=== PATIENT | female | born 1985 | race African-American/Black ===

== ENCOUNTER 2016-07-31 01:24 | Emergency (ER) | payer MEDICARE, MEDICAID ==
[~2016-07-31 01:24] MED LIST: ALBU17IN2 INH; BENA25CA2 PO; BENZ1TA PO; BENZ2TA PO; BUSP10TA PO; CELE20TA PO; DIPH50CA29 PO; FERR325T3 PO; IBUP60TA PO; INVE156I IM; INVE234I IM; LOVA20TA2 PO; PRED20TA PO; REME45TA PO; THIO10CA2 PO; TRAZ100T4 PO; TRAZ150T14 PO
[2016-07-31] MEDS ORDERED: ONDANSETRON 4MG/2ML VIAL (J2405) As Ordered ONE (02:45)
[2016-07-31 02:49] LABS: BASO % 0.4 % (0.0-1.0); EOS % 0.4 % (0.0-3.0); LARGE UNSTAINED CELL # 0.1 K/mm3 (0.0-0.4); LARGE UNSTAINED CELL % 1.9 % (0.0-4.0); LYMPH # 1.3 K/mm3 (1.5-6.5); LYMPH % 22.3 % (24.0-44.0); MEAN CORPUSCULAR HEMOGLOBIN 28.8 pg (27.0-33.0); MEAN CORPUSCULAR HGB CONC 33.6 g/dl (32.0-36.5); MEAN CORPUSCULAR VOLUME 85.8 fl (80.0-96.0); MONO # 0.2 K/mm3 (0.0-0.8); MONO % 3.8 % (0.0-5.0); NEUTROPHILS % 71.3 % (36.0-66.0); PLATELET COUNT, AUTOMATED 302 k/mm3 (150-450); WHITE BLOOD COUNT 5.7 K/mm3 (4.0-10.0)
[2016-07-31 03:08] LABS: ANION GAP 12 MEQ/L (8-16); BLOOD UREA NITROGEN 7 MG/DL (7-18); CALCIUM LEVEL 9.4 MG/DL (8.5-10.1); CARBON DIOXIDE LEVEL 25 MEQ/L (21-32); CHLORIDE LEVEL 102 MEQ/L (98-107); CREATININE FOR GFR 1.09 MG/DL (0.55-1.02); GLOMERULAR FILTRATION RATE > 60.0 (>60); GLUCOSE, FASTING 108 MG/DL (70-105); POTASSIUM SERUM 3.8 MEQ/L (3.5-5.1); SODIUM LEVEL 139 MEQ/L (136-145)
--- NOTE | 2016-07-31 03:30 | REPUSA ---
CLINICAL HISTORY: Seizure. TECHNIQUE: Multiple axial brain CT scan sections were obtained from base to vertex without contrast a dministration. COMMENTS: The study shows normal configuration of sella turcica. There are no intra or extra-axial collections. There is no mass effect or midline shift. There is no evidence of hematoma formation. No hydrocephal us is present. No abnormal calcifications are noted. No significant abnormalities are seen either in the posterior fossa or supratentorial compartment. The sinuses and mastoid air cells are patent. IMPRESSION: No evidence of acute intracranial pathology. Thank you for your kind referral of this patient.
[2016-07-31 03:54] LABS: AMPHETAMINES LEVEL URINE NEGATIVE (NEGATIVE); BENZODIAZEPINES URINE NEGATIVE (NEGATIVE); COCAINE METABOLITE URINE NEGATIVE (NEGATIVE); CONTROL LINE INT CTR LINE PRESENT; METHADONE URINE NEGATIVE (NEGATIVE); OPIATES URINE NEGATIVE (NEGATIVE); TRICYCLIC ANTIDEPRESS URINE NEGATIVE (NEGATIVE)
--- NOTE | 2016-07-31 04:37 | EDDOCDS ---
Physician Documentation [facility] Name: Zonia Tripathi Age: 31 yrs Sex: Female : 1985 Arrival Date: 07/31/2016 Time: 01:24 Bed 17 Private MD: No Pcp Disposition: 07/31 04:09 Critical Care: Critical care not applicable. pc Disposition: 07/31/16 04:12 Discharged to Home/Self Care. Impression: Epilepsy and recurrent seizures - reported, not witnessed. - Condition is Stable. - Discharge Instructions: Seizure, Adult. - Medication Reconciliation, Local Pharmacy Hours form. - Follow up: Ana Laura Duncan MD; When: Call to arrange an appointment; Reason: Further diagnostic work-up, To establish care. - Problem is new. - Symptoms are resolved. HPI: 02:24 This 31 yrs old Female presents to ER via Ambulance with complaints of pc Seizure. 02:24 The history is obtained from the patient, EMS providers. A reliable history and/or pc examination was not able to be obtained, due to patient does not remember events . TLS called EMS when a a TLS resident described the patient as having had seizure activity. The staff did not witness the event. When EMS arrived, she vomited. Staff report that she is known to abuse multiple drugs and "will take anything she can get her hands on", per EMS. She says she has felt nauseated today but denies any ingestions. There are no staff members or witnesses present. She denies any complaints other than mild nausea. The patient has been recently seen by a psychiatrist. Historical: - Allergies: no known allergies; - Home Meds: 1. Latuda 60 mg oral tab 1 tab once daily (Last dose: Unknown) 2. buspirone 10 mg Oral tab 2 tabs 3 times per day (Last dose: Unknown) 3. Vitamin D Oral 1,000 unit twice a day (Last dose: Unknown) 4. Cogentin 2 mg Oral tab 1 tab once daily (Last dose: Unknown) 5. Invega Sustenna 156 mg/mL intramuscular syrg once moly 6. olanzapine 10 mg oral tab 1 tab nightly (Last dose: Unknown) 7. Nicotine Unknown TD Unknown (Last dose: Unknown) 8. metformin 500 mg Oral tr24 1 tab once daily (Last dose: Unknown) 9. Ventolin HFA 90 mcg/actuation Nebulizer HFAA 2 puffs as needed (Last dose: Unknown) 10. acetaminophen 650 mg Oral tab 1 tab every 6 hours for headache (Last dose: Unknown) 11. nicotine gum one piece every 3-4 hours while awake (Last dose: Unknown) 12. immodium 2 mg 1 tab as needed (Last dose: Unknown) - PMHx: Asthma; Heart Murmur; Hypertension; Schizophrenia; Cocaine, Cannabis and Alcohol Abuse; - PSHx: Cholecystectomy; Cesearean Section; - The history from nurses notes was reviewed: and elements of the historical information I have obtained differs from that reported to nursing. - Social history: Smoking status: Patient uses tobacco products, light tobacco smoker. No barriers to communication noted, The patient speaks fluent Portuguese. - : The pt / caregiver states he / she is not on anticoagulants. Home medication list is obtained from the patient. - Hospitalizations: : No recent hospitalization is reported. - Exposure Risk Screening:: None identified. - Immunization history:: All immunizations up-to-date. - Family history: Not pertinent. - Social history:: the patient is a former smoker, the patient drinks alcohol, the patient uses illicit drugs, including marijuana, cocaine. 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 pc Exam: 02:27 General Appearance: no acute distress, alert, emesis on pants. pc 02:27 EENT: normal eye inspection, ears, nose and throat normal, pharynx normal, mucous membranes moist 02:27 Neck: The exam reveals no acute abnormalities. ROM is normal and painless. No nuchal rigidity is noted.. 02:27 Respiratory: no respiratory distress, normal breath sounds. 02:27 CVS: regular rhythm, normal S1 and S2, no murmurs, strong peripheral pulses, normal capillary refill, the patient is tachycardic, at 124 bpm. 02:27 Abdomen: soft, non-tender, no organomegaly, normal bowel sounds. 02:27 Back: normal inspection. 02:27 Skin: skin color is normal, warm, dry. 02:27 Extremities: The extremities have a grossly normal appearance, are non-tender, without acute ROM abnormalities. 02:27 Neuro: oriented x 3, cranial nerves normal as tested, no motor deficits, no sensory deficits. 02:27 Psych: normal mood. Vital Signs: 01:39 BP 149 / 87; Pulse 128; Resp 20; Temp 99.6(O); Pulse Ox 94% on R/A; Weight 81.65 kg / jmv 180.01 lbs (R); Height 5 ft. 1 in. (154.94 cm) (R); Pain 0/10; 01:48 BP 131 / 72 (auto/); mgs 01:48 Pulse Ox 94% ; mgs 02:03 BP 130 / 69 (auto/); mgs 02:03 Pulse 116 MON; Pulse Ox 94% ; mgs 02:18 BP 146 / 85 (auto/); mgs 02:18 Pulse 120 MON; mgs 02:49 BP 143 / 90 (auto/); mgs 02:49 Pulse 118 MON; Pulse Ox 97% ; mgs 03:03 BP 126 / 82 (auto/); mgs 03:03 Pulse 110 MON; Pulse Ox 95% ; mgs 03:18 BP 122 / 79 (auto/); mgs 03:18 Pulse 102 MON; Pulse Ox 94% ; mgs 04:26 BP 139 / 78; Pulse 91; Resp 18; Temp 98.1(TE); Pulse Ox 96% on R/A; Pain 0/10; naif 01:39 Body Mass Index 34.01 (81.65 kg, 154.94 cm) jmv MDM: 02:11 IV Saline Lock ordered. pc 02:11 Ondansetron 4 mg IVP once ordered. pc 02:13 ECG WITH READING ER PHYS+CARDIAG ordered. EDMS 02:13 CBC with Diff Ordered. EDMS 02:13 MED Profile Ordered. EDMS 02:13 Acetaminophen Level Ordered. EDMS 02:13 Salicylate Level Ordered. EDMS 02:13 Drug Eval Toxicology ED Only Ordered. EDMS 02:13 CT Head Without Contrast Ordered. EDMS 02:27 Differential Diagnosis: ?seizure; emesis; history of drug abuse. Plan: labs, EKG, meds, pc CT, observe. 02:40 Test interpretation: EKG. pc 03:09 CBC with Diff Reviewed. pc 03:21 MED Profile Reviewed. pc 03:21 Acetaminophen Level Reviewed. pc 03:21 Salicylate Level Reviewed. pc 03:41 Financial registration complete. hs2 03:51 [facility] Payment Agreement was scanned into [employer] and attached to record. hs2 04:09 Drug Eval Toxicology ED Only Reviewed. pc 04:09 CT Head Without Contrast Reviewed. 04:09 Data reviewed: old medical records, vital signs, nurses notes, lab test results, all radiology studies and available results. Data reviewed: EKG(s). Test interpretation: LAB - all labs as ordered have been reviewed, interpreted and considered in the overall management of the clinical presentation; interpreted by Radiologist and personally reviewed, Head CT; no acute disease. The patient has been re-examined and re-evaluated. The patient's symptoms have markedly improved after treatment. Disposition: The historical points, examination findings, and any diagnostic results supporting the provided diagnosis, were discussed with the patient or legal guardian. The need for outpatient follow up with the provider listed on their discharge instructions was discussed. They were encouraged to return to [facility], or the nearest ED, if symptoms worsen/persist, or for any other questions/concerns. EC:40 Rate is 120 beats/min. Rhythm is regular, Sinus tachycardia. QRS Wolbach is Normal. IA pc interval is normal. QRS interval is normal. QT interval is normal. No Q waves. T waves are Normal. No ST changes noted. Clinical impression: Sinus tachycardia. Administered Medications: 02:52 Drug: Ondansetron 4 mg [ondansetron HCl 2 mg/mL intravenous solution (2 mL)] Route: mgs IVP; Site: right antecubital; Signatures: Dispatcher [employer] - Payments Anytime | Anywhere EDMS Addison Goldman MD MD pc Sheldon, Matthew, RN RN mgs Rita Huffman, Reg Reg hs2 The chart was reviewed and I authenticate all verbal orders and agree with the evaluation and treatment provided.Corrections: (The following items were deleted from the chart) 01:52 01:35 Home Meds: BuSpar Oral 15 mg three times a day (Last Dose: Unknown); mgs mgs 03:10 01:47 Home Meds: prazosin 1 mg Oral cap 1 cap nightly (Last Dose: Unknown); mgs mgs Attachments: 03:51 [facility] Payment Agreement hs2 MTDD
--- NOTE | 2016-07-31 04:37 | EDDOCDS ---
Nurse's Notes [facility] Name: Zonia Tripathi Age: 31 yrs Sex: Female : 1985 Arrival Date: 07/31/2016 Time: 01:24 Bed 17 Private MD: No Pcp Diagnosis: Epilepsy and recurrent seizures-reported, not witnessed Presentation: 07/31 01:28 Presenting complaint: EMS states: lives at transitional living. According to staff she ko2 wasn't acting right. Another resident explained seizure like activity, but was not witnessed by staff. When EMS arrived pt was in a daze. Pt vomited in mouth and held it in her mouth. Staff then learned her over and she spit out the vomit. Pt is known to take whatever she can find per staff. Suicide/Homicide risk assessment- the patient denies having any suicidal and/or homicidal ideations and does not present with any other emotional, behavioral or mental health complaints. Status: Patient is not a member service specialist or dependent. Transition of care: patient was not received from another setting of care. Care prior to arrival: See EMS report. Glucose check. 117. 01:28 Acuity: [place] Level 3 ko2 01:28 Method Of Arrival: Ambulance ko2 01:45 Adult Sepsis Screening: The patient does not have new or worsening altered mentation. mgs Patient's respiratory rate is less than 22. Systolic blood pressure is greater than 100. Patient has a qSOFA score of 0- Negative Sepsis Screen. Triage Assessment: 01:35 General: Appears in no apparent distress, Behavior is quiet. Pain: Denies pain. Pt mgs Declines HIV testing. The patient is triaged at the bedside. See Assessment in Nurses Notes section of ED record. Neurological: Level of Consciousness is awake, Oriented to person, place, time, Estimation Manager are equal bilaterally Speech is normal, Facial symmetry appears normal, Facial symmetry: tongue is midline, Pupils are PERRLA. Cardiovascular: Capillary refill < 3 seconds Heart tones S1 S2 present. Cardiovascular: Pulses are 2+ in right radial artery and left radial artery. Respiratory: Airway is patent Respiratory effort is even, unlabored, Respiratory pattern is regular, symmetrical. Derm: Skin is normal. 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 Latuda 60 mg oral tab 1 tab once daily (Last dose: Unknown) 2. buspirone 10 mg Oral tab 2 tabs 3 times per day (Last dose: Unknown) 3. Vitamin D Oral 1,000 unit twice a day (Last dose: Unknown) 4. Cogentin 2 mg Oral tab 1 tab once daily (Last dose: Unknown) 5. Invega Sustenna 156 mg/mL intramuscular syrg once moly 6. olanzapine 10 mg oral tab 1 tab nightly (Last dose: Unknown) 7. Nicotine Unknown TD Unknown (Last dose: Unknown) 8. metformin 500 mg Oral tr24 1 tab once daily (Last dose: Unknown) 9. Ventolin HFA 90 mcg/actuation Nebulizer HFAA 2 puffs as needed (Last dose: Unknown) 10. acetaminophen 650 mg Oral tab 1 tab every 6 hours for headache (Last dose: Unknown) 11. nicotine gum one piece every 3-4 hours while awake (Last dose: Unknown) 12. immodium 2 mg 1 tab as needed (Last dose: Unknown) - PMHx: Asthma; Heart Murmur; Hypertension; Schizophrenia; Cocaine, Cannabis and Alcohol Abuse; - PSHx: Cholecystectomy; Cesearean Section; - The history from nurses notes was reviewed: and elements of the historical information I have obtained differs from that reported to nursing. - Social history: Smoking status: Patient uses tobacco products, light tobacco smoker. No barriers to communication noted, The patient speaks fluent Ethiopian. - : The pt / caregiver states he / she is not on anticoagulants. Home medication list is obtained from the patient. - Hospitalizations: : No recent hospitalization is reported. - Exposure Risk Screening:: None identified. - Immunization history:: All immunizations up-to-date. - Family history: Not pertinent. - Social history:: the patient is a former smoker, the patient drinks alcohol, the patient uses illicit drugs, including marijuana, cocaine. Screenin:38 Screening information is obtained from the patient. Fall risk: No risks identified. mgs Assistance ADL's: requires no assistance with activities of daily living. Abuse/DV Screen: The patient / caregiver reports he/she is: not in a situation that causes fear, pain or injury. Nutritional screening: No deficits noted. Advance Directives: Currently, there is no health care proxy. There is no active DNR order. home support is adequate. Assessment: 01:39 Adult Sepsis Screening: The patient does not have new or worsening altered mentation. mgs Patient's respiratory rate is less than 22. Systolic blood pressure is greater than 100. Patient has a qSOFA score of 0- Negative Sepsis Screen. 01:39 General: Please see triage assessment. mgs 02:42 General: Appears in no apparent distress, Behavior is cooperative. Pain: Denies pain. mgs Neurological: Level of Consciousness is awake, alert. Cardiovascular: Capillary refill < 3 seconds. Respiratory: Airway is patent Respiratory effort is even, unlabored, Respiratory pattern is regular, symmetrical. Derm: Skin is intact, is healthy with good turgor. 03:34 Adult Sepsis Screening: The patient does not have new or worsening altered mentation. mgs Patient's respiratory rate is less than 22. Systolic blood pressure is greater than 100. Patient has a qSOFA score of 0- Negative Sepsis Screen. General: Appears in no apparent distress, Behavior is cooperative. Pain: Denies pain. Neurological: Level of Consciousness is awake, alert. Cardiovascular: Capillary refill < 3 seconds. Respiratory: Airway is patent Respiratory effort is even, unlabored, Respiratory pattern is regular, symmetrical. Derm: Skin is intact, is healthy with good turgor. 04:33 Adult Sepsis Screening: The patient does not have new or worsening altered mentation. mgs Patient's respiratory rate is less than 22. Systolic blood pressure is greater than 100. Patient has a qSOFA score of 0- Negative Sepsis Screen. General: Appears in no apparent distress, Behavior is cooperative. Pain: Denies pain. Neurological: Level of Consciousness is awake, alert, Oriented to person, place, time. Cardiovascular: Capillary refill < 3 seconds. Respiratory: Airway is patent Respiratory effort is even, unlabored, Respiratory pattern is regular, symmetrical. Derm: Skin is intact, is healthy with good turgor. Vital Signs: 01:39 BP 149 / 87; Pulse 128; Resp 20; Temp 99.6(O); Pulse Ox 94% on R/A; Weight 81.65 kg jmv (R); Height 5 ft. 1 in. (154.94 cm) (R); Pain 0/10; 01:48 BP 131 / 72 (auto/); mgs 01:48 Pulse Ox 94% ; mgs 02:03 BP 130 / 69 (auto/); mgs 02:03 Pulse 116 MON; Pulse Ox 94% ; mgs 02:18 BP 146 / 85 (auto/); mgs 02:18 Pulse 120 MON; mgs 02:49 BP 143 / 90 (auto/); mgs 02:49 Pulse 118 MON; Pulse Ox 97% ; mgs 03:03 BP 126 / 82 (auto/); mgs 03:03 Pulse 110 MON; Pulse Ox 95% ; mgs 03:18 BP 122 / 79 (auto/); mgs 03:18 Pulse 102 MON; Pulse Ox 94% ; mgs 04:26 BP 139 / 78; Pulse 91; Resp 18; Temp 98.1(TE); Pulse Ox 96% on R/A; Pain 0/10; naif 01:39 Body Mass Index 34.01 (81.65 kg, 154.94 cm) [facility] Vitals: 01:39 Log In Time N/A - ambulance arrival. [facility] ED Course: 01:25 Patient visited by Ana Kumari. sew 01:25 Patient moved to 17 sew 01:25 Seizure precautions initiated. mgs 01:26 No Pcp is Private Physician. sew 01:31 Dileep Strauss,RN is Primary Nurse. mgs 01:31 Triage Initiated ko2 01:38 Pt greeted and oriented to ED. Patient advised of names of staff involved in care, [facility] location of call [place], wait times and NPO status. Patient has correct armband on for positive identification. Placed in gown. Bed in low position. Call light in reach. Side rails up X2. ekg monitor tech on. Pulse ox on. NIBP on. 01:41 Patient visited by Bruce Colon PCA. jmv 01:51 Addison Goldman MD is Attending Physician. pc 02:05 Patient visited by Addison Goldman MD. pc 02:36 EKG done. (by ED staff). Reviewed by Addison Goldman MD. naif 02:42 Salicylate Level Sent. mgs 02:42 Acetaminophen Level Sent. mgs 02:42 MED Profile Sent. mgs 02:42 CBC with Diff Sent. mgs 02:42 Inserted saline lock: 20 gauge in right antecubital area and blood collected. The mgs patient tolerated the procedure well. 02:43 Patient visited by Dileep Strauss,TRAVIS. mgs 03:33 Drug Eval Toxicology ED Only Sent. mgs 03:34 Patient visited by Dileep Strauss RN. mgs 03:38 CT Head Without Contrast Returned. EDMS 03:51 [facility] Payment Agreement was scanned into [employer] and attached to record. hs2 04:12 Ana Laura Duncan MD is Referral Physician. pc 04:27 Patient visited by Shyla Guevara PCA. naif 04:33 The patient / caregiver is instructed regarding the plan of care and ED course. mgs 04:35 Discontinued IV lock intact, bleeding controlled, pressure dressing applied. No mgs procedures done that require assistance. Administered Medications: 02:52 Drug: Ondansetron 4 mg [ondansetron HCl 2 mg/mL intravenous solution (2 mL)] Route: mgs IVP; Site: right antecubital; Order Results: Lab Order: CBC with Diff; SPEC'M 07/31/16 02:41 Test: WHITE BLOOD COUNT; Value: 5.7; Range: 4.0-10.0; Units: K/mm3; Status: F Test: RED BLOOD COUNT; Value: 4.17; Range: 4.00-5.40; Units: M/mm3; Status: F Test: HEMOGLOBIN; Value: 12.0; Range: 12.0-16.0; Units: g/dl; Status: F Test: HEMATOCRIT; Value: 35.8; Range: 36.0-47.0; Abnormal: Below low normal; Units: %; Status: F Test: MEAN CORPUSCULAR VOLUME; Value: 85.8; Range: 80.0-96.0; Units: fl; Status: F Test: MEAN CORPUSCULAR HEMOGLOBIN; Value: 28.8; Range: 27.0-33.0; Units: pg; Status: F Test: MEAN CORPUSCULAR HGB CONC; Value: 33.6; Range: 32.0-36.5; Units: g/dl; Status: F Test: RED CELL DISTRIBUTION WIDTH; Value: 13.0; Range: 11.5-14.5; Units: %; Status: F Test: PLATELET COUNT, AUTOMATED; Value: 302; Range: 150-450; Units: k/mm3; Status: F Test: NEUTROPHILS %; Value: 71.3; Range: 36.0-66.0; Abnormal: Above high normal; Units: %; Status: F Test: LYMPH %; Value: 22.3; Range: 24.0-44.0; Abnormal: Below low normal; Units: %; Status: F Test: MONO %; Value: 3.8; Range: 0.0-5.0; Units: %; Status: F Test: EOS %; Value: 0.4; Range: 0.0-3.0; Units: %; Status: F Test: BASO %; Value: 0.4; Range: 0.0-1.0; Units: %; Status: F Test: LARGE UNSTAINED CELL %; Value: 1.9; Range: 0.0-4.0; Units: %; Status: F Test: NEUTROPHILS #; Value: 4.0; Range: 1.8-7.7; Units: K/mm3; Status: F Test: LYMPH #; Value: 1.3; Range: 1.5-6.5; Abnormal: Below low normal; Units: K/mm3; Status: F Test: MONO #; Value: 0.2; Range: 0.0-0.8; Units: K/mm3; Status: F Test: EOS #; Value: 0.0; Range: 0.0-0.50; Units: K/mm3; Status: F Test: BASO #; Value: 0.0; Range: 0.0-0.2; Units: K/mm3; Status: F Test: LARGE UNSTAINED CELL #; Value: 0.1; Range: 0.0-0.4; Units: K/mm3; Status: F Lab Order: MED Profile; SPEC'M 07/31/16 02:41 Test: GLUCOSE, FASTING; Value: 108; Range: 70-105; Abnormal: Above high normal; Units: MG/DL; Status: F Test: BLOOD UREA NITROGEN; Value: 7; Range: 7-18; Units: MG/DL; Status: F Test: CREATININE FOR GFR; Value: 1.09; Range: 0.55-1.02; Abnormal: Above high normal; Units: MG/DL; Status: F Test: GLOMERULAR FILTRATION RATE; Value: > 60.0; Range: >60; Status: F Test: SODIUM LEVEL; Value: 139; Range: 136-145; Units: MEQ/L; Status: F Test: POTASSIUM SERUM; Value: 3.8; Range: 3.5-5.1; Units: MEQ/L; Status: F Test: CHLORIDE LEVEL; Value: 102; Range: 98-107; Units: MEQ/L; Status: F Test: CARBON DIOXIDE LEVEL; Value: 25; Range: 21-32; Units: MEQ/L; Status: F Test: ANION GAP; Value: 12; Range: 8-16; Units: MEQ/L; Status: F Test: CALCIUM LEVEL; Value: 9.4; Range: 8.5-10.1; Units: MG/DL; Status: F Test Note: ; Units are mL/min/1.73 m2 Chronic Kidney Disease Staging per NKF: Stage I & II GFR >=60 Normal to Mildly Decreased Stage III GFR 30-59 Moderately Decreased Stage IV GFR 15-29 Severely Decreased Stage V GFR <15 Very Little GFR Left ESRD GFR <15 on SCREEN PRINTING EQUIPMENT SETTER Lab Order: Acetaminophen Level; SPEC'M 07/31/16 02:41 Test: ACETAMINOPHEN LEVEL; Value: < 2.0; Range: 10.0-30.0; Abnormal: Below low normal; Units: UG/ML; Status: F Lab Order: Salicylate Level; SPEC'M 07/31/16 02:41 Test: SALICYLATE LEVEL; Value: < 1.7; Range: 5.0-30.0; Abnormal: Below low normal; Units: MG/DL; Status: F Lab Order: Drug Eval Toxicology ED Only; SPEC'M 07/31/16 03:31 Test: AMPHETAMINES LEVEL URINE; Value: NEGATIVE; Range: NEGATIVE; Status: F Test: BARBITURATES URINE; Value: NEGATIVE; Range: NEGATIVE; Status: F Test: BENZODIAZEPINES URINE; Value: NEGATIVE; Range: NEGATIVE; Status: F Test: CANNABINOIDS URINE; Value: NEGATIVE; Range: NEGATIVE; Status: F Test: COCAINE METABOLITE URINE; Value: NEGATIVE; Range: NEGATIVE; Status: F Test: METHADONE URINE; Value: NEGATIVE; Range: NEGATIVE; Status: F Test: OPIATES URINE; Value: NEGATIVE; Range: NEGATIVE; Status: F Test: TRICYCLIC ANTIDEPRESS URINE; Value: NEGATIVE; Range: NEGATIVE; Status: F Test Note: ; ALL PRESUMPTIVE POSITIVE FINDINGS ARE UNCONFIRMED NORMAL VALUES THRESHOLD IN NG/ML AMPHETAMINES 1000 METHAMPHETAMINES 1000 BARBITURATES 300 BENZODIAZEPINES 300 CANNABINOIDS (THC) 50 COCAINE METABOLITE 300 METHADONE 300 OPIATES 300 PHENCYCLIDINE 25 TRICYCLIC ANTIDEPRESSANTS 1000 RESULTS ARE FOR MEDICAL PURPOSES ONLY. ALL URINE SPECIMENS WILL BE SAVED FOR 3 DAYS. IF CONFIRMATION OF A PRESUMPTIVE POSTIVE SCREEN RESULT IS DESIRED, CALL CHEMISTRY ([phone]) AND REQUEST URINE TO BE SENT TO REFERENCE LAB. FOR A LIST OF CLOSELY RELATED COMPOUNDS PLEASE CALL THE LAB. Radiology Order: CT Head Without Contrast Test: CT Head Without Contrast REASON FOR EXAMINATION: seizure; ; CLINICAL HISTORY: Seizure.; TECHNIQUE: Multiple axial brain CT scan sections were obtained from base to vertex without contrast a; dministration.; COMMENTS:; The study shows normal configuration of sella turcica. There are no intra or extra-axial collections.; There is no mass effect or midline shift. There is no evidence of hematoma formation. No hydrocephal; us is present. No abnormal calcifications are noted.; No significant abnormalities are seen either in the posterior fossa or supratentorial compartment.; The sinuses and mastoid air cells are patent.; IMPRESSION:; No evidence of acute intracranial pathology.; Thank you for your kind referral of this patient.; ; Outcome: 04:12 Discharge ordered by Provider. pc 04:35 Discharge Assessment: Patient awake, alert and oriented x 3. No cognitive and/or mgs functional deficits noted. Patient verbalized understanding of disposition instructions. patient administered narcotics - no. The following High Risk Discharge criteria are identified:. Condition: stable. Discharge instructions given to patient, Instructed on discharge instructions, follow up and referral plans. Demonstrated understanding of instructions, Pt was receptive of discharge instructions/ teaching. CT Study completed. Property sent home with patient. 04:36 Patient left the ED. mgs Signatures: Dispatcher [employer] EDMS Addison Goldman MD MD pc Ewald, Destiny, JAVA SOLUTIONS ARCHITECT JAVA SOLUTIONS ARCHITECT Ana Chao Kari,RN RN ko2 Dileep Strauss RN RN mgs Rita Huffman, Reg Reg hs2 Bruce Colon, JAVA SOLUTIONS ARCHITECT JAVA SOLUTIONS ARCHITECT svetlana Corrections: (The following items were deleted from the chart) 01:52 01:35 Home Meds: BuSpar Oral 15 mg three times a day (Last Dose: Unknown); mgs mgs 03:10 01:47 Home Meds: prazosin 1 mg Oral cap 1 cap nightly (Last Dose: Unknown); mgs mgs MTDD
--- NOTE | 2016-07-31 08:15 | ECGEPIP ---
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
--- NOTE | 2016-08-02 05:37 | EDDOCDS ---
Physician Documentation [facility] Name: Zonia Tripathi Age: 31 yrs Sex: Female : 1985 Arrival Date: 07/31/2016 Time: 01:24 Bed 17 Private MD: No Pcp Disposition: 07/31 04:09 Critical Care: Critical care not applicable. pc Disposition: 07/31/16 04:12 Discharged to Home/Self Care. Impression: Epilepsy and recurrent seizures - reported, not witnessed. - Condition is Stable. - Discharge Instructions: Seizure, Adult. - Medication Reconciliation, Local Pharmacy Hours form. - Follow up: Ana Laura Duncan MD; When: Call to arrange an appointment; Reason: Further diagnostic work-up, To establish care. - Problem is new. - Symptoms are resolved. HPI: 02:24 This 31 yrs old Female presents to ER via Ambulance with complaints of pc Seizure. 02:24 The history is obtained from the patient, EMS providers. A reliable history and/or pc examination was not able to be obtained, due to patient does not remember events . TLS called EMS when a a TLS resident described the patient as having had seizure activity. The staff did not witness the event. When EMS arrived, she vomited. Staff report that she is known to abuse multiple drugs and "will take anything she can get her hands on", per EMS. She says she has felt nauseated today but denies any ingestions. There are no staff members or witnesses present. She denies any complaints other than mild nausea. The patient has been recently seen by a psychiatrist. Historical: - Allergies: no known allergies; - Home Meds: 1. Latuda 60 mg oral tab 1 tab once daily (Last dose: Unknown) 2. buspirone 10 mg Oral tab 2 tabs 3 times per day (Last dose: Unknown) 3. Vitamin D Oral 1,000 unit twice a day (Last dose: Unknown) 4. Cogentin 2 mg Oral tab 1 tab once daily (Last dose: Unknown) 5. Invega Sustenna 156 mg/mL intramuscular syrg once moly 6. olanzapine 10 mg oral tab 1 tab nightly (Last dose: Unknown) 7. Nicotine Unknown TD Unknown (Last dose: Unknown) 8. metformin 500 mg Oral tr24 1 tab once daily (Last dose: Unknown) 9. Ventolin HFA 90 mcg/actuation Nebulizer HFAA 2 puffs as needed (Last dose: Unknown) 10. acetaminophen 650 mg Oral tab 1 tab every 6 hours for headache (Last dose: Unknown) 11. nicotine gum one piece every 3-4 hours while awake (Last dose: Unknown) 12. immodium 2 mg 1 tab as needed (Last dose: Unknown) - PMHx: Asthma; Heart Murmur; Hypertension; Schizophrenia; Cocaine, Cannabis and Alcohol Abuse; - PSHx: Cholecystectomy; Cesearean Section; - The history from nurses notes was reviewed: and elements of the historical information I have obtained differs from that reported to nursing. - Social history: Smoking status: Patient uses tobacco products, light tobacco smoker. No barriers to communication noted, The patient speaks fluent Danish. - : The pt / caregiver states he / she is not on anticoagulants. Home medication list is obtained from the patient. - Hospitalizations: : No recent hospitalization is reported. - Exposure Risk Screening:: None identified. - Immunization history:: All immunizations up-to-date. - Family history: Not pertinent. - Social history:: the patient is a former smoker, the patient drinks alcohol, the patient uses illicit drugs, including marijuana, cocaine. 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 pc Exam: 02:27 General Appearance: no acute distress, alert, emesis on pants. pc 02:27 EENT: normal eye inspection, ears, nose and throat normal, pharynx normal, mucous membranes moist 02:27 Neck: The exam reveals no acute abnormalities. ROM is normal and painless. No nuchal rigidity is noted.. 02:27 Respiratory: no respiratory distress, normal breath sounds. 02:27 CVS: regular rhythm, normal S1 and S2, no murmurs, strong peripheral pulses, normal capillary refill, the patient is tachycardic, at 124 bpm. 02:27 Abdomen: soft, non-tender, no organomegaly, normal bowel sounds. 02:27 Back: normal inspection. 02:27 Skin: skin color is normal, warm, dry. 02:27 Extremities: The extremities have a grossly normal appearance, are non-tender, without acute ROM abnormalities. 02:27 Neuro: oriented x 3, cranial nerves normal as tested, no motor deficits, no sensory deficits. 02:27 Psych: normal mood. Vital Signs: 01:39 BP 149 / 87; Pulse 128; Resp 20; Temp 99.6(O); Pulse Ox 94% on R/A; Weight 81.65 kg / jmv 180.01 lbs (R); Height 5 ft. 1 in. (154.94 cm) (R); Pain 0/10; 01:48 BP 131 / 72 (auto/); mgs 01:48 Pulse Ox 94% ; mgs 02:03 BP 130 / 69 (auto/); mgs 02:03 Pulse 116 MON; Pulse Ox 94% ; mgs 02:18 BP 146 / 85 (auto/); mgs 02:18 Pulse 120 MON; mgs 02:49 BP 143 / 90 (auto/); mgs 02:49 Pulse 118 MON; Pulse Ox 97% ; mgs 03:03 BP 126 / 82 (auto/); mgs 03:03 Pulse 110 MON; Pulse Ox 95% ; mgs 03:18 BP 122 / 79 (auto/); mgs 03:18 Pulse 102 MON; Pulse Ox 94% ; mgs 04:26 BP 139 / 78; Pulse 91; Resp 18; Temp 98.1(TE); Pulse Ox 96% on R/A; Pain 0/10; naif 01:39 Body Mass Index 34.01 (81.65 kg, 154.94 cm) jmv MDM: 02:11 IV Saline Lock ordered. pc 02:11 Ondansetron 4 mg IVP once ordered. pc 02:13 ECG WITH READING ER PHYS+CARDIAG ordered. EDMS 02:13 CBC with Diff Ordered. EDMS 02:13 MED Profile Ordered. EDMS 02:13 Acetaminophen Level Ordered. EDMS 02:13 Salicylate Level Ordered. EDMS 02:13 Drug Eval Toxicology ED Only Ordered. EDMS 02:13 CT Head Without Contrast Ordered. EDMS 02:27 Differential Diagnosis: ?seizure; emesis; history of drug abuse. Plan: labs, EKG, meds, pc CT, observe. 02:40 Test interpretation: EKG. pc 03:09 CBC with Diff Reviewed. pc 03:21 MED Profile Reviewed. pc 03:21 Acetaminophen Level Reviewed. pc 03:21 Salicylate Level Reviewed. pc 03:41 Financial registration complete. hs2 03:51 [facility] Payment Agreement was scanned into [employer] and attached to record. hs2 04:09 Drug Eval Toxicology ED Only Reviewed. pc 04:09 CT Head Without Contrast Reviewed. 04:09 Data reviewed: old medical records, vital signs, nurses notes, lab test results, all radiology studies and available results. Data reviewed: EKG(s). Test interpretation: LAB - all labs as ordered have been reviewed, interpreted and considered in the overall management of the clinical presentation; interpreted by Radiologist and personally reviewed, Head CT; no acute disease. The patient has been re-examined and re-evaluated. The patient's symptoms have markedly improved after treatment. Disposition: The historical points, examination findings, and any diagnostic results supporting the provided diagnosis, were discussed with the patient or legal guardian. The need for outpatient follow up with the provider listed on their discharge instructions was discussed. They were encouraged to return to [facility], or the nearest ED, if symptoms worsen/persist, or for any other questions/concerns. 12:29 ECG/EKG was scanned into [employer] and attached to record. EC:40 Rate is 120 beats/min. Rhythm is regular, Sinus tachycardia. QRS [place] is Normal. [place] pc interval is normal. QRS interval is normal. QT interval is normal. No Q waves. T waves are Normal. No ST changes noted. Clinical impression: Sinus tachycardia. Administered Medications: 02:52 Drug: Ondansetron 4 mg [ondansetron HCl 2 mg/mL intravenous solution (2 mL)] Route: mgs IVP; Site: right antecubital; Signatures: Dispatcher MedHo EDMS Addison Goldman MD MD Dorinda Magana, Reg Reg Dileep Strauss RN RN mgs Rita Huffman, Reg Reg hs2 The chart was reviewed and I authenticate all verbal orders and agree with the evaluation and treatment provided.Corrections: (The following items were deleted from the chart) 01:52 01:35 Home Meds: BuSpar Oral 15 mg three times a day (Last Dose: Unknown); mgs mgs 03:10 01:47 Home Meds: prazosin 1 mg Oral cap 1 cap nightly (Last Dose: Unknown); mgs mgs Attachments: 03:51 [facility] Payment Agreement hs2 12:29 ECG/EKG Chart Complete MTDD
--- NOTE | 2016-08-02 05:37 | EDDOCDS ---
Physician Documentation [facility] Name: Zonia Tripathi Age: 31 yrs Sex: Female : 1985 Arrival Date: 07/31/2016 Time: 01:24 Bed 17 Private MD: No Pcp Disposition: 07/31 04:09 Critical Care: Critical care not applicable. pc Disposition: 07/31/16 04:12 Discharged to Home/Self Care. Impression: Epilepsy and recurrent seizures - reported, not witnessed. - Condition is Stable. - Discharge Instructions: Seizure, Adult. - Medication Reconciliation, Local Pharmacy Hours form. - Follow up: Ana Laura Duncan MD; When: Call to arrange an appointment; Reason: Further diagnostic work-up, To establish care. - Problem is new. - Symptoms are resolved. HPI: 02:24 This 31 yrs old Female presents to ER via Ambulance with complaints of pc Seizure. 02:24 The history is obtained from the patient, EMS providers. A reliable history and/or pc examination was not able to be obtained, due to patient does not remember events . TLS called EMS when a a TLS resident described the patient as having had seizure activity. The staff did not witness the event. When EMS arrived, she vomited. Staff report that she is known to abuse multiple drugs and "will take anything she can get her hands on", per EMS. She says she has felt nauseated today but denies any ingestions. There are no staff members or witnesses present. She denies any complaints other than mild nausea. The patient has been recently seen by a psychiatrist. Historical: - Allergies: no known allergies; - Home Meds: 1. Latuda 60 mg oral tab 1 tab once daily (Last dose: Unknown) 2. buspirone 10 mg Oral tab 2 tabs 3 times per day (Last dose: Unknown) 3. Vitamin D Oral 1,000 unit twice a day (Last dose: Unknown) 4. Cogentin 2 mg Oral tab 1 tab once daily (Last dose: Unknown) 5. Invega Sustenna 156 mg/mL intramuscular syrg once moly 6. olanzapine 10 mg oral tab 1 tab nightly (Last dose: Unknown) 7. Nicotine Unknown TD Unknown (Last dose: Unknown) 8. metformin 500 mg Oral tr24 1 tab once daily (Last dose: Unknown) 9. Ventolin HFA 90 mcg/actuation Nebulizer HFAA 2 puffs as needed (Last dose: Unknown) 10. acetaminophen 650 mg Oral tab 1 tab every 6 hours for headache (Last dose: Unknown) 11. nicotine gum one piece every 3-4 hours while awake (Last dose: Unknown) 12. immodium 2 mg 1 tab as needed (Last dose: Unknown) - PMHx: Asthma; Heart Murmur; Hypertension; Schizophrenia; Cocaine, Cannabis and Alcohol Abuse; - PSHx: Cholecystectomy; Cesearean Section; - The history from nurses notes was reviewed: and elements of the historical information I have obtained differs from that reported to nursing. - Social history: Smoking status: Patient uses tobacco products, light tobacco smoker. No barriers to communication noted, The patient speaks fluent Latvian. - : The pt / caregiver states he / she is not on anticoagulants. Home medication list is obtained from the patient. - Hospitalizations: : No recent hospitalization is reported. - Exposure Risk Screening:: None identified. - Immunization history:: All immunizations up-to-date. - Family history: Not pertinent. - Social history:: the patient is a former smoker, the patient drinks alcohol, the patient uses illicit drugs, including marijuana, cocaine. 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 pc Exam: 02:27 General Appearance: no acute distress, alert, emesis on pants. pc 02:27 EENT: normal eye inspection, ears, nose and throat normal, pharynx normal, mucous membranes moist 02:27 Neck: The exam reveals no acute abnormalities. ROM is normal and painless. No nuchal rigidity is noted.. 02:27 Respiratory: no respiratory distress, normal breath sounds. 02:27 CVS: regular rhythm, normal S1 and S2, no murmurs, strong peripheral pulses, normal capillary refill, the patient is tachycardic, at 124 bpm. 02:27 Abdomen: soft, non-tender, no organomegaly, normal bowel sounds. 02:27 Back: normal inspection. 02:27 Skin: skin color is normal, warm, dry. 02:27 Extremities: The extremities have a grossly normal appearance, are non-tender, without acute ROM abnormalities. 02:27 Neuro: oriented x 3, cranial nerves normal as tested, no motor deficits, no sensory deficits. 02:27 Psych: normal mood. Vital Signs: 01:39 BP 149 / 87; Pulse 128; Resp 20; Temp 99.6(O); Pulse Ox 94% on R/A; Weight 81.65 kg / jmv 180.01 lbs (R); Height 5 ft. 1 in. (154.94 cm) (R); Pain 0/10; 01:48 BP 131 / 72 (auto/); mgs 01:48 Pulse Ox 94% ; mgs 02:03 BP 130 / 69 (auto/); mgs 02:03 Pulse 116 MON; Pulse Ox 94% ; mgs 02:18 BP 146 / 85 (auto/); mgs 02:18 Pulse 120 MON; mgs 02:49 BP 143 / 90 (auto/); mgs 02:49 Pulse 118 MON; Pulse Ox 97% ; mgs 03:03 BP 126 / 82 (auto/); mgs 03:03 Pulse 110 MON; Pulse Ox 95% ; mgs 03:18 BP 122 / 79 (auto/); mgs 03:18 Pulse 102 MON; Pulse Ox 94% ; mgs 04:26 BP 139 / 78; Pulse 91; Resp 18; Temp 98.1(TE); Pulse Ox 96% on R/A; Pain 0/10; naif 01:39 Body Mass Index 34.01 (81.65 kg, 154.94 cm) jmv MDM: 02:11 IV Saline Lock ordered. pc 02:11 Ondansetron 4 mg IVP once ordered. pc 02:13 ECG WITH READING ER PHYS+CARDIAG ordered. EDMS 02:13 CBC with Diff Ordered. EDMS 02:13 MED Profile Ordered. EDMS 02:13 Acetaminophen Level Ordered. EDMS 02:13 Salicylate Level Ordered. EDMS 02:13 Drug Eval Toxicology ED Only Ordered. EDMS 02:13 CT Head Without Contrast Ordered. EDMS 02:27 Differential Diagnosis: ?seizure; emesis; history of drug abuse. Plan: labs, EKG, meds, pc CT, observe. 02:40 Test interpretation: EKG. pc 03:09 CBC with Diff Reviewed. pc 03:21 MED Profile Reviewed. pc 03:21 Acetaminophen Level Reviewed. pc 03:21 Salicylate Level Reviewed. pc 03:41 Financial registration complete. hs2 03:51 [facility] Payment Agreement was scanned into [employer] and attached to record. hs2 04:09 Drug Eval Toxicology ED Only Reviewed. pc 04:09 CT Head Without Contrast Reviewed. 04:09 Data reviewed: old medical records, vital signs, nurses notes, lab test results, all radiology studies and available results. Data reviewed: EKG(s). Test interpretation: LAB - all labs as ordered have been reviewed, interpreted and considered in the overall management of the clinical presentation; interpreted by Radiologist and personally reviewed, Head CT; no acute disease. The patient has been re-examined and re-evaluated. The patient's symptoms have markedly improved after treatment. Disposition: The historical points, examination findings, and any diagnostic results supporting the provided diagnosis, were discussed with the patient or legal guardian. The need for outpatient follow up with the provider listed on their discharge instructions was discussed. They were encouraged to return to [facility], or the nearest ED, if symptoms worsen/persist, or for any other questions/concerns. 12:29 ECG/EKG was scanned into [employer] and attached to record. EC:40 Rate is 120 beats/min. Rhythm is regular, Sinus tachycardia. QRS [place] is Normal. [place] pc interval is normal. QRS interval is normal. QT interval is normal. No Q waves. T waves are Normal. No ST changes noted. Clinical impression: Sinus tachycardia. Administered Medications: 02:52 Drug: Ondansetron 4 mg [ondansetron HCl 2 mg/mL intravenous solution (2 mL)] Route: mgs IVP; Site: right antecubital; Signatures: Dispatcher MedHo EDMS Addison Goldman MD MD Dorinda Magana, Reg Reg Dileep Strauss RN RN mgs Rita Huffman, Reg Reg hs2 The chart was reviewed and I authenticate all verbal orders and agree with the evaluation and treatment provided.Corrections: (The following items were deleted from the chart) 01:52 01:35 Home Meds: BuSpar Oral 15 mg three times a day (Last Dose: Unknown); mgs mgs 03:10 01:47 Home Meds: prazosin 1 mg Oral cap 1 cap nightly (Last Dose: Unknown); mgs mgs Attachments: 03:51 [facility] Payment Agreement hs2 12:29 ECG/EKG Chart Complete MTDD
--- NOTE | 2016-08-02 05:37 | EDDOCDS ---
Nurse's Notes [facility] Name: Karen Tripathi Age: 31 yrs Sex: Female : 1985 Arrival Date: 07/31/2016 Time: 01:24 Bed 17 Private MD: No Pcp Diagnosis: Epilepsy and recurrent seizures-reported, not witnessed Presentation: 07/31 01:28 Presenting complaint: EMS states: lives at transitional living. According to staff she ko2 wasn't acting right. Another resident explained seizure like activity, but was not witnessed by staff. When EMS arrived pt was in a daze. Pt vomited in mouth and held it in her mouth. Staff then learned her over and she spit out the vomit. Pt is known to take whatever she can find per staff. Suicide/Homicide risk assessment- the patient denies having any suicidal and/or homicidal ideations and does not present with any other emotional, behavioral or mental health complaints. Status: Patient is not a public health service officer or dependent. Transition of care: patient was not received from another setting of care. Care prior to arrival: See EMS report. Glucose check. 117. 01:28 Acuity: [place] Level 3 ko2 01:28 Method Of Arrival: Ambulance ko2 01:45 Adult Sepsis Screening: The patient does not have new or worsening altered mentation. mgs Patient's respiratory rate is less than 22. Systolic blood pressure is greater than 100. Patient has a qSOFA score of 0- Negative Sepsis Screen. Triage Assessment: 01:35 General: Appears in no apparent distress, Behavior is quiet. Pain: Denies pain. Pt mgs Declines HIV testing. The patient is triaged at the bedside. See Assessment in Nurses Notes section of ED record. Neurological: Level of Consciousness is awake, Oriented to person, place, time, Flask Pusher are equal bilaterally Speech is normal, Facial symmetry appears normal, Facial symmetry: tongue is midline, Pupils are PERRLA. Cardiovascular: Capillary refill < 3 seconds Heart tones S1 S2 present. Cardiovascular: Pulses are 2+ in right radial artery and left radial artery. Respiratory: Airway is patent Respiratory effort is even, unlabored, Respiratory pattern is regular, symmetrical. Derm: Skin is normal. LABORER TANBARK: 01:39 2, Full Term 2 mgs Historical: - Allergies: no known allergies; - Home Meds: 1. Latuda 60 mg oral tab 1 tab once daily (Last dose: Unknown) 2. buspirone 10 mg Oral tab 2 tabs 3 times per day (Last dose: Unknown) 3. Vitamin D Oral 1,000 unit twice a day (Last dose: Unknown) 4. Cogentin 2 mg Oral tab 1 tab once daily (Last dose: Unknown) 5. Invega Sustenna 156 mg/mL intramuscular syrg once moly 6. olanzapine 10 mg oral tab 1 tab nightly (Last dose: Unknown) 7. Nicotine Unknown TD Unknown (Last dose: Unknown) 8. metformin 500 mg Oral tr24 1 tab once daily (Last dose: Unknown) 9. Ventolin HFA 90 mcg/actuation Nebulizer HFAA 2 puffs as needed (Last dose: Unknown) 10. acetaminophen 650 mg Oral tab 1 tab every 6 hours for headache (Last dose: Unknown) 11. nicotine gum one piece every 3-4 hours while awake (Last dose: Unknown) 12. immodium 2 mg 1 tab as needed (Last dose: Unknown) - PMHx: Asthma; Heart Murmur; Hypertension; Schizophrenia; Cocaine, Cannabis and Alcohol Abuse; - PSHx: Cholecystectomy; Cesearean Section; - The history from nurses notes was reviewed: and elements of the historical information I have obtained differs from that reported to nursing. - Social history: Smoking status: Patient uses tobacco products, light tobacco smoker. No barriers to communication noted, The patient speaks fluent Canadian. - : The pt / caregiver states he / she is not on anticoagulants. Home medication list is obtained from the patient. - Hospitalizations: : No recent hospitalization is reported. - Exposure Risk Screening:: None identified. - Immunization history:: All immunizations up-to-date. - Family history: Not pertinent. - Social history:: the patient is a former smoker, the patient drinks alcohol, the patient uses illicit drugs, including marijuana, cocaine. Screenin:38 Screening information is obtained from the patient. Fall risk: No risks identified. mgs Assistance ADL's: requires no assistance with activities of daily living. Abuse/DV Screen: The patient / caregiver reports he/she is: not in a situation that causes fear, pain or injury. Nutritional screening: No deficits noted. Advance Directives: Currently, there is no health care proxy. There is no active DNR order. home support is adequate. Assessment: 01:39 Adult Sepsis Screening: The patient does not have new or worsening altered mentation. mgs Patient's respiratory rate is less than 22. Systolic blood pressure is greater than 100. Patient has a qSOFA score of 0- Negative Sepsis Screen. 01:39 General: Please see triage assessment. mgs 02:42 General: Appears in no apparent distress, Behavior is cooperative. Pain: Denies pain. mgs Neurological: Level of Consciousness is awake, alert. Cardiovascular: Capillary refill < 3 seconds. Respiratory: Airway is patent Respiratory effort is even, unlabored, Respiratory pattern is regular, symmetrical. Derm: Skin is intact, is healthy with good turgor. 03:34 Adult Sepsis Screening: The patient does not have new or worsening altered mentation. mgs Patient's respiratory rate is less than 22. Systolic blood pressure is greater than 100. Patient has a qSOFA score of 0- Negative Sepsis Screen. General: Appears in no apparent distress, Behavior is cooperative. Pain: Denies pain. Neurological: Level of Consciousness is awake, alert. Cardiovascular: Capillary refill < 3 seconds. Respiratory: Airway is patent Respiratory effort is even, unlabored, Respiratory pattern is regular, symmetrical. Derm: Skin is intact, is healthy with good turgor. 04:33 Adult Sepsis Screening: The patient does not have new or worsening altered mentation. mgs Patient's respiratory rate is less than 22. Systolic blood pressure is greater than 100. Patient has a qSOFA score of 0- Negative Sepsis Screen. General: Appears in no apparent distress, Behavior is cooperative. Pain: Denies pain. Neurological: Level of Consciousness is awake, alert, Oriented to person, place, time. Cardiovascular: Capillary refill < 3 seconds. Respiratory: Airway is patent Respiratory effort is even, unlabored, Respiratory pattern is regular, symmetrical. Derm: Skin is intact, is healthy with good turgor. Vital Signs: 01:39 BP 149 / 87; Pulse 128; Resp 20; Temp 99.6(O); Pulse Ox 94% on R/A; Weight 81.65 kg jmv (R); Height 5 ft. 1 in. (154.94 cm) (R); Pain 0/10; 01:48 BP 131 / 72 (auto/); mgs 01:48 Pulse Ox 94% ; mgs 02:03 BP 130 / 69 (auto/); mgs 02:03 Pulse 116 MON; Pulse Ox 94% ; mgs 02:18 BP 146 / 85 (auto/); mgs 02:18 Pulse 120 MON; mgs 02:49 BP 143 / 90 (auto/); mgs 02:49 Pulse 118 MON; Pulse Ox 97% ; mgs 03:03 BP 126 / 82 (auto/); mgs 03:03 Pulse 110 MON; Pulse Ox 95% ; mgs 03:18 BP 122 / 79 (auto/); mgs 03:18 Pulse 102 MON; Pulse Ox 94% ; mgs 04:26 BP 139 / 78; Pulse 91; Resp 18; Temp 98.1(TE); Pulse Ox 96% on R/A; Pain 0/10; naif 01:39 Body Mass Index 34.01 (81.65 kg, 154.94 cm) [facility] Vitals: 01:39 Log In Time N/A - ambulance [place] [facility] [place]: 01:25 Patient visited by Ana Kumari. sew 01:25 Patient moved to 17 sew 01:25 Seizure precautions initiated. mgs 01:26 No Pcp is Private Physician. sew 01:31 Dileep Strauss,RN is Primary Nurse. mgs 01:31 Triage Initiated ko2 01:38 Pt greeted and oriented to ED. Patient advised of names of staff involved in care, [facility] location of call [place], wait times and NPO status. Patient has correct armband on for positive identification. Placed in gown. Bed in low position. Call light in reach. Side rails up X2. party bus driver on. Pulse ox on. NIBP on. 01:41 Patient visited by Bruce Colon PCA. jmv 01:51 Addison Goldman MD is Attending Physician. pc 02:05 Patient visited by Addison Goldman MD. pc 02:36 EKG done. (by ED staff). Reviewed by Addison Goldman MD. naif 02:42 Salicylate Level Sent. mgs 02:42 Acetaminophen Level Sent. mgs 02:42 MED Profile Sent. mgs 02:42 CBC with Diff Sent. mgs 02:42 Inserted saline lock: 20 gauge in right antecubital area and blood collected. The mgs patient tolerated the procedure well. 02:43 Patient visited by Dileep Strauss,TRAVIS. mgs 03:33 Drug Eval Toxicology ED Only Sent. mgs 03:34 Patient visited by Dileep Strauss RN. mgs 03:38 CT Head Without Contrast Returned. EDMS 03:51 [facility] was scanned into ChannelM[employer] and attached to record. hs2 04:12 Ana Laura Duncan MD is Referral Physician. pc 04:27 Patient visited by Shyla Guevara PCA. naif 04:33 The patient / caregiver is instructed regarding the plan of care and ED course. mgs 04:35 Discontinued IV lock intact, bleeding controlled, pressure dressing applied. No mgs procedures done that require assistance. 08:36 EKG-ADULT Returned. EDMS 12:29 ECG/EKG was scanned into [employer] and attached to record. gb Administered Medications: 02:52 Drug: Ondansetron 4 mg [ondansetron HCl 2 mg/mL intravenous solution (2 mL)] Route: mgs IVP; Site: right antecubital; Order Results: Lab Order: CBC with Diff; SPEC'M 07/31/16 02:41 Test: WHITE BLOOD COUNT; Value: 5.7; Range: 4.0-10.0; Units: K/mm3; Status: F Test: RED BLOOD COUNT; Value: 4.17; Range: 4.00-5.40; Units: M/mm3; Status: F Test: HEMOGLOBIN; Value: 12.0; Range: 12.0-16.0; Units: g/dl; Status: F Test: HEMATOCRIT; Value: 35.8; Range: 36.0-47.0; Abnormal: Below low normal; Units: %; Status: F Test: MEAN CORPUSCULAR VOLUME; Value: 85.8; Range: 80.0-96.0; Units: fl; Status: F Test: MEAN CORPUSCULAR HEMOGLOBIN; Value: 28.8; Range: 27.0-33.0; Units: pg; Status: F Test: MEAN CORPUSCULAR HGB CONC; Value: 33.6; Range: 32.0-36.5; Units: g/dl; Status: F Test: RED CELL DISTRIBUTION WIDTH; Value: 13.0; Range: 11.5-14.5; Units: %; Status: F Test: PLATELET COUNT, AUTOMATED; Value: 302; Range: 150-450; Units: k/mm3; Status: F Test: NEUTROPHILS %; Value: 71.3; Range: 36.0-66.0; Abnormal: Above high normal; Units: %; Status: F Test: LYMPH %; Value: 22.3; Range: 24.0-44.0; Abnormal: Below low normal; Units: %; Status: F Test: MONO %; Value: 3.8; Range: 0.0-5.0; Units: %; Status: F Test: EOS %; Value: 0.4; Range: 0.0-3.0; Units: %; Status: F Test: BASO %; Value: 0.4; Range: 0.0-1.0; Units: %; Status: F Test: LARGE UNSTAINED CELL %; Value: 1.9; Range: 0.0-4.0; Units: %; Status: F Test: NEUTROPHILS #; Value: 4.0; Range: 1.8-7.7; Units: K/mm3; Status: F Test: LYMPH #; Value: 1.3; Range: 1.5-6.5; Abnormal: Below low normal; Units: K/mm3; Status: F Test: MONO #; Value: 0.2; Range: 0.0-0.8; Units: K/mm3; Status: F Test: EOS #; Value: 0.0; Range: 0.0-0.50; Units: K/mm3; Status: F Test: BASO #; Value: 0.0; Range: 0.0-0.2; Units: K/mm3; Status: F Test: LARGE UNSTAINED CELL #; Value: 0.1; Range: 0.0-0.4; Units: K/mm3; Status: F Lab Order: MED Profile; SPEC'M 07/31/16 02:41 Test: GLUCOSE, FASTING; Value: 108; Range: 70-105; Abnormal: Above high normal; Units: MG/DL; Status: F Test: BLOOD UREA NITROGEN; Value: 7; Range: 7-18; Units: MG/DL; Status: F Test: CREATININE FOR GFR; Value: 1.09; Range: 0.55-1.02; Abnormal: Above high normal; Units: MG/DL; Status: F Test: GLOMERULAR FILTRATION RATE; Value: > 60.0; Range: >60; Status: F Test: SODIUM LEVEL; Value: 139; Range: 136-145; Units: MEQ/L; Status: F Test: POTASSIUM SERUM; Value: 3.8; Range: 3.5-5.1; Units: MEQ/L; Status: F Test: CHLORIDE LEVEL; Value: 102; Range: 98-107; Units: MEQ/L; Status: F Test: CARBON DIOXIDE LEVEL; Value: 25; Range: 21-32; Units: MEQ/L; Status: F Test: ANION GAP; Value: 12; Range: 8-16; Units: MEQ/L; Status: F Test: CALCIUM LEVEL; Value: 9.4; Range: 8.5-10.1; Units: MG/DL; Status: F Test Note: ; Units are mL/min/1.73 m2 Chronic Kidney Disease Staging per NKF: Stage I & II GFR >=60 Normal to Mildly Decreased Stage III GFR 30-59 Moderately Decreased Stage IV GFR 15-29 Severely Decreased Stage V GFR <15 Very Little GFR Left ESRD GFR <15 on METAL SPRAYER Lab Order: Acetaminophen Level; SPEC'M 07/31/16 02:41 Test: ACETAMINOPHEN LEVEL; Value: < 2.0; Range: 10.0-30.0; Abnormal: Below low normal; Units: UG/ML; Status: F Lab Order: Salicylate Level; SPEC'M 07/31/16 02:41 Test: SALICYLATE LEVEL; Value: < 1.7; Range: 5.0-30.0; Abnormal: Below low normal; Units: MG/DL; Status: F Lab Order: Drug Eval Toxicology ED Only; SPEC'M 07/31/16 03:31 Test: AMPHETAMINES LEVEL URINE; Value: NEGATIVE; Range: NEGATIVE; Status: F Test: BARBITURATES URINE; Value: NEGATIVE; Range: NEGATIVE; Status: F Test: BENZODIAZEPINES URINE; Value: NEGATIVE; Range: NEGATIVE; Status: F Test: CANNABINOIDS URINE; Value: NEGATIVE; Range: NEGATIVE; Status: F Test: COCAINE METABOLITE URINE; Value: NEGATIVE; Range: NEGATIVE; Status: F Test: METHADONE URINE; Value: NEGATIVE; Range: NEGATIVE; Status: F Test: OPIATES URINE; Value: NEGATIVE; Range: NEGATIVE; Status: F Test: TRICYCLIC ANTIDEPRESS URINE; Value: NEGATIVE; Range: NEGATIVE; Status: F Test Note: ; ALL PRESUMPTIVE POSITIVE FINDINGS ARE UNCONFIRMED NORMAL VALUES THRESHOLD IN NG/ML AMPHETAMINES 1000 METHAMPHETAMINES 1000 BARBITURATES 300 BENZODIAZEPINES 300 CANNABINOIDS (THC) 50 COCAINE METABOLITE 300 METHADONE 300 OPIATES 300 PHENCYCLIDINE 25 TRICYCLIC ANTIDEPRESSANTS 1000 RESULTS ARE FOR MEDICAL PURPOSES ONLY. ALL URINE SPECIMENS WILL BE SAVED FOR 3 DAYS. IF CONFIRMATION OF A PRESUMPTIVE POSTIVE SCREEN RESULT IS DESIRED, CALL CHEMISTRY ([phone]) AND REQUEST URINE TO BE SENT TO REFERENCE LAB. FOR A LIST OF CLOSELY RELATED COMPOUNDS PLEASE CALL THE LAB. Radiology Order: EKG-ADULT Test: EKG-ADULT REASON FOR EXAMINATION: tachycardia; Stationary ECG Study; [facility] - ED; ; Test Date: 2016-07-31; Pat Name: KAREN TRIPATHI Department:; Room: -; Gender: F Head Soft Sugar Operator: clarice; : 1985 Requested By: Addison Em; Order Number: [id number] Reading MD: Ana Gonzalez; Measurements; Intervals [place]; Rate: 120 P: 21; AK: 143 QRS: 4; QRSD: 86 T: 16; QT: 423; QTc: 599; Interpretive Statements; SINUS TACHYCARDIA; MODERATE VOLTAGE CRITERIA FOR LVH, CONSIDER NORMAL VARIANT; NONSPECIFIC T-WAVE ABNORMALITY; ABNORMAL RHYTHM ECG; INCREASED RATE 09/03/15; Electronically Signed On 07-31-2016 8:14:48 EST by Ana Gonzalez; Radiology Order: CT Head Without Contrast Test: CT Head Without Contrast REASON FOR EXAMINATION: seizure; ; CLINICAL HISTORY: Seizure.; TECHNIQUE: Multiple axial brain CT scan sections were obtained from base to vertex without contrast a; dministration.; COMMENTS:; The study shows normal configuration of sella turcica. There are no intra or extra-axial collections.; There is no mass effect or midline shift. There is no evidence of hematoma formation. No hydrocephal; us is present. No abnormal calcifications are noted.; No significant abnormalities are seen either in the posterior fossa or supratentorial compartment.; The sinuses and mastoid air cells are patent.; IMPRESSION:; No evidence of acute intracranial pathology.; Thank you for your kind referral of this patient.; ; Outcome: 04:12 Discharge ordered by Provider. pc 04:35 Discharge Assessment: Patient awake, alert and oriented x 3. No cognitive and/or mgs functional deficits noted. Patient verbalized understanding of disposition instructions. patient administered narcotics - no. The following High Risk Discharge criteria are identified:. Condition: stable. Discharge instructions given to patient, Instructed on discharge instructions, follow up and referral plans. Demonstrated understanding of instructions, Pt was receptive of discharge instructions/ teaching. CT Study completed. Property sent home with patient. 04:36 Patient left the ED. mgs Signatures: Dispatcher MedHost EDMS Addison Goldman MD MD pc Dorinda Magana, Reg Reg gb Shyla Guevara, OTR [employer] TRUCK DRIVER OTR [employer] TRUCK DRIVER Ana Chao Kari, RN RN ko2 Dileep Strauss RN RN mgs Rita Huffman, Reg Reg hs2 Bruce Colon, OTR [employer] TRUCK DRIVER OTR [employer] TRUCK DRIVER jmv Corrections: (The following items were deleted from the chart) 01:52 01:35 Home Meds: BuSpar Oral 15 mg three times a day (Last Dose: Unknown); mgs mgs 03:10 01:47 Home Meds: prazosin 1 mg Oral cap 1 cap nightly (Last Dose: Unknown); mgs mgs Chart Complete MTDD
== END 2016-07-31 04:36 | disposition home or self-care (01) ==
LOC: M ED 01:24
DX: G40.909 Epilepsy, unspecified, not intractable, without status epilepticus (principal); J45.909 Unspecified asthma, uncomplicated; R01.1 Cardiac murmur, unspecified; I10 Essential (primary) hypertension; F20.9 Schizophrenia, unspecified; F14.10 Cocaine abuse, uncomplicated; F12.10 Cannabis abuse, uncomplicated; F10.10 Alcohol abuse, uncomplicated; F17.210 Nicotine dependence, cigarettes, uncomplicated; Z79.51 Long term (current) use of inhaled steroids; Z79.84 Long term (current) use of oral hypoglycemic drugs; Z79.899 Other long term (current) drug therapy
CPT/HCPCS: 36415; 70450; 80048; 80306; 85025; 93005; 96374; 99285; G0480; J2405

== ENCOUNTER → 2016-08-06 | Outpatient (CLI) | payer MEDICARE, MEDICAID ==
[2016-08-06 11:13] LABS: BASO % 0.8 % (0.0-1.0); EOS # 0.1 K/mm3 (0.0-0.50); EOS % 1.8 % (0.0-3.0); LARGE UNSTAINED CELL # 0.1 K/mm3 (0.0-0.4); LARGE UNSTAINED CELL % 2.4 % (0.0-4.0); LYMPH # 1.8 K/mm3 (1.5-6.5); LYMPH % 44.4 % (24.0-44.0); MEAN CORPUSCULAR HEMOGLOBIN 28.7 pg (27.0-33.0); MEAN CORPUSCULAR HGB CONC 32.4 g/dl (32.0-36.5); MEAN CORPUSCULAR VOLUME 88.7 fl (80.0-96.0); MONO # 0.2 K/mm3 (0.0-0.8); MONO % 3.7 % (0.0-5.0); NEUTROPHILS % 46.9 % (36.0-66.0); PLATELET COUNT, AUTOMATED 294 k/mm3 (150-450); RED CELL DISTRIBUTION WIDTH 13.2 % (11.5-14.5); WHITE BLOOD COUNT 4.2 K/mm3 (4.0-10.0)
== END ==
LOC: M LAB 10:50
PROVIDERS: ATTEND Psychiatry & Neurology Psychiatry
DX: Z79.899 Other long term (current) drug therapy (principal)

== ENCOUNTER 2016-08-15 23:12 | Emergency (ER) | payer MEDICARE, MEDICAID ==
[2016-08-15 23:47] LABS: MEAN CORPUSCULAR HEMOGLOBIN 30.2 pg (27.0-33.0); MEAN CORPUSCULAR HGB CONC 34.8 g/dl (32.0-36.5); MEAN CORPUSCULAR VOLUME 86.6 fl (80.0-96.0); RED CELL DISTRIBUTION WIDTH 12.9 % (11.5-14.5); WHITE BLOOD COUNT 6.3 K/mm3 (4.0-10.0)
[2016-08-16 00:08] LABS: CONTROL LINE HCG INT CTR LINE PRESENT
[2016-08-16 00:17] LABS: ALBUMIN 4.4 GM/DL (3.2-5.2); ALBUMIN/GLOBULIN RATIO 1.29 (1.00-1.93); ALKALINE PHOSPHATASE 91 U/L (45-117); ALT/SGPT 18 U/L (12-78); ANION GAP 10 MEQ/L (8-16); AST/SGOT 10 U/L (15-37); BILIRUBIN,DIRECT < 0.1 MG/DL (0.0-0.2); BILIRUBIN,TOTAL 0.2 MG/DL (0.2-1.0); BLOOD UREA NITROGEN 10 MG/DL (7-18); CALCIUM LEVEL 9.1 MG/DL (8.5-10.1); CARBON DIOXIDE LEVEL 26 MEQ/L (21-32); CHLORIDE LEVEL 103 MEQ/L (98-107); CREATININE FOR GFR 1.14 MG/DL (0.55-1.02); GLOMERULAR FILTRATION RATE > 60.0 (>60); GLUCOSE, FASTING 114 MG/DL (70-105); POTASSIUM SERUM 3.2 MEQ/L (3.5-5.1); SODIUM LEVEL 139 MEQ/L (136-145); TOTAL PROTEIN 7.8 GM/DL (6.4-8.2)
[2016-08-16] MEDS ORDERED: hydrOXYzine 25 MG TAB As Ordered ONE (00:18)
[2016-08-16 00:22] LABS: AMPHETAMINES LEVEL URINE NEGATIVE (NEGATIVE); BENZODIAZEPINES URINE NEGATIVE (NEGATIVE); COCAINE METABOLITE URINE NEGATIVE (NEGATIVE); CONTROL LINE INT CTR LINE PRESENT; METHADONE URINE NEGATIVE (NEGATIVE); OPIATES URINE NEGATIVE (NEGATIVE); TRICYCLIC ANTIDEPRESS URINE NEGATIVE (NEGATIVE)
--- NOTE | 2016-08-16 02:56 | EDDOCDS ---
Physician Documentation [facility] Name: Zonia Tripathi Age: 31 yrs Sex: Female : 1985 Arrival Date: 08/15/2016 Time: 23:12 Bed 9 Private MD: Disposition: 08/16/16 02:44 Discharged to Home/Self Care. Impression: Dizziness and giddiness. - Condition is Stable. - Discharge Instructions: Dizziness, Dizziness, [id number]. - Medication Reconciliation, Local Pharmacy Hours form. - Follow up: Private Physician; When: 1 week; Reason: Continuance of care. - Problem is an acute exacerbation. - Symptoms have improved. Historical: - Allergies: No known drug Allergies; - Home Meds: 1. olanzapine 10 mg oral tab 1 tab nightly 2. nicotine gum one piece every 3-4 hours while awake 3. Nicotine TD Unknown 4. Vitamin D Oral 1000 unit twice a day 5. metformin 500 mg Oral tr24 1 tab once daily 6. prazosin 1 mg Oral cap 2 caps 2 times per day 7. buspirone 10 mg Oral tab 2 tabs 3 times per day 8. Cogentin 2 mg Oral tab 1 tab once daily 9. Invega Sustenna 117 mg/0.75 mL intramuscular syrg once moly - PMHx: Asthma; Cocaine, Cannabis and Alcohol Abuse; Heart Murmur; Hypertension; Schizophrenia; - PSHx: Cholecystectomy; - Social history: Smoking status: Patient uses tobacco products, heavy tobacco smoker. No barriers to communication noted, The patient speaks fluent Vietnamese, Speaks appropriately for age. - Family history: Not pertinent. - : The pt / caregiver states he / she is not on anticoagulants. Home medication list is obtained from the patient. - Exposure Risk Screening:: None identified. Vital Signs: 08/15 23:19 BP 141 / 82; Pulse 138; Resp 18; Temp 99.6(O); Pulse Ox 93% on R/A; Weight 93.44 kg / mdr 206 lbs (R); Height 5 ft. 1 in. (154.94 cm) (R); Pain 0/10; 08/16 01:34 BP 142 / 83; Pulse 113; Resp 18; Pulse Ox 96% on R/A; nn1 02:45 BP 141 / 90; Pulse 111; Resp 18; Temp 99.8(TE); Pulse Ox 96% on R/A; Pain 0/10; mdr 08/15 23:19 Body Mass Index 38.92 (93.44 kg, 154.94 cm) mdr MDM: 08/15 23:24 Consult PFS/PSA/Polymer Engineer ordered. ke 23:24 Consult PFS/PSA/Polymer Engineer: Patient's case requires discussion with on-call ke Psychiatrist ordered. 23:24 PSA/PFS to call Nursing Internal Affairs Investigator, to enter patient data on [place] Safe Act if patient ke involuntarily admitted or transferred for SI or HI ordered. 23:24 Confirm accurate psychiatric medication list and times of last dosage ordered. ke 23:24 Detain Pt Until Medically/PFS Cleared ordered. ke 23:24 IV Saline Lock ordered. ke 23:24 NS 0.9% 1000 ml IV at 250 mL/hr continuous ordered. ke 23:24 Acetaminophen Level Ordered. EDMS 23:24 BATH SALTS URINE Ordered. EDMS 23:24 Basic Metabolic Profile Ordered. EDMS 23:24 Complete Blood Count Ordered. EDMS 23:24 Drug Eval Toxicology ED Only Ordered. EDMS 23:24 Ethyl Alcohol (ethanol) Ordered. EDMS 23:24 HCG,Serum Qualitative Ordered. EDMS 23:25 Liver Profile Ordered. EDMS 23:25 Salicylate Level Ordered. EDMS 23:25 Thyroid Stimulating Hormone Ordered. EDMS 23:25 CIP Ordered. EDMS 23:25 Troponin Ordered. EDMS 23:25 ECG WITH READING ER PHYS+CARDIAG ordered. EDMS 23:55 Complete Blood Count Reviewed. mm11 08/16 00:09 [facility] [place] ordered. mm11 00:09 hydrOXYzine 50 mg IM once ordered. mm11 00:10 UA Ordered. EDMS 00:18 hydrOXYzine 50 mg PO once ordered. mm11 00:50 Financial registration complete. pm4 01:01 [facility] Payment Agreement was scanned into Source4Style and attached to record. pm4 01:24 Acetaminophen Level Reviewed. mm11 01:24 Basic Metabolic Profile Reviewed. mm11 01:24 Liver Profile Reviewed. mm11 01:24 Salicylate Level Reviewed. mm11 01:24 UA Reviewed. mm11 01:24 Drug Eval Toxicology ED Only Reviewed. mm11 01:24 Ethyl Alcohol (ethanol) Reviewed. mm11 01:24 HCG,Serum Qualitative Reviewed. mm11 01:24 Thyroid Stimulating Hormone Reviewed. mm11 01:24 CIP Reviewed. mm11 01:24 Troponin Reviewed. mm11 01:27 Luncheonette Manager/Pulse Ox/q 30 min VS ordered. mm11 02:46 Consult PFS/PSA/Polymer Engineer: Patient's case requires discussion with on-call cl Psychiatrist complete. 02:46 PSA/PFS to call Nursing Internal Affairs Investigator, to enter patient data [place] Safe [place] if patient cl involuntarily admitted or transferred for SI or HI complete. 02:46 Consult PFS/PSA/Polymer Engineer complete. cl Administered Medications: 00:03 Drug: NS 0.9% 1000 ml [sodium chloride 0.9 % intravenous solution] Route: IV; Rate: 250 nn1 mL/hr; Site: right antecubital; 01:34 Follow up: IV Status: Completed infusion; IV Intake: 1000ml nn1 00:18 Not Given (Other Intervention Used): hydrOXYzine 50 mg IM once mm11 00:22 Drug: hydrOXYzine 50 mg [hydroxyzine HCl 25 mg tablet (2 tabs)] Route: PO; nn1 02:55 Follow up: Response: No Adverse Reaction 4 Signatures: Dispatcher MedHost EDMS Ted Roe, PSA PSA cl Tristen Munguia, SERVICE ENGINEER SERVICE ENGINEER Dileep Saleh, DO MOORE mm11 Emily Alexander,ELECTRICAL ELECTRONICS ENGINEERS ELECTRICAL ELECTRONICS ENGINEERS ka4 Betsy Dumont,TRAVIS RN nn1 Eric Hester, Reg Reg pm4 The chart was reviewed and I authenticate all verbal orders and agree with the evaluation and treatment provided.Corrections: (The following items were deleted from the chart) 02:56 08/15 23:27 Home Meds: buspirone 10 mg Oral tab 2 tabs 3 times per day; nn1 ka4 08/16 02:56 08/15 23:27 Home Meds: Cogentin 2 mg Oral tab 1 tab once daily; 1 ka4 08/16 02:56 08/15 23:27 Home Meds: Invega Sustenna 117 mg/0.75 mL intramuscular syrg once moly; 1 ka4 Attachments: 08/16 01:01 [facility] Payment Agreement pm4 MTDD
--- NOTE | 2016-08-16 02:56 | EDDOCDS ---
Nurse's Notes [facility] Name: Zonia Tripathi Age: 31 yrs Sex: Female : 1985 Arrival Date: 08/15/2016 Time: 23:12 Bed 9 Private MD: Diagnosis: Dizziness and giddiness Presentation: 08/15 23:15 Presenting complaint: EMS states: patient reports dizzy spells. Reports she became nn1 shaky and fell into the wall and passed out. Patient coming from [facility]. Patient denies drugs or alcohol. Patient reports having had a seizure, not witnessed. Presenting complaint: EMS states: patient is chewing nicotine gum, has a nicotine patch on, and was smoking a cigarette upon arrival. Adult Sepsis Screening: The patient does not have new or worsening altered mentation. Patient's respiratory rate is less than 22. Systolic blood pressure is greater than 100. Patient has a qSOFA score of 0- Negative Sepsis Screen. Suicide/Homicide risk assessment- the patient denies having any suicidal and/or homicidal ideations and does not present with any other emotional, behavioral or mental health complaints. Status: Patient is not a family services worker or dependent. Transition of care: patient was received from [facility]. 23:15 Acuity: [place] Level 3 nn1 23:15 Method Of Arrival: Ambulance nn1 Triage Assessment: 23:22 General: Appears in no apparent distress, comfortable, Behavior is appropriate for age, nn1 cooperative. Pain: Denies pain. HIV screening NA for this visit Offered previously. The patient is triaged at the bedside. See Assessment in Nurses Notes section of ED record. Neurological: Level of Consciousness is awake, alert, obeys commands, Oriented to person, place, time, Reports a syncopal episode dizziness and "passing out" began about an hour ago. States she was trying to walk and couldn't keep her balance. . Cardiovascular: Capillary refill < 3 seconds Rhythm is sinus tachycardia Chest pain is denied. Respiratory: Airway is patent Respiratory effort is even, unlabored, Respiratory pattern is regular, symmetrical, GI: Abdomen is flat, non- distended Derm: Skin is normal. Historical: - Allergies: No known drug Allergies; - Home Meds: 1. olanzapine 10 mg oral tab 1 tab nightly 2. nicotine gum one piece every 3-4 hours while awake 3. Nicotine TD Unknown 4. Vitamin D Oral 1000 unit twice a day 5. metformin 500 mg Oral tr24 1 tab once daily 6. prazosin 1 mg Oral cap 2 caps 2 times per day 7. buspirone 10 mg Oral tab 2 tabs 3 times per day 8. Cogentin 2 mg Oral tab 1 tab once daily 9. Invega Sustenna 117 mg/0.75 mL intramuscular syrg once moly - PMHx: Asthma; Cocaine, Cannabis and Alcohol Abuse; Heart Murmur; Hypertension; Schizophrenia; - PSHx: Cholecystectomy; - Social history: Smoking status: Patient uses tobacco products, heavy tobacco smoker. No barriers to communication noted, The patient speaks fluent Mongolian, Speaks appropriately for age. - Family history: Not pertinent. - : The pt / caregiver states he / she is not on anticoagulants. Home medication list is obtained from the patient. - Exposure Risk Screening:: None identified. Screenin/19 02:52 Screening information is obtained from the patient. Fall risk: No risks identified. ka4 Assistance ADL's: requires no assistance with activities of daily living. Abuse/DV Screen: The patient / caregiver reports he/she is: not in a situation that causes fear, pain or injury. Nutritional screening: No deficits noted. Advance Directives: There is no active DNR order. home support is adequate. Assessment: 08/15 23:27 General: See triage assessment . nn1 08/16 00:22 General: Patient unable to follow simple commands at this time. Patient unable to nn1 concentrate. Patient ambulated to restroom for urine sample, gait was steady. . Pain: Denies pain. Respiratory: Airway is patent Respiratory effort is even, unlabored, Respiratory pattern is regular, symmetrical. Derm: Skin is normal. 00:57 Reassessment: Patient appears in no apparent distress at this time. Pt oob ambulated to [facility] the bathroom, steady gait, back in bed IV fluids infusing without difficulty. General: Appears in no apparent distress. Neurological: Level of Consciousness is awake, alert. 01:35 General: Appears in no apparent distress, Behavior is appropriate for age, cooperative, nn1 Patient denies pain,reports she continues to feel a bit shaky and dizzy, . Respiratory: Airway is patent Respiratory effort is even, unlabored, Respiratory pattern is regular, symmetrical. 02:52 General: Appears in no apparent distress, comfortable, Behavior is appropriate for age, ka4 cooperative, pleasant. Respiratory: Airway is patent Respiratory effort is even, unlabored, Respiratory pattern is regular, symmetrical. Derm: Skin is pink, warm & dry. Vital Signs: 08/15 23:19 BP 141 / 82; Pulse 138; Resp 18; Temp 99.6(O); Pulse Ox 93% on R/A; Weight 93.44 kg mdr (R); Height 5 ft. 1 in. (154.94 cm) (R); Pain 0/10; 08/16 01:34 BP 142 / 83; Pulse 113; Resp 18; Pulse Ox 96% on R/A; nn1 02:45 BP 141 / 90; Pulse 111; Resp 18; Temp 99.8(TE); Pulse Ox 96% on R/A; Pain 0/10; mdr 08/15 23:19 Body Mass Index 38.92 (93.44 kg, 154.94 cm) mdr ED Course: 08/15 23:13 Patient visited by Savage Terrazas PCA. kb5 23:13 Patient moved to Waiting kb5 23:13 Patient moved to 9 kb5 23:20 Patient visited by Miguel A Ornelas PCA. mdr 23:20 Triage Initiated nn1 23:42 Inserted saline lock: 18 gauge in right antecubital area and blood collected. The nn1 patient tolerated the procedure well. 23:50 Dileep Espinoza DO is Attending Physician. mm11 23:50 Patient visited by Dileep Espinoza DO. mm11 23:55 EKG done. (by ED staff). Reviewed by Dileep Espinoza DO. mdr 23:56 Patient visited by Miguel A Ornelas PCA. mdr 08/16 00:03 BATH SALTS URINE Sent. nn1 00:03 Drug Eval Toxicology ED Only Sent. nn1 00:08 Patient visited by Dileep Espinoza DO. mm11 00:57 Patient visited by Lori Browne RN. sls1 01:01 [facility] Payment Agreement was scanned into [employer] and attached to record. pm4 01:34 Patient visited by Betsy Dumont RN. nn1 02:08 Patient visited by Betsy Dumont RN. nn1 02:50 Patient visited by Johnson, Miguel A, [place]AN[place] MACHINE OPERATOR. mdr 02:52 The patient / caregiver is instructed regarding the plan of care and ED course. ka4 02:52 Discontinued IV lock intact, bleeding controlled, pressure dressing applied, No ka4 redness/swelling at site. No procedures done that require assistance. Administered Medications: 00:03 Drug: NS 0.9% 1000 ml [sodium chloride 0.9 % intravenous solution] Route: IV; Rate: 250 nn1 mL/hr; Site: right antecubital; 01:34 Follow up: IV Status: Completed infusion; IV Intake: 1000ml nn1 00:18 Not Given (Other Intervention Used): hydrOXYzine 50 mg IM once mm11 00:22 Drug: hydrOXYzine 50 mg [hydroxyzine HCl 25 mg tablet (2 tabs)] Route: PO; nn1 02:55 Follow up: Response: No Adverse Reaction ka4 Intake: 01:34 IV: 1000.00ml; Total: 1000.00ml. nn1 Order Results: Lab Order: Acetaminophen Level; SPEC'M 08/15/16 23:38 Test: ACETAMINOPHEN LEVEL; Value: < 2.0; Range: 10.0-30.0; Abnormal: Below low normal; Units: UG/ML; Status: F Lab Order: Basic Metabolic Profile; SPEC'M 08/15/16 23:38 Test: GLUCOSE, FASTING; Value: 114; Range: 70-105; Abnormal: Above high normal; Units: MG/DL; Status: F Test: BLOOD UREA NITROGEN; Value: 10; Range: 7-18; Units: MG/DL; Status: F Test: CREATININE FOR GFR; Value: 1.14; Range: 0.55-1.02; Abnormal: Above high normal; Units: MG/DL; Status: F Test: SODIUM LEVEL; Range: 136-145; Units: MEQ/L; Status: I Test: POTASSIUM SERUM; Range: 3.5-5.1; Units: MEQ/L; Status: I Test: CHLORIDE LEVEL; Range: 98-107; Units: MEQ/L; Status: I Test: CARBON DIOXIDE LEVEL; Range: 21-32; Units: MEQ/L; Status: I Test: ANION GAP; Range: 8-16; Units: MEQ/L; Status: I Test: CALCIUM LEVEL; Range: 8.5-10.1; Units: MG/DL; Status: I Test: GLOMERULAR FILTRATION RATE; Value: > 60.0; Range: >60; Status: F Test: SODIUM LEVEL; Value: 139; Range: 136-145; Units: MEQ/L; Status: F Test: POTASSIUM SERUM; Value: 3.2; Range: 3.5-5.1; Abnormal: Below low normal; Units: MEQ/L; Status: F Test: CHLORIDE LEVEL; Value: 103; Range: 98-107; Units: MEQ/L; Status: F Test: CARBON DIOXIDE LEVEL; Value: 26; Range: 21-32; Units: MEQ/L; Status: F Test: ANION GAP; Value: 10; Range: 8-16; Units: MEQ/L; Status: F Test: CALCIUM LEVEL; Value: 9.1; Range: 8.5-10.1; Units: MG/DL; Status: F Test Note: ; Units are mL/min/1.73 m2 Chronic Kidney Disease Staging per NKF: Stage I & II GFR >=60 Normal to Mildly Decreased Stage III GFR 30-59 Moderately Decreased Stage IV GFR 15-29 Severely Decreased Stage V GFR <15 Very Little GFR Left ESRD GFR <15 on CLASSROOM TECHNOLOGY COACH Lab Order: Complete Blood Count; SPEC'M 08/15/16 23:38 Test: WHITE BLOOD COUNT; Value: 6.3; Range: 4.0-10.0; Units: K/mm3; Status: F Test: RED BLOOD COUNT; Value: 3.86; Range: 4.00-5.40; Abnormal: Below low normal; Units: M/mm3; Status: F Test: HEMOGLOBIN; Value: 11.7; Range: 12.0-16.0; Abnormal: Below low normal; Units: g/dl; Status: F Test: HEMATOCRIT; Value: 33.5; Range: 36.0-47.0; Abnormal: Below low normal; Units: %; Status: F Test: MEAN CORPUSCULAR VOLUME; Value: 86.6; Range: 80.0-96.0; Units: fl; Status: F Test: MEAN CORPUSCULAR HEMOGLOBIN; Value: 30.2; Range: 27.0-33.0; Units: pg; Status: F Test: MEAN CORPUSCULAR HGB CONC; Value: 34.8; Range: 32.0-36.5; Units: g/dl; Status: F Test: RED CELL DISTRIBUTION WIDTH; Value: 12.9; Range: 11.5-14.5; Units: %; Status: F Test: PLATELET COUNT, AUTOMATED; Value: 285; Range: 150-450; Units: k/mm3; Status: F Lab Order: Drug Eval Toxicology ED Only; SPEC'M 08/15/16 23:38 Test: AMPHETAMINES LEVEL URINE; Value: NEGATIVE; Range: NEGATIVE; Status: F Test: BARBITURATES URINE; Value: NEGATIVE; Range: NEGATIVE; Status: F Test: BENZODIAZEPINES URINE; Value: NEGATIVE; Range: NEGATIVE; Status: F Test: CANNABINOIDS URINE; Value: NEGATIVE; Range: NEGATIVE; Status: F Test: COCAINE METABOLITE URINE; Value: NEGATIVE; Range: NEGATIVE; Status: F Test: METHADONE URINE; Value: NEGATIVE; Range: NEGATIVE; Status: F Test: OPIATES URINE; Value: NEGATIVE; Range: NEGATIVE; Status: F Test: TRICYCLIC ANTIDEPRESS URINE; Value: NEGATIVE; Range: NEGATIVE; Status: F Test Note: ; ALL PRESUMPTIVE POSITIVE FINDINGS ARE UNCONFIRMED NORMAL VALUES THRESHOLD IN NG/ML AMPHETAMINES 1000 METHAMPHETAMINES 1000 BARBITURATES 300 BENZODIAZEPINES 300 CANNABINOIDS (THC) 50 COCAINE METABOLITE 300 METHADONE 300 OPIATES 300 PHENCYCLIDINE 25 TRICYCLIC ANTIDEPRESSANTS 1000 RESULTS ARE FOR MEDICAL PURPOSES ONLY. ALL URINE SPECIMENS WILL BE SAVED FOR 3 DAYS. IF CONFIRMATION OF A PRESUMPTIVE POSTIVE SCREEN RESULT IS DESIRED, CALL CHEMISTRY ([phone]) AND REQUEST URINE TO BE SENT TO REFERENCE LAB. FOR A LIST OF CLOSELY RELATED COMPOUNDS PLEASE CALL THE LAB. Lab Order: Ethyl Alcohol (ethanol); SPEC'M 08/15/16 23:38 Test: ETHYL ALCOHOL (ETHANOL); Value: 0.003; Range: 0.000-0.010; Units: %; Status: F Lab Order: HCG,Serum Qualitative; SPEC'M 08/15/16 23:38 Test: HCG, SERUM QUALITATIVE; Value: NEGATIVE; Range: NEGATIVE; Status: F Lab Order: Liver Profile; SPEC'M 08/15/16 23:38 Test: AST/SGOT; Value: 10; Range: 15-37; Abnormal: Below low normal; Units: U/L; Status: F Test: ALT/SGPT; Value: 18; Range: 12-78; Units: U/L; Status: F Test: ALKALINE PHOSPHATASE; Value: 91; Range: 45-117; Units: U/L; Status: F Test: BILIRUBIN,TOTAL; Value: 0.2; Range: 0.2-1.0; Units: MG/DL; Status: F Test: BILIRUBIN,DIRECT; Value: < 0.1; Range: 0.0-0.2; Units: MG/DL; Status: F Test: TOTAL PROTEIN; Value: 7.8; Range: 6.4-8.2; Units: GM/DL; Status: F Test: ALBUMIN; Value: 4.4; Range: 3.2-5.2; Units: GM/DL; Status: F Test: ALBUMIN/GLOBULIN RATIO; Value: 1.29; Range: 1.00-1.93; Status: F Lab Order: Salicylate Level; [facility] 08/15/16 23:38 Test: SALICYLATE LEVEL; Value: < 1.7; Range: 5.0-30.0; Abnormal: Below low normal; Units: MG/DL; Status: F Lab Order: Thyroid Stimulating Hormone; [facility] 08/15/16 23:38 Test: THYROID STIMULATING HORMONE; Value: 2.690; Range: 0.358-3.740; Units: uIU/ML; Status: F Lab Order: CIP; [facility] 08/15/16 23:38 Test: CPK CREATINE PHOSPHOKINASE; Value: 116; Range: 26-192; Units: U/L; Status: F Test: CK-MB VALUE MASS; Value: 1.0; Range: 0.0-3.6; Units: NG/ML; Status: F Test: MB/CK RELATIVE INDEX; Value: 0.86; Range: < OR =4; Status: F Test Note: ; DIAGNOSIS CRITERIA MMB ng/ml Relative Index (RI) NON-AMI < or = 5 N/A SANDOVAL ZONE > 5 < or = 4 AMI > 5 > 4 Lab Order: Troponin; [facility] 08/15/16 23:38 Test: TROPONIN I; Value: < 0.02; Range: < 0.10; Units: NG/ML; Status: F Test Note: ; Troponin I Reference Interval for [place] LOCI: 99th Percentile= 0.00-0.045 ng/ml Risk Stratification: <= 0.10 ng/ml Decreased Risk for Adverse Clinical Events. 0.10-1.50 ng/ml Increased Risk for Adverse Clinical Events. Evaluation of additional criterion and/or repeat testing in 2-6 hours is suggested to rule out myocardial damage. >= 1.50 ng/ml Indicative of Myocardial Injury. Lab Order: UA; SPEC'M 08/16/16 00:12 Test: APPEARANCE, URINE; Value: CLEAR; Range: CLEAR; Status: F Test: COLOR, URINE; Value: STRAW; Range: YELLOW; Status: F Test: PH,URINE; Value: 6.0; Range: 5.0-9.0; Units: UNITS; Status: F Test: SPECIFIC GRAVITY URINE AUTO; Value: 1.005; Range: 1.002-1.035; Status: F Test: PROTEIN, URINE AUTO; Value: NEGATIVE; Range: NEGATIVE; Units: mg/dL; Status: F Test: GLUCOSE, URINE (UA) AUTO; Value: NEGATIVE; Range: NEGATIVE; Units: mg/dL; Status: F Test: KETONE, URINE AUTO; Value: NEGATIVE; Range: NEGATIVE; Units: mg/dL; Status: F Test: UROBILINOGEN, URINE AUTO; Value: 0.2; Range: 0.0-2.0; Units: mg/dL; Status: F Test: BILIRUBIN, URINE AUTO; Value: NEGATIVE; Range: NEGATIVE; Status: F Test: NITRITE, URINE AUTO; Value: NEGATIVE; Range: NEGATIVE; Status: F Test: LEUKOCYTE ESTERASE, URINE AUTO; Value: 3+; Range: NEGATIVE; Abnormal: Above high normal; Status: F Test: BLOOD, URINE BLOOD; Value: NEGATIVE; Range: NEGATIVE; Status: F Test: WBC, URINE AUTO; Value: 13; Range: 0-3; Abnormal: Above high normal; Units: /HPF; Status: F Test: RBC, URINE AUTO; Value: 4; Range: 0-3; Abnormal: Above high normal; Units: /HPF; Status: F Test: BACTERIA, URINE AUTO; Value: NEGATIVE; Range: NEGATIVE; Status: F Test: SQUAMOUS EPITHELIAL CELL UR AU; Value: 5; Range: 0-6; Units: /HPF; Status: F Test: HYALINE CAST, URINE AUTO; Value: 0; Range: 0-1; Units: /LPF; Status: F Outcome: 02:44 Discharge ordered by Provider. mm11 02:54 Discharge Assessment: Patient awake, alert and oriented x 3. No cognitive and/or ka4 functional deficits noted. Patient verbalized understanding of disposition instructions. patient administered narcotics - no. The following High Risk Discharge criteria are identified: None. Discharged to home ambulatory. Condition: good Condition: stable. Discharge instructions given to patient, Instructed on discharge instructions, follow up and referral plans. Demonstrated understanding of instructions, Pt was receptive of discharge instructions/ teaching. No special radiology studies were completed. Property :Personal belongings accompany Pt. 02:56 Patient left the ED. ka4 Signatures: Savage Terrazas, [place]AN[place] MACHINE OPERATOR BAN[place] MACHINE OPERATOR kb5 Dileep Espinoza, DO DO mm11 Lori Browne, RN RN sls1 Emily Alexander LPN LPN ka4 Betsy DumontRN RN nn1 Miguel A Ornelas, [place]AN[place] MACHINE OPERATOR BAN[place]Y MACHINE OPERATOR mdr Eric Hester, Reg Reg pm4 Corrections: (The following items were deleted from the chart) 02:56 08/15 23:27 Home Meds: buspirone 10 mg Oral tab 2 tabs 3 times per day; 1 ka4 08/16 02:56 08/15 23:27 Home Meds: Cogentin 2 mg Oral tab 1 tab once daily; [facility] 4 08/16 02:56 08/15 23:27 Home Meds: Invega Sustenna 117 mg/0.75 mL intramuscular syrg once moly; [facility] ka4 MTDD
--- NOTE | 2016-08-16 08:44 | ECGEPIP ---
Stationary ECG Study [facility] - ED Test Date: 2016-08-15 Pat Name: KAREN MAX Department: Room: - Gender: F Studio Director: : 1985 Requested By: ADRI BROWN Order Number: [id number] Reading MD: Addison Goldman Measurements Intervals [place] Rate: 125 P: 32 [place]: 145 QRS: 59 QRSD: 86 T: -59 QT: 336 QTc: 486 Interpretive Statements SINUS TACHYCARDIA PRWP NONSPECIFIC T WAVE ABNORMALITIES SIMILAR TO 07/31/16 Electronically Signed On 08-16-2016 8:43:29 EST by Addison Goldman
--- NOTE | 2016-08-18 03:56 | EDDOCDS ---
Physician Documentation [facility] Name: Zonia Tripathi Age: 31 yrs Sex: Female : 1985 Arrival Date: 08/15/2016 Time: 23:12 Bed 9 Private MD: Disposition: 08/16/16 02:44 Discharged to Home/Self Care. Impression: Dizziness and giddiness. - Condition is Stable. - Discharge Instructions: Dizziness, Dizziness, [id number]. - Medication Reconciliation, Local Pharmacy Hours form. - Follow up: Private Physician; When: 1 week; Reason: Continuance of care. - Problem is an acute exacerbation. - Symptoms have improved. Historical: - Allergies: No known drug Allergies; - Home Meds: 1. olanzapine 10 mg oral tab 1 tab nightly 2. nicotine gum one piece every 3-4 hours while awake 3. Nicotine TD Unknown 4. Vitamin D Oral 1000 unit twice a day 5. metformin 500 mg Oral tr24 1 tab once daily 6. prazosin 1 mg Oral cap 2 caps 2 times per day 7. buspirone 10 mg Oral tab 2 tabs 3 times per day 8. Cogentin 2 mg Oral tab 1 tab once daily 9. Invega Sustenna 117 mg/0.75 mL intramuscular syrg once moly - PMHx: Asthma; Cocaine, Cannabis and Alcohol Abuse; Heart Murmur; Hypertension; Schizophrenia; - PSHx: Cholecystectomy; - Social history: Smoking status: Patient uses tobacco products, heavy tobacco smoker. No barriers to communication noted, The patient speaks fluent Yoruba, Speaks appropriately for age. - Family history: Not pertinent. - : The pt / caregiver states he / she is not on anticoagulants. Home medication list is obtained from the patient. - Exposure Risk Screening:: None identified. Vital Signs: 08/15 23:19 BP 141 / 82; Pulse 138; Resp 18; Temp 99.6(O); Pulse Ox 93% on R/A; Weight 93.44 kg / mdr 206 lbs (R); Height 5 ft. 1 in. (154.94 cm) (R); Pain 0/10; 08/16 01:34 BP 142 / 83; Pulse 113; Resp 18; Pulse Ox 96% on R/A; nn1 02:45 BP 141 / 90; Pulse 111; Resp 18; Temp 99.8(TE); Pulse Ox 96% on R/A; Pain 0/10; mdr 08/15 23:19 Body Mass Index 38.92 (93.44 kg, 154.94 cm) mdr MDM: 08/15 23:24 Consult PFS/PSA/Production Gear Cutter ordered. ke 23:24 Consult PFS/PSA/Production Gear Cutter: Patient's case requires discussion with on-call ke Psychiatrist ordered. 23:24 PSA/PFS to call Nursing Remediation Consultant, to enter patient data on [place] Safe Act if patient ke involuntarily admitted or transferred for SI or HI ordered. 23:24 Confirm accurate psychiatric medication list and times of last dosage ordered. ke 23:24 Detain Pt Until Medically/PFS Cleared ordered. ke 23:24 IV Saline Lock ordered. ke 23:24 NS 0.9% 1000 ml IV at 250 mL/hr continuous ordered. ke 23:24 Acetaminophen Level Ordered. EDMS 23:24 BATH SALTS URINE Ordered. EDMS 23:24 Basic Metabolic Profile Ordered. EDMS 23:24 Complete Blood Count Ordered. EDMS 23:24 Drug Eval Toxicology ED Only Ordered. EDMS 23:24 Ethyl Alcohol (ethanol) Ordered. EDMS 23:24 HCG,Serum Qualitative Ordered. EDMS 23:25 Liver Profile Ordered. EDMS 23:25 Salicylate Level Ordered. EDMS 23:25 Thyroid Stimulating Hormone Ordered. EDMS 23:25 CIP Ordered. EDMS 23:25 Troponin Ordered. EDMS 23:25 ECG WITH READING ER PHYS+CARDIAG ordered. EDMS 23:55 Complete Blood Count Reviewed. mm11 08/16 00:09 [facility]g [facility]. Nursing Order ordered. mm11 00:09 hydrOXYzine 50 mg IM once ordered. mm11 00:10 UA Ordered. EDMS 00:18 hydrOXYzine 50 mg PO once ordered. mm11 00:50 Financial registration complete. pm4 01:01 [facility] [place] Agreement was scanned into [employer] and attached to record. pm4 01:24 Acetaminophen Level Reviewed. mm11 01:24 Basic Metabolic Profile Reviewed. mm11 01:24 Liver Profile Reviewed. mm11 01:24 Salicylate Level Reviewed. mm11 01:24 UA Reviewed. mm11 01:24 Drug Eval Toxicology ED Only Reviewed. mm11 01:24 Ethyl Alcohol (ethanol) Reviewed. mm11 01:24 HCG,Serum Qualitative Reviewed. mm11 01:24 Thyroid Stimulating Hormone Reviewed. mm11 01:24 CIP Reviewed. mm11 01:24 Troponin Reviewed. mm11 01:27 Lasting Machine Operator Bed/Pulse Ox/q 30 min VS ordered. mm11 02:46 Consult PFS/PSA/Production Gear Cutter: Patient's case requires discussion with on-call cl Psychiatrist complete. 02:46 PSA/PFS to call Nursing Remediation Consultant, to enter [place] data [place] Safe [place] if patient cl involuntarily admitted or transferred for SI or HI complete. 02:46 Consult PFS/PSA/Production Gear Cutter complete. cl 09:41 T-Sheet-- Draft Copy was scanned into [employer] and attached to record. gb 09:41 ECG/EKG was scanned into [employer] and attached to record. gb Administered Medications: 00:03 Drug: NS 0.9% 1000 ml [sodium chloride 0.9 % intravenous solution] Route: IV; Rate: 250 nn1 mL/hr; Site: right antecubital; 01:34 Follow up: IV Status: Completed infusion; IV Intake: 1000ml nn1 00:18 Not Given (Other Intervention Used): hydrOXYzine 50 mg IM once mm11 00:22 Drug: hydrOXYzine 50 mg [hydroxyzine HCl 25 mg tablet (2 tabs)] Route: PO; nn1 02:55 Follow up: Response: No Adverse Reaction ka4 Signatures: Dispatcher [employer] EDMS Ted Roe, PSA PSA cl Dorinda Magana, Reg Reg gb Tristen Munguia, SUPERVISOR CURING ROOM SUPERVISOR CURING ROOM Dileep Saleh, DO mm11 Emily Alexander,WORKFORCE DEVELOPMENT VICE PRESIDENT WORKFORCE DEVELOPMENT VICE PRESIDENT ka4 Betsy Dumont,RN RN nn1 Eric Hester, Reg Reg pm4 The chart was reviewed and I authenticate all verbal orders and agree with the evaluation and treatment provided.Corrections: (The following items were deleted from the chart) 02:56 08/15 23:27 Home Meds: buspirone 10 mg Oral tab 2 tabs 3 times per day; 4 08/16 02:56 08/15 23:27 Home Meds: Cogentin 2 mg Oral tab 1 tab once daily; 4 08/16 02:56 08/15 23:27 Home Meds: Invega Sustenna 117 mg/0.75 mL intramuscular syrg once moly; ka4 : 08/16 01:01 [facility] Payment Agreement pm4 09:41 T-Sheet-- Draft Copy gb 09:41 ECG/EKG gb Chart Complete MTDD
--- NOTE | 2016-08-18 03:56 | EDDOCDS ---
Physician Documentation [facility] Name: Zonia Tripathi Age: 31 yrs Sex: Female : 1985 Arrival Date: 08/15/2016 Time: 23:12 Bed 9 Private MD: Disposition: 08/16/16 02:44 Discharged to Home/Self Care. Impression: Dizziness and giddiness. - Condition is Stable. - Discharge Instructions: Dizziness, Dizziness, Vcor-vs-Iefv. - Medication Reconciliation, Local Pharmacy Hours form. - Follow up: Private Physician; When: 1 week; Reason: Continuance of care. - Problem is an acute exacerbation. - Symptoms have improved. Historical: - Allergies: No known drug Allergies; - Home Meds: 1. olanzapine 10 mg oral tab 1 tab nightly 2. nicotine gum one piece every 3-4 hours while awake 3. Nicotine TD Unknown 4. Vitamin D Oral 1000 unit twice a day 5. metformin 500 mg Oral tr24 1 tab once daily 6. prazosin 1 mg Oral cap 2 caps 2 times per day 7. buspirone 10 mg Oral tab 2 tabs 3 times per day 8. Cogentin 2 mg Oral tab 1 tab once daily 9. Invega Sustenna 117 mg/0.75 mL intramuscular syrg once moly - PMHx: Asthma; Cocaine, Cannabis and Alcohol Abuse; Heart Murmur; Hypertension; Schizophrenia; - PSHx: Cholecystectomy; - Social history: Smoking status: Patient uses tobacco products, heavy tobacco smoker. No barriers to communication noted, The patient speaks fluent Amharic, Speaks appropriately for age. - Family history: Not pertinent. - : The pt / caregiver states he / she is not on anticoagulants. Home medication list is obtained from the patient. - Exposure Risk Screening:: None identified. Vital Signs: 08/15 23:19 BP 141 / 82; Pulse 138; Resp 18; Temp 99.6(O); Pulse Ox 93% on R/A; Weight 93.44 kg / mdr 206 lbs (R); Height 5 ft. 1 in. (154.94 cm) (R); Pain 0/10; 08/16 01:34 BP 142 / 83; Pulse 113; Resp 18; Pulse Ox 96% on R/A; nn1 02:45 BP 141 / 90; Pulse 111; Resp 18; Temp 99.8(TE); Pulse Ox 96% on R/A; Pain 0/10; mdr 08/15 23:19 Body Mass Index 38.92 (93.44 kg, 154.94 cm) mdr MDM: 08/15 23:24 Consult PFS/PSA/Automated Access Systems Technician ordered. ke 23:24 Consult PFS/PSA/Automated Access Systems Technician: Patient's case requires discussion with on-call ke Psychiatrist ordered. 23:24 PSA/PFS to call Nursing Partner Marketing Intern, to enter patient data on [place] Safe [place] if patient ke involuntarily admitted or transferred for SI or HI ordered. 23:24 Confirm accurate psychiatric medication list and times of last dosage ordered. ke 23:24 Detain Pt Until Medically/PFS Cleared ordered. ke 23:24 IV Saline Lock ordered. ke 23:24 NS 0.9% 1000 ml IV at 250 mL/hr continuous ordered. ke 23:24 Acetaminophen Level Ordered. EDMS 23:24 BATH SALTS URINE Ordered. EDMS 23:24 Basic Metabolic Profile Ordered. EDMS 23:24 Complete Blood Count Ordered. EDMS 23:24 Drug Eval Toxicology ED Only Ordered. EDMS 23:24 Ethyl Alcohol (ethanol) Ordered. EDMS 23:24 HCG,Serum Qualitative Ordered. EDMS 23:25 Liver Profile Ordered. EDMS 23:25 Salicylate Level Ordered. EDMS 23:25 Thyroid Stimulating Hormone Ordered. EDMS 23:25 CIP Ordered. EDMS 23:25 Troponin Ordered. EDMS 23:25 ECG WITH READING ER PHYS+CARDIAG ordered. EDMS 23:55 Complete Blood Count Reviewed. mm11 08/16 00:09 [facility]. Nursing Order ordered. mm11 00:09 hydrOXYzine 50 mg IM once ordered. mm11 00:10 UA Ordered. EDMS 00:18 hydrOXYzine 50 mg PO once ordered. mm11 00:50 Financial registration complete. pm4 01:01 [facility] [place] Payment Agreement was scanned into [employer] and attached to record. pm4 01:24 Acetaminophen Level Reviewed. mm11 01:24 Basic Metabolic Profile Reviewed. mm11 01:24 Liver Profile Reviewed. mm11 01:24 Salicylate Level Reviewed. mm11 01:24 UA Reviewed. mm11 01:24 Drug Eval Toxicology ED Only Reviewed. mm11 01:24 Ethyl Alcohol (ethanol) Reviewed. mm11 01:24 HCG,Serum Qualitative Reviewed. mm11 01:24 Thyroid Stimulating Hormone Reviewed. mm11 01:24 CIP Reviewed. mm11 01:24 Troponin Reviewed. mm11 01:27 Advanced Manufacturing Technician/Pulse Ox/q 30 min VS ordered. mm11 02:46 Consult PFS/PSA/Automated Access Systems Technician: Patient's case requires discussion with on-call cl Psychiatrist complete. 02:46 PSA/PFS to call Nursing Partner Marketing Intern, to enter patient data [place] Safe [place] if patient cl involuntarily admitted or transferred for SI or HI complete. 02:46 Consult PFS/PSA/Automated Access Systems Technician complete. cl 09:41 T-Sheet-- Draft Copy was scanned into [employer] and attached to record. gb 09:41 ECG/EKG was scanned into [employer] and attached to record. gb Administered Medications: 00:03 Drug: NS 0.9% 1000 ml [sodium chloride 0.9 % intravenous solution] Route: IV; Rate: 250 nn1 mL/hr; Site: right antecubital; 01:34 Follow up: IV Status: Completed infusion; IV Intake: 1000ml nn1 00:18 Not Given (Other Intervention Used): hydrOXYzine 50 mg IM once mm11 00:22 Drug: hydrOXYzine 50 mg [hydroxyzine HCl 25 mg tablet (2 tabs)] Route: PO; nn1 02:55 Follow up: Response: No Adverse Reaction ka4 Signatures: Dispatcher [employer] EDMS Ted Roe, PSA PSA cl Dorinda Magana, Reg Reg gb Tristen Munguia, ARTS ADMINISTRATOR ARTS ADMINISTRATOR Dileep Saleh, DO mm11 Emily Alexander,GRADING MACHINE FEEDER GRADING MACHINE FEEDER ka4 Betsy Dumont,RN RN nn1 Eric Hester, Reg Reg pm4 The chart was reviewed and I authenticate all verbal orders and agree with the evaluation and treatment provided.Corrections: (The following items were deleted from the chart) 02:56 08/15 23:27 Home Meds: buspirone 10 mg Oral tab 2 tabs 3 times per day; 4 08/16 02:56 08/15 23:27 Home Meds: Cogentin 2 mg Oral tab 1 tab once daily; 4 08/16 02:56 08/15 23:27 Home Meds: Invega Sustenna 117 mg/0.75 mL intramuscular syrg once moly; ka4 : 08/16 01:01 [facility] Payment Agreement pm4 09:41 T-Sheet-- Draft Copy gb 09:41 ECG/EKG gb Chart Complete MTDD
--- NOTE | 2016-08-18 03:56 | EDDOCDS ---
Nurse's Notes [facility] [place] Name: Karen Tripathi Age: 31 yrs Sex: Female : 1985 Arrival Date: 08/15/2016 Time: 23:12 Bed 9 Private MD: Diagnosis: Dizziness and giddiness Presentation: 08/15 23:15 Presenting complaint: EMS states: patient reports dizzy spells. Reports she became nn1 shaky and fell into the wall and passed out. Patient coming from [facility] house. Patient denies drugs or alcohol. Patient reports having had a seizure, not witnessed. Presenting complaint: EMS states: patient is chewing nicotine gum, has a nicotine patch on, and was smoking a cigarette upon arrival. Adult Sepsis Screening: The patient does not have new or worsening altered mentation. Patient's respiratory rate is less than 22. Systolic blood pressure is greater than 100. Patient has a qSOFA score of 0- Negative Sepsis Screen. Suicide/Homicide risk assessment- the patient denies having any suicidal and/or homicidal ideations and does not present with any other emotional, behavioral or mental health complaints. Status: Patient is not a service greeter or dependent. Transition of care: patient was received from [facility]. 23:15 Acuity: AUR[place] Level 3 nn1 23:15 Method Of Arrival: Ambulance nn1 Triage Assessment: 23:22 General: Appears in no apparent distress, comfortable, Behavior is appropriate for age, nn1 cooperative. Pain: Denies pain. HIV screening NA for this visit Offered previously. The patient is triaged at the bedside. See Assessment in Nurses Notes section of ED record. Neurological: Level of Consciousness is awake, alert, obeys commands, Oriented to person, place, time, Reports a syncopal episode dizziness and "passing out" began about an hour ago. States she was trying to walk and couldn't keep her balance. . Cardiovascular: Capillary refill < 3 seconds Rhythm is sinus tachycardia Chest pain is denied. Respiratory: Airway is patent Respiratory effort is even, unlabored, Respiratory pattern is regular, symmetrical, GI: Abdomen is flat, non- distended Derm: Skin is normal. Historical: - Allergies: No known drug Allergies; - Home Meds: 1. olanzapine 10 mg oral tab 1 tab nightly 2. nicotine gum one piece every 3-4 hours while awake 3. Nicotine TD Unknown 4. Vitamin D Oral 1000 unit twice a day 5. metformin 500 mg Oral tr24 1 tab once daily 6. prazosin 1 mg Oral cap 2 caps 2 times per day 7. buspirone 10 mg Oral tab 2 tabs 3 times per day 8. Cogentin 2 mg Oral tab 1 tab once daily 9. Invega Sustenna 117 mg/0.75 mL intramuscular syrg once moly - PMHx: Asthma; Cocaine, Cannabis and Alcohol Abuse; Heart Murmur; Hypertension; Schizophrenia; - PSHx: Cholecystectomy; - Social history: Smoking status: Patient uses tobacco products, heavy tobacco smoker. No barriers to communication noted, The patient speaks fluent Malian, Speaks appropriately for age. - Family history: Not pertinent. - : The pt / caregiver states he / she is not on anticoagulants. Home medication list is obtained from the patient. - Exposure Risk Screening:: None identified. Screenin/19 02:52 Screening information is obtained from the patient. Fall risk: No risks identified. ka4 Assistance ADL's: requires no assistance with activities of daily living. Abuse/DV Screen: The patient / caregiver reports he/she is: not in a situation that causes fear, pain or injury. Nutritional screening: No deficits noted. Advance Directives: There is no active DNR order. home support is adequate. Assessment: 08/15 23:27 General: See triage assessment . nn1 08/16 00:22 General: Patient unable to follow simple commands at this time. Patient unable to nn1 concentrate. Patient ambulated to restroom for urine sample, gait was steady. . Pain: Denies pain. Respiratory: Airway is patent Respiratory effort is even, unlabored, Respiratory pattern is regular, symmetrical. Derm: Skin is normal. 00:57 Reassessment: Patient appears in no apparent distress at this time. Pt oob ambulated to [facility] the bathroom, steady gait, back in bed IV fluids infusing without difficulty. General: Appears in no apparent distress. Neurological: Level of Consciousness is awake, alert. 01:35 General: Appears in no apparent distress, Behavior is appropriate for age, cooperative, nn1 Patient denies pain,reports she continues to feel a bit shaky and dizzy, . Respiratory: Airway is patent Respiratory effort is even, unlabored, Respiratory pattern is regular, symmetrical. 02:52 General: Appears in no apparent distress, comfortable, Behavior is appropriate for age, ka4 cooperative, pleasant. Respiratory: Airway is patent Respiratory effort is even, unlabored, Respiratory pattern is regular, symmetrical. Derm: Skin is pink, warm & dry. Vital Signs: 08/15 23:19 BP 141 / 82; Pulse 138; Resp 18; Temp 99.6(O); Pulse Ox 93% on R/A; Weight 93.44 kg mdr (R); Height 5 ft. 1 in. (154.94 cm) (R); Pain 0/10; 08/16 01:34 BP 142 / 83; Pulse 113; Resp 18; Pulse Ox 96% on R/A; nn1 02:45 BP 141 / 90; Pulse 111; Resp 18; Temp 99.8(TE); Pulse Ox 96% on R/A; Pain 0/10; mdr 08/15 23:19 Body Mass Index 38.92 (93.44 kg, 154.94 cm) mdr ED Course: 08/15 23:13 Patient visited by Savage Terrazas PCA. kb5 23:13 Patient moved to Waiting kb5 23:13 Patient moved to 9 kb5 23:20 Patient visited by Miguel A Ornelas PCA. mdr 23:20 Triage Initiated nn1 23:42 Inserted saline lock: 18 gauge in right antecubital area and blood collected. The nn1 patient tolerated the procedure well. 23:50 Dileep Espinoza DO is Attending Physician. mm11 23:50 Patient visited by Dileep Espinoza DO. mm11 23:55 EKG done. (by ED staff). Reviewed by Dileep Espinoza DO. mdr 23:56 Patient visited by Miguel A Ornelas PCA. mdr 08/16 00:03 BATH SALTS URINE Sent. nn1 00:03 Drug Eval Toxicology ED Only Sent. nn1 00:08 Patient visited by Dileep Espinoza DO. mm11 00:57 Patient visited by Lori Browne RN. sls1 01:01 [facility] Payment Agreement was scanned into [employer] and attached to record. pm4 01:34 Patient visited by Betsy Dumont RN. nn1 02:08 Patient visited by Betsy Dumont RN. nn1 02:50 Patient visited by Johnson, Miguel A, SAW SHARPENER. mdr 02:52 The patient / caregiver is instructed regarding the plan of care and ED course. ka4 02:52 Discontinued IV lock intact, bleeding controlled, pressure dressing applied, No ka4 redness/swelling at site. No procedures done that require assistance. 09:01 EKG-ADULT Returned. EDMS 09:41 T-Sheet-- Draft Copy was scanned into [employer] and attached to record. gb 09:41 ECG/EKG was scanned into [employer] and attached to record. gb Administered Medications: 00:03 Drug: NS 0.9% 1000 ml [sodium chloride 0.9 % intravenous solution] Route: IV; Rate: 250 nn1 mL/hr; Site: right antecubital; 01:34 Follow up: IV Status: Completed infusion; IV Intake: 1000ml nn1 00:18 Not Given (Other Intervention Used): hydrOXYzine 50 mg IM once mm11 00:22 Drug: hydrOXYzine 50 mg [hydroxyzine HCl 25 mg tablet (2 tabs)] Route: PO; nn1 02:55 Follow up: Response: No Adverse Reaction ka4 Intake: 01:34 IV: 1000.00ml; Total: 1000.00ml. nn1 Order Results: Lab Order: Acetaminophen Level; SPEC'M 08/15/16 23:38 Test: ACETAMINOPHEN LEVEL; Value: < 2.0; Range: 10.0-30.0; Abnormal: Below low normal; Units: UG/ML; Status: F Lab Order: Basic Metabolic Profile; SPEC'M 08/15/16 23:38 Test: GLUCOSE, FASTING; Value: 114; Range: 70-105; Abnormal: Above high normal; Units: MG/DL; Status: F Test: BLOOD UREA NITROGEN; Value: 10; Range: 7-18; Units: MG/DL; Status: F Test: CREATININE FOR GFR; Value: 1.14; Range: 0.55-1.02; Abnormal: Above high normal; Units: MG/DL; Status: F Test: SODIUM LEVEL; Range: 136-145; Units: MEQ/L; Status: I Test: POTASSIUM SERUM; Range: 3.5-5.1; Units: MEQ/L; Status: I Test: CHLORIDE LEVEL; Range: 98-107; Units: MEQ/L; Status: I Test: CARBON DIOXIDE LEVEL; Range: 21-32; Units: MEQ/L; Status: I Test: ANION GAP; Range: 8-16; Units: MEQ/L; Status: I Test: CALCIUM LEVEL; Range: 8.5-10.1; Units: MG/DL; Status: I Test: GLOMERULAR FILTRATION RATE; Value: > 60.0; Range: >60; Status: F Test: SODIUM LEVEL; Value: 139; Range: 136-145; Units: MEQ/L; Status: F Test: POTASSIUM SERUM; Value: 3.2; Range: 3.5-5.1; Abnormal: Below low normal; Units: MEQ/L; Status: F Test: CHLORIDE LEVEL; Value: 103; Range: 98-107; Units: MEQ/L; Status: F Test: CARBON DIOXIDE LEVEL; Value: 26; Range: 21-32; Units: MEQ/L; Status: F Test: ANION GAP; Value: 10; Range: 8-16; Units: MEQ/L; Status: F Test: CALCIUM LEVEL; Value: 9.1; Range: 8.5-10.1; Units: MG/DL; Status: F Test Note: ; Units are mL/min/1.73 m2 Chronic Kidney Disease Staging per NKF: Stage I & II GFR >=60 Normal to Mildly Decreased Stage III GFR 30-59 Moderately Decreased Stage IV GFR 15-29 Severely Decreased Stage V GFR <15 Very Little GFR Left ESRD GFR <15 on ATTORNEY RECRUITER Lab Order: Complete Blood Count; SPEC'M 08/15/16 23:38 Test: WHITE BLOOD COUNT; Value: 6.3; Range: 4.0-10.0; Units: K/mm3; Status: F Test: RED BLOOD COUNT; Value: 3.86; Range: 4.00-5.40; Abnormal: Below low normal; Units: M/mm3; Status: F Test: HEMOGLOBIN; Value: 11.7; Range: 12.0-16.0; Abnormal: Below low normal; Units: g/dl; Status: F Test: HEMATOCRIT; Value: 33.5; Range: 36.0-47.0; Abnormal: Below low normal; Units: %; Status: F Test: MEAN CORPUSCULAR VOLUME; Value: 86.6; Range: 80.0-96.0; Units: fl; Status: F Test: MEAN CORPUSCULAR HEMOGLOBIN; Value: 30.2; Range: 27.0-33.0; Units: pg; Status: F Test: MEAN CORPUSCULAR HGB CONC; Value: 34.8; Range: 32.0-36.5; Units: g/dl; Status: F Test: RED CELL DISTRIBUTION WIDTH; Value: 12.9; Range: 11.5-14.5; Units: %; Status: F Test: PLATELET COUNT, AUTOMATED; Value: 285; Range: 150-450; Units: k/mm3; Status: F Lab Order: Drug Eval Toxicology ED Only; SPEC'M 08/15/16 23:38 Test: AMPHETAMINES LEVEL URINE; Value: NEGATIVE; Range: NEGATIVE; Status: F Test: BARBITURATES URINE; Value: NEGATIVE; Range: NEGATIVE; Status: F Test: BENZODIAZEPINES URINE; Value: NEGATIVE; Range: NEGATIVE; Status: F Test: CANNABINOIDS URINE; Value: NEGATIVE; Range: NEGATIVE; Status: F Test: COCAINE METABOLITE URINE; Value: NEGATIVE; Range: NEGATIVE; Status: F Test: METHADONE URINE; Value: NEGATIVE; Range: NEGATIVE; Status: F Test: OPIATES URINE; Value: NEGATIVE; Range: NEGATIVE; Status: F Test: TRICYCLIC ANTIDEPRESS URINE; Value: NEGATIVE; Range: NEGATIVE; Status: F Test Note: ; ALL PRESUMPTIVE POSITIVE FINDINGS ARE UNCONFIRMED NORMAL VALUES THRESHOLD IN NG/ML AMPHETAMINES 1000 METHAMPHETAMINES 1000 BARBITURATES 300 BENZODIAZEPINES 300 CANNABINOIDS (THC) 50 COCAINE METABOLITE 300 METHADONE 300 OPIATES 300 PHENCYCLIDINE 25 TRICYCLIC ANTIDEPRESSANTS 1000 RESULTS ARE FOR MEDICAL PURPOSES ONLY. ALL URINE SPECIMENS WILL BE SAVED FOR 3 DAYS. IF CONFIRMATION OF A PRESUMPTIVE POSTIVE SCREEN RESULT IS DESIRED, CALL CHEMISTRY ([phone]) AND REQUEST URINE TO BE SENT TO REFERENCE LAB. FOR A LIST OF CLOSELY RELATED COMPOUNDS PLEASE CALL THE LAB. Lab Order: Ethyl Alcohol (ethanol); SPEC'M 08/15/16 23:38 Test: ETHYL ALCOHOL (ETHANOL); Value: 0.003; Range: 0.000-0.010; Units: %; Status: F Lab Order: HCG,Serum Qualitative; SPEC'M 08/15/16 23:38 Test: HCG, SERUM QUALITATIVE; Value: NEGATIVE; Range: NEGATIVE; Status: F Lab Order: Liver Profile; SPEC'M 08/15/16 23:38 Test: AST/SGOT; Value: 10; Range: 15-37; Abnormal: Below low normal; Units: U/L; Status: F Test: ALT/SGPT; Value: 18; Range: 12-78; Units: U/L; Status: F Test: ALKALINE PHOSPHATASE; Value: 91; Range: 45-117; Units: U/L; Status: F Test: BILIRUBIN,TOTAL; Value: 0.2; Range: 0.2-1.0; Units: MG/DL; Status: F Test: BILIRUBIN,DIRECT; Value: < 0.1; Range: 0.0-0.2; Units: MG/DL; Status: F Test: TOTAL PROTEIN; Value: 7.8; Range: 6.4-8.2; Units: GM/DL; Status: F Test: ALBUMIN; Value: 4.4; Range: 3.2-5.2; Units: GM/DL; Status: F Test: ALBUMIN/GLOBULIN RATIO; Value: 1.29; Range: 1.00-1.93; Status: F Lab Order: Salicylate Level; [facility] 08/15/16:38 Test: SALICYLATE LEVEL; Value: < 1.7; Range: 5.0-30.0; Abnormal: Below low normal; Units: MG/DL; Status: F Lab Order: Thyroid Stimulating Hormone; [facility] 08/15/16:38 Test: THYROID STIMULATING HORMONE; Value: 2.690; Range: 0.358-3.740; Units: uIU/ML; Status: F Lab Order: CIP; [facility] 08/15/16 23:38 Test: CPK CREATINE PHOSPHOKINASE; Value: 116; Range: 26-192; Units: U/L; Status: F Test: CK-MB VALUE MASS; Value: 1.0; Range: 0.0-3.6; Units: NG/ML; Status: F Test: MB/CK RELATIVE INDEX; Value: 0.86; Range: < OR =4; Status: F Test Note: ; DIAGNOSIS CRITERIA MMB ng/ml Relative Index (RI) NON-AMI < or = 5 N/A S[place] ZONE > 5 < or = 4 AMI > 5 > 4 Lab Order: Troponin; [facility] 08/15/16 23:38 Test: TROPONIN I; Value: < 0.02; Range: < 0.10; Units: NG/ML; Status: F Test Note: ; Troponin I Reference Interval for [employer] [place] LOCI: 99th Percentile= 0.00-0.045 ng/ml Risk Stratification: <= 0.10 ng/ml Decreased Risk for Adverse Clinical Events. 0.10-1.50 ng/ml Increased Risk for Adverse Clinical Events. Evaluation of additional criterion and/or repeat testing in 2-6 hours is suggested to rule out myocardial damage. >= 1.50 ng/ml Indicative of Myocardial Injury. Lab Order: UA; SPEC'M 08/16/16 00:12 Test: APPEARANCE, URINE; Value: CLEAR; Range: CLEAR; Status: F Test: COLOR, URINE; Value: STRAW; Range: YELLOW; Status: F Test: PH,URINE; Value: 6.0; Range: 5.0-9.0; Units: UNITS; Status: F Test: SPECIFIC GRAVITY URINE AUTO; Value: 1.005; Range: 1.002-1.035; Status: F Test: PROTEIN, URINE AUTO; Value: NEGATIVE; Range: NEGATIVE; Units: mg/dL; Status: F Test: GLUCOSE, URINE (UA) AUTO; Value: NEGATIVE; Range: NEGATIVE; Units: mg/dL; Status: F Test: KETONE, URINE AUTO; Value: NEGATIVE; Range: NEGATIVE; Units: mg/dL; Status: F Test: UROBILINOGEN, URINE AUTO; Value: 0.2; Range: 0.0-2.0; Units: mg/dL; Status: F Test: BILIRUBIN, URINE AUTO; Value: NEGATIVE; Range: NEGATIVE; Status: F Test: NITRITE, URINE AUTO; Value: NEGATIVE; Range: NEGATIVE; Status: F Test: LEUKOCYTE ESTERASE, URINE AUTO; Value: 3+; Range: NEGATIVE; Abnormal: Above high normal; Status: F Test: BLOOD, URINE BLOOD; Value: NEGATIVE; Range: NEGATIVE; Status: F Test: WBC, URINE AUTO; Value: 13; Range: 0-3; Abnormal: Above high normal; Units: /HPF; Status: F Test: RBC, URINE AUTO; Value: 4; Range: 0-3; Abnormal: Above high normal; Units: /HPF; Status: F Test: BACTERIA, URINE AUTO; Value: NEGATIVE; Range: NEGATIVE; Status: F Test: SQUAMOUS EPITHELIAL CELL UR AU; Value: 5; Range: 0-6; Units: /HPF; Status: F Test: HYALINE CAST, URINE AUTO; Value: 0; Range: 0-1; Units: /LPF; Status: F Radiology Order: EKG-ADULT Test: EKG-ADULT REASON FOR EXAMINATION: Syncope; Stationary ECG Study; [facility] - ED; ; Test Date: 2016-08-15; Pat Name: KAREN TRIPATHI Department:; Room: -; Gender: 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 mm11 02:54 Discharge Assessment: Patient awake, alert and oriented x 3. No cognitive and/or ka4 functional deficits noted. Patient verbalized understanding of disposition instructions. patient administered narcotics - no. The following High Risk Discharge criteria are identified: None. Discharged to home ambulatory. Condition: good Condition: stable. Discharge instructions given to patient, Instructed on discharge instructions, follow up and referral plans. Demonstrated understanding of instructions, Pt was receptive of discharge instructions/ teaching. No special radiology studies were completed. Property :Personal belongings accompany Pt. 02:56 Patient left the ED. ka4 Signatures: Dispatcher [employer] EDMS Dorinda Magana, Reg Reg gb Savage Terrazas, SAW SHARPENER SAW SHARPENER [email or web address] Dileep Espinoza, DO DO mm11 Lori Browne RN RN sls1 Emily Alexander LPN VETERINARY RECEPTIONIST ka4 Betsy DumontRN RN nn1 Miguel A Ornelas, SAW SHARPENER SAW SHARPENER mdr Eric Hester, Reg Reg pm4 Corrections: (The following items were deleted from the chart) 02:56 08/15 23:27 Home Meds: buspirone 10 mg Oral tab 2 tabs 3 times per day; nn1 ka4 08/16 02:56 08/15 23:27 Home Meds: Cogentin 2 mg Oral tab 1 tab once daily; nn1 ka4 08/16 02:56 08/15 23:27 Home Meds: Invega Sustenna 117 mg/0.75 mL intramuscular syrg once moly; nn1 ka4 Chart Complete MTDD
[2016-08-23 00:06] LABS: MDPV Negative (NEGATIVE); MEPHEDRONE Negative (NEGATIVE)
== END 2016-08-16 02:56 | disposition home or self-care (01) ==
LOC: M ED 23:12
DX: R42 Dizziness and giddiness (principal); I10 Essential (primary) hypertension; R94.31 Abnormal electrocardiogram [ECG] [EKG]; J45.909 Unspecified asthma, uncomplicated; F20.9 Schizophrenia, unspecified; R01.1 Cardiac murmur, unspecified; Z79.899 Other long term (current) drug therapy; F17.210 Nicotine dependence, cigarettes, uncomplicated; Z79.84 Long term (current) use of oral hypoglycemic drugs
CPT/HCPCS: 36415; 80048; 80076; 80307; 81001; 82550; 82553; 84443; 84484; 84703; 85025; 85027; 93005; 93041; 96360; 96361; 99284; G0480

== ENCOUNTER → 2016-08-15 | Outpatient (CLI) | payer MEDICARE, MEDICAID ==
[2016-08-15 11:51] LABS: BASO # 0.1 K/mm3 (0.0-0.2); BASO % 2.2 % (0.0-1.0); EOS # 0.1 K/mm3 (0.0-0.50); EOS % 2.4 % (0.0-3.0); LARGE UNSTAINED CELL # 0.1 K/mm3 (0.0-0.4); LARGE UNSTAINED CELL % 2.8 % (0.0-4.0); LYMPH # 1.8 K/mm3 (1.5-6.5); MEAN CORPUSCULAR HEMOGLOBIN 28.9 pg (27.0-33.0); MEAN CORPUSCULAR HGB CONC 32.5 g/dl (32.0-36.5); MONO # 0.3 K/mm3 (0.0-0.8); MONO % 5.4 % (0.0-5.0); NEUTROPHILS # 2.8 K/mm3 (1.8-7.7); NEUTROPHILS % 54.2 % (36.0-66.0); PLATELET COUNT, AUTOMATED 302 k/mm3 (150-450); RED CELL DISTRIBUTION WIDTH 13.9 % (11.5-14.5); WHITE BLOOD COUNT 5.1 K/mm3 (4.0-10.0)
== END ==
LOC: M LAB 11:04
PROVIDERS: ATTEND Psychiatry & Neurology Psychiatry
DX: Z79.899 Other long term (current) drug therapy (principal)

== ENCOUNTER → 2016-08-20 | Outpatient (CLI) | payer MEDICARE, MEDICAID ==
[2016-08-20 10:44] LABS: BASO % 0.3 % (0.0-1.0); EOS # 0.1 K/mm3 (0.0-0.50); EOS % 2.7 % (0.0-3.0); LARGE UNSTAINED CELL # 0.2 K/mm3 (0.0-0.4); LARGE UNSTAINED CELL % 3.4 % (0.0-4.0); LYMPH # 1.9 K/mm3 (1.5-6.5); LYMPH % 40.8 % (24.0-44.0); MEAN CORPUSCULAR HEMOGLOBIN 29.3 pg (27.0-33.0); MEAN CORPUSCULAR HGB CONC 33.6 g/dl (32.0-36.5); MEAN CORPUSCULAR VOLUME 87.3 fl (80.0-96.0); MONO # 0.2 K/mm3 (0.0-0.8); MONO % 4.1 % (0.0-5.0); NEUTROPHILS # 2.3 K/mm3 (1.8-7.7); NEUTROPHILS % 48.7 % (36.0-66.0); PLATELET COUNT, AUTOMATED 272 k/mm3 (150-450); RED CELL DISTRIBUTION WIDTH 12.9 % (11.5-14.5); WHITE BLOOD COUNT 4.6 K/mm3 (4.0-10.0)
== END ==
LOC: M LAB 09:36
PROVIDERS: ATTEND Psychiatry & Neurology Psychiatry
DX: Z79.899 Other long term (current) drug therapy (principal)

== ENCOUNTER → 2016-08-27 | Outpatient (CLI) | payer MEDICARE, MEDICAID ==
[2016-08-27 11:43] LABS: BASO # 0.1 K/mm3 (0.0-0.2); BASO % 1.4 % (0.0-1.0); EOS # 0.3 K/mm3 (0.0-0.50); EOS % 5.9 % (0.0-3.0); LARGE UNSTAINED CELL # 0.1 K/mm3 (0.0-0.4); LARGE UNSTAINED CELL % 2.9 % (0.0-4.0); LYMPH # 2.1 K/mm3 (1.5-6.5); LYMPH % 38.7 % (24.0-44.0); MEAN CORPUSCULAR HEMOGLOBIN 28.7 pg (27.0-33.0); MEAN CORPUSCULAR HGB CONC 32.8 g/dl (32.0-36.5); MEAN CORPUSCULAR VOLUME 87.4 fl (80.0-96.0); MONO # 0.3 K/mm3 (0.0-0.8); MONO % 5.5 % (0.0-5.0); NEUTROPHILS # 2.3 K/mm3 (1.8-7.7); NEUTROPHILS % 45.6 % (36.0-66.0); PLATELET COUNT, AUTOMATED 295 k/mm3 (150-450)
== END ==
LOC: M LAB 11:16
PROVIDERS: ATTEND Psychiatry & Neurology Psychiatry
DX: Z79.899 Other long term (current) drug therapy (principal)

== ENCOUNTER → 2016-09-03 | Outpatient (CLI) | payer MEDICARE, MEDICAID ==
[2016-09-03 11:58] LABS: BASO % 0.7 % (0.0-1.0); EOS # 0.4 K/mm3 (0.0-0.50); EOS % 7.4 % (0.0-3.0); LARGE UNSTAINED CELL # 0.1 K/mm3 (0.0-0.4); LARGE UNSTAINED CELL % 1.9 % (0.0-4.0); LYMPH # 2.1 K/mm3 (1.5-6.5); MEAN CORPUSCULAR HEMOGLOBIN 29.2 pg (27.0-33.0); MEAN CORPUSCULAR HGB CONC 32.6 g/dl (32.0-36.5); MEAN CORPUSCULAR VOLUME 89.4 fl (80.0-96.0); MONO # 0.3 K/mm3 (0.0-0.8); MONO % 5.5 % (0.0-5.0); NEUTROPHILS # 2.3 K/mm3 (1.8-7.7); NEUTROPHILS % 45.4 % (36.0-66.0); PLATELET COUNT, AUTOMATED 293 k/mm3 (150-450); RED CELL DISTRIBUTION WIDTH 13.4 % (11.5-14.5); WHITE BLOOD COUNT 5.1 K/mm3 (4.0-10.0)
== END ==
LOC: M LAB 11:08
PROVIDERS: ATTEND Psychiatry & Neurology Psychiatry
DX: Z79.899 Other long term (current) drug therapy (principal)

== ENCOUNTER → 2016-10-04 | Outpatient (CLI) | payer MEDICARE, MEDICAID ==
[2016-10-04 10:23] LABS: BASO % 0.4 % (0.0-1.0); EOS # 0.2 K/mm3 (0.0-0.50); EOS % 3.2 % (0.0-3.0); LARGE UNSTAINED CELL # 0.2 K/mm3 (0.0-0.4); LARGE UNSTAINED CELL % 2.6 % (0.0-4.0); LYMPH # 1.6 K/mm3 (1.5-6.5); MEAN CORPUSCULAR HEMOGLOBIN 28.5 pg (27.0-33.0); MEAN CORPUSCULAR HGB CONC 32.5 g/dl (32.0-36.5); MEAN CORPUSCULAR VOLUME 87.7 fl (80.0-96.0); MONO # 0.3 K/mm3 (0.0-0.8); NEUTROPHILS # 3.7 K/mm3 (1.8-7.7); NEUTROPHILS % 62.9 % (36.0-66.0); PLATELET COUNT, AUTOMATED 359 k/mm3 (150-450)
== END ==
LOC: M LAB 10:01
PROVIDERS: ATTEND Psychiatry & Neurology Psychiatry
DX: Z79.899 Other long term (current) drug therapy (principal)

== ENCOUNTER 2016-10-11 12:57 | Emergency (ER) | payer MEDICARE, MEDICAID ==
[~2016-10-11] VITALS: Ht 154.9 cm; Wt 96.2 kg
[~2016-10-11 12:57] MED LIST changes: -ALBU17IN INH; -CLOZ100T PO; -COGE1INJ IM; -GLUCTAB PO; -LITH300C PO; -PROTPAK PO; -TOPA100T8 PO; -VITA100037 PO
[2016-10-11] MEDS ORDERED: ALBU17IN INH (13:17)
[2016-10-11] MEDS ORDERED: CLOZ100T PO (13:17)
[2016-10-11] MEDS ORDERED: GLUCTAB PO (13:17)
[2016-10-11] MEDS ORDERED: COGE1INJ IM ×2 (13:17)
[2016-10-11] MEDS ORDERED: LITH300C PO (13:17)
[2016-10-11] MEDS ORDERED: TOPA100T8 PO (13:17)
[2016-10-11] MEDS ORDERED: PROTPAK PO (13:17)
[2016-10-11] MEDS ORDERED: VITA100037 PO (13:17)
[2016-10-11 15:28] LABS: METHADONE URINE NEGATIVE (NEGATIVE)
[2016-10-11 16:08] VITALS: BP 147/87
== END 2016-10-11 16:10 | disposition home or self-care (01) ==
LOC: M ED 13:31
DX: R41.3 Other amnesia (principal); I10 Essential (primary) hypertension; E78.00 Pure hypercholesterolemia, unspecified; R01.1 Cardiac murmur, unspecified; J45.909 Unspecified asthma, uncomplicated; F41.0 Panic disorder [episodic paroxysmal anxiety]; F32.9 Major depressive disorder, single episode, unspecified; Z87.440 Personal history of urinary (tract) infections; Z79.899 Other long term (current) drug therapy; Z88.8 Allergy status to other drugs, medicaments and biological substances; F17.210 Nicotine dependence, cigarettes, uncomplicated

== ENCOUNTER → 2016-10-11 | Outpatient (CLI) | payer MEDICARE, MEDICAID ==
[~2016-10-11] MED LIST changes: +ALBU17IN INH; +CLOZ100T PO; +COGE1INJ IM; +GLUCTAB PO; +LITH300C PO; +PROTPAK PO; +TOPA100T8 PO; +VITA100037 PO
[2016-10-11 13:37] LABS: BASO % 0.7 % (0.0-1.0); EOS # 0.2 K/mm3 (0.0-0.50); EOS % 3.1 % (0.0-3.0); LARGE UNSTAINED CELL # 0.1 K/mm3 (0.0-0.4); LARGE UNSTAINED CELL % 2.1 % (0.0-4.0); LYMPH % 30.8 % (24.0-44.0); MEAN CORPUSCULAR HEMOGLOBIN 29.6 pg (27.0-33.0); MEAN CORPUSCULAR HGB CONC 33.1 g/dl (32.0-36.5); MEAN CORPUSCULAR VOLUME 89.4 fl (80.0-96.0); MONO # 0.3 K/mm3 (0.0-0.8); MONO % 5.1 % (0.0-5.0); NEUTROPHILS # 3.6 K/mm3 (1.8-7.7); NEUTROPHILS % 58.1 % (36.0-66.0); PLATELET COUNT, AUTOMATED 342 k/mm3 (150-450); WHITE BLOOD COUNT 6.2 K/mm3 (4.0-10.0)
== END ==
LOC: M LAB 11:40
PROVIDERS: ATTEND Psychiatry & Neurology Psychiatry
DX: Z51.81 Encounter for therapeutic drug level monitoring (principal); Z79.899 Other long term (current) drug therapy

== ENCOUNTER → 2016-10-19 | Outpatient (CLI) | payer MEDICARE, MEDICAID ==
[~2016-10-19] MED LIST changes: +ALBU17IN INH; +CLOZ100T PO; +COGE1INJ IM; +GLUCTAB PO; +LITH300C PO; +PROTPAK PO; +TOPA100T8 PO; +VITA100037 PO
[2016-10-19 09:48] LABS: BASO % 0.7 % (0.0-1.0); EOS # 0.2 K/mm3 (0.0-0.50); EOS % 2.9 % (0.0-3.0); LARGE UNSTAINED CELL # 0.1 K/mm3 (0.0-0.4); LARGE UNSTAINED CELL % 2.3 % (0.0-4.0); LYMPH % 36.5 % (24.0-44.0); MEAN CORPUSCULAR HEMOGLOBIN 29.3 pg (27.0-33.0); MEAN CORPUSCULAR HGB CONC 33.2 g/dl (32.0-36.5); MEAN CORPUSCULAR VOLUME 88.3 fl (80.0-96.0); MONO # 0.3 K/mm3 (0.0-0.8); MONO % 5.6 % (0.0-5.0); NEUTROPHILS # 2.8 K/mm3 (1.8-7.7); PLATELET COUNT, AUTOMATED 317 k/mm3 (150-450); RED CELL DISTRIBUTION WIDTH 12.7 % (11.5-14.5); WHITE BLOOD COUNT 5.4 K/mm3 (4.0-10.0)
== END ==
LOC: M LAB 09:09
PROVIDERS: ATTEND Psychiatry & Neurology Psychiatry
DX: Z51.81 Encounter for therapeutic drug level monitoring (principal); Z79.899 Other long term (current) drug therapy

== ENCOUNTER → 2016-10-25 | Outpatient (CLI) | payer MEDICARE, MEDICAID ==
[2016-10-25 12:28] LABS: BASO % 0.5 % (0.0-1.0); EOS # 0.2 K/mm3 (0.0-0.50); EOS % 2.8 % (0.0-3.0); LARGE UNSTAINED CELL # 0.1 K/mm3 (0.0-0.4); LARGE UNSTAINED CELL % 2.3 % (0.0-4.0); LYMPH # 1.9 K/mm3 (1.5-6.5); LYMPH % 33.7 % (24.0-44.0); MEAN CORPUSCULAR HEMOGLOBIN 29.4 pg (27.0-33.0); MEAN CORPUSCULAR HGB CONC 32.8 g/dl (32.0-36.5); MEAN CORPUSCULAR VOLUME 89.7 fl (80.0-96.0); MONO # 0.3 K/mm3 (0.0-0.8); MONO % 5.4 % (0.0-5.0); NEUTROPHILS # 3.2 K/mm3 (1.8-7.7); NEUTROPHILS % 55.3 % (36.0-66.0); PLATELET COUNT, AUTOMATED 320 k/mm3 (150-450); RED CELL DISTRIBUTION WIDTH 12.6 % (11.5-14.5); WHITE BLOOD COUNT 5.7 K/mm3 (4.0-10.0)
== END ==
LOC: M LAB 09:50
PROVIDERS: ATTEND Psychiatry & Neurology Psychiatry
DX: Z51.81 Encounter for therapeutic drug level monitoring (principal); Z79.899 Other long term (current) drug therapy

== ENCOUNTER → 2016-11-01 | Outpatient (CLI) | payer MEDICARE, MEDICAID ==
[2016-11-01 11:11] LABS: BASO % 0.3 % (0.0-1.0); EOS # 0.1 K/mm3 (0.0-0.50); EOS % 1.7 % (0.0-3.0); LARGE UNSTAINED CELL # 0.1 K/mm3 (0.0-0.4); LARGE UNSTAINED CELL % 1.6 % (0.0-4.0); LYMPH # 2.3 K/mm3 (1.5-6.5); LYMPH % 31.8 % (24.0-44.0); MEAN CORPUSCULAR HEMOGLOBIN 29.4 pg (27.0-33.0); MEAN CORPUSCULAR HGB CONC 32.9 g/dl (32.0-36.5); MEAN CORPUSCULAR VOLUME 89.4 fl (80.0-96.0); MONO # 0.3 K/mm3 (0.0-0.8); MONO % 4.9 % (0.0-5.0); NEUTROPHILS % 59.7 % (36.0-66.0); PLATELET COUNT, AUTOMATED 327 k/mm3 (150-450); RED CELL DISTRIBUTION WIDTH 12.6 % (11.5-14.5); WHITE BLOOD COUNT 6.8 K/mm3 (4.0-10.0)
== END ==
LOC: M LAB 10:31
PROVIDERS: ATTEND Psychiatry & Neurology Psychiatry
DX: Z51.81 Encounter for therapeutic drug level monitoring (principal); Z79.899 Other long term (current) drug therapy

== ENCOUNTER → 2016-11-08 | Outpatient (CLI) | payer MEDICARE, MEDICAID ==
[2016-11-08 14:33] LABS: BASO % 0.6 % (0.0-1.0); EOS # 0.1 K/mm3 (0.0-0.50); EOS % 2.3 % (0.0-3.0); LARGE UNSTAINED CELL # 0.1 K/mm3 (0.0-0.4); LARGE UNSTAINED CELL % 1.7 % (0.0-4.0); LYMPH # 1.8 K/mm3 (1.5-6.5); LYMPH % 27.9 % (24.0-44.0); MEAN CORPUSCULAR HEMOGLOBIN 29.3 pg (27.0-33.0); MEAN CORPUSCULAR HGB CONC 32.8 g/dl (32.0-36.5); MEAN CORPUSCULAR VOLUME 89.2 fl (80.0-96.0); MONO # 0.3 K/mm3 (0.0-0.8); NEUTROPHILS # 3.8 K/mm3 (1.8-7.7); NEUTROPHILS % 62.5 % (36.0-66.0); PLATELET COUNT, AUTOMATED 337 k/mm3 (150-450); RED CELL DISTRIBUTION WIDTH 12.3 % (11.5-14.5)
== END ==
LOC: M LAB 12:18
PROVIDERS: ATTEND Psychiatry & Neurology Psychiatry
DX: Z51.81 Encounter for therapeutic drug level monitoring (principal); Z79.899 Other long term (current) drug therapy

== ENCOUNTER → 2016-11-15 | Outpatient (CLI) | payer MEDICARE, MEDICAID ==
[2016-11-15 19:13] LABS: BASO % 0.4 % (0.0-1.0); EOS # 0.1 K/mm3 (0.0-0.50); EOS % 1.4 % (0.0-3.0); LARGE UNSTAINED CELL # 0.1 K/mm3 (0.0-0.4); LARGE UNSTAINED CELL % 1.7 % (0.0-4.0); LYMPH # 2.2 K/mm3 (1.5-6.5); LYMPH % 27.4 % (24.0-44.0); MEAN CORPUSCULAR HEMOGLOBIN 29.6 pg (27.0-33.0); MEAN CORPUSCULAR HGB CONC 33.1 g/dl (32.0-36.5); MEAN CORPUSCULAR VOLUME 89.3 fl (80.0-96.0); MONO # 0.3 K/mm3 (0.0-0.8); MONO % 4.2 % (0.0-5.0); NEUTROPHILS # 4.9 K/mm3 (1.8-7.7); PLATELET COUNT, AUTOMATED 352 k/mm3 (150-450); RED CELL DISTRIBUTION WIDTH 12.6 % (11.5-14.5); WHITE BLOOD COUNT 7.6 K/mm3 (4.0-10.0)
== END ==
LOC: M LAB 17:04
PROVIDERS: ATTEND Psychiatry & Neurology Psychiatry
DX: Z79.899 Other long term (current) drug therapy (principal)

== ENCOUNTER → 2016-11-22 | Outpatient (CLI) | payer MEDICARE, MEDICAID ==
[2016-11-22 17:38] LABS: BASO % 0.5 % (0.0-1.0); EOS # 0.2 K/mm3 (0.0-0.50); EOS % 2.8 % (0.0-3.0); LARGE UNSTAINED CELL # 0.2 K/mm3 (0.0-0.4); LARGE UNSTAINED CELL % 2.1 % (0.0-4.0); LYMPH # 2.4 K/mm3 (1.5-6.5); LYMPH % 33.4 % (24.0-44.0); MEAN CORPUSCULAR HEMOGLOBIN 30.3 pg (27.0-33.0); MEAN CORPUSCULAR HGB CONC 33.8 g/dl (32.0-36.5); MEAN CORPUSCULAR VOLUME 89.9 fl (80.0-96.0); MONO # 0.3 K/mm3 (0.0-0.8); MONO % 4.4 % (0.0-5.0); NEUTROPHILS # 4.1 K/mm3 (1.8-7.7); NEUTROPHILS % 56.7 % (36.0-66.0); PLATELET COUNT, AUTOMATED 341 k/mm3 (150-450); RED CELL DISTRIBUTION WIDTH 12.8 % (11.5-14.5); WHITE BLOOD COUNT 7.3 K/mm3 (4.0-10.0)
== END ==
LOC: M LAB 16:35
PROVIDERS: ATTEND Psychiatry & Neurology Psychiatry
DX: Z51.81 Encounter for therapeutic drug level monitoring (principal); Z79.899 Other long term (current) drug therapy

== ENCOUNTER → 2016-11-29 | Outpatient (CLI) | payer MEDICARE, MEDICAID ==
[2016-11-29 19:29] LABS: BASO % 0.6 % (0.0-1.0); EOS # 0.2 K/mm3 (0.0-0.50); EOS % 2.9 % (0.0-3.0); LARGE UNSTAINED CELL # 0.1 K/mm3 (0.0-0.4); LARGE UNSTAINED CELL % 1.8 % (0.0-4.0); LYMPH # 2.3 K/mm3 (1.5-6.5); LYMPH % 32.7 % (24.0-44.0); MEAN CORPUSCULAR HEMOGLOBIN 30.1 pg (27.0-33.0); MEAN CORPUSCULAR HGB CONC 33.5 g/dl (32.0-36.5); MEAN CORPUSCULAR VOLUME 89.9 fl (80.0-96.0); MONO # 0.3 K/mm3 (0.0-0.8); MONO % 4.1 % (0.0-5.0); NEUTROPHILS # 3.9 K/mm3 (1.8-7.7); NEUTROPHILS % 57.9 % (36.0-66.0); PLATELET COUNT, AUTOMATED 296 k/mm3 (150-450); RED CELL DISTRIBUTION WIDTH 12.8 % (11.5-14.5); WHITE BLOOD COUNT 6.8 K/mm3 (4.0-10.0)
== END ==
LOC: M LAB 16:27
PROVIDERS: ATTEND Psychiatry & Neurology Psychiatry
DX: Z51.81 Encounter for therapeutic drug level monitoring (principal); Z79.899 Other long term (current) drug therapy

== ENCOUNTER → 2016-12-06 | Outpatient (CLI) | payer MEDICARE, MEDICAID ==
[2016-12-06 19:12] LABS: BASO % 0.4 % (0.0-1.0); EOS # 0.2 K/mm3 (0.0-0.50); EOS % 3.2 % (0.0-3.0); LARGE UNSTAINED CELL # 0.1 K/mm3 (0.0-0.4); LARGE UNSTAINED CELL % 1.8 % (0.0-4.0); LYMPH # 2.3 K/mm3 (1.5-6.5); LYMPH % 32.4 % (24.0-44.0); MEAN CORPUSCULAR HEMOGLOBIN 30.1 pg (27.0-33.0); MEAN CORPUSCULAR HGB CONC 32.5 g/dl (32.0-36.5); MEAN CORPUSCULAR VOLUME 92.8 fl (80.0-96.0); MONO # 0.3 K/mm3 (0.0-0.8); MONO % 4.1 % (0.0-5.0); NEUTROPHILS # 4.2 K/mm3 (1.8-7.7); NEUTROPHILS % 58.3 % (36.0-66.0); PLATELET COUNT, AUTOMATED 312 k/mm3 (150-450); RED CELL DISTRIBUTION WIDTH 13.1 % (11.5-14.5); WHITE BLOOD COUNT 7.1 K/mm3 (4.0-10.0)
== END ==
LOC: M LAB 16:20
PROVIDERS: ATTEND Psychiatry & Neurology Psychiatry
DX: Z51.81 Encounter for therapeutic drug level monitoring (principal); Z79.01 Long term (current) use of anticoagulants

== ENCOUNTER → 2016-12-13 | Outpatient (CLI) | payer MEDICARE, MEDICAID ==
[2016-12-13 18:21] LABS: BASO % 0.4 % (0.0-1.0); EOS # 0.3 K/mm3 (0.0-0.50); EOS % 4.4 % (0.0-3.0); LARGE UNSTAINED CELL # 0.1 K/mm3 (0.0-0.4); LYMPH # 2.2 K/mm3 (1.5-6.5); LYMPH % 29.1 % (24.0-44.0); MEAN CORPUSCULAR HEMOGLOBIN 30.1 pg (27.0-33.0); MEAN CORPUSCULAR HGB CONC 33.4 g/dl (32.0-36.5); MEAN CORPUSCULAR VOLUME 90.3 fl (80.0-96.0); MONO # 0.3 K/mm3 (0.0-0.8); MONO % 4.8 % (0.0-5.0); NEUTROPHILS # 4.3 K/mm3 (1.8-7.7); NEUTROPHILS % 59.3 % (36.0-66.0); PLATELET COUNT, AUTOMATED 304 k/mm3 (150-450); RED CELL DISTRIBUTION WIDTH 13.1 % (11.5-14.5); WHITE BLOOD COUNT 7.2 K/mm3 (4.0-10.0)
== END ==
LOC: M LAB 17:10
PROVIDERS: ATTEND Psychiatry & Neurology Psychiatry
DX: Z79.899 Other long term (current) drug therapy (principal)

== ENCOUNTER → 2016-12-20 | Outpatient (CLI) | payer MEDICARE, MEDICAID ==
[2016-12-20 17:43] LABS: BASO % 0.3 % (0.0-1.0); EOS # 0.2 K/mm3 (0.0-0.50); EOS % 3.1 % (0.0-3.0); LARGE UNSTAINED CELL # 0.1 K/mm3 (0.0-0.4); LARGE UNSTAINED CELL % 1.7 % (0.0-4.0); LYMPH # 2.5 K/mm3 (1.5-6.5); LYMPH % 33.7 % (24.0-44.0); MEAN CORPUSCULAR HEMOGLOBIN 30.3 pg (27.0-33.0); MEAN CORPUSCULAR HGB CONC 33.9 g/dl (32.0-36.5); MEAN CORPUSCULAR VOLUME 89.5 fl (80.0-96.0); MONO # 0.3 K/mm3 (0.0-0.8); MONO % 3.8 % (0.0-5.0); NEUTROPHILS # 4.3 K/mm3 (1.8-7.7); NEUTROPHILS % 57.4 % (36.0-66.0); PLATELET COUNT, AUTOMATED 326 k/mm3 (150-450); RED CELL DISTRIBUTION WIDTH 13.1 % (11.5-14.5); WHITE BLOOD COUNT 7.4 K/mm3 (4.0-10.0)
== END ==
LOC: M LAB 16:26
PROVIDERS: ATTEND Psychiatry & Neurology Psychiatry
DX: Z51.81 Encounter for therapeutic drug level monitoring (principal); Z79.899 Other long term (current) drug therapy

== ENCOUNTER → 2016-12-25 | Outpatient (CLI) | payer MEDICARE, MEDICAID ==
[2016-12-25 10:53] LABS: ALBUMIN 4.1 GM/DL (3.2-5.2); ALBUMIN/GLOBULIN RATIO 1.28 (1.00-1.93); ALKALINE PHOSPHATASE 95 U/L (45-117); ALT/SGPT 35 U/L (12-78); ANION GAP 7 MEQ/L (8-16); AST/SGOT 17 U/L (15-37); BILIRUBIN,TOTAL 0.3 MG/DL (0.2-1.0); BLOOD UREA NITROGEN 9 MG/DL (7-18); CALCIUM LEVEL 9.4 MG/DL (8.5-10.1); CARBON DIOXIDE LEVEL 26 MEQ/L (21-32); CHLORIDE LEVEL 108 MEQ/L (98-107); CHOLESTEROL LEVEL 209 MG/DL (<200); CREATININE FOR GFR 1.03 MG/DL (0.55-1.02); GLOMERULAR FILTRATION RATE > 60.0 (>60); GLUCOSE, FASTING 99 MG/DL (70-105); POTASSIUM SERUM 4.2 MEQ/L (3.5-5.1); SODIUM LEVEL 141 MEQ/L (136-145); TOTAL PROTEIN 7.3 GM/DL (6.4-8.2); TRIGLYCERIDES LEVEL 123 MG/DL (<150)
== END ==
LOC: M LAB 09:42
PROVIDERS: ATTEND Family Medicine Addiction Medicine
DX: I10 Essential (primary) hypertension (principal); E55.9 Vitamin D deficiency, unspecified

== ENCOUNTER → 2016-12-27 | Outpatient (CLI) | payer MEDICARE, MEDICAID ==
[2016-12-27 17:58] LABS: BASO % 0.8 % (0.0-1.0); EOS # 0.2 K/mm3 (0.0-0.50); EOS % 2.5 % (0.0-3.0); LARGE UNSTAINED CELL # 0.1 K/mm3 (0.0-0.4); LARGE UNSTAINED CELL % 1.8 % (0.0-4.0); LYMPH # 2.3 K/mm3 (1.5-6.5); LYMPH % 32.5 % (24.0-44.0); MEAN CORPUSCULAR HGB CONC 33.2 g/dl (32.0-36.5); MEAN CORPUSCULAR VOLUME 90.2 fl (80.0-96.0); MONO # 0.3 K/mm3 (0.0-0.8); MONO % 4.7 % (0.0-5.0); NEUTROPHILS # 3.8 K/mm3 (1.8-7.7); NEUTROPHILS % 57.7 % (36.0-66.0); PLATELET COUNT, AUTOMATED 323 k/mm3 (150-450); RED CELL DISTRIBUTION WIDTH 13.1 % (11.5-14.5); WHITE BLOOD COUNT 6.7 K/mm3 (4.0-10.0)
== END ==
LOC: M LAB 17:13
PROVIDERS: ATTEND Psychiatry & Neurology Psychiatry
DX: Z51.81 Encounter for therapeutic drug level monitoring (principal); Z79.899 Other long term (current) drug therapy

== ENCOUNTER → 2017-01-03 | Outpatient (CLI) | payer MEDICARE, MEDICAID ==
[~2017-01-03] MED LIST changes: +CLOZ25TA2 PO; +COGE1INJ PO; +DOK100TA PO; +METF500T PO; +MINI1CAP PO
[2017-01-03 12:14] LABS: BASO % 0.8 % (0.0-1.0); EOS # 0.2 K/mm3 (0.0-0.50); EOS % 3.6 % (0.0-3.0); LARGE UNSTAINED CELL # 0.1 K/mm3 (0.0-0.4); LARGE UNSTAINED CELL % 2.3 % (0.0-4.0); LYMPH # 1.8 K/mm3 (1.5-6.5); LYMPH % 35.2 % (24.0-44.0); MEAN CORPUSCULAR HEMOGLOBIN 29.5 pg (27.0-33.0); MEAN CORPUSCULAR HGB CONC 32.5 g/dl (32.0-36.5); MEAN CORPUSCULAR VOLUME 90.6 fl (80.0-96.0); MONO # 0.3 K/mm3 (0.0-0.8); MONO % 5.3 % (0.0-5.0); NEUTROPHILS # 2.5 K/mm3 (1.8-7.7); NEUTROPHILS % 52.8 % (36.0-66.0); PLATELET COUNT, AUTOMATED 310 k/mm3 (150-450); RED CELL DISTRIBUTION WIDTH 13.2 % (11.5-14.5); WHITE BLOOD COUNT 4.7 K/mm3 (4.0-10.0)
== END ==
LOC: M LAB 11:30
PROVIDERS: ATTEND Psychiatry & Neurology Psychiatry
DX: Z51.81 Encounter for therapeutic drug level monitoring (principal); Z79.899 Other long term (current) drug therapy

== ENCOUNTER 2017-01-04 21:16 | Emergency (ER) | payer MEDICARE, MEDICAID ==
[~2017-01-04] VITALS: Ht 154.9 cm; Wt 82.6 kg
[~2017-01-04 21:16] MED LIST changes: -CLOZ25TA2 PO; -DOK100TA PO; -METF500T PO; -MINI1CAP PO
[2017-01-04] MEDS ORDERED: METF500T PO (21:59)
[2017-01-04] MEDS ORDERED: BUSP10TA PO (21:59)
[2017-01-04] MEDS ORDERED: CLOZ25TA2 PO (22:07)
[2017-01-04] MEDS ORDERED: MINI1CAP PO (22:07)
[2017-01-04] MEDS ORDERED: DOK100TA PO (22:07)
[2017-01-04 22:08] LABS: BASO # 0.1 K/mm3 (0.0-0.2); BASO % 0.8 % (0.0-1.0); EOS # 0.2 K/mm3 (0.0-0.50); EOS % 2.2 % (0.0-3.0); LARGE UNSTAINED CELL # 0.2 K/mm3 (0.0-0.4); LARGE UNSTAINED CELL % 2.1 % (0.0-4.0); LYMPH # 2.8 K/mm3 (1.5-6.5); LYMPH % 35.4 % (24.0-44.0); MEAN CORPUSCULAR HEMOGLOBIN 30.1 pg (27.0-33.0); MEAN CORPUSCULAR HGB CONC 33.5 g/dl (32.0-36.5); MEAN CORPUSCULAR VOLUME 89.7 fl (80.0-96.0); MONO # 0.4 K/mm3 (0.0-0.8); MONO % 4.9 % (0.0-5.0); NEUTROPHILS # 4.3 K/mm3 (1.8-7.7); NEUTROPHILS % 54.6 % (36.0-66.0); PLATELET COUNT, AUTOMATED 321 k/mm3 (150-450); WHITE BLOOD COUNT 7.9 K/mm3 (4.0-10.0)
[2017-01-04 22:29] LABS: ANION GAP 13 MEQ/L (8-16); BLOOD UREA NITROGEN 8 MG/DL (7-18); CALCIUM LEVEL 9.4 MG/DL (8.5-10.1); CARBON DIOXIDE LEVEL 23 MEQ/L (21-32); CHLORIDE LEVEL 102 MEQ/L (98-107); CREATININE FOR GFR 1.15 MG/DL (0.55-1.02); GLOMERULAR FILTRATION RATE > 60.0 (>60); GLUCOSE, FASTING 95 MG/DL (70-105); POTASSIUM SERUM 3.5 MEQ/L (3.5-5.1); SODIUM LEVEL 138 MEQ/L (136-145)
[2017-01-04 22:30] LABS: LITHIUM LEVEL 0.41 MEQ/L (0.60-1.20)
[2017-01-04] MEDS ORDERED: NS 1,000 ML IV ONE ×2 (22:45)
--- NOTE | 2017-01-04 22:50 | REPUSA ---
CT of the head Clinical history: seizure. Technique: Multiple axial CT images were obtained through the head without administration of contrast . Comparison: 07/31/2016. Findings: The ventricles and sulci are symmetric bilaterally. There is no evidence of acute hemorrhag e or infarct. There is no midline shift, mass effect, or extra-axial fluid collection. The osseous st ructures are unremarkable. The visualized paranasal sinuses and mastoid air cells are clear. Impression: Negative study.
[2017-01-05 01:11] LABS: METHADONE URINE NEGATIVE (NEGATIVE)
[2017-01-05 02:28] VITALS: BP 153/89
== END 2017-01-05 02:50 | disposition home or self-care (01) ==
LOC: EDBD 21:16 → M ED 22:26
DX: R56.9 Unspecified convulsions (principal); J45.909 Unspecified asthma, uncomplicated; F20.9 Schizophrenia, unspecified; F17.210 Nicotine dependence, cigarettes, uncomplicated

== ENCOUNTER 2017-01-08 21:39 | Emergency (ER) | payer MEDICARE, MEDICAID ==
[~2017-01-08] VITALS: Ht 154.9 cm; Wt 94.3 kg
[~2017-01-08 21:39] MED LIST changes: +CLOZ25TA2 PO; +DOK100TA PO; +METF500T PO; +MINI1CAP PO
[2017-01-08 23:00] LABS: BASO % 0.6 % (0.0-1.0); EOS # 0.2 K/mm3 (0.0-0.50); EOS % 2.2 % (0.0-3.0); LARGE UNSTAINED CELL # 0.1 K/mm3 (0.0-0.4); LARGE UNSTAINED CELL % 1.8 % (0.0-4.0); LYMPH # 2.6 K/mm3 (1.5-6.5); LYMPH % 34.5 % (24.0-44.0); MEAN CORPUSCULAR HEMOGLOBIN 30.3 pg (27.0-33.0); MEAN CORPUSCULAR HGB CONC 33.3 g/dl (32.0-36.5); MONO # 0.4 K/mm3 (0.0-0.8); MONO % 5.2 % (0.0-5.0); NEUTROPHILS % 55.8 % (36.0-66.0); PLATELET COUNT, AUTOMATED 290 k/mm3 (150-450); RED CELL DISTRIBUTION WIDTH 13.2 % (11.5-14.5); WHITE BLOOD COUNT 7.1 K/mm3 (4.0-10.0)
[2017-01-08 23:24] LABS: CONTROL LINE HCG INT CTR LINE PRESENT
[2017-01-08 23:32] LABS: ALBUMIN 4.4 GM/DL (3.2-5.2); ALBUMIN/GLOBULIN RATIO 1.29 (1.00-1.93); ALKALINE PHOSPHATASE 106 U/L (45-117); ALT/SGPT 33 U/L (12-78); ANION GAP 10 MEQ/L (8-16); AST/SGOT 20 U/L (15-37); BILIRUBIN,DIRECT < 0.1 MG/DL (0.0-0.2); BLOOD UREA NITROGEN 7 MG/DL (7-18); CALCIUM LEVEL 9.2 MG/DL (8.5-10.1); CARBON DIOXIDE LEVEL 21 MEQ/L (21-32); CHLORIDE LEVEL 103 MEQ/L (98-107); CREATININE FOR GFR 0.91 MG/DL (0.55-1.02); GLOMERULAR FILTRATION RATE > 60.0 (>60); GLUCOSE, FASTING 114 MG/DL (70-105); MAGNESIUM LEVEL 1.9 MG/DL (1.8-2.4); POTASSIUM SERUM 4.3 MEQ/L (3.5-5.1); SODIUM LEVEL 134 MEQ/L (136-145); TOTAL PROTEIN 7.8 GM/DL (6.4-8.2)
[2017-01-08 23:38] LABS: FREE T4 0.94 NG/DL (0.76-1.46)
[2017-01-08 23:53] LABS: BILIRUBIN,TOTAL 0.2 MG/DL (0.2-1.0)
[2017-01-09 00:13] LABS: LITHIUM LEVEL 0.67 MEQ/L (0.60-1.20)
[2017-01-09 01:18] LABS: METHADONE URINE NEGATIVE (NEGATIVE)
[2017-01-09 03:20] VITALS: BP 142/93
--- NOTE | 2017-01-09 08:47 | REP ---
CHEST, TWO VIEWS: There is no evidence of acute infiltrate. No pleural effusion is seen. The heart is normal in size. The mediastinal silhouette is unremarkable. The visualized osseous structures are intact. IMPRESSION: No acute pulmonary disease. Signed by Alejandro Gustafson MD 01/09/2017 07:42 P
--- NOTE | 2017-01-09 16:24 | ECGEPIP ---
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
== END 2017-01-09 03:35 | disposition home or self-care (01) ==
LOC: M ED 22:06
DX: R55 Syncope and collapse (principal); I10 Essential (primary) hypertension; J45.909 Unspecified asthma, uncomplicated; F31.9 Bipolar disorder, unspecified; F20.9 Schizophrenia, unspecified; Z79.899 Other long term (current) drug therapy
CPT/HCPCS: 36415; 71020; 80048; 80076; 80178; 80306; 82550; 82553; 83735; 84439; 84443; 84484; 84703; 85025; 93005; 93041; 94760; 99285; G0480

== ENCOUNTER → 2017-01-10 | Outpatient (CLI) | payer MEDICARE, MEDICAID ==
[2017-01-10 11:57] LABS: BASO % 0.5 % (0.0-1.0); EOS # 0.2 K/mm3 (0.0-0.50); EOS % 2.9 % (0.0-3.0); LYMPH # 1.6 K/mm3 (1.5-6.5); LYMPH % 24.8 % (24.0-44.0); MEAN CORPUSCULAR HGB CONC 33.2 g/dl (32.0-36.5); MEAN CORPUSCULAR VOLUME 90.4 fl (80.0-96.0); MONO # 0.3 K/mm3 (0.0-0.8); MONO % 5.4 % (0.0-5.0); NEUTROPHILS # 3.9 K/mm3 (1.8-7.7); NEUTROPHILS % 64.4 % (36.0-66.0); RED CELL DISTRIBUTION WIDTH 13.3 % (11.5-14.5)
== END ==
LOC: M LAB 11:19
PROVIDERS: ATTEND Psychiatry & Neurology Psychiatry
DX: F25.9 Schizoaffective disorder, unspecified (principal)

== ENCOUNTER → 2017-01-17 | Outpatient (CLI) | payer MEDICARE, MEDICAID ==
[2017-01-17 13:13] LABS: BASO % 0.5 % (0.0-1.0); EOS # 0.2 K/mm3 (0.0-0.50); EOS % 2.6 % (0.0-3.0); LYMPH # 1.8 K/mm3 (1.5-6.5); LYMPH % 28.3 % (24.0-44.0); MEAN CORPUSCULAR HEMOGLOBIN 30.2 pg (27.0-33.0); MEAN CORPUSCULAR HGB CONC 33.3 g/dl (32.0-36.5); MEAN CORPUSCULAR VOLUME 90.8 fl (80.0-96.0); MONO # 0.3 K/mm3 (0.0-0.8); MONO % 5.5 % (0.0-5.0); NEUTROPHILS # 3.9 K/mm3 (1.8-7.7); NEUTROPHILS % 61.6 % (36.0-66.0); RED CELL DISTRIBUTION WIDTH 13.3 % (11.5-14.5); WHITE BLOOD COUNT 6.3 K/mm3 (4.0-10.0)
== END ==
LOC: M LAB 11:44
PROVIDERS: ATTEND Psychiatry & Neurology Psychiatry
DX: Z51.81 Encounter for therapeutic drug level monitoring (principal); Z79.899 Other long term (current) drug therapy

== ENCOUNTER → 2017-01-24 | Outpatient (CLI) | payer MEDICARE, MEDICAID ==
[~2017-01-24] MED LIST changes: +BACT800T5 PO; +BENA25TA10 PO; +BENZ-52 PO; -BENZ1TA PO; -BENZ2TA PO; +BENZ2TAB5 PO; +CLOZ100T2 PO; +LISI10TA4 PO; +METF-699 PO; -METF500T PO; +METF500T13 PO; +PRAZ1CAP PO; +PROT1TAB2 PO; +TOPA100T12 PO; -TOPA100T8 PO; +TRAZ-136 PO; -TRAZ100T4 PO; -TRAZ150T14 PO; +TRAZ1TAB14 PO; -VITA100037 PO; +VITA100067 PO
[2017-01-24 11:59] LABS: BASO % 0.6 % (0.0-1.0); EOS # 0.2 K/mm3 (0.0-0.50); EOS % 3.8 % (0.0-3.0); LYMPH # 1.9 K/mm3 (1.5-6.5); LYMPH % 34.5 % (24.0-44.0); MEAN CORPUSCULAR HEMOGLOBIN 30.3 pg (27.0-33.0); MEAN CORPUSCULAR HGB CONC 33.6 g/dl (32.0-36.5); MEAN CORPUSCULAR VOLUME 90.2 fl (80.0-96.0); MONO # 0.3 K/mm3 (0.0-0.8); MONO % 4.8 % (0.0-5.0); NEUTROPHILS # 2.8 K/mm3 (1.8-7.7); NEUTROPHILS % 54.4 % (36.0-66.0); RED CELL DISTRIBUTION WIDTH 13.4 % (11.5-14.5); WHITE BLOOD COUNT 5.2 K/mm3 (4.0-10.0)
== END ==
LOC: M LAB 11:23
PROVIDERS: ATTEND Psychiatry & Neurology Psychiatry
DX: Z51.81 Encounter for therapeutic drug level monitoring (principal); Z79.899 Other long term (current) drug therapy; F25.9 Schizoaffective disorder, unspecified

== ENCOUNTER 2017-01-29 16:25 | Inpatient (IN) | payer MEDICARE, MEDICAID ==
[~2017-01-29] VITALS: Ht 154.9 cm; Wt 90.0 kg
[~2017-01-29 16:25] MED LIST changes: -BACT800T5 PO; -BENA25TA10 PO; -CLOZ100T2 PO; -LISI10TA4 PO; -METF-699 PO; -PRAZ1CAP PO; -PROT1TAB2 PO
[2017-01-29] MEDS ORDERED: NS 1,000 ML IV ONE (16:45)
[2017-01-29] MEDS ORDERED: INVE156I IM (16:46)
[2017-01-29] MEDS ORDERED: BUSP10TA PO (16:46)
[2017-01-29] MEDS ORDERED: COGE1INJ PO (16:46)
[2017-01-29 17:22] LABS: BASO # 0.1 K/mm3 (0.0-0.2); BASO % 1.2 % (0.0-1.0); CONTROL LINE HCG INT CTR LINE PRESENT; EOS # 0.2 K/mm3 (0.0-0.50); EOS % 2.5 % (0.0-3.0); LARGE UNSTAINED CELL # 0.2 K/mm3 (0.0-0.4); LARGE UNSTAINED CELL % 2.2 % (0.0-4.0); LYMPH # 2.6 K/mm3 (1.5-6.5); LYMPH % 35.9 % (24.0-44.0); MEAN CORPUSCULAR HEMOGLOBIN 30.6 pg (27.0-33.0); MEAN CORPUSCULAR HGB CONC 33.7 g/dl (32.0-36.5); MEAN CORPUSCULAR VOLUME 90.7 fl (80.0-96.0); MONO # 0.3 K/mm3 (0.0-0.8); MONO % 4.6 % (0.0-5.0); NEUTROPHILS # 3.8 K/mm3 (1.8-7.7); NEUTROPHILS % 53.6 % (36.0-66.0); OSMOLALITY SERUM 289 MOSM/KG (275-295); PLATELET COUNT, AUTOMATED 319 k/mm3 (150-450); RED CELL DISTRIBUTION WIDTH 13.3 % (11.5-14.5); WHITE BLOOD COUNT 7.1 K/mm3 (4.0-10.0)
[2017-01-29] MEDS ORDERED: ONDANSETRON 4MG/2ML VIAL (J2405) IV ONE (17:30)
[2017-01-29 17:37] LABS: ALBUMIN 4.3 GM/DL (3.2-5.2); ALKALINE PHOSPHATASE 97 U/L (45-117); ALT/SGPT 30 U/L (12-78); ANION GAP 16 MEQ/L (8-16); AST/SGOT 29 U/L (15-37); BILIRUBIN,DIRECT < 0.1 MG/DL (0.0-0.2); BILIRUBIN,TOTAL 0.3 MG/DL (0.2-1.0); BLOOD UREA NITROGEN 5 MG/DL (7-18); CALCIUM LEVEL 8.9 MG/DL (8.5-10.1); CARBON DIOXIDE LEVEL 19 MEQ/L (21-32); CHLORIDE LEVEL 105 MEQ/L (98-107); CREATININE FOR GFR 1.27 MG/DL (0.55-1.02); GLOMERULAR FILTRATION RATE > 60.0 (>60); GLUCOSE, FASTING 98 MG/DL (70-105); POTASSIUM SERUM 3.4 MEQ/L (3.5-5.1); SODIUM LEVEL 140 MEQ/L (136-145); TOTAL PROTEIN 7.6 GM/DL (6.4-8.2)
[2017-01-29 17:42] LABS: LITHIUM LEVEL 0.44 MEQ/L (0.60-1.20)
--- NOTE | 2017-01-29 17:44 | REP ---
Clinical: Altered mental status. Overdose . Comparison: 01/04/2017 . Findings: The ventricles, sulci, and cisterns are normal in position and appearance. Gustafson-white differentiation is maintained. No acute intracranial hemorrhage, mass/mass effect, pathology or trauma/injury. No evidence for acute infarction. No extra-axial fluid collection. Calvarium is intact. Paranasal sinuses and mastoid air cells are clear. Impression: Normal noncontrast head CT. No evidence for acute intracranial pathology or trauma/injury. Signed by Javan Stearns MD 01/29/2017 05:35 P
[2017-01-29 18:17] LABS: METHADONE URINE NEGATIVE (NEGATIVE)
[2017-01-29 18:18] LABS: VENOUS BASE EXCESS -6.7 (-2.0-2.0); VENOUS O2 SATURATION 98.8 % (60.0-80.0); VENOUS PARTIAL PRESSURE CO2 34.1 mmHg (38.0-50.0); VENOUS PARTIAL PRESSURE O2 144.7 mmHg (30.0-50.0); VENOUS TOTAL CO2 19.1 MEQ/L (24.0-28.0)
[2017-01-29] MEDS ORDERED: PROT1TAB2 PO (18:27)
[2017-01-29] MEDS ORDERED: BENZ2TAB5 PO (18:27)
[2017-01-29] MEDS ORDERED: METF-699 PO (18:27)
[2017-01-29] MEDS ORDERED: BENA25TA10 PO (18:31)
--- NOTE | 2017-01-29 19:10 | REP ---
Clinical: Acute cough . Comparison: 01/09/2017 . Technique: PA and lateral. Findings: The mediastinum and cardiac silhouette are normal. The lung rosenthal are clear and without acute consolidation, effusion, or pneumothorax. The skeletal structures are intact and normal. Impression: 1. No acute cardiopulmonary process. Signed by Javan Stearns MD 01/29/2017 07:02 P
[2017-01-29] MEDS ORDERED: ACETAMINOPHEN TAB 650MG DOSE (2X325MG) PO PRN (19:15)
[2017-01-29] MEDS ORDERED: BISACODYL 5 MG TAB PO PRN (19:15)
--- NOTE | 2017-01-29 19:21 | ECGEPIP ---
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
[2017-01-29 19:45] VITALS: BP 142/95
[2017-01-29] MEDS ORDERED: POTASSIUM CHLORIDE 10 MEQ SR TABLET PO ONE (19:45)
[2017-01-29] MEDS: NS 1,000 ML IV SCH (19:58)
[2017-01-29] MEDS: busPIRone 10 MG TAB PO SCH (20:27)
[2017-01-29] MEDS: VITAMIN D 1,000 INTERNATIONAL UNITS TABLET PO SCH (20:27)
[2017-01-29] MEDS: LITHIUM CARBONATE 300 MG CAP PO SCH (20:27)
[2017-01-29] MEDS: cefTRIAXone SOD 1 GM in D5W MINI-BAG PLUS 50 ML IV SCH (20:27)
[2017-01-29] MEDS: cloZAPine 100 MG TAB (S0136) PO SCH (20:36)
[2017-01-29] MEDS: PRAZOSIN 1 MG CAP PO SCH (20:36)
[2017-01-29] MEDS: BENZTROPINE 2 MG TAB PO SCH (20:37)
[2017-01-29] MEDS: HEPARIN SOD (PORCINE) 5000 UNITS/ML VIAL SC SCH ×2 (20:57→20:59)
[2017-01-29 21:30] VITALS: BP_SYST 139; BP_SYST 140; BP_SYST 145; BP_DIAS 102; BP_DIAS 92; BP_DIAS 94
[2017-01-30] VITALS (7 sets, daily range): BP systolic 112–156; BP diastolic 78–107
[2017-01-30] MEDS: NS 1,000 ML IV SCH ×3 (01:28→18:33)
[2017-01-30] MEDS: HEPARIN SOD (PORCINE) 5000 UNITS/ML VIAL SC SCH ×3 (05:47→20:58)
--- NOTE | 2017-01-30 06:45 | HPE ---
DATE OF ADMISSION: 01/29/2017 CHIEF COMPLAINT: 31-year-old female brought in by a family member due to syncope, questionable seizure. HISTORY OF PRESENT ILLNESS: This is a 31-year-old female with significant past medical history of schizophrenia, mood disorder, who was brought in by EMS due to syncopal episode versus seizure. The patient is not a good historian. She tells me that she "passed out" and does not know what happened. She denies to have any witness who can account for her event. Unfortunately, no one is in her room during my examination. The patient as per chart note states that the patient had seizure-like activity at [facility] ([facility]) where the patient resides. History of same when patient takes "something", though postictal on arrival in the emergency department (ED). Finger stick was 129. The patient does not know what happened today. Otherwise, the patient denies of any prodrome illness such as fever, chills, cough, sputum production, abdominal pain, diarrhea, or dysuria that might have contributed to this. The patient also denies of any precipitating factor such as headache, shortness of breath, dizziness, nausea, vomiting, or chest pain that might have contributed to today' s event. The patient denies of any sick contact, denies of any illness recently. No travel history. The patient denied of any history of seizure, but as per chart review it seems like she has a history of "seizure-like activity" perhaps in the past, but again this is hearsay from the emergency room (ER) physician. The patient states that she takes metformin for her mood disorder and it is prescribed to her by her psychiatrist and not a primary care physician. Some slight story that I did get was that she was at the [facility] home where she gets medication. She was watching TV when she "passed out" and does not recollect what happened. The patient was evaluated in the emergency room with no significant finding other than elevated lactic acid and tachycardia. The patient states that she has chronic tachycardia which she does not take any cardiac medication for. The patient is being admitted for further evaluation and treatment. REVIEW OF SYSTEMS: Ten point review of systems is negative other than those described in history of present illness (HPI). PAST MEDICAL HISTORY (Significant for): 1. Questionable seizure. 2. Schizophrenia. 3. Mood disorder. 4. History of alcohol abuse, cocaine and cannabinoid use in the past. Currently, patient's urine drug screen is negative today and alcohol level is less than 0.03. 5. Questionable history of asthma and hyperlipidemia. The patient states that she does not take any inhalers and does not take any cholesterol medication, but it seems that she does take medicine for reflux with Protonix. SURGICAL HISTORY: 1. Cholecystectomy. 2. section times two. SOCIAL HISTORY: The patient smokes a 1/2 a pack a day and has been doing so for the past 10 years. The patient states that she does drink three beers occasionally, but last drink was two weeks ago. She is not dependent on alcohol. Denies of any IV drug abuse or recent use of drugs, but she does mention that she did have a history of utilizing cocaine, alcohol and cannabis, but denies of any recent use. FAMILY MEDICAL HISTORY: Mother and father healthy without known heart disease, diabetes or cancer, but the patient states that she really does not know. The patient has no known drug allergies. MEDICATIONS FROM HOME (are as follows): - benztropine 2 mg by mouth three times a day - buspirone 20 mg by mouth three times a day - clozapine total of 400 mg by mouth at bedtime and clozapine 25 mg by mouth total of 50 mg by mouth daily (I presume she takes 50 mg in the morning and 400 mg at nighttime) - Benadryl 25 mg by mouth as directed (it says patient had with her and tried taking a bunch while here), this will be stopped - docusate sodium 200 mg by mouth at bedtime - lithium 300 mg by mouth twice a day - metformin 500 mg by mouth daily - Invega or paliperidone palmitate 156 mg IM every monthly (the patient is unsure of when she had this last) - Protonix 40 mg once a day - prazosin 1 mg at bedtime - vitamin D 1000 units by mouth twice a day PHYSICAL EXAMINATION: VITAL SIGNS: Temperature undocumented currently. Pulse 128 initially and down to 116. Initial blood pressure 132/84, currently 141/87. Saturating 98% on room air. HEENT: Normocephalic. No trauma. Inspection of the eyes, nose, and throat is within normal. Pupils equal, round, and reactive to light and accommodation (PERRLA). Mucosa is moist. Neck is supple. No tracheal deviation. CARDIAC: S1, S2, tachycardic. Pulses present. LUNGS: Equal air entry. Did not hear any wheezes, rales, or rhonchi. ABDOMEN: Soft, nontender. Bowel sounds present. LOWER EXTREMITIES: No significant pitting edema. Capillary refill present in all four extremities. Skin is intact, warm to touch, afebrile. The patient is currently awake, alert and oriented times three. Cranial nerves grossly intact. Motor and sensory is intact. Flat affect. DIAGNOSTIC STUDIES: The patient had laboratory with WBC, hemoglobin/hematocrit (H/H) and platelets all within normal. Basic metabolic profile is within normal except for potassium of 3.4, carbon dioxide is 19, creatinine of 1.25, BUN of 5. Lactic acid is 5.6 - elevated. Osmolality is 289. Normal glucose. Liver function tests all within normal. TSH is normal. test is negative as well. Toxicology study showed salicylate less than 1.9, acetaminophen less than 2, lithium less than 0.44, ethyl alcohol less than 0.003. Urine drug screen is negative. Urinalysis (UA) is positive for urinary tract infection (UTI) with leukocyte esterase +1, WBC count of 10, bacteria being +1, but patient seemed to be asymptomatic. The patient also had a CT scan of the head which showed as per radiology normal noncontrast CT of the head. No evidence for acute intracranial pathology or trauma or injury. Chest x-ray showed no acute cardiopulmonary process. ASSESSMENT AND PLAN: This is a 31-year-old female with significant past medical history of schizophrenia, mood disorder, currently utilizing metformin as per patient due to mood stabilizer and not for diabetes who smokes a half a pack a day who currently resides [facility] brought in due to questionable seizure history with new onset of seizure versus syncope. 1. Lactic acidosis with tachycardia with questionable seizure/syncope. The patient clinically denies of any prodromal illness or precipitating factors that might have caused her to undergo syncope or seizure disorder. Her UA is slightly positive for UTI which will be treated with Rocephin. Her elevated lactic acidosis level may be related to her metformin use and renal insufficiency, therefore, she will receive IV fluids. Will repeat a lactic acid. Further evaluate with echocardiogram. Orthostatic vitals. Electroencephalogram (EEG) for further evaluation. May need neurology consult as needed. Her electrocardiogram (EKG) is just sinus tachycardia. Will add on serial cardiac enzymes. Her TSH is normal. The patient also mentioned that her tachycardia is chronic in nature, although she does not utilize any albuterol use for possible questionable asthma history in the past. The patient also states that she does not utilize any medication for her chronic tachycardia. Currently denies of any shortness of breath, chest pain, difficulty breathing. She just has a flat affect. Will continue to monitor on telemetry for now. Will also obtain procalcitonin level. If it is elevated and clinically patient deteriorates, may need more broad spectrum antibiotic such as Zosyn and Levaquin, but for now will utilize Rocephin for urinary tract infection. Will also obtain a prolactin level in addition to evaluate with an EEG. Also, obtain blood culture. 2. Renal dysfunction. Utilize IV fluids. Try to avoid renal toxic medication if possible. 3. Hypokalemia. Will replace and obtain magnesium level. 4. Use of metformin. The patient states that she does not have diabetes and this is utilized for a mood disorder. The patient also mentioned that metformin is prescribed to her not by her primary care physician but by her psychiatrist. At this time, will hold metformin. Her glucose level is within normal. Will continue to monitor. 5. Schizophrenia and mood disorder. Flat affect, otherwise stable. Resume her home regimen. 6. History of alcohol abuse, cannabis use and cocaine use. Currently her urine drug screening today is negative and alcohol level is less than 0.003. 7. Questionable asthma history. The patient does not seem to be utilizing any respiratory inhalers. The patient currently does not seem to be having any respiratory discomfort. Will continue to monitor. Will try to avoid utilizing albuterol and utilizing Xopenex if needed to try to avoid albuterol induced tachycardia. 8. Questionable history of hyperlipidemia. The patient is 31 with psychiatric disorder. Will obtain lipid profile for further evaluation. 9. Gastroesophageal reflux disease (GERD). Resume Protonix. 10. Smoking cessation strongly advised. Nicotine patch as needed. 11. Deep vein thrombosis (DVT) prophylaxis. MTDD
[2017-01-30 07:33] LABS: MEAN CORPUSCULAR HEMOGLOBIN 29.9 pg (27.0-33.0); MEAN CORPUSCULAR HGB CONC 32.7 g/dl (32.0-36.5); MEAN CORPUSCULAR VOLUME 91.4 fl (80.0-96.0); RED CELL DISTRIBUTION WIDTH 13.4 % (11.5-14.5); WHITE BLOOD COUNT 7.1 K/mm3 (4.0-10.0)
[2017-01-30 07:50] LABS: ANION GAP 8 MEQ/L (8-16); BLOOD UREA NITROGEN 5 MG/DL (7-18); CALCIUM LEVEL 8.6 MG/DL (8.5-10.1); CARBON DIOXIDE LEVEL 25 MEQ/L (21-32); CHLORIDE LEVEL 110 MEQ/L (98-107); CHOLESTEROL LEVEL 156 MG/DL (<200); CREATININE FOR GFR 0.97 MG/DL (0.55-1.02); GLOMERULAR FILTRATION RATE > 60.0 (>60); GLUCOSE, FASTING 103 MG/DL (70-105); MAGNESIUM LEVEL 2.2 MG/DL (1.8-2.4); POTASSIUM SERUM 4.5 MEQ/L (3.5-5.1); SODIUM LEVEL 143 MEQ/L (136-145); TRIGLYCERIDES LEVEL 128 MG/DL (<150)
[2017-01-30] MEDS: PANTOPRAZOLE 40MG TAB (PROTONIX) PO SCH (08:26)
[2017-01-30] MEDS: VITAMIN D 1,000 INTERNATIONAL UNITS TABLET PO SCH ×2 (08:26→20:59)
[2017-01-30] MEDS: BENZTROPINE 2 MG TAB PO SCH ×3 (08:26→20:59)
[2017-01-30] MEDS: LITHIUM CARBONATE 300 MG CAP PO SCH ×2 (08:26→20:59)
[2017-01-30] MEDS: busPIRone 10 MG TAB PO SCH ×3 (08:27→20:58)
[2017-01-30] MEDS: NICOTINE 7 MG/24 HR TRANSDERMAL TD SCH (08:27)
[2017-01-30] MEDS: cloZAPine 25 MG TAB (S0136) PO SCH (11:24)
[2017-01-30] MEDS: LISINOPRIL 10 MG TAB PO SCH (18:34)
--- NOTE | 2017-01-30 18:48 | IPN ---
DATE: 01/30/2017 SUBJECTIVE: Patient seen and examined in the room today. Patient stated her mentation is improving however patient does not have any recollection about what happened yesterday. The only thing she remembers before the events was she went to the beach with a friend and on her way home the next thing she remembered was that she was in an ambulance. She stated a possible similar episode occurred 01/04/2017. Patient came to er for evaluation and patient was discharged on the same day. Patient was not sure if there was anyone around her when she had altered mental status episode. Patient has no memory about what happened yesterday in the afternoon. OBJECTIVE: VITAL SIGNS: Temperature is 97.9, pulse is 82, respiration 20, blood pressure is 126/82. Pulse oximetry is 98% on room air. GENERAL: No sign of acute distress. Patient is alert and awake, oriented. The patient has no memory regarding what happened yesterday afternoon. HEENT: Normocephalic, atraumatic. Extraocular motor grossly intact. CARDIOVASCULAR: Positive S1, S2. Tachycardic. LUNGS: Clear to auscultation bilaterally. No wheezes or ronchi. ABDOMEN: Soft, nontender and nondistended. Bowel sounds present. EXTREMITIES: No edema. No signs of cyanosis. LABORATORY DATA: WBC is 7.1, hemoglobin 11.7, hematocrit 35.9, platelet count is 298. Sodium 143, potassium 4.5, chloride is 110, carbon dioxide is 24, BUN is 5, creatinine is 0.97, GFR is greater than 60, fasting glucose 103, calcium is 8.6, albumin magnesium 2.2, troponin less than 0.02. Urine toxicology is negative. Blood culture is pending. ASSESSMENT/PLAN: 1. Altered mental status. Etiology unknown. Patient had a EEG performed. I will followup with official report. Brain imaging, CT head without contrast showed no abnormalities. 2. Patient may have a possible urinary tract infection (UTI). Patient is empirically treated with Rocephin and can not rule out any psychiatric contribution for patient's altered mental status change. 3. History of bipolar and schizophrenia. Continue with the patient's home medications. 4. Lactic acidosis. Improved with IV fluids. 5. History of alcohol abuse, cocaine and marijuana use. Urine toxicology is completely negative at this time. 6. History of asthma stable. 7. Questionable history of hyperlipemia. Her lipid panel show a complete normal values. 8. Usage of metformin. Patient does not have diabetes per patient. Metformin was given by the patient's psychiatrist which we will hold the metformin at this moment. 9. Gastroesophageal reflux disease on Protonix. 10. History of tobacco abuse on nicotine patch. 11. Deep venous thrombosis (DVT) prophylaxis on heparin.
[2017-01-30] MEDS ORDERED: HEPARIN SOD (PORCINE) 5000 UNITS/ML VIAL As Ordered ONE (20:50)
[2017-01-30] MEDS: cefTRIAXone SOD 1 GM in D5W MINI-BAG PLUS 50 ML IV SCH (20:57)
[2017-01-30] MEDS: cloZAPine 100 MG TAB (S0136) PO SCH (20:58)
[2017-01-30] MEDS: PRAZOSIN 1 MG CAP PO SCH (20:59)
[2017-01-31] MEDS: NS 1,000 ML IV SCH (01:47)
[2017-01-31 05:15] VITALS: BP 129/85
[2017-01-31] MEDS: HEPARIN SOD (PORCINE) 5000 UNITS/ML VIAL SC SCH (06:05)
[2017-01-31 06:44] VITALS: BP_SYST 133; BP_SYST 146; BP_DIAS 102; BP_DIAS 105; BP_DIAS 91
[2017-01-31 06:49] LABS: MEAN CORPUSCULAR HEMOGLOBIN 29.9 pg (27.0-33.0); MEAN CORPUSCULAR VOLUME 90.6 fl (80.0-96.0); RED CELL DISTRIBUTION WIDTH 13.5 % (11.5-14.5); WHITE BLOOD COUNT 6.2 K/mm3 (4.0-10.0)
[2017-01-31 06:55] VITALS: BP 146/105
[2017-01-31] MEDS: LISINOPRIL 10 MG TAB PO SCH (06:55)
[2017-01-31 07:04] LABS: ANION GAP 6 MEQ/L (8-16); BLOOD UREA NITROGEN 6 MG/DL (7-18); CALCIUM LEVEL 8.5 MG/DL (8.5-10.1); CARBON DIOXIDE LEVEL 26 MEQ/L (21-32); CHLORIDE LEVEL 112 MEQ/L (98-107); CREATININE FOR GFR 0.84 MG/DL (0.55-1.02); GLOMERULAR FILTRATION RATE > 60.0 (>60); GLUCOSE, FASTING 106 MG/DL (70-105); POTASSIUM SERUM 4.1 MEQ/L (3.5-5.1); SODIUM LEVEL 144 MEQ/L (136-145)
[2017-01-31] MEDS: NICOTINE 7 MG/24 HR TRANSDERMAL TD SCH (08:45)
[2017-01-31] MEDS: BENZTROPINE 2 MG TAB PO SCH (08:45)
[2017-01-31] MEDS: VITAMIN D 1,000 INTERNATIONAL UNITS TABLET PO SCH (08:46)
[2017-01-31] MEDS: PANTOPRAZOLE 40MG TAB (PROTONIX) PO SCH (08:46)
[2017-01-31] MEDS: LITHIUM CARBONATE 300 MG CAP PO SCH (08:46)
[2017-01-31] MEDS: cloZAPine 25 MG TAB (S0136) PO SCH (08:46)
[2017-01-31] MEDS: busPIRone 10 MG TAB PO SCH (08:46)
[2017-01-31] MEDS ORDERED: LISI10TA4 PO (09:36)
--- NOTE | 2017-01-31 11:28 | EEG ---
DATE OF PROCEDURE: 01/30/2017 REFERRING PHYSICIAN: Dr. Nancy Bush DIAGNOSIS: Syncope. EEG NUMBER: [id number] HISTORY: Patient is a 31-year-old woman with episode of losing consciousness. She lives at [facility] living [facility]. She is currently taking ceftriaxone, BuSpar, benztropine, lithium, clozapine, Zofran. TECHNICAL DESCRIPTION: This digital EEG was recorded by 21 scalp ear and two EKG electrodes and was reviewed in bipolar and referential montages following reformatting in 10-20 International Electrode Placement System. INTERPRETATION: The patient was noted to be in awake and drowsy states during this EEG. Resting awake background rhythm consisted of well-formed posterior dominant rhythm with anterior/posterior gradient comprising of 11 Hz alpha activity measuring 15 - 40 microvolts in amplitude, which was symmetric and reactive to eye opening. Anteriorly, low voltage and mixed frequency activity was noted. Attenuation of posterior dominant was seen during transition into drowsiness. Stage I and II sleep were reviewed and were symmetric bilaterally. Hyperventilation remained unremarkable. Photic stimulation at 3-30 Hz elicited symmetric photic driving, especially at mid frequencies. EKG revealed normal sinus rhythm. There was one incidence of small spike and large slow wave at the frequency 4 - 5 Hz, which likely represents phantom spikes that are a normal variant. No focal, lateralizing or epileptiform abnormalities were seen. No clinical or electrographic seizures were recorded. CONCLUSION: This EEG in awake, drowsy states, stage I and II sleep is within normal limits.
--- NOTE | 2017-01-31 17:42 | ECHO ---
DATE OF PROCEDURE: 01/30/2017 AGE: 31 GENDER: Female HEIGHT: 61 inches WEIGHT: 198 pounds BODY SURFACE AREA: 1.88 m2 PATIENT LOCATION: Inpatient, [address] [place] [address]. REFERRING PHYSICIAN: Jo Ruiz MD INDICATION: Cardiac dysrhythmia. 2-D MEASUREMENTS: RV: 3.4 cm LV: 4.1 cm Septum: 1.1 cm Posterior wall: 1.1 cm Aortic root: 2.7 cm LA: 3.4 cm LVEF: 65% DOPPLER MEASUREMENTS: AV: 1.5 m/s LVOT: 0.9 m/s LVOT diameter: 2.0 cm MV-E: 72, A: 59, EA ratio: 1.2 Early mitral deceleration time: 183 ms E prime: 12.8, A prime: 7, E/E prime ratio: 5.6 PV: 0.8 m/s Pulmonary artery acceleration time: 106 ms RVSP: 28 mmHg. IVC: 1.8 cm DESCRIPTION: 2D, M-mode, color flow, pulsed and continuous wave Doppler studies were performed. COMMENTS: Normal sinus rhythm without intraventricular conduction disturbance. CONCLUSIONS: Normal left ventricular size, wall thickness and wall motion. Normal left atrial size and Doppler assessment of LV diastolic function. Normal right heart chamber sizes and contraction with normal pulmonary arterial pressure. Normal IVC size and collapse against an elevated central venous pressure. Normal appearing and functioning valvular structures.
--- NOTE | 2017-02-04 18:04 | DSES ---
DATE OF ADMISSION: 01/29/2017 DATE OF DISCHARGE: 01/31/2017 PRIMARY CARE PROVIDER: Dr. José CONSULTANTS: None. PROCEDURES: None. COMPLICATIONS: None. ADMISSION/DISCHARGE DIAGNOSES: 1. Altered mental status. 2. Possible urinary tract infection (UTI). 3. History of bipolar ad schizophrenia. 4. Lactic acidosis. 5. History of alcohol, cocaine and marijuana use. 6. History of asthma. 7. Questionable history of hyperlipidemia. 8. Gastroesophageal reflux disease. 9. Tobacco abuse. 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 HOSPITALIZATION COURSE: The patient is a 31-year-old female, presented to [facility] on 01/29/2017 for syncope and questionable seizure-like activities. The patient was admitted to the hospital for telemetry. Electroencephalogram (EEG) was ordered. The patient was started on empiric antibiotic for possible urinary tract infection (UTI) and the patient was started on intravenous (IV) support. CT of the head was also performed, which later came back negative. Multiple diagnostic studies were performed, which all came back negative. On 01/31/2017, the patient was discharged home with recommendation to followup with her primary care provider, and during admission, the patient was found to use metformin without a history of diabetes and per patient. Per patient, the metformin was given by her psychiatrist. At the time of discharge, the patient was recommended discontinuing using metformin until reevaluated by the psychiatrist and primary care provider. On the date of discharge, I had a chance to discuss with the patient's transitional mechanical supervisor. The central office repairer supervisor stated the patient has a history of abusing Benadryl and other recreational drugs. Prior to admission, the patient was taking multiple known doses of Benadryl along with other medications. OBJECTIVE: VITAL SIGNS: Temperature is 97.5, pulse is 85, respirations 17, blood pressure 129/85, pulse oximetry is 100% in room air. LABORATORY DATA: WBC is 6.2, hemoglobin 11.4, hematocrit 34.5, platelet count is 262. Sodium is 144, potassium 4.1, chloride is 112, carbon dioxide 26, BUN 6, creatinine 0.84, GFR greater than 60, fasting glucose 106, calcium is 8.5. Urine toxicology is negative. Alcohol level is negative. Venous blood gas (VBG) shows a pH of 7.342, pCO2 is 34.1 and pO2 is 144.7, HCO3 is 18.1 Urinalysis shows positive for leukocyte esterase and positive for WBCs and 1+ bacteria. Blood cultures negative after 5 days times two sets. IMAGING STUDIES: CT of the head without contrast on 01/29/[address] head CT. No evidence of acute intracranial pathology or trauma. CT of the chest on 01/29/2017 showed no acute cardiopulmonary processes. DISCHARGE MEDICATIONS: - lisinopril 10 mg by mouth daily - benztropine 2 mg by mouth three times a day - buspirone 20 mg by mouth three times a day - clozapine 400 mg by mouth nightly - clozapine 50 mg by mouth daily - docusate sodium 200 mg by mouth nightly - lithium 300 mg by mouth twice a day - paliperidone 156 mg intramuscularly (IM) monthly - Protonix 40 mg by mouth daily - prazosin 1 mg by mouth nightly - vitamin D 1000 units by mouth twice a day DISCHARGE INSTRUCTIONS: Discontinue lines. Discharge home. Activity as tolerated. Diet as tolerated. The patient is recommended to followup with her primary care provider in 1-2 weeks. The patient was recommended not to use any type of medications including Benadryl for recreational purpose. DISCHARGE CONDITION: Fair. DISCHARGE TIME: Greater than 30 minutes. MTDD
== END 2017-01-31 12:45 | disposition home or self-care (01) | DRG 948 ==
LOC: EDBD 16:25 → M ED 16:25 → M ED INP 19:14 → M MSPAV 01-30 13:56
PROVIDERS: ADMIT Internal Medicine; ATTEND Internal Medicine
DX: R41.82 Altered mental status, unspecified (principal); E87.2 Acidosis; N39.0 Urinary tract infection, site not specified; F20.9 Schizophrenia, unspecified; F39 Unspecified mood [affective] disorder; K21.9 Gastro-esophageal reflux disease without esophagitis; F17.210 Nicotine dependence, cigarettes, uncomplicated; Z79.84 Long term (current) use of oral hypoglycemic drugs; Z79.899 Other long term (current) drug therapy; R00.0 Tachycardia, unspecified; R55 Syncope and collapse; E87.6 Hypokalemia; F55.8 Abuse of other non-psychoactive substances

== ENCOUNTER → 2017-02-07 | Outpatient (CLI) | payer MEDICARE, MEDICAID ==
[~2017-02-07] MED LIST changes: +BACT800T5 PO; +BENA25TA10 PO; +CLOZ100T2 PO; +LISI10TA4 PO; +METF-699 PO; +PRAZ1CAP PO; +PROT1TAB2 PO
[2017-02-07 12:38] LABS: BASO % 0.7 % (0.0-1.0); EOS # 0.2 K/mm3 (0.0-0.50); EOS % 2.6 % (0.0-3.0); LYMPH % 30.1 % (24.0-44.0); MEAN CORPUSCULAR HEMOGLOBIN 30.3 pg (27.0-33.0); MEAN CORPUSCULAR HGB CONC 33.4 g/dl (32.0-36.5); MEAN CORPUSCULAR VOLUME 90.6 fl (80.0-96.0); MONO # 0.4 K/mm3 (0.0-0.8); MONO % 5.7 % (0.0-5.0); NEUTROPHILS # 3.7 K/mm3 (1.8-7.7); NEUTROPHILS % 58.7 % (36.0-66.0); RED CELL DISTRIBUTION WIDTH 13.5 % (11.5-14.5); WHITE BLOOD COUNT 6.2 K/mm3 (4.0-10.0)
== END ==
LOC: M LAB 11:31
PROVIDERS: ATTEND Psychiatry & Neurology Psychiatry
DX: Z51.81 Encounter for therapeutic drug level monitoring (principal); Z79.899 Other long term (current) drug therapy

== ENCOUNTER → 2017-02-14 | Outpatient (CLI) | payer MEDICARE, MEDICAID ==
[2017-02-14 12:14] LABS: BASO % 0.5 % (0.0-1.0); EOS # 0.2 K/mm3 (0.0-0.50); EOS % 2.4 % (0.0-3.0); LYMPH # 1.9 K/mm3 (1.5-6.5); LYMPH % 24.4 % (24.0-44.0); MEAN CORPUSCULAR HGB CONC 34.5 g/dl (32.0-36.5); MEAN CORPUSCULAR VOLUME 89.8 fl (80.0-96.0); MONO # 0.3 K/mm3 (0.0-0.8); MONO % 4.6 % (0.0-5.0); NEUTROPHILS # 4.7 K/mm3 (1.8-7.7); NEUTROPHILS % 66.5 % (36.0-66.0); RED CELL DISTRIBUTION WIDTH 13.4 % (11.5-14.5); WHITE BLOOD COUNT 7.1 K/mm3 (4.0-10.0)
== END ==
LOC: M LAB 11:33
PROVIDERS: ATTEND Psychiatry & Neurology Psychiatry
DX: Z51.81 Encounter for therapeutic drug level monitoring (principal); Z79.899 Other long term (current) drug therapy

== ENCOUNTER → 2017-02-21 | Outpatient (CLI) | payer MEDICARE, MEDICAID ==
[2017-02-21 15:31] LABS: BASO % 0.5 % (0.0-1.0); EOS # 0.2 K/mm3 (0.0-0.50); EOS % 2.3 % (0.0-3.0); LYMPH # 2.5 K/mm3 (1.5-6.5); LYMPH % 30.1 % (24.0-44.0); MEAN CORPUSCULAR HEMOGLOBIN 29.9 pg (27.0-33.0); MEAN CORPUSCULAR HGB CONC 33.3 g/dl (32.0-36.5); MEAN CORPUSCULAR VOLUME 89.9 fl (80.0-96.0); MONO # 0.3 K/mm3 (0.0-0.8); MONO % 4.4 % (0.0-5.0); NEUTROPHILS # 4.8 K/mm3 (1.8-7.7); NEUTROPHILS % 61.4 % (36.0-66.0); RED CELL DISTRIBUTION WIDTH 13.1 % (11.5-14.5); WHITE BLOOD COUNT 7.8 K/mm3 (4.0-10.0)
== END ==
LOC: M LAB 15:00
PROVIDERS: ATTEND Psychiatry & Neurology Psychiatry
DX: Z51.81 Encounter for therapeutic drug level monitoring (principal); Z79.899 Other long term (current) drug therapy

== ENCOUNTER → 2017-04-02 | Outpatient (CLI) | payer MEDICARE, MEDICAID ==
[2017-04-02 12:04] LABS: BASO % 0.6 % (0.0-1.0); EOS # 0.3 K/mm3 (0.0-0.50); EOS % 5.3 % (0.0-3.0); LARGE UNSTAINED CELL # 0.2 K/mm3 (0.0-0.4); LARGE UNSTAINED CELL % 2.4 % (0.0-4.0); LYMPH # 2.2 K/mm3 (1.5-6.5); LYMPH % 37.1 % (24.0-44.0); MEAN CORPUSCULAR HEMOGLOBIN 30.6 pg (27.0-33.0); MEAN CORPUSCULAR HGB CONC 34.1 g/dl (32.0-36.5); MEAN CORPUSCULAR VOLUME 89.7 fl (80.0-96.0); MONO # 0.3 K/mm3 (0.0-0.8); MONO % 5.1 % (0.0-5.0); NEUTROPHILS % 49.4 % (36.0-66.0); PLATELET COUNT, AUTOMATED 350 k/mm3 (150-450); RED CELL DISTRIBUTION WIDTH 12.8 % (11.5-14.5)
== END ==
LOC: M LAB 10:40
PROVIDERS: ATTEND Psychiatry & Neurology Psychiatry
DX: Z51.81 Encounter for therapeutic drug level monitoring (principal); Z79.899 Other long term (current) drug therapy

== ENCOUNTER 2017-04-26 10:35 | Emergency (ER) | payer MEDICARE, MEDICAID ==
[~2017-04-26] VITALS: Ht 154.9 cm; Wt 94.1 kg
[~2017-04-26 10:35] MED LIST changes: -BACT800T5 PO; -CLOZ100T2 PO; -PRAZ1CAP PO
[2017-04-26] MEDS ORDERED: CLOZ100T2 PO (10:51)
[2017-04-26 13:03] LABS: BASO % 0.5 % (0.0-1.0); EOS # 0.2 10^3/uL (0.0-0.50); EOS % 2.7 % (0.0-3.0); IMMATURE GRANULOCYTE % 0.3 % (0-0); LYMPH # 2.7 10^3/uL (1.5-6.5); LYMPH % 40.4 % (24.0-44.0); MEAN CORPUSCULAR HEMOGLOBIN 29.9 pg (27.0-33.0); MEAN CORPUSCULAR HGB CONC 33.1 g/dl (32.0-36.5); MEAN CORPUSCULAR VOLUME 90.4 fl (80.0-96.0); MONO # 0.4 10^3/uL (0.0-0.8); MONO % 5.6 % (0.0-5.0); NEUTROPHILS # 3.3 10^3/uL (1.8-7.7); NEUTROPHILS % 50.5 % (36.0-66.0); PLATELET COUNT, AUTOMATED 230 10^3/uL (150-450); RED CELL DISTRIBUTION WIDTH 13.2 % (11.5-14.5); WHITE BLOOD COUNT 6.6 10^3/uL (4.0-10.0)
[2017-04-26 13:39] LABS: ALBUMIN 3.5 GM/DL (3.2-5.2); ALBUMIN/GLOBULIN RATIO 0.81 (1.00-1.93); ALKALINE PHOSPHATASE 91 U/L (45-117); ALT/SGPT 44 U/L (12-78); AMYLASE 64 U/L (25-115); ANION GAP 5 MEQ/L (8-16); AST/SGOT 24 U/L (15-37); BILIRUBIN,DIRECT < 0.1 MG/DL (0.0-0.2); BILIRUBIN,TOTAL 0.4 MG/DL (0.2-1.0); BLOOD UREA NITROGEN 6 MG/DL (7-18); CALCIUM LEVEL 8.9 MG/DL (8.5-10.1); CARBON DIOXIDE LEVEL 29 MEQ/L (21-32); CHLORIDE LEVEL 107 MEQ/L (98-107); CREATININE FOR GFR 0.96 MG/DL (0.55-1.02); GLOMERULAR FILTRATION RATE > 60.0 (>60); GLUCOSE, FASTING 99 MG/DL (70-105); POTASSIUM SERUM 3.1 MEQ/L (3.5-5.1); SODIUM LEVEL 141 MEQ/L (136-145); TOTAL PROTEIN 7.8 GM/DL (6.4-8.2)
--- NOTE | 2017-04-26 13:48 | REP ---
CHEST: Two views. COMPARISON: 01/29/2017 There is no evidence of acute infiltrate. No pleural effusion is seen. The heart is normal in size. The mediastinal silhouette is unremarkable. The visualized osseous structures are intact. IMPRESSION: No acute pulmonary disease. Signed by Alejandro Gustafson MD 04/26/2017 05:18 P
[2017-04-26] MEDS ORDERED: POTASSIUM CHL PWD 20 MEQ PACKET PO ONE (14:30)
[2017-04-26] MEDS ORDERED: BACT800T5 PO (14:41)
[2017-04-26 14:43] VITALS: BP 145/89
[2017-04-27] MEDS ORDERED: PRAZ1CAP PO (18:57)
[2017-04-27] MEDS ORDERED: LITH300C PO (18:57)
== END 2017-04-26 14:47 | disposition home or self-care (01) ==
LOC: M ED 10:35
DX: N39.0 Urinary tract infection, site not specified (principal); E87.6 Hypokalemia; Z72.0 Tobacco use

== ENCOUNTER 2017-04-27 18:45 | Emergency (ER) | payer MEDICARE, MEDICAID ==
[~2017-04-27 18:45] MED LIST changes: +BACT800T5 PO; +CLOZ100T2 PO
[2017-04-27] MEDS ORDERED: LITH300C PO (18:57)
[2017-04-27] MEDS ORDERED: PRAZ1CAP PO (18:57)
[2017-04-27 19:09] VITALS: BP 142/96
[2017-04-27] MEDS ORDERED: diazePAM 2 MG TAB PO ONE (19:30)
[2017-04-28] MEDS ORDERED: BENZ2TAB5 PO (19:41)
== END 2017-04-27 19:35 | disposition home or self-care (01) ==
LOC: M ED 18:45 → EDBD 18:45 → M ED 19:35
DX: M62.838 Other muscle spasm (principal); I10 Essential (primary) hypertension; G43.909 Migraine, unspecified, not intractable, without status migrainosus; G40.919 Epilepsy, unspecified, intractable, without status epilepticus; F41.9 Anxiety disorder, unspecified; F32.9 Major depressive disorder, single episode, unspecified; F17.210 Nicotine dependence, cigarettes, uncomplicated; Z79.899 Other long term (current) drug therapy; Z88.8 Allergy status to other drugs, medicaments and biological substances

== ENCOUNTER 2017-04-28 18:34 | Emergency (ER) | payer MEDICARE, MEDICAID ==
[~2017-04-28] VITALS: Ht 154.9 cm; Wt 91.8 kg
[~2017-04-28 18:34] MED LIST changes: +PRAZ1CAP PO
[2017-04-28] MEDS ORDERED: BENZTROPINE MESYLATE 2MG/2ML VIAL IM ONE (19:15)
[2017-04-28] MEDS ORDERED: BENZ2TAB5 PO (19:41)
[2017-04-28 19:51] VITALS: BP 134/78
== END 2017-04-28 20:18 | disposition home or self-care (01) ==
LOC: M ED 18:34
DX: F29 Unspecified psychosis not due to a substance or known physiological condition (principal); G24.09 Other drug induced dystonia; Z79.899 Other long term (current) drug therapy; Z88.8 Allergy status to other drugs, medicaments and biological substances; F17.210 Nicotine dependence, cigarettes, uncomplicated

== ENCOUNTER 2017-04-29 12:29 | Emergency (ER) | payer MEDICARE, MEDICAID ==
[~2017-04-29] VITALS: Ht 154.9 cm; Wt 91.8 kg
[2017-04-29 12:29] VITALS: BP 148/83
== END 2017-04-29 13:04 | disposition left against medical advice (07) ==
LOC: M ED 12:29
DX: R68.89 Other general symptoms and signs (principal); Z53.29 Procedure and treatment not carried out because of patient's decision for other reasons

== ENCOUNTER → 2017-04-29 | Outpatient (CLI) | payer MEDICARE, MEDICAID ==
[2017-04-29 12:48] LABS: BASO % 0.3 % (0.0-1.0); EOS % 0.5 % (0.0-3.0); IMMATURE GRANULOCYTE % 0.5 % (0-0); LYMPH # 1.3 10^3/uL (1.5-6.5); LYMPH % 19.8 % (24.0-44.0); MEAN CORPUSCULAR VOLUME 90.9 fl (80.0-96.0); MONO # 0.3 10^3/uL (0.0-0.8); MONO % 4.7 % (0.0-5.0); NEUTROPHILS # 4.8 10^3/uL (1.8-7.7); NEUTROPHILS % 74.2 % (36.0-66.0); RED CELL DISTRIBUTION WIDTH 13.7 % (11.5-14.5); WHITE BLOOD COUNT 6.5 10^3/uL (4.0-10.0)
== END ==
LOC: M LAB 12:13
PROVIDERS: ATTEND Psychiatry & Neurology Psychiatry
DX: Z79.899 Other long term (current) drug therapy (principal)

== ENCOUNTER → 2017-05-05 | Outpatient (CLI) | payer MEDICARE, MEDICAID ==
[2017-05-05 09:39] LABS: ADD MANUAL DIFFER NO; DIFF SLIDE NUMBER 110; EOS # 0.2 10^3/uL (0.0-0.50); EOS % 3.9 % (0.0-3.0); IMMATURE GRANULOCYTE % 0.2 % (0-0); LYMPH # 2.4 10^3/uL (1.5-6.5); LYMPH % 58.3 % (24.0-44.0); MEAN CORPUSCULAR HEMOGLOBIN 30.1 pg (27.0-33.0); MEAN CORPUSCULAR HGB CONC 32.8 g/dl (32.0-36.5); MEAN CORPUSCULAR VOLUME 91.7 fl (80.0-96.0); MONO # 0.3 10^3/uL (0.0-0.8); MONO % 7.4 % (0.0-5.0); NEUTROPHILS # 1.2 10^3/uL (1.8-7.7); NEUTROPHILS % 29.2 % (36.0-66.0); PLATELET COUNT, AUTOMATED 453 10^3/uL (150-450); RED CELL DISTRIBUTION WIDTH 13.9 % (11.5-14.5); WHITE BLOOD COUNT 4.1 10^3/uL (4.0-10.0)
== END ==
LOC: M LAB 09:11
PROVIDERS: ATTEND Psychiatry & Neurology Psychiatry
DX: Z79.899 Other long term (current) drug therapy (principal)

== ENCOUNTER → 2017-05-07 | Outpatient (CLI) | payer MEDICARE, MEDICAID | LOC: M OUTALCOH 07:50 | PROVIDERS: ATTEND Psychiatry & Neurology Psychiatry | DX: F10.20 Alcohol dependence, uncomplicated (principal); F14.20 Cocaine dependence, uncomplicated ==

== ENCOUNTER → 2017-05-12 | Outpatient (CLI) | payer MEDICARE, MEDICAID ==
[2017-05-12 09:21] LABS: BASO # 0.1 10^3/uL (0.0-0.2); BASO % 1.3 % (0.0-1.0); EOS # 0.2 10^3/uL (0.0-0.50); EOS % 4.8 % (0.0-3.0); IMMATURE GRANULOCYTE % 0.3 % (0-0); LYMPH # 2.4 10^3/uL (1.5-6.5); LYMPH % 61.3 % (24.0-44.0); MEAN CORPUSCULAR HEMOGLOBIN 29.8 pg (27.0-33.0); MEAN CORPUSCULAR HGB CONC 32.9 g/dl (32.0-36.5); MEAN CORPUSCULAR VOLUME 90.7 fl (80.0-96.0); MONO # 0.2 10^3/uL (0.0-0.8); MONO % 5.8 % (0.0-5.0); NEUTROPHILS # 1.1 10^3/uL (1.8-7.7); NEUTROPHILS % 26.5 % (36.0-66.0); RED CELL DISTRIBUTION WIDTH 13.5 % (11.5-14.5)
== END ==
LOC: M LAB 08:36
PROVIDERS: ATTEND Psychiatry & Neurology Psychiatry
DX: Z51.81 Encounter for therapeutic drug level monitoring (principal); Z79.899 Other long term (current) drug therapy

== ENCOUNTER → 2017-05-19 | Outpatient (CLI) | payer MEDICARE, MEDICAID ==
[2017-05-19 09:12] LABS: BASO # 0.1 10^3/uL (0.0-0.2); BASO % 1.1 % (0.0-1.0); EOS # 0.3 10^3/uL (0.0-0.50); EOS % 7.1 % (0.0-3.0); LYMPH # 2.3 10^3/uL (1.5-6.5); LYMPH % 51.2 % (24.0-44.0); MEAN CORPUSCULAR HEMOGLOBIN 29.7 pg (27.0-33.0); MEAN CORPUSCULAR HGB CONC 33.1 g/dl (32.0-36.5); MEAN CORPUSCULAR VOLUME 89.7 fl (80.0-96.0); MONO # 0.3 10^3/uL (0.0-0.8); MONO % 7.1 % (0.0-5.0); NEUTROPHILS # 1.5 10^3/uL (1.8-7.7); NEUTROPHILS % 33.5 % (36.0-66.0); PLATELET COUNT, AUTOMATED 263 10^3/uL (150-450); WHITE BLOOD COUNT 4.5 10^3/uL (4.0-10.0)
== END ==
LOC: M LAB 08:55
PROVIDERS: ATTEND Psychiatry & Neurology Psychiatry
DX: Z51.81 Encounter for therapeutic drug level monitoring (principal); Z79.899 Other long term (current) drug therapy

== ENCOUNTER → 2017-05-23 | Outpatient (CLI) | payer MEDICARE, MEDICAID ==
[~2017-05-23] MED LIST changes: +LAMO100T PO; +LITH300T PO; +PANT40TA2 PO; +TERB250T12 PO; +VENTAER INH
[2017-05-23 10:10] LABS: EOS # 0.3 10^3/uL (0.0-0.50); EOS % 6.5 % (0.0-3.0); LYMPH # 2.2 10^3/uL (1.5-6.5); LYMPH % 56.5 % (24.0-44.0); MEAN CORPUSCULAR HEMOGLOBIN 29.6 pg (27.0-33.0); MEAN CORPUSCULAR HGB CONC 33.3 g/dl (32.0-36.5); MEAN CORPUSCULAR VOLUME 88.9 fl (80.0-96.0); MONO # 0.3 10^3/uL (0.0-0.8); MONO % 6.5 % (0.0-5.0); NEUTROPHILS # 1.1 10^3/uL (1.8-7.7); NEUTROPHILS % 29.5 % (36.0-66.0); PLATELET COUNT, AUTOMATED 257 10^3/uL (150-450); RED CELL DISTRIBUTION WIDTH 12.8 % (11.5-14.5); WHITE BLOOD COUNT 3.9 10^3/uL (4.0-10.0)
== END ==
LOC: M LAB 09:38
PROVIDERS: ATTEND Psychiatry & Neurology Psychiatry
DX: Z51.81 Encounter for therapeutic drug level monitoring (principal); Z79.899 Other long term (current) drug therapy; D70.8 Other neutropenia

== ENCOUNTER → 2017-05-23 | Outpatient (REF) | payer MEDICARE, MEDICAID ==
[~2017-05-23] MED LIST changes: -LAMO100T PO; -LITH300T PO; -PANT40TA2 PO; -TERB250T12 PO; -VENTAER INH
[2017-05-23 14:05] LABS: MEAN CORPUSCULAR HEMOGLOBIN 29.6 pg (27.0-33.0); MEAN CORPUSCULAR VOLUME 89.8 fl (80.0-96.0); RED CELL DISTRIBUTION WIDTH 12.9 % (11.5-14.5)
[2017-05-23 14:09] LABS: CBCMD ORDERED? YES (YES)
[2017-05-23 14:35] LABS: EOSINOPHILS 6 % (0-5)
== END ==
LOC: M LAB REF 13:48
PROVIDERS: ATTEND Family Medicine Addiction Medicine
DX: D70.8 Other neutropenia (principal)

== ENCOUNTER → 2017-05-24 | Outpatient (CLI) | payer MEDICARE, MEDICAID ==
[2017-05-24 15:43] LABS: BASO # 0.1 10^3/uL (0.0-0.2); BASO % 0.8 % (0.0-1.0); EOS # 0.2 10^3/uL (0.0-0.50); EOS % 2.7 % (0.0-3.0); IMMATURE GRANULOCYTE % 0.2 % (0-0); LYMPH # 2.4 10^3/uL (1.5-6.5); MEAN CORPUSCULAR HEMOGLOBIN 29.4 pg (27.0-33.0); MEAN CORPUSCULAR HGB CONC 33.3 g/dl (32.0-36.5); MEAN CORPUSCULAR VOLUME 88.2 fl (80.0-96.0); MONO # 0.4 10^3/uL (0.0-0.8); MONO % 6.3 % (0.0-5.0); NEUTROPHILS # 3.3 10^3/uL (1.8-7.7); PLATELET COUNT, AUTOMATED 276 10^3/uL (150-450); RED CELL DISTRIBUTION WIDTH 12.9 % (11.5-14.5); WHITE BLOOD COUNT 6.2 10^3/uL (4.0-10.0)
== END ==
LOC: M LAB 15:12
PROVIDERS: ATTEND Psychiatry & Neurology Psychiatry
DX: Z51.81 Encounter for therapeutic drug level monitoring (principal); Z79.899 Other long term (current) drug therapy

== ENCOUNTER 2017-06-21 21:35 | Inpatient (IN) | payer MEDICARE, MEDICAID ==
[~2017-06-21] VITALS: Ht 154.9 cm; Wt 85.0 kg
[2017-06-21] MEDS ORDERED: TERB250T12 PO (21:46)
[2017-06-21] MEDS ORDERED: LAMO100T PO (21:46)
[2017-06-21] MEDS ORDERED: INVE234I IM (22:23)
[2017-06-21] MEDS ORDERED: PANT40TA2 PO (22:23)
[2017-06-21] MEDS ORDERED: LITH300T PO (22:23)
[2017-06-21] MEDS ORDERED: VENTAER INH (22:23)
[2017-06-21 22:36] LABS: MEAN CORPUSCULAR HEMOGLOBIN 28.4 pg (27.0-33.0); MEAN CORPUSCULAR HGB CONC 33.1 g/dl (32.0-36.5); MEAN CORPUSCULAR VOLUME 85.8 fl (80.0-96.0); PLATELET COUNT, AUTOMATED 321 10^3/uL (150-450); RED CELL DISTRIBUTION WIDTH 12.9 % (11.5-14.5)
[2017-06-21] MEDS ORDERED: MAALOX 30 ML SUSP *UDC PO PRN (22:45)
[2017-06-21] MEDS ORDERED: MOM 30ML SUSPENSION UDC PO PRN (22:45)
[2017-06-21] MEDS ORDERED: diphenhydrAMINE 50 MG CAP PO PRN (22:45)
[2017-06-21 22:46] LABS: CONTROL LINE HCG INT CTR LINE PRESENT
[2017-06-21 22:54] LABS: METHADONE URINE NEGATIVE (NEGATIVE)
[2017-06-21 23:02] LABS: ALBUMIN 3.9 GM/DL (3.2-5.2); ALBUMIN/GLOBULIN RATIO 1.11 (1.00-1.93); ALKALINE PHOSPHATASE 96 U/L (45-117); ALT/SGPT 13 U/L (12-78); ANION GAP 6 MEQ/L (8-16); AST/SGOT 11 U/L (7-37); BILIRUBIN,DIRECT < 0.1 MG/DL (0.0-0.2); BILIRUBIN,TOTAL 0.2 MG/DL (0.2-1.0); BLOOD UREA NITROGEN 11 MG/DL (7-18); CALCIUM LEVEL 9.1 MG/DL (8.5-10.1); CARBON DIOXIDE LEVEL 26 MEQ/L (21-32); CHLORIDE LEVEL 107 MEQ/L (98-107); CREATININE FOR GFR 0.96 MG/DL (0.55-1.02); GLOMERULAR FILTRATION RATE > 60.0 (>60); GLUCOSE, FASTING 93 MG/DL (70-105); POTASSIUM SERUM 3.9 MEQ/L (3.5-5.1); SODIUM LEVEL 139 MEQ/L (136-145); TOTAL PROTEIN 7.4 GM/DL (6.4-8.2)
[2017-06-22 00:55] VITALS: BP 125/71
[2017-06-22 06:41] VITALS: BP 118/66
[2017-06-22] MEDS: NICOTINE 21MG/24HR 1 EA TRANSDERMAL TD SCH (09:00)
[2017-06-22] MEDS: BENZTROPINE 1 MG TAB PO SCH ×2 (10:22→21:44)
[2017-06-22] MEDS ORDERED: PERPHENAZINE 2 MG TAB PO ONE (10:30)
[2017-06-22] MEDS: PERPHENAZINE 2 MG TAB PO SCH ×2 (16:19→21:44)
--- NOTE | 2017-06-22 16:40 | MHHPE ---
DATE OF ADMISSION: 06/21/2017 LEGAL STATUS AT ADMISSION: 9.39 legal status. HISTORY OF PRESENT ILLNESS: 31-year-old female with history of schizophrenia, admitted to our unit on a 9.39 legal status. According to the record, patient was brought to the emergency department by her father because she reported command auditory hallucinations telling her to kill herself. Patient stated that the voices are telling her "in order to help your mom, you need to kill yourself." She also stated that she can feel the voices in her head punching her and "it is hard to concentrate." She also stated that voices are telling her to "shoot myself." Patient has a long history of psychosis and schizophrenia. She was admitted to our unit in 2016. According to the chart, at that point she was also having significant problems with alcohol, marijuana, and crack cocaine. She was involved with [employer]. Patient states that she is now sober, but admits that she relapsed a month ago, she said she did crack cocaine one time and then stopped. [facility]) in an apartment program. She says that it is hard to live with other people, since she feels they are talking behind her back and she has the feeling that somebody is going to hurt her. In inquiring about the voices, she says that she hears them all day long, it is about "violence, cursing, rapes, killing, and horrible stuff." With frequency, she will hear "kill yourself." She says that she does not want to kill herself, but the voices are very distressing. According to the patient, the patient was on Clozaril along with Invega Sustenna intramuscular (IM), but Clozaril had to be discontinued because of a decrease of white blood cells. She was then placed on lithium and Lamictal, and Invega Sustenna was continued on a monthly basis. During the interview today, patient is cooperative, very distressed about the voices, is paranoid, and somewhat guarded. Patient reports that she is very sensitive to extrapyramidal symptoms (EPS) and medications like Navane have been tried, but she cannot take it because of the above side effects. The patient does not remember if she was on Trilafon in the past. PAST MEDICAL HISTORY: Patient has been diagnosed with hypertension. PAST PSYCHIATRIC HISTORY: As above, patient has a long history of psychosis, schizophrenia, and polysubstance dependency. She was admitted to our unit in 2016. At that time, when she was admitted her blood alcohol level was higher than 0.2. She was placed, at that time, on Invega Sustenna. FAMILY HISTORY: Patient reports she has an aunt with schizophrenia and an uncle with schizophrenia or bipolar disorder. SUBSTANCE ABUSE HISTORY: As above, patient has a long history of polysubstance dependency including crack cocaine, cannabis, and alcohol. SOCIAL HISTORY: Patient was raised by her mother. She reports a completely normal childhood. She graduated high school. No college. 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 She is now on Supplemental Security Income (SSI). She lives at [facility] in an apartment program. She was in prison in 2014 for 6 months. PSYCHIATRIC REVIEW OF SYSTEMS: Bipolar disorder/graciela: No evidence of grandiosity, flight of ideas, pressured speech, or distractability. Substance abuse disorder: Patient answers negative to CAGE questionnaire at this time. Anxiety disorder: Patient denies panic, agoraphobia, obsessive compulsive symptoms, washing hands repeatedly or checking things over and over. Somatization disorder: Screening for pain, conversion, gastrointestinal (GI), or sexual symptoms is negative. Eating disorder: Screening for dieting, use of laxatives, eating in binges is negative. Cognitive disorder: Memory, attention, concentration, orientation, and general information is negative for cognitive disorder. PHYSICAL EXAMINATION: As per physician captain assistant. LABORATORY DATA: Her CBC is within normal limits except hemoglobin of 11.6 and hematocrit of 35. CMP is unremarkable. TSH within normal limits. test is negative. Urine drug screen is negative. Blood alcohol level is negative. MENTAL STATUS EXAMINATION: Patient is dressed in [facility]. Patient is cooperative. Her speech is soft and monotone, has fair eye contact. Mood is euthymic. Affect is blunted. Patient is oriented to time, place, person, and situation. Memory, attention, and concentration are fair. Patient reports command auditory hallucinations. Patient reports paranoid and persecutory delusions. Patient reports suicidal ideation. Judgment and insight is limited. DIAGNOSES: AXIS I: Schizophrenia, paranoid type. AXIS II: Deferred. AXIS III: Hypertension. INITIAL TREATMENT PLAN: Patient was admitted on a 9.39 legal status. Complete history was obtained. With her permission, family will be contacted and database will be expanded. Her medication regimen will be reviewed and changed accordingly. She will be provided with a protected environment. She will be treated with individual, group, and milieu therapies. She will also receive supportive psychoeducation. Discharge planning will commence immediately. Length of stay will be between 7-10 days. Outpatient followup will be strongly recommended.
[2017-06-22 18:00] VITALS: BP 103/52
[2017-06-22] MEDS: traZODone 50 MG TAB PO PRN (21:44)
[2017-06-23 06:45] VITALS: BP 133/83
[2017-06-23] MEDS: NICOTINE 21MG/24HR 1 EA TRANSDERMAL TD SCH (08:29)
[2017-06-23] MEDS: PERPHENAZINE 2 MG TAB PO SCH ×3 (08:30→20:02)
[2017-06-23] MEDS: BENZTROPINE 1 MG TAB PO SCH ×2 (08:30→20:02)
--- NOTE | 2017-06-23 17:36 | MHIPN ---
DATE: 06/23/2017 HISTORY: A 31-year-old female with history of schizophrenia, admitted for exacerbation of psychosis with command auditory hallucinations telling her to kill herself. MEDICATIONS: - Trilafon 4 mg by mouth three times a day - Cogentin 1 mg by mouth twice a day SUBJECTIVE: "I'm feeling a little better." OBJECTIVE: No major changes from yesterday, although she says that the voices are less frequent and severe than yesterday with the help of medication. The patient is very sensitive to antipsychotic medications and cannot tolerate them well. She was started on Trilafon that appears to be somewhat effective until today after 24 hours. She is denying extrapyramidal syndrome (EPS). MENTAL STATUS EXAMINATION: The patient dressed in [facility]. The patient is cooperative, has poor eye contact. Speech is slow and monotone. Mood is euthymic. Affect is blunted. The patient continues with paranoid delusions and auditory hallucinations, command in nature. The patient has suicidal thoughts. Memory, attention and concentration are fair. Insight and judgment are limited. ASSESSMENT: 1. Schizophrenia. 2. Command auditory hallucinations. PLAN: 1. Continue Trilafon 4 mg by mouth three times a day. 2. Continue Cogentin 1 mg by mouth twice a day. 3. Continue medication management, individual and group therapy.
[2017-06-23 18:00] VITALS: BP 139/78
--- NOTE | 2017-06-24 02:24 | HPE ---
DATE OF ADMISSION: 06/21/2017 HISTORY OF PRESENT ILLNESS: Please refer to psychiatric history and evaluation for further details on this admission. This examination and history is intended for medical issues, which may need treatment, followup or consult on this 31-year-old female. ALLERGIES: HALOPERIDOL, PALIPERIDONE, RISPERIDONE, THIOTHIXENE. PRIMARY CARE PROVIDER: Dr. José. SOCIAL HISTORY: She is single. She lives in a transitional living services ([facility]) apartment. She smokes a half a pack of cigarettes a day. She had heavy alcohol and substance abuse problems. She states that she has had none for a couple of months. She states she only relapsed once a month ago on crack and has not done it since. PAST MEDICAL HISTORY: She states she has had a history of hypertension, hypercholesterolemia, but is on no medication for it. History of schizophrenia. History of mood disorder. History of polysubstance abuse. PAST SURGICAL HISTORY: 1. Cholecystectomy. 2. section times two. HOME MEDICATIONS: - albuterol two puffs by mouth every 4 hours as needed for shortness of breath - benztropine 2 mg by mouth three times a day - Lamictal 100 mg by mouth daily - lithium ER 300 mg by mouth twice a day - Invega Sustenna 234 mg intramuscularly (IM) monthly - Protonix 40 mg by mouth daily - terbinafine HCl 250 mg by mouth daily which she just started per order of her primary care provider, Dr. José for onychomycoses of bilateral great toenails LABORATORY STUDIES: WBC 6.0, hemoglobin 11.6, hematocrit 35, platelets 321. Electrolytes were normal. BUN was 11, creatinine 0.9. Salicylates were 1.9, lithium 0.51, otherwise toxicology screen was negative. REVIEW OF SYSTEMS: 10-system review was done and other than complaints of the toenail fungus on both great toes, she had no physical complaints. OBJECTIVE: 31-year-old obese female in no acute distress. Height 61 inches, weight 86 kg, body mass index (BMI) 35.8. Blood pressure 120/60, pulse 74, respirations 16, temperature 98.6. Patient is alert and oriented times three. Pupils equal and react to light. Extraocular muscles intact. Cornea and sclerae clear. Conjunctivae were normal. No facial asymmetry. Pharynx, tongue and gums pink and moist. Tongue is midline. Neck is supple without lymphadenopathy. No thyromegaly, no goiter. Carotids 2+ without bruit. Chest clear to auscultation without wheeze or retraction. Heart is regular. Abdomen is benign. Bowel sounds positive. Genitourinary/rectal: Not done. Extremities show equal strength, full range of motion. No cyanosis, clubbing or edema. Peripheral pulses equal and palpable bilaterally. Cranial nerves III-XII grossly intact. IMPRESSION/PLAN: 1. Psychiatric plan per psychiatry. 2. Bilateral onychomycoses to both great toes. Left great toenail has almost fallen off. No redness, drainage or swelling. Resume terbinafine after discharge. Continue followup with primary care provider. 3. History of gastroesophageal reflux disease (GERD). Stable. She says she gets occasional reflux, but has not taken the Protonix. 4. No stated history of asthma. States she does have an inhaler, but she has not needed it. 5. Nicotine patch available.
[2017-06-24 06:00] VITALS: BP 142/67
[2017-06-24] MEDS: NICOTINE 21MG/24HR 1 EA TRANSDERMAL TD SCH (08:02)
[2017-06-24] MEDS: BENZTROPINE 1 MG TAB PO SCH ×2 (08:02→20:59)
[2017-06-24] MEDS: PERPHENAZINE 2 MG TAB PO SCH ×3 (08:03→20:59)
--- NOTE | 2017-06-24 16:40 | MHIPNPDOC ---
[facility] Progress Note Progress Note DATE OF SERVICE: 06/24/17 HISTORY: As per Dr. Magaña: "31-year-old female with history of schizophrenia, admitted to our unit on a 9.39 legal status. According to the record, patient was brought to the emergency department by her father because she reported command auditory hallucinations telling her to kill herself. Patient stated that the voices are telling her "in order to help your mom, you need to kill yourself." She also stated that she can feel the voices in her head punching her and "it is hard to concentrate." She also stated that voices are telling her to "shoot myself." Patient has a long history of psychosis and schizophrenia. She was admitted to our unit in 2016. According to the chart, at that point she was also having significant problems with alcohol, marijuana, and crack cocaine. She was involved with [employer]. Patient states that she is now sober, but admits that she relapsed a month ago, she said she did crack cocaine one time and then stopped. She is currently living at [facility] ([facility] in an apartment program. She says that it is hard to live with other people, since she feels they are talking behind her back and she has the feeling that somebody is going to hurt her. In inquiring about the voices, she says that she hears them all day long, it is about "violence, cursing, rapes, killing, and horrible stuff." With frequency, she will hear "kill yourself." She says that she does not want to kill herself, but the voices are very distressing. According to the patient, the patient was on Clozaril along with Invega Sustenna intramuscular (IM), but Clozaril had to be discontinued because of a decrease of white blood cells. She was then placed on lithium and Lamictal, and Invega Sustenna was continued on a monthly basis. During the interview today, patient is cooperative, very distressed about the voices, is paranoid, and somewhat guarded. Patient reports that she is very sensitive to extrapyramidal symptoms (EPS) and medications like Navane have been tried, but she cannot take it because of the above side effects. The patient does not remember if she was on Trilafon in the past." VITAL SIGNS: See below. NEW TEST RESULTS: None CURRENT MEDICATIONS: See below. MENTAL STATUS EXAMINATION: Patient is a 31 year old female, who is alert, dressed in personal clothes, fairly groomed, with good eye contact Speech: Is Normal in tone, rate and volume Language skills are good Thought processes including: Intact. Thought content: Focused on her medication side effects, says she feels calmer now. Abstract reasoning, and computation: Not assessed at this time. Description of associations: Good Description of abnormal or psychotic thoughts: Denies SI/HI, denies visual hallucinations but describes somatic and auditory hallucinations, although less frequent than before.. Judgment: Poor Insight: Poor. Orientation: Oriented x 3. Recent and remote memory: Intact. Attention span and concentration: Fair. Language: Normal. Fund of knowledge: Limited. Mood: "I feel better". Affect: Calm, congruent with mood DIAGNOSES: 1. R/O substance induced psychosis 2. R/O schizophrenia ASSESSMENT: Patient says that she feels better with Trilafon, the voices are not that frequent and not as strong. When this comic writer asks her what was the content of the voices she has said "rape", "punching me in the head". When I explained to her maybe these were somatic hallucinations or dissociation, she listen to me and she said it was possible. She also mentioned that 2 months ago she took marijuana and synthetic marijuana. She said that she hadn't used drugs until then and the last time that she has used once about a year and 2 months ago. At this time is difficult to know if it's a consequence of the program abuse that she has been having somatic/auditory hallucinations. We will explore symptoms of PTSD, history of trauma, because his symptoms could be secondary to a traumatic situation. MANAGEMENT PLAN: 20 minutes. TIME SPENT: minutes. Vital Signs Vital Signs Date Time Temp Pulse Resp B/P (MAP) Pulse Ox O2 Delivery O2 Flow Rate FiO2 06/24/17 06:00 99.1 73 18 142/67 (92) 06/23/17 18:00 96 Room Air Current Medications Current Medications Acetaminophen (Tylenol Tab) 650 mg Q6HP PRN PO HEADACHE or DISCOMFORT; Start 06/21/17 at 22:45; Stop 07/21/17 at 22:44 Al Hydrox/Mg Hydrox/Simethicone (Mylanta) 30 ml Q4HP PRN PO HEARTBURN/ INDIGESTION; Start 06/21/17 at 22:45; Stop 07/21/17 at 22:44 Benztropine Mesylate (Cogentin) 1 mg BID PO Last administered on 06/24/17 08: 02; Start 06/22/17 at 10:30; Stop 07/22/17 at 10:29 Diphenhydramine HCl (Benadryl) 50 mg Q6HP PRN PO Aggitation; Start 06/21/17 at 22:45; Stop 07/21/17 at 22:44 Home Med (Med Rec Complete!) ASDIRECTED XX ; Start 06/21/17 at 22:30; Stop at 22:30; Status DC Magnesium Hydroxide (Milk Of Magnesia) 30 ml DAILYPRN PRN PO CONSTIPATION; Start 06/21/17 at 22:45; Stop 07/21/17 at 22:44 Nicotine (Nicoderm Cq 21mg) 1 patch DAILY TD Last administered on 06/24/17 08 :02; Start 06/22/17 at 09:00; Stop 07/22/17 at 08:59 Perphenazine (Trilafon) 4 mg TID PO Last administered on 06/24/17 16:14; Start 06/22/17 at 16:00; Stop 07/22/17 at 15:59 Trazodone HCl (Desyrel) 50 mg QHSP PRN PO INSOMNIA Last administered on 21:44; Start 06/21/17 at 22:45; Stop 07/21/17 at 22:44 Allergies Coded Allergies: Paliperidone (Verified Allergy, Intermediate, dystonia, 04/29/17) Haloperidol (Verified Allergy, Unknown, unknown, 01/29/17) Risperidone (Verified Allergy, Unknown, 10/11/16) Thiothixene (Verified Adverse Reaction, Intermediate, DYSTONIC REACTION, ) MILO KNIGHT MD Jun 24, 2017 16:40
[2017-06-24] MEDS ORDERED: DOCUSATE SODIUM 100 MG CAP PO PRN (17:00)
[2017-06-24 18:11] VITALS: BP 130/84
[2017-06-24] MEDS: ITRACONAZOLE 100 MG CAP (SPORANOX) PO SCH (20:59)
[2017-06-24] MEDS ORDERED: LITHIUM CARBONATE 300 MG **CR** TAB PO ONE (21:00)
[2017-06-25 06:39] VITALS: BP 117/67
[2017-06-25] MEDS ORDERED: PALIPERIDONE PALMITATE 234 MG/1.5 ML INJ (INVEGA SUSTENNA)(J2426) IM SCH (09:00)
[2017-06-25] MEDS: NICOTINE 21MG/24HR 1 EA TRANSDERMAL TD SCH (09:01)
[2017-06-25] MEDS: BENZTROPINE 1 MG TAB PO SCH ×2 (09:01→20:28)
[2017-06-25] MEDS: PERPHENAZINE 2 MG TAB PO SCH ×3 (09:01→20:29)
--- NOTE | 2017-06-25 16:26 | MHIPNPDOC ---
[facility] Progress Note Progress Note DATE OF SERVICE: 06/25/17 HISTORY: As per Dr. Magaña: "31-year-old female with history of schizophrenia, admitted to our unit on a 9.39 legal status. According to the record, patient was brought to the emergency department by her father because she reported command auditory hallucinations telling her to kill herself. Patient stated that the voices are telling her "in order to help your mom, you need to kill yourself." She also stated that she can feel the voices in her head punching her and "it is hard to concentrate." She also stated that voices are telling her to "shoot myself." Patient has a long history of psychosis and schizophrenia. She was admitted to our unit in 2016. According to the chart, at that point she was also having significant problems with alcohol, marijuana, and crack cocaine. She was involved with [employer] Patient states that she is now sober, but admits that she relapsed a month ago, she said she did crack cocaine one time and then stopped. She is currently living at [facility] ([facility]) in an apartment program. She says that it is hard to live with other people, since she feels they are talking behind her back and she has the feeling that somebody is going to hurt her. In inquiring about the voices, she says that she hears them all day long, it is about "violence, cursing, rapes, killing, and horrible stuff." With frequency, she will hear "kill yourself." She says that she does not want to kill herself, but the voices are very distressing. According to the patient, the patient was on Clozaril along with Invega Sustenna intramuscular (IM), but Clozaril had to be discontinued because of a decrease of white blood cells. She was then placed on lithium and Lamictal, and Invega Sustenna was continued on a monthly basis. During the interview today, patient is cooperative, very distressed about the voices, is paranoid, and somewhat guarded. Patient reports that she is very sensitive to extrapyramidal symptoms (EPS) and medications like Navane have been tried, but she cannot take it because of the above side effects. The patient does not remember if she was on Trilafon in the past." VITAL SIGNS: See below. NEW TEST RESULTS: None CURRENT MEDICATIONS: See below. MENTAL STATUS EXAMINATION: Patient is a 31 year old female, who is alert, dressed in personal clothes, fairly groomed, with good eye contact Speech: Is Normal in tone, rate and volume Language skills are good Thought processes including: Logical, linear Thought content: Focused on being discharged Abstract reasoning, and computation: Not assessed at this time. Description of associations: Good Description of abnormal or psychotic thoughts: Denies SI/HI, denies visual hallucinations and denies auditory hallucinations. Judgment: Improving Insight: Improving Orientation: Oriented x 3. Recent and remote memory: Intact. Attention span and concentration: Good. Language: Normal. Fund of knowledge: Limited. Mood: "I feel better". Affect: Calm, congruent with mood DIAGNOSES: 1. R/O substance induced psychosis 2. R/O schizophrenia ASSESSMENT:Patient doesn't seem to fulfill criteria for schizophrenia. I believe this is a consequence of drug us and she said she used synthetic marijuana ron months ago. MANAGEMENT PLAN: Will continue on the same plan. TIME SPENT: 20 minutes. Vital Signs Vital Signs Date Time Temp Pulse Resp B/P (MAP) Pulse Ox O2 Delivery O2 Flow Rate FiO2 06/25/17 06:39 98.4 84 18 117/67 (84) Room Air 06/23/17 18:00 96 Current Medications Current Medications Acetaminophen (Tylenol Tab) 650 mg Q6HP PRN PO HEADACHE or DISCOMFORT; Start 06/21/17 at 22:45; Stop 07/21/17 at 22:44 Al Hydrox/Mg Hydrox/Simethicone (Mylanta) 30 ml Q4HP PRN PO HEARTBURN/ INDIGESTION; Start 06/21/17 at 22:45; Stop 07/21/17 at 22:44 Benztropine Mesylate (Cogentin) 1 mg BID PO Last administered on 06/25/17t 09: 01; Start 06/22/17 at 10:30; Stop 07/22/17 at 10:29 Diphenhydramine HCl (Benadryl) 50 mg Q6HP PRN PO Aggitation; Start 06/21/17 at 22:45; Stop 07/21/17 at 22:44 Docusate Sodium (Colace) 100 mg QHSP PRN PO CONSTIPATION; Start 06/24/17 at 17 :00; Stop 07/24/17 at 16:59 Home Med (Med Rec Complete!) ASDIRECTED XX ; Start 06/21/17 at 22:30; Stop at 22:30; Status DC Itraconazole (Sporanox) 200 mg QHS PO Last administered on 06/24/17 20:59; Start 06/24/17 at 21:00; Stop 07/01/17 at 20:59 Magnesium Hydroxide (Milk Of Magnesia) 30 ml DAILYPRN PRN PO CONSTIPATION; Start 06/21/17 at 22:45; Stop 07/21/17 at 22:44 Nicotine (Nicoderm Cq 21mg) 1 patch DAILY TD Last administered on 06/25/17 09 :01; Start 06/22/17 at 09:00; Stop 07/22/17 at 08:59 Paliperidone Palmitate (Invega Sustenna) 234 mg Q30D IM Last administered on 09:05; Start 06/25/17 at 09:00; Stop 07/25/17 at 08:59 Perphenazine (Trilafon) 4 mg TID PO Last administered on 06/25/17 15:48; Start 06/22/17 at 16:00; Stop 07/22/17 at 15:59 Trazodone HCl (Desyrel) 50 mg QHSP PRN PO INSOMNIA Last administered on 21:44; Start 06/21/17 at 22:45; Stop 07/21/17 at 22:44 Allergies Coded Allergies: Paliperidone (Verified Allergy, Intermediate, dystonia, 04/29/17) Haloperidol (Verified Allergy, Unknown, unknown, 01/29/17) Risperidone (Verified Allergy, Unknown, 10/11/16) Thiothixene (Verified Adverse Reaction, Intermediate, DYSTONIC REACTION, ) MILO KNIGHT MD Jun 25, 2017 16:26
[2017-06-25 18:00] VITALS: BP 120/68
[2017-06-25] MEDS: LITHIUM CARBONATE 300 MG **CR** TAB PO SCH (20:28)
[2017-06-25] MEDS: traZODone 50 MG TAB PO PRN (20:28)
[2017-06-25] MEDS: ITRACONAZOLE 100 MG CAP (SPORANOX) PO SCH (20:28)
[2017-06-26 06:44] VITALS: BP 106/51
[2017-06-26] MEDS: PERPHENAZINE 2 MG TAB PO SCH ×3 (08:04→21:21)
[2017-06-26] MEDS: BENZTROPINE 1 MG TAB PO SCH ×2 (08:04→21:21)
[2017-06-26] MEDS: NICOTINE 21MG/24HR 1 EA TRANSDERMAL TD SCH (08:04)
[2017-06-26] MEDS ORDERED: INVE234I IM (14:30)
[2017-06-26] MEDS ORDERED: TRAZO50TA PO (14:30)
[2017-06-26] MEDS ORDERED: LITH1TAB PO (14:30)
[2017-06-26] MEDS ORDERED: PERP2TA PO (14:30)
[2017-06-26] MEDS ORDERED: NICO4GUM2 PO (14:32)
[2017-06-26 18:00] VITALS: BP 123/80
--- NOTE | 2017-06-26 20:57 | MHIPNPDOC ---
[facility] Progress Note Progress Note DATE OF SERVICE: 06/26/17 HISTORY: As per Dr. Magaña: "31-year-old female with history of schizophrenia, admitted to our unit on a 9.39 legal status. According to the record, patient was brought to the emergency department by her father because she reported command auditory hallucinations telling her to kill herself. Patient stated that the voices are telling her "in order to help your mom, you need to kill yourself." She also stated that she can feel the voices in her head punching her and "it is hard to concentrate." She also stated that voices are telling her to "shoot myself." Patient has a long history of psychosis and schizophrenia. She was admitted to our unit in 2016. According to the chart, at that point she was also having significant problems with alcohol, marijuana, and crack cocaine. She was involved with [employer]. Patient states that she is now sober, but admits that she relapsed a month ago, she said she did crack cocaine one time and then stopped. [facility] ([facility] in an apartment program. She says that it is hard to live with other people, since she feels they are talking behind her back and she has the feeling that somebody is going to hurt her. In inquiring about the voices, she says that she hears them all day long, it is about "violence, cursing, rapes, killing, and horrible stuff." With frequency, she will hear "kill yourself." She says that she does not want to kill herself, but the voices are very distressing. According to the patient, the patient was on Clozaril along with Invega Sustenna intramuscular (IM), but Clozaril had to be discontinued because of a decrease of white blood cells. She was then placed on lithium and Lamictal, and Invega Sustenna was continued on a monthly basis. During the interview today, patient is cooperative, very distressed about the voices, is paranoid, and somewhat guarded. Patient reports that she is very sensitive to extrapyramidal symptoms (EPS) and medications like Navane have been tried, but she cannot take it because of the above side effects. The patient does not remember if she was on Trilafon in the past." VITAL SIGNS: See below. NEW TEST RESULTS: None CURRENT MEDICATIONS: See below. MENTAL STATUS EXAMINATION: Patient is a 31 year old female, who is alert, dressed in personal clothes, fairly groomed, with good eye contact, guarded Speech: Is spontaneous and fluent Language skills are good Thought processes including: Intact at this time Thought content: Focused on being discharged Abstract reasoning, and computation: Not assessed at this time. Description of associations: Good Description of abnormal or psychotic thoughts: Denies SI/HI, denies visual hallucinations and denies auditory hallucinations. Judgment: Improving Insight: Improving Orientation: Oriented x 3. Recent and remote memory: Intact. Attention span and concentration: Good. Language: Normal. Fund of knowledge: Limited. Mood:"I'm much better. I haven't have hallucinations". Affect: Constricted DIAGNOSES: 1. R/O substance induced psychosis 2. R/O schizophrenia A/P> Patient will be returning tomorrow to [facility]. Patient is ready to be discharged. TIME SPENT: 20 minutes. Vital Signs Vital Signs Vital Signs Date Time Temp Pulse Resp B/P (MAP) Pulse Ox O2 Delivery O2 Flow Rate FiO2 06/26/17 18:00 98.0 84 16 123/80 (94) 06/26/17 06:44 Room Air 06/23/17 18:00 96 Current Medications Current Medications Acetaminophen (Tylenol Tab) 650 mg Q6HP PRN PO HEADACHE or DISCOMFORT; Start 06/21/17 at 22:45; Stop 07/21/17 at 22:44 Al Hydrox/Mg Hydrox/Simethicone (Mylanta) 30 ml Q4HP PRN PO HEARTBURN/ INDIGESTION; Start 06/21/17 at 22:45; Stop 07/21/17 at 22:44 Benztropine Mesylate (Cogentin) 1 mg BID PO Last administered on 06/26/17t 08: 04; Start 06/22/17 at 10:30; Stop 07/22/17 at 10:29 Diphenhydramine HCl (Benadryl) 50 mg Q6HP PRN PO Aggitation; Start 06/21/17 at 22:45; Stop 07/21/17 at 22:44 Docusate Sodium (Colace) 100 mg QHSP PRN PO CONSTIPATION; Start 06/24/17 at 17 :00; Stop 07/24/17 at 16:59 Home Med (Med Rec Complete!) ASDIRECTED XX ; Start 06/21/17 at 22:30; Stop at 22:30; Status DC Itraconazole (Sporanox) 200 mg QHS PO Last administered on 06/25/17 20:28; Start 06/24/17 at 21:00; Stop 07/01/17 at 20:59 [place] Carbonate (Lithobid Cr) 600 mg QHS PO Last administered on 06/25/17 20:28; Start 06/25/17 at 21:00; Stop 07/25/17 at 20:59 Magnesium Hydroxide (Milk Of Magnesia) 30 ml DAILYPRN PRN PO CONSTIPATION; Start 06/21/17 at 22:45; Stop 07/21/17 at 22:44 Nicotine (Nicoderm Cq 21mg) 1 patch DAILY TD Last administered on 06/26/17 08 :04; Start 06/22/17 at 09:00; Stop 07/22/17 at 08:59 Paliperidone Palmitate (Invega Sustenna) 234 mg Q30D IM Last administered on 09:05; Start 06/25/17 at 09:00; Stop 07/25/17 at 08:59 Perphenazine (Trilafon) 4 mg TID PO Last administered on 06/26/17 15:51; Start 06/22/17 at 16:00; Stop 07/22/17 at 15:59 Trazodone HCl (Desyrel) 50 mg QHSP PRN PO INSOMNIA Last administered on 20:28; Start 06/21/17 at 22:45; Stop 07/21/17 at 22:44 Allergies Coded Allergies: Paliperidone (Verified Allergy, Intermediate, dystonia, 04/29/17) Haloperidol (Verified Allergy, Unknown, unknown, 01/29/17) Risperidone (Verified Allergy, Unknown, 10/11/16) Thiothixene (Verified Adverse Reaction, Intermediate, DYSTONIC REACTION, ) MILO KNIGHT MD Jun 26, 2017 20:57
[2017-06-26] MEDS: ITRACONAZOLE 100 MG CAP (SPORANOX) PO SCH (21:21)
[2017-06-26] MEDS: LITHIUM CARBONATE 300 MG **CR** TAB PO SCH (21:21)
[2017-06-26] MEDS: traZODone 50 MG TAB PO PRN (21:21)
[2017-06-26] MEDS: ACETAMINOPHEN TAB 650MG DOSE (2X325MG) PO PRN (21:23)
[2017-06-27 06:53] VITALS: BP 105/56
[2017-06-27] MEDS: NICOTINE 21MG/24HR 1 EA TRANSDERMAL TD SCH (09:08)
[2017-06-27] MEDS: BENZTROPINE 1 MG TAB PO SCH (09:08)
[2017-06-27] MEDS: PERPHENAZINE 2 MG TAB PO SCH (09:08)
--- NOTE | 2017-06-27 11:06 | MHDSPDOC ---
[facility] Discharge Summary Discharge Summary DATE OF ADMISSION: Jun 21, 2017 at 22:44 DATE OF DISCHARGE: June 27, 2017 DISCHARGE DIAGNOSES: 1. Paranoid schizophrenia, chronic 2. Substance Induced psychosis 3. Polysubstance use disorder REASON FOR ADMISSION: As per Dr. Magaña: "31-year-old female with history of schizophrenia, admitted to our unit on a 9.39 legal status. According to the record, patient was brought to the emergency department by her father because she reported command auditory hallucinations telling her to kill herself. Patient stated that the voices are telling her "in order to help your mom, you need to kill yourself." She also stated that she can feel the voices in her head punching her and "it is hard to concentrate." She also stated that voices are telling her to "shoot myself." Patient has a long history of psychosis and schizophrenia. She was admitted to our unit in 2015. According to the chart, at that point she was also having significant problems with alcohol, marijuana, and crack cocaine. She was involved with [employer]. Patient states that she is now sober, but admits that she relapsed a month ago, she said she did crack cocaine one time and then stopped. She is currently living at [facility]) in an apartment program. She says that it is hard to live with other people, since she feels they are talking behind her back and she has the feeling that somebody is going to hurt her. In inquiring about the voices, she says that she hears them all day long, it is about "violence, cursing, rapes, killing, and horrible stuff." With frequency, she will hear "kill yourself." She says that she does not want to kill herself, but the voices are very distressing. According to the patient, the patient was on Clozaril along with Invega Sustenna intramuscular (IM), but Clozaril had to be discontinued because of a decrease of white blood cells. She was then placed on lithium and Lamictal, and Invega Sustenna was continued on a monthly basis. During the interview today, patient is cooperative, very distressed about the voices, is paranoid, and somewhat guarded. Patient reports that she is very sensitive to extrapyramidal symptoms (EPS) and medications like Navane have been tried, but she cannot take it because of the above side effects. The patient does not remember if she was on Trilafon in the past." CONSULTANTS INVOLVED: None TREATMENT AND PROGRESS ON THE UNIT : The patient had a good response to medications, but she didn't want to take Lamictal because she felt that medication didn't agree with her and she reported that is why she has stopped taking the medications all at once. She reported that the hallucinations were raping her, cutting her hair. This display card writer asked her if she could feel on her skin are on her body as if she was being raped or as if someone was cutting her hair and she said "yes". I explained those were somatic hallucinations, but she said she could also hear noises and voices, so, I explained she could have somatic and auditory hallucinations at the same time. The patient reported she has been using drugs since she wa approximately 16 years old and she said she has used cocaine, marijuana, she has used opiates ( she said only once) and two months ago she used synthetic marijuana and marijuana. She couldn't tell how much she had used or for how long she used it. She didn't receive Lamictal, because she said she didn't like it's side effects. The patient reported she liked the effects of trilafon, a first generation anti psychotic, she said she felt calmer with it. Patient said she was hearing voices before she used the synthetic marijuana and the marijuana. later on, she said she also had used cocaine at that point. She was clam, she was not aggressive and violent, she she was quiet,, she follow the rules, she was not seen responding to internal stimuli and she received her Invega Sustenna injectable on June 25 HOSPITAL COURSE: As above DISCHARGE ASSESSMENT: Patient is not a danger to herself or others, she is not suicidal and not homicidal, she is not responding to internal stimuli, she denies auditory and visual hallucinations and denies thought delusions. MENTAL STATUS EXAMINATION ON DISCHARGE: Patient is a 31-year old female, who is alert, oriented 3, calm, cooperative, with good hygiene and fair grooming. Speech is coherent. Language skills are good. Thought processes including: Goal directed, rational. Thought content: Goal-directed, making plans for the future. Abstract reasoning, and computation: Fair. Description of associations: Good. Description of abnormal or psychotic thoughts: Denies auditory and visual hallucinations, denies thought delusions and says the last time she had an auditory hallucination was the day before yesterday, only once. Judgment: Improving Insight: Improving. Orientation to oriented 3. Recent and remote memory: Intact. Attention span and concentration: Fair. Language: Normal. Fund of knowledge: Fair. Mood: Euthymic. Affect: Euthymic. MEDICATIONS ON DISCHARGE: Benztropine Mesylate (Benztropine Mesylate) 2 Mg Tab, 2 MG PO TID, (Reported) [place] Carbonate ([place] Carbonate ER) 300 Mg Tabcr, 600 MG PO QHS for MOOD, # 14 Paliperidone Palmitate (Invega Sustenna) 234 Mg/1.5 Ml Inj, 234 MG IM Q30D for psychosis, #1 Next dose is due on 07/25/17 Pantoprazole Sodium (Pantoprazole Sodium) 40 Mg Tab, 40 MG PO DAILY, (Reported) Perphenazine (Perphenazine) 2 Mg Tab, 4 MG PO TID for psychosis/anxiety, #42 Terbinafine HCl (Terbinafine HCl) 250 Mg Tab, 250 MG PO DAILY, (Reported) Scheduled PRN Albuterol Sulfate (Ventolin Hfa) 108 Mcg/Act Aer, 2 PUFFS INH Q4H PRN for SHORTNESS OF BREATH, (Reported) Nicotine Polacrilex (Nicotine Polacrilex) 4 Mg Gum, 4 MG PO Q6HP PRN for WITHDRAWAL SYMPTOMS, #28 Trazodone HCl (Trazodone HCl) 50 Mg Tab, 50 MG PO QHSP PRN for INSOMNIA, #7 PLAN/FOLLOWUP ARRANGEMENTS: . The amount of time spent in the coordination of care for this patient was approximately 30 minutes. Vital Signs/I&Os Vital Signs Date Time Temp Pulse Resp B/P (MAP) Pulse Ox O2 Delivery O2 Flow Rate FiO2 06/27/17 06:53 98.1 81 14 105/56 (72) Room Air 06/23/17 18:00 96 Medications Scheduled Benztropine Mesylate (Benztropine Mesylate) 2 Mg Tab, 2 MG PO TID, (Reported) [place] Carbonate ([place] Carbonate ER) 300 Mg Tabcr, 600 MG PO QHS for MOOD, # 14 Paliperidone Palmitate (Invega Sustenna) 234 Mg/1.5 Ml Inj, 234 MG IM Q30D for psychosis, #1 Next dose is due on 07/25/17 Pantoprazole Sodium (Pantoprazole Sodium) 40 Mg Tab, 40 MG PO DAILY, (Reported) Perphenazine (Perphenazine) 2 Mg Tab, 4 MG PO TID for psychosis/anxiety, #42 Terbinafine HCl (Terbinafine HCl) 250 Mg Tab, 250 MG PO DAILY, (Reported) Scheduled PRN Albuterol Sulfate (Ventolin Hfa) 108 Mcg/Act Aer, 2 PUFFS INH Q4H PRN for SHORTNESS OF BREATH, (Reported) Nicotine Polacrilex (Nicotine Polacrilex) 4 Mg Gum, 4 MG PO Q6HP PRN for WITHDRAWAL SYMPTOMS, #28 Trazodone HCl (Trazodone HCl) 50 Mg Tab, 50 MG PO QHSP PRN for INSOMNIA, #7 Allergies Coded Allergies: Paliperidone (Verified Allergy, Intermediate, dystonia, 04/29/17) Haloperidol (Verified Allergy, Unknown, unknown, 01/29/17) Risperidone (Verified Allergy, Unknown, 10/11/16) Thiothixene (Verified Adverse Reaction, Intermediate, DYSTONIC REACTION, ) MILO KNIGHT MD Jun 27, 2017 11:06
[2017-06-27] MEDS: ACETAMINOPHEN TAB 650MG DOSE (2X325MG) PO PRN (12:04)
== END 2017-06-27 14:31 | disposition home or self-care (01) | DRG 885 ==
LOC: M ED 21:35 → M ED INP 22:44 → M PSY 23:55
PROVIDERS: ADMIT Psychiatry & Neurology Psychiatry; ATTEND Psychiatry & Neurology Psychiatry
DX: F20.0 Paranoid schizophrenia (principal); F14.20 Cocaine dependence, uncomplicated; I10 Essential (primary) hypertension; E66.9 Obesity, unspecified; F12.259 Cannabis dependence with psychotic disorder, unspecified; K21.9 Gastro-esophageal reflux disease without esophagitis; F17.210 Nicotine dependence, cigarettes, uncomplicated; B35.1 Tinea unguium; F10.20 Alcohol dependence, uncomplicated; Z81.8 Family history of other mental and behavioral disorders; Z88.8 Allergy status to other drugs, medicaments and biological substances; Z79.899 Other long term (current) drug therapy; Z68.35 Body mass index [BMI] 35.0-35.9, adult

== ENCOUNTER 2017-06-25 16:00 | Outpatient (RCR) | payer MEDICARE, MEDICAID ==
[~2017-06-25 16:00] MED LIST changes: +LAMO100T PO; +LITH300T PO; +PANT40TA2 PO; +TERB250T12 PO; +VENTAER INH
[2017-06-26] MEDS ORDERED: TRAZO50TA PO (14:30)
[2017-06-26] MEDS ORDERED: INVE234I IM (14:30)
[2017-06-26] MEDS ORDERED: LITH1TAB PO (14:30)
[2017-06-26] MEDS ORDERED: PERP2TA PO (14:30)
[2017-06-26] MEDS ORDERED: NICO4GUM2 PO (14:32)
[2017-07-04] MEDS ORDERED: PERP4TA PO (14:40)
== END 2017-06-27 ==
LOC: M OUTALCOH 16:00
PROVIDERS: ATTEND Psychiatry & Neurology Psychiatry
DX: F10.20 Alcohol dependence, uncomplicated (principal); F14.20 Cocaine dependence, uncomplicated; F19.20 Other psychoactive substance dependence, uncomplicated; F17.200 Nicotine dependence, unspecified, uncomplicated

== ENCOUNTER 2017-07-01 08:00 | Outpatient (RCR) | payer MEDICARE, MEDICAID | END 2017-07-28 | LOC: M OUTALCOH 07-12 08:00 | DX: F10.20 Alcohol dependence, uncomplicated (principal); F14.20 Cocaine dependence, uncomplicated; F19.20 Other psychoactive substance dependence, uncomplicated; F17.200 Nicotine dependence, unspecified, uncomplicated | CPT/HCPCS: 90834 ==

== ENCOUNTER → 2017-07-03 | Outpatient (REF) | payer MEDICARE, MEDICAID ==
[~2017-07-03] MED LIST changes: +LITH1TAB PO; +NICO4GUM2 PO; +PERP2TA PO; +PERP4TA PO; +TRAZO50TA PO
== END ==
LOC: M SFHCWAGY 10:15
PROVIDERS: ATTEND Nurse Practitioner Women's Health
DX: Z12.4 Encounter for screening for malignant neoplasm of cervix (principal); A59.01 Trichomonal vulvovaginitis; B37.3 Candidiasis of vulva and vagina
CPT/HCPCS: G0101; G0123

== ENCOUNTER → 2017-07-09 | Outpatient (CLI) | payer MEDICARE, MEDICAID ==
[2017-07-09 10:34] LABS: BASO % 0.7 % (0.0-1.0); EOS # 0.2 10^3/uL (0.0-0.50); EOS % 4.5 % (0.0-3.0); IMMATURE GRANULOCYTE % 0.2 % (0-0); LYMPH # 1.5 10^3/uL (1.5-4.5); LYMPH % 34.5 % (24.0-44.0); MEAN CORPUSCULAR HEMOGLOBIN 28.5 pg (27.0-33.0); MEAN CORPUSCULAR HGB CONC 33.1 g/dl (32.0-36.5); MEAN CORPUSCULAR VOLUME 86.3 fl (80.0-96.0); MONO # 0.3 10^3/uL (0.0-0.8); NEUTROPHILS # 2.4 10^3/uL (1.8-7.7); NEUTROPHILS % 53.1 % (36.0-66.0); PLATELET COUNT, AUTOMATED 342 10^3/uL (150-450); RED CELL DISTRIBUTION WIDTH 12.9 % (11.5-14.5); WHITE BLOOD COUNT 4.4 10^3/uL (4.0-10.0)
[2017-07-09 11:30] LABS: ALBUMIN 4.1 GM/DL (3.2-5.2); ALBUMIN/GLOBULIN RATIO 1.05 (1.00-1.93); ALKALINE PHOSPHATASE 101 U/L (45-117); ALT/SGPT 14 U/L (12-78); ANION GAP 8 MEQ/L (8-16); AST/SGOT 9 U/L (7-37); BILIRUBIN,TOTAL 0.2 MG/DL (0.2-1.0); BLOOD UREA NITROGEN 11 MG/DL (7-18); CALCIUM LEVEL 9.3 MG/DL (8.5-10.1); CARBON DIOXIDE LEVEL 26 MEQ/L (21-32); CHLORIDE LEVEL 106 MEQ/L (98-107); CHOLESTEROL LEVEL 199 MG/DL (<200); FERRITIN 13 NG/ML (8-252); GLOMERULAR FILTRATION RATE > 60.0 (>60); GLUCOSE, FASTING 91 MG/DL (70-105); POTASSIUM SERUM 4.1 MEQ/L (3.5-5.1); SODIUM LEVEL 140 MEQ/L (136-145); T UPTAKE 33 % (30-39); THYROXINE (T4) 8.8 UG/DL (4.5-12.0); TRIGLYCERIDES LEVEL 43 MG/DL (<150)
== END ==
LOC: M LAB 10:10
PROVIDERS: ATTEND Physician Assistant Medical
DX: R53.83 Other fatigue (principal); E78.2 Mixed hyperlipidemia; Z79.899 Other long term (current) drug therapy

== ENCOUNTER → 2017-08-08 | Outpatient (CLI) | payer MEDICARE, MEDICAID ==
[2017-08-08 12:11] LABS: CREATININE FOR GFR 0.97 MG/DL (0.55-1.02); GLOMERULAR FILTRATION RATE > 60.0 (>60)
[2017-08-08 12:11] LABS: BLOOD UREA NITROGEN 8 MG/DL (7-18)
[2017-08-08 12:12] LABS: LITHIUM LEVEL 0.74 MEQ/L (0.60-1.20)
== END ==
LOC: M LAB 11:05
DX: F25.9 Schizoaffective disorder, unspecified (principal); E03.9 Hypothyroidism, unspecified
CPT/HCPCS: 82565

== ENCOUNTER 2017-08-09 14:19 | Outpatient (RCR) | payer MEDICARE, MEDICAID | END 2017-08-28 | LOC: M OUTALCOH 14:19 | DX: F10.20 Alcohol dependence, uncomplicated (principal); F17.200 Nicotine dependence, unspecified, uncomplicated; F19.20 Other psychoactive substance dependence, uncomplicated; F14.20 Cocaine dependence, uncomplicated | CPT/HCPCS: 90834 ==

== ENCOUNTER 2017-08-30 14:27 | Outpatient (RCR) | payer MEDICARE, MEDICAID | END 2017-09-25 | LOC: M OUTALCOH 14:27 | DX: F10.20 Alcohol dependence, uncomplicated (principal); F14.20 Cocaine dependence, uncomplicated; F19.20 Other psychoactive substance dependence, uncomplicated; F17.200 Nicotine dependence, unspecified, uncomplicated | CPT/HCPCS: 90834 ==

== ENCOUNTER → 2017-09-19 | Outpatient (CLI) | payer MEDICARE, MEDICAID ==
[2017-09-19 10:43] LABS: LITHIUM LEVEL 1.26 MEQ/L (0.60-1.20)
== END ==
LOC: M LAB 09:28
DX: Z51.81 Encounter for therapeutic drug level monitoring (principal); Z79.899 Other long term (current) drug therapy
CPT/HCPCS: 80178

== ENCOUNTER 2017-09-27 09:30 | Outpatient (RCR) | payer MEDICARE, MEDICAID | END 2017-10-26 | LOC: M OUTALCOH 09:30 | DX: F10.20 Alcohol dependence, uncomplicated (principal); F14.20 Cocaine dependence, uncomplicated; F19.20 Other psychoactive substance dependence, uncomplicated; F17.200 Nicotine dependence, unspecified, uncomplicated | CPT/HCPCS: 90834 ==

== ENCOUNTER 2017-11-13 11:17 | Outpatient (RCR) | payer MEDICARE, MEDICAID | END 2017-11-25 | LOC: M OUTALCOH 11:17 | DX: F10.20 Alcohol dependence, uncomplicated (principal); F14.20 Cocaine dependence, uncomplicated; F19.20 Other psychoactive substance dependence, uncomplicated; F17.200 Nicotine dependence, unspecified, uncomplicated | CPT/HCPCS: 90832 ==

== ENCOUNTER 2017-12-02 13:33 | Outpatient (RCR) | payer MEDICARE, MEDICAID | END 2017-12-26 | LOC: M OUTALCOH 13:33 | DX: F10.20 Alcohol dependence, uncomplicated (principal); F14.20 Cocaine dependence, uncomplicated; F19.20 Other psychoactive substance dependence, uncomplicated; F17.200 Nicotine dependence, unspecified, uncomplicated | CPT/HCPCS: 90834 ==

== ENCOUNTER 2018-12-05 12:42 | Observation (INO) | payer OTHER, MEDICARE, MEDICAID ==
[~2018-12-05] VITALS: Ht 154.9 cm; Wt 98.2 kg
[~2018-12-05 12:42] MED LIST changes: +IBUP600T42 PO; -IBUP60TA PO; -PANT40TA2 PO; +PANT40TA3 PO; -TRAZ-136 PO; +TRAZ-163 PO
[2018-12-05] MEDS ORDERED: CLON-412 PO (12:59)
[2018-12-05] MEDS ORDERED: LITH45TASA PO (12:59)
[2018-12-05] MEDS ORDERED: AMAN100T PO (12:59)
[2018-12-05] MEDS ORDERED: QUET1TAB10 PO (12:59)
[2018-12-05] MEDS ORDERED: METF500T13 PO (12:59)
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
[2018-12-05] MEDS ORDERED: ONDANSETRON 4MG/2ML VIAL (J2405) IV ONE (14:00)
[2018-12-05] MEDS: MORPHINE 4 MG/ML 1ML VIAL/SYRINGE (J2270) IV PRN ×3 (14:03→18:55)
[2018-12-05] MEDS ORDERED: LITH1TAB PO (17:10)
[2018-12-05] MEDS ORDERED: MORPHINE 2 MG/ML 1ML SYRINGE (J2270) As Ordered ONE (17:11)
[2018-12-05] MEDS ORDERED: INVE234I IM (17:12)
[2018-12-05] MEDS ORDERED: ACET-908 PO (17:14)
[2018-12-05] MEDS ORDERED: BENZ2TAB5 PO (17:14)
[2018-12-05] MEDS ORDERED: MORPHINE 4 MG/ML 1ML VIAL/SYRINGE (J2270) IV ONE (17:15)
--- NOTE | 2018-12-05 17:22 | REP ---
CT RIGHT KNEE WITHOUT CONTRAST: CT right knee performed in the axial plane. Sagittal and coronal reconstruction images are performed. There is a comminuted fracture of the lateral tibial plateau. The fracture is depressed centrally about 2 mm and peripherally about 6 mm. There is a minimally comminuted fracture of the adjacent proximal fibula, not significantly displaced. This is an oblique fracture. No dislocation is seen. Moderate hemarthrosis is noted. There is a tiny calcific density at the tip of the medial tibial spine likely not acute and likely representing a small ligamentous calcification. Electronically Signed by Alejandro Gustafson MD 12/10/2018 11:47 A
[2018-12-05] MEDS ORDERED: ACETAMINOPHEN TAB 650MG DOSE (2X325MG) PO PRN (17:30)
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
[2018-12-05] MEDS ORDERED: DEXTROSE 50% 50 ML SYRINGE IV PRN (18:00)
[2018-12-05] MEDS ORDERED: GLUCOSE 4 GM CHEW TABLET PO PRN (18:00)
[2018-12-05] MEDS ORDERED: GLUCAGON FOR INJ 1 MG VIAL (J1610) SC PRN (18:00)
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
[2018-12-05 18:15] VITALS: BP 132/90
[2018-12-05] MEDS: HumaLOG INSULIN (NovoLOG) PER UNIT SC SCH ×2 (18:30→21:00)
[2018-12-05] MEDS ORDERED: NORCO, ANEXSIA 5/325MG TABLET (HYDROcodone/ACETAMINOPHEN) PO PRN (19:00)
[2018-12-05] MEDS: NORCO, ANEXSIA 5/325MG TABLET (HYDROcodone/ACETAMINOPHEN) PO PRN (20:55)
[2018-12-05 22:00] VITALS: BP 122/77
[2018-12-05] MEDS: QUEtiapine FUMARATE 200 MG TAB PO SCH (22:09)
[2018-12-05] MEDS: BENZTROPINE 2 MG TAB PO SCH (22:09)
[2018-12-05] MEDS: LITHIUM CARBONATE 450 MG **CR** TAB PO SCH (22:10)
[2018-12-05] MEDS: LITHIUM CARBONATE 300 MG **CR** TAB PO SCH (22:21)
[2018-12-06] MEDS: NORCO, ANEXSIA 5/325MG TABLET (HYDROcodone/ACETAMINOPHEN) PO PRN ×5 (02:39→21:08)
[2018-12-06 03:15] VITALS: BP 137/77
[2018-12-06] MEDS: MORPHINE 4 MG/ML 1ML VIAL/SYRINGE (J2270) IV PRN (05:52)
[2018-12-06 06:00] VITALS: BP 124/83
[2018-12-06 06:52] LABS: HEMATOCRIT 36.3 % (36.0-47.0); MEAN CORPUSCULAR HEMOGLOBIN 29.9 pg (27.0-33.0); MEAN CORPUSCULAR HGB CONC 33.1 g/dl (32.0-36.5); MEAN CORPUSCULAR VOLUME 90.5 fl (80.0-96.0); PLATELET COUNT, AUTOMATED 259 10^3/uL (150-450); RED BLOOD COUNT 4.01 10^6/uL (4.00-5.40); WHITE BLOOD COUNT 6.2 10^3/uL (4.0-10.0)
[2018-12-06 07:16] LABS: BLOOD UREA NITROGEN 8 MG/DL (7-18); CALCIUM LEVEL 9.1 MG/DL (8.5-10.1); CARBON DIOXIDE LEVEL 26 MEQ/L (21-32); CHLORIDE LEVEL 105 MEQ/L (98-107); CREATININE FOR GFR 0.98 MG/DL (0.55-1.30); GLOMERULAR FILTRATION RATE > 60.0 (>60); GLUCOSE, FASTING 130 MG/DL (70-100); POTASSIUM SERUM 3.6 MEQ/L (3.5-5.1); SODIUM LEVEL 137 MEQ/L (136-145)
[2018-12-06] MEDS ORDERED: ASPI-1 PO (07:30)
[2018-12-06] MEDS ORDERED: HYDR-3713 PO (07:30)
[2018-12-06 07:59] LABS: HEMOGLOBIN A1c 5.4 %
[2018-12-06 08:17] VITALS: BP 124/83
[2018-12-06] MEDS: BENZTROPINE 2 MG TAB PO SCH ×3 (08:17→21:07)
[2018-12-06] MEDS: AMANTADINE 100 MG CAP PO SCH ×2 (08:17→12:42)
[2018-12-06] MEDS: HumaLOG INSULIN (NovoLOG) PER UNIT SC SCH ×4 (08:18→21:09)
[2018-12-06] MEDS ORDERED: ASPIRIN 325 MG TAB PO SCH (09:00)
[2018-12-06] MEDS ORDERED: cloNIDine 0.1 MG TAB PO SCH (09:00)
--- NOTE | 2018-12-06 12:48 | IPNPDOC ---
Date Seen The patient was seen on 12/06/18. Progress Note SUBJECTIVE: Patient was seen and examined today. She currently states she is feeling well although has some mild discomfort in her abdomen. She also complain of right forearm and leg pain although mentions that her pain is well controlled with her pain medication. There have been no adverse events reported overnight OBJECTIVE PHYSICAL EXAMINATION: VITAL SIGNS: Please see below. GENERAL: Awake, alert, and oriented. Appears in no acute distress. Lying comfortably in bed. HEENT: Atrumatic normocephalic. eyes are nonicteric. Trachea is midline. Mucous membranes are pink and moist CARDIOVASCULAR: Normal S1, S2. Regular rate and rhythm. No clicks, rubs, or murmurs noted RESPIRATORY: Clear vesicular breath sounds bilaterally with good respiratory effort. No wheezes, rhonci, or rales ABDOMINAL: Obese, nondistended, soft. Mild tenderness to palpation of lower left and right abdomen. No rebound tenderness or guarding. Positive bowel sounds EXTREMITIES: No edema. Full and equal pulses in bilateral upper and lower extremities. [place] brace in place locking right leg into full extension. Continued soft tissue swelling and tenderness of right forearm. NEUROLOGICAL: No focal neurological deficits PSYCHOLOGICAL: Mood and affect appear appropriate LABORATORY DATA, IMAGING STUDIES, MICROBIOLOGY: Please see below. DVT prophylaxis ordered?: YES ASSESSMENT AND PLAN: . 1. Right Lateral tibial plateau and proximal fibular distal metaphyseal fractures -Patient being managed by orthopedics 2. Schizophrenia -Patient takes Invega shots Q3 weeks. -Will continue home medication -Clonidine -[place] -Quetiapine -Patient should continue her home medications upon discharge 3. Tardive Dyskinesia prophylaxis -Patient is on Invega shots. -Continue Amantadine and Benztropine upon discharge 4. Diabetes Type II -Patient states that she takes metformin due to her psych medications raising her blood sugar. -HbA1C 5.4 -Continue Metformin on discharge DISPOSITION: Patient's Schizophrenia and Diabetes are currently stable. She should continue her home medications upon discharge A-FIB/CHADSVASC A-FIB History Current/History of A-Fib/PAF?: No VS, I&O, 24H, Fishbone Vital Signs/I&O Vital Signs Date Time Temp Pulse Resp B/P (MAP) Pulse Ox O2 Delivery O2 Flow Rate FiO2 12/06/18 08:51 18 12/06/18 08:17 124/83 12/06/18 06:00 97.6 93 99 12/05/18 12:56 Room Air I&O- Last 24 Hours up to 6 AM 12/06/18 06:00 Intake Total 1320 ml Output Total 1700 ml Balance -380 ml Laboratory Data 24H LABS Laboratory Tests 2 12/05/18 18:20: Bedside Glucose (Misc Panel) 140H 12/05/18 20:39: Bedside Glucose (Misc Panel) 114H 12/06/18 04:08: Troponin I < 0.02 12/06/18 06:37: Nucleated Red Blood Cells % (auto) 0.0, Anion Gap 6L, Glomerular Filtration Rate > 60.0, Estimated Mean Plasma Glucose 108, Hemoglobin A1c 5.4, Blood Urea Nitrogen 8, Creatinine 0.98, Sodium Level 137, Potassium Level 3.6, Chloride Level 105, Carbon Dioxide Level 26, Calcium Level 9.1 12/06/18 09:43: Troponin I < 0.02 12/06/18 11:16: Bedside Glucose (Misc Panel) 109H CBC/BMP Laboratory Tests 12/06/18 06:37 Red Blood Count 4.01, Mean Corpuscular Volume 90.5, Mean Corpuscular Hemoglobin 29.9, Mean Corpuscular Hemoglobin Concent 33.1, Red Cell Distribution Width 13.1, Calcium Level 9.1 GME ATTESTATION GME ATTESTATION My faculty preceptor for this patient encounter was physically present during the encounter and was fully available. All aspects of the patient interview, examination, medical decision making process, and medical care plan development were reviewed and approved by the faculty preceptor. The faculty preceptor is aware and concurs with the plan as stated in the body of this note and will attest to such by his/her cosignature. ATTENDING NOTE I, Lali Henderson, have both independently examined this patient as well as reviewed the documentation. I have discussed in detail with the resident the findings and plan of treatment as documented by the resident. I agree with their findings and treatment plan. I will continue to follow the patient and offer further guidance to the patients care as necessary during this hospital stay. SALVADOR WHIPPLE DO December 06, 2018 12:48 LALI HENDERSON MD December 06, 2018 14:39
[2018-12-06 14:00] VITALS: BP 135/75
[2018-12-06] MEDS: LITHIUM CARBONATE 300 MG **CR** TAB PO SCH (21:07)
[2018-12-06] MEDS: LITHIUM CARBONATE 450 MG **CR** TAB PO SCH (21:07)
[2018-12-06] MEDS: QUEtiapine FUMARATE 200 MG TAB PO SCH (21:07)
[2018-12-06 22:00] VITALS: BP 140/82
--- NOTE | 2018-12-06 22:16 | ECGEPIP ---
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
[2018-12-07] MEDS: NORCO, ANEXSIA 5/325MG TABLET (HYDROcodone/ACETAMINOPHEN) PO PRN (00:30)
[2018-12-07 00:38] VITALS: BP 142/84
== END 2018-12-07 00:39 | disposition home or self-care (01) ==
LOC: EDBD 12:42 → M ED 12:42 → M ED INP 16:25 → M MS5PR 18:02
PROVIDERS: ADMIT Orthopaedic Surgery; ATTEND Orthopaedic Surgery
DX: S82.141A Displaced bicondylar fracture of right tibia, initial encounter for closed fracture (principal); S82.831A Other fracture of upper and lower end of right fibula, initial encounter for closed fracture; V03.10XA Pedestrian on foot injured in collision with car, pick-up truck or van in traffic accident, initial encounter; Y92.410 Unspecified street and highway as the place of occurrence of the external cause; E11.9 Type 2 diabetes mellitus without complications; F20.9 Schizophrenia, unspecified; G24.01 Drug induced subacute dyskinesia; Z79.899 Other long term (current) drug therapy; Z79.82 Long term (current) use of aspirin; Z79.84 Long term (current) use of oral hypoglycemic drugs; Z88.8 Allergy status to other drugs, medicaments and biological substances; Z81.8 Family history of other mental and behavioral disorders; F17.210 Nicotine dependence, cigarettes, uncomplicated
CPT/HCPCS: 36415; 71046; 73080; 73110; 73564; 73590; 73700; 80048; 83036; 84484; 85027; 93005; 96374; 96375; 96376; 97161; 97530; 99285; J2270; J2405

== ENCOUNTER 2019-02-14 02:57 | Emergency (ER) | payer MEDICARE, MEDICAID ==
[~2019-02-14] VITALS: Ht 154.9 cm; Wt 97.1 kg
[~2019-02-14 02:57] MED LIST changes: +ACET-908 PO; +AMAN100T PO; +ASPI-1 PO; +CLON-412 PO; +HYDR-3713 PO; +LITH45TASA PO; +QUET1TAB10 PO; +TRAZ1TAB10 PO; -TRAZO50TA PO
[2019-02-14 05:25] VITALS: BP 126/85
== END 2019-02-14 06:55 | disposition home or self-care (01) ==
LOC: M ED 02:57
DX: F10.129 Alcohol abuse with intoxication, unspecified (principal); J45.909 Unspecified asthma, uncomplicated; F41.9 Anxiety disorder, unspecified; F31.9 Bipolar disorder, unspecified; Z79.82 Long term (current) use of aspirin; Z79.899 Other long term (current) drug therapy; Z88.8 Allergy status to other drugs, medicaments and biological substances

== ENCOUNTER → 2019-02-25 | Outpatient (CLI) | payer MEDICARE, MEDICAID ==
[2019-02-25 17:50] LABS: BASO % 0.7 % (0.0-1.0); EOS # 0.1 10^3/uL (0.0-0.50); EOS % 1.5 % (0.0-3.0); HEMATOCRIT 41.2 % (36.0-47.0); HEMOGLOBIN 13.5 g/dl (12.0-15.5); LYMPH # 2.4 10^3/uL (1.5-4.5); LYMPH % 39.9 % (24.0-44.0); MEAN CORPUSCULAR HEMOGLOBIN 30.3 pg (27.0-33.0); MEAN CORPUSCULAR HGB CONC 32.8 g/dl (32.0-36.5); MEAN CORPUSCULAR VOLUME 92.4 fl (80.0-96.0); MONO # 0.4 10^3/uL (0.0-0.8); MONO % 6.9 % (0.0-5.0); NEUTROPHILS % 50.8 % (36.0-66.0); PLATELET COUNT, AUTOMATED 349 10^3/uL (150-450); RED BLOOD COUNT 4.46 10^6/uL (4.00-5.40)
[2019-02-25 18:13] LABS: HEMOGLOBIN A1c 5.5 %
[2019-02-25 18:20] LABS: ALBUMIN 4.8 GM/DL (3.2-5.2); ALT/SGPT 48 U/L (12-78); BILIRUBIN,TOTAL 0.5 MG/DL (0.2-1.0); BLOOD UREA NITROGEN 8 MG/DL (7-18); CALCIUM LEVEL 10.3 MG/DL (8.5-10.1); CARBON DIOXIDE LEVEL 25 MEQ/L (21-32); CHLORIDE LEVEL 106 MEQ/L (98-107); CHOLESTEROL LEVEL 186 MG/DL (<200); CHOLESTEROL RISK RATIO 3.206 (<5); CREATININE FOR GFR 1.13 MG/DL (0.55-1.30); FREE T4 1.19 NG/DL (0.76-1.46); GLOMERULAR FILTRATION RATE > 60.0 (>60); GLUCOSE, FASTING 91 MG/DL (70-100); HDL CHOLESTEROL 58 MG/DL (>40); LDL CHOLESTEROL 111 MG/DL (<100); NON-HDL-C 128 MG/DL; POTASSIUM SERUM 4.1 MEQ/L (3.5-5.1); SODIUM LEVEL 139 MEQ/L (136-145); TOTAL PROTEIN 8.7 GM/DL (6.4-8.2); TRIGLYCERIDES LEVEL 87 MG/DL (<150)
[2019-02-25 18:22] LABS: TOTAL 25(OH) VITAMIN D 23.7 NG/ML (30.0-100.0)
== END ==
LOC: M LAB 17:21
PROVIDERS: ATTEND Nurse Practitioner Family
DX: Z13.9 Encounter for screening, unspecified (principal); I10 Essential (primary) hypertension; E55.9 Vitamin D deficiency, unspecified

== ENCOUNTER → 2019-05-08 | Outpatient (CLI) | payer MEDICARE, MEDICAID | LOC: M LAB 15:09 | PROVIDERS: ATTEND Nurse Practitioner Psychiatric/Mental Health | DX: F25.9 Schizoaffective disorder, unspecified (principal); Z79.899 Other long term (current) drug therapy ==

== ENCOUNTER → 2019-07-10 | Outpatient (CLI) | payer MEDICARE ==
[~2019-07-10] MED LIST changes: -LAMO100T PO; +LAMO100T3 PO
[2019-07-10 12:45] LABS: LITHIUM LEVEL 0.55 MEQ/L (0.60-1.20); THYROID STIMULATING HORMONE 1.38 uIU/ML (0.358-3.740)
== END ==
LOC: M LAB 11:26
PROVIDERS: ATTEND Nurse Practitioner Psychiatric/Mental Health
DX: F25.9 Schizoaffective disorder, unspecified (principal); Z79.899 Other long term (current) drug therapy

== ENCOUNTER → 2019-08-14 | Outpatient (REF) | payer MEDICARE ==
[~2019-08-14] MED LIST changes: -TRAZ-163 PO; +TRAZ-257 PO
== END ==
LOC: M LABDRAW1 09:28
PROVIDERS: ATTEND Nurse Practitioner Psychiatric/Mental Health
DX: F25.9 Schizoaffective disorder, unspecified (principal)

== ENCOUNTER 2019-09-04 03:23 | Emergency (ER) | payer MEDICARE ==
[~2019-09-04] VITALS: Ht 154.9 cm; Wt 95.5 kg
[2019-09-04 04:25] LABS: INFLUENZA A AMPLIFICATION NEGATIVE (NEGATIVE); INFLUENZA B AMPLIFICATION NEGATIVE (NEGATIVE)
[2019-09-04] MEDS ORDERED: predniSONE 20 MG TAB PO ONE (04:45)
[2019-09-04] MEDS ORDERED: ALBUTEROL 90 MCG/ACT 8GM HFA INHALER INH ONE (04:45)
[2019-09-04] MEDS ORDERED: BENZONATATE 100 MG CAP PO ONE (04:45)
[2019-09-04] MEDS ORDERED: TESS100C PO (04:56)
[2019-09-04] MEDS ORDERED: PRED20TA PO (04:56)
[2019-09-04 05:13] VITALS: BP 129/79
== END 2019-09-04 05:20 | disposition home or self-care (01) ==
LOC: M ED 03:23
DX: J40 Bronchitis, not specified as acute or chronic (principal); T16.2XXA Foreign body in left ear, initial encounter; X58.XXXA Exposure to other specified factors, initial encounter; Y92.89 Other specified places as the place of occurrence of the external cause; F31.9 Bipolar disorder, unspecified; Z79.899 Other long term (current) drug therapy; Z79.84 Long term (current) use of oral hypoglycemic drugs; Z79.82 Long term (current) use of aspirin; Z88.8 Allergy status to other drugs, medicaments and biological substances; F17.210 Nicotine dependence, cigarettes, uncomplicated

== ENCOUNTER 2019-09-14 22:09 | Emergency (ER) | payer MEDICARE, MEDICAID ==
[~2019-09-14] VITALS: Ht 154.9 cm; Wt 98.4 kg
[~2019-09-14 22:09] MED LIST changes: +TESS100C PO
[2019-09-14] MEDS ORDERED: ABIL10TA9 PO (22:14)
[2019-09-14] MEDS ORDERED: TOPA50TA8 PO (22:15)
[2019-09-15] MEDS ORDERED: NORCO 5/325MG TABLET (BULK FOR ED) PO ONE
[2019-09-15] MEDS ORDERED: IBUPROFEN 400 MG TAB PO ONE
[2019-09-15] MEDS ORDERED: AUGMENTIN 875 MG TAB PO ONE
[2019-09-15] MEDS ORDERED: ACETAMINOPHEN TAB 650MG DOSE (2X325MG) PO ONE
[2019-09-15] MEDS ORDERED: BENZOCAINE 10% 9GM TUBE (ANBESOL) TOP STA (00:01)
[2019-09-15] MEDS ORDERED: ANBE20GE TOP (00:06)
[2019-09-15] MEDS ORDERED: AUGM875T28 PO (00:06)
[2019-09-15 00:17] VITALS: BP 141/75
== END 2019-09-15 00:18 | disposition home or self-care (01) ==
LOC: M ED 22:09
DX: K08.89 Other specified disorders of teeth and supporting structures (principal); K04.7 Periapical abscess without sinus; I10 Essential (primary) hypertension; E78.5 Hyperlipidemia, unspecified; G43.909 Migraine, unspecified, not intractable, without status migrainosus; F41.9 Anxiety disorder, unspecified; F32.9 Major depressive disorder, single episode, unspecified; F20.9 Schizophrenia, unspecified; Z88.8 Allergy status to other drugs, medicaments and biological substances; Z86.14 Personal history of Methicillin resistant Staphylococcus aureus infection; Z79.84 Long term (current) use of oral hypoglycemic drugs; Z79.899 Other long term (current) drug therapy

== ENCOUNTER → 2019-10-06 | Outpatient (CLI) | payer MEDICARE, MEDICAID ==
[~2019-10-06] MED LIST changes: +ABIL10TA9 PO; +ANBE20GE TOP; +AUGM875T28 PO; +TOPA50TA8 PO
== END ==
LOC: M OUTALCOH 07:55
PROVIDERS: ATTEND Psychiatry & Neurology Addiction Medicine
DX: F10.20 Alcohol dependence, uncomplicated (principal); F14.20 Cocaine dependence, uncomplicated

== ENCOUNTER 2019-10-23 13:50 | Outpatient (RCR) | payer MEDICARE, MEDICAID | END 2019-10-27 | LOC: M OUTALCOH 13:50 | PROVIDERS: ATTEND Psychiatry & Neurology Addiction Medicine | DX: F10.20 Alcohol dependence, uncomplicated (principal); F14.20 Cocaine dependence, uncomplicated; Z72.0 Tobacco use ==

== ENCOUNTER → 2019-10-26 | Outpatient (REF) | payer MEDICARE, MEDICAID ==
[2019-10-26 14:14] LABS: BASO # 0.1 10^3/uL (0.0-0.2); EOS # 0.6 10^3/uL (0.0-0.5); EOS % 11.2 % (0.0-3.0); HEMATOCRIT 38.3 % (36.0-47.0); HEMOGLOBIN 13.1 g/dl (12.0-15.5); LYMPH # 1.8 10^3/uL (1.5-5.0); LYMPH % 34.3 % (24.0-44.0); MEAN CORPUSCULAR HEMOGLOBIN 31.4 pg (27.0-33.0); MEAN CORPUSCULAR HGB CONC 34.2 g/dl (32.0-36.5); MEAN CORPUSCULAR VOLUME 91.8 fl (80.0-96.0); MONO # 0.2 10^3/uL (0.0-0.8); MONO % 4.3 % (0.0-5.0); NEUTROPHILS # 2.5 10^3/uL (1.5-8.5); PLATELET COUNT, AUTOMATED 349 10^3/uL (150-450); RED BLOOD COUNT 4.17 10^6/uL (4.00-5.40); WHITE BLOOD COUNT 5.1 10^3/uL (4.0-10.0)
[2019-10-26 14:17] LABS: APPEARANCE, URINE CLEAR (CLEAR); BACTERIA, URINE AUTO NEGATIVE (NEGATIVE); BILIRUBIN, URINE AUTO NEGATIVE (NEGATIVE); BLOOD, URINE BLOOD NEGATIVE (NEGATIVE); COLOR, URINE YELLOW (YELLOW); GLUCOSE, URINE (UA) AUTO NEGATIVE (NEGATIVE); KETONE, URINE AUTO NEGATIVE (NEGATIVE); LEUKOCYTE ESTERASE, URINE AUTO NEGATIVE (NEGATIVE); MUCUS, URINE SMALL (NEGATIVE); NITRITE, URINE AUTO NEGATIVE (NEGATIVE); PROTEIN, URINE AUTO NEGATIVE (NEGATIVE); RBC, URINE AUTO 1 /HPF (0-3); SPECIFIC GRAVITY URINE AUTO 1.016 (1.002-1.035); SQUAMOUS EPITHELIAL CELL UR AU 0 /HPF (0-6); UROBILINOGEN, URINE AUTO 0.2 mg/dL (0.0-2.0); WBC, URINE AUTO 11 /HPF (0-3)
[2019-10-26 14:26] LABS: ALBUMIN 3.5 GM/DL (3.2-5.2); ALT/SGPT 17 U/L (12-78); BILIRUBIN,TOTAL 0.2 MG/DL (0.2-1.0); BLOOD UREA NITROGEN 12 MG/DL (7-18); CALCIUM LEVEL 9.7 MG/DL (8.5-10.1); CARBON DIOXIDE LEVEL 25 MEQ/L (21-32); CHLORIDE LEVEL 108 MEQ/L (98-107); CHOLESTEROL LEVEL 204 MG/DL (<200); CHOLESTEROL RISK RATIO 3.517 (<5); CREATININE FOR GFR 0.94 MG/DL (0.55-1.30); FREE T4 0.78 NG/DL (0.76-1.46); GLOMERULAR FILTRATION RATE > 60.0 (>60); GLUCOSE, FASTING 99 MG/DL (70-100); HDL CHOLESTEROL 58 MG/DL (>40); LDL CHOLESTEROL 127 MG/DL (<100); NON-HDL-C 146 MG/DL; POTASSIUM SERUM 4.3 MEQ/L (3.5-5.1); SODIUM LEVEL 141 MEQ/L (136-145); TOTAL PROTEIN 7.3 GM/DL (6.4-8.2); TRIGLYCERIDES LEVEL 96 MG/DL (<150)
[2019-10-26 14:31] LABS: HEMOGLOBIN A1c 5.7 %; TOTAL 25(OH) VITAMIN D 11.2 NG/ML (30.0-100.0)
== END ==
LOC: M LAB REF 13:22
PROVIDERS: ATTEND Nurse Practitioner Family
DX: Z13.9 Encounter for screening, unspecified (principal); Z72.0 Tobacco use; E55.9 Vitamin D deficiency, unspecified; I10 Essential (primary) hypertension; Z79.82 Long term (current) use of aspirin; Z79.84 Long term (current) use of oral hypoglycemic drugs; Z79.899 Other long term (current) drug therapy

== ENCOUNTER 2019-10-30 11:21 | Outpatient (RCR) | payer MEDICARE, MEDICAID | END 2019-11-26 | LOC: M OUTALCOH 11:21 | PROVIDERS: ATTEND Psychiatry & Neurology Addiction Medicine | DX: F10.20 Alcohol dependence, uncomplicated (principal); F14.20 Cocaine dependence, uncomplicated; Z72.0 Tobacco use ==

== ENCOUNTER → 2019-12-11 | Outpatient (CLI) | payer MEDICAID, MEDICARE ==
[2019-12-11 15:36] LABS: BASO % 0.7 % (0.0-1.0); EOS # 0.3 10^3/uL (0.0-0.5); EOS % 4.5 % (0.0-3.0); HEMATOCRIT 37.4 % (36.0-47.0); HEMOGLOBIN 12.1 g/dl (12.0-15.5); LYMPH # 2.8 10^3/uL (1.5-5.0); LYMPH % 51.2 % (24.0-44.0); MEAN CORPUSCULAR HEMOGLOBIN 29.7 pg (27.0-33.0); MEAN CORPUSCULAR HGB CONC 32.4 g/dl (32.0-36.5); MEAN CORPUSCULAR VOLUME 91.9 fl (80.0-96.0); MONO # 0.3 10^3/uL (0.0-0.8); MONO % 5.6 % (0.0-5.0); NEUTROPHILS # 2.1 10^3/uL (1.5-8.5); NEUTROPHILS % 37.8 % (36.0-66.0); PLATELET COUNT, AUTOMATED 356 10^3/uL (150-450); RED BLOOD COUNT 4.07 10^6/uL (4.00-5.40); WHITE BLOOD COUNT 5.5 10^3/uL (4.0-10.0)
[2019-12-11 16:08] LABS: HEMOGLOBIN A1c 5.8 %
[2019-12-11 16:11] LABS: ALBUMIN 3.8 GM/DL (3.2-5.2); ALT/SGPT 37 U/L (12-78); BILIRUBIN,TOTAL 0.4 MG/DL (0.2-1.0); BLOOD UREA NITROGEN 10 MG/DL (7-18); CALCIUM LEVEL 9.2 MG/DL (8.5-10.1); CARBON DIOXIDE LEVEL 25 MEQ/L (21-32); CHLORIDE LEVEL 107 MEQ/L (98-107); CHOLESTEROL LEVEL 182 MG/DL (<200); CHOLESTEROL RISK RATIO 3.309 (<5); CREATININE FOR GFR 1.14 MG/DL (0.55-1.30); FREE T4 0.97 NG/DL (0.76-1.46); GLOMERULAR FILTRATION RATE > 60.0 (>60); GLUCOSE, FASTING 125 MG/DL (70-100); HDL CHOLESTEROL 55 MG/DL (>40); LDL CHOLESTEROL 113 MG/DL (<100); LITHIUM LEVEL 0.49 MEQ/L (0.60-1.20); NON-HDL-C 127 MG/DL; POTASSIUM SERUM 4.2 MEQ/L (3.5-5.1); SODIUM LEVEL 140 MEQ/L (136-145); TOTAL PROTEIN 7.6 GM/DL (6.4-8.2); TRIGLYCERIDES LEVEL 69 MG/DL (<150)
== END ==
LOC: M LAB 14:49
PROVIDERS: ATTEND Nurse Practitioner Psychiatric/Mental Health
DX: F25.9 Schizoaffective disorder, unspecified (principal)

== ENCOUNTER → 2020-02-16 | Outpatient (CLI) | payer MEDICARE ==
[~2020-02-16] MED LIST changes: +ABIL1INJ2 IM; -METF-699 PO; +METF-817 PO; +NICO-256 PO; -NICO4GUM2 PO; +PANT40TA29 PO; -PANT40TA3 PO
[2020-02-16 07:48] LABS: BASO % 0.7 % (0.0-1.0); EOS # 0.2 10^3/uL (0.0-0.5); EOS % 3.6 % (0.0-3.0); HEMATOCRIT 37.3 % (36.0-47.0); HEMOGLOBIN 12.2 g/dl (12.0-15.5); LYMPH # 2.8 10^3/uL (1.5-5.0); LYMPH % 50.3 % (24.0-44.0); MEAN CORPUSCULAR HGB CONC 32.7 g/dl (32.0-36.5); MEAN CORPUSCULAR VOLUME 91.9 fl (80.0-96.0); MONO # 0.3 10^3/uL (0.0-0.8); MONO % 5.2 % (0.0-5.0); NEUTROPHILS # 2.3 10^3/uL (1.5-8.5); PLATELET COUNT, AUTOMATED 341 10^3/uL (150-450); RED BLOOD COUNT 4.06 10^6/uL (4.00-5.40); WHITE BLOOD COUNT 5.6 10^3/uL (4.0-10.0)
[2020-02-16 08:23] LABS: ALBUMIN 3.5 GM/DL (3.2-5.2); ALT/SGPT 36 U/L (12-78); BILIRUBIN,TOTAL 0.3 MG/DL (0.2-1.0); BLOOD UREA NITROGEN 8 MG/DL (7-18); CALCIUM LEVEL 9.2 MG/DL (8.5-10.1); CARBON DIOXIDE LEVEL 26 MEQ/L (21-32); CHLORIDE LEVEL 109 MEQ/L (98-107); CHOLESTEROL LEVEL 176 MG/DL (<200); CREATININE FOR GFR 0.99 MG/DL (0.55-1.30); FREE T4 0.98 NG/DL (0.76-1.46); GLOMERULAR FILTRATION RATE > 60.0 (>60); GLUCOSE, FASTING 106 MG/DL (70-100); HDL CHOLESTEROL 53 MG/DL (>40); LDL CHOLESTEROL 106 MG/DL (<100); LITHIUM LEVEL 0.57 MEQ/L (0.60-1.20); NON-HDL-C 123 MG/DL; POTASSIUM SERUM 4.1 MEQ/L (3.5-5.1); SODIUM LEVEL 141 MEQ/L (136-145); TOTAL PROTEIN 7.4 GM/DL (6.4-8.2); TRIGLYCERIDES LEVEL 86 MG/DL (<150)
== END ==
LOC: M LAB 07:16
PROVIDERS: ATTEND Nurse Practitioner Psychiatric/Mental Health
DX: F25.0 Schizoaffective disorder, bipolar type (principal); Z79.899 Other long term (current) drug therapy

== ENCOUNTER 2020-03-15 21:14 | Emergency (ER) | payer MEDICARE ==
[~2020-03-15] VITALS: Ht 154.9 cm; Wt 93.8 kg
[~2020-03-15 21:14] MED LIST changes: -ABIL1INJ2 IM
[2020-03-15] MEDS ORDERED: ABIL1INJ2 IM (21:54)
[2020-03-16 00:36] LABS: BASO % 0.4 % (0.0-1.0); EOS # 0.2 10^3/uL (0.0-0.5); EOS % 2.9 % (0.0-3.0); HEMATOCRIT 33.2 % (36.0-47.0); HEMOGLOBIN 11.1 g/dl (12.0-15.5); LYMPH # 3.6 10^3/uL (1.5-5.0); MEAN CORPUSCULAR HEMOGLOBIN 30.9 pg (27.0-33.0); MEAN CORPUSCULAR HGB CONC 33.4 g/dl (32.0-36.5); MEAN CORPUSCULAR VOLUME 92.5 fl (80.0-96.0); MONO # 0.3 10^3/uL (0.0-0.8); MONO % 4.2 % (0.0-5.0); NEUTROPHILS % 42.2 % (36.0-66.0); PLATELET COUNT, AUTOMATED 325 10^3/uL (150-450); RED BLOOD COUNT 3.59 10^6/uL (4.00-5.40); WHITE BLOOD COUNT 7.1 10^3/uL (4.0-10.0)
[2020-03-16 01:52] VITALS: BP 128/74
--- NOTE | 2020-03-16 11:30 | REPVR ---
PROCEDURE INFORMATION: Exam: XR Chest, 1 View Exam date and time: 03/15/2020 11:43 PM Age: 34 years old Clinical indication: Pain; Chest pressure; Additional info: Heart flutter TECHNIQUE: Imaging protocol: XR of the chest Views: 1 view. COMPARISON: CR Chest, 2 view PA, Lat 04/26/2017 1:12 PM FINDINGS: Lungs: Unremarkable. No consolidation. Pleural space: Unremarkable. No pleural effusion. No pneumothorax. Heart/Mediastinum: Unremarkable. No cardiomegaly. Bones/joints: Unremarkable. IMPRESSION: No acute findings. Electronically signed by: Hoang Hall On 03/16/2020 11:30:51 AM
--- NOTE | 2020-04-07 11:17 | ECGEPIP ---
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
== END 2020-03-16 01:53 | disposition home or self-care (01) ==
LOC: M ED 21:14
DX: R07.89 Other chest pain (principal); F15.10 Other stimulant abuse, uncomplicated; E11.9 Type 2 diabetes mellitus without complications; F20.9 Schizophrenia, unspecified; F17.200 Nicotine dependence, unspecified, uncomplicated; Z79.82 Long term (current) use of aspirin; Z79.899 Other long term (current) drug therapy

== ENCOUNTER → 2020-05-13 | Outpatient (CLI) | payer MEDICARE ==
[~2020-05-13] MED LIST changes: +ABIL1INJ2 IM
== END ==
LOC: M OUTALCOH 07:54
PROVIDERS: ATTEND Psychiatry & Neurology Addiction Medicine
DX: Z13.39 Encounter for screening examination for other mental health and behavioral disorders (principal); F10.20 Alcohol dependence, uncomplicated

== ENCOUNTER 2020-05-27 08:45 | Outpatient (RCR) | payer MEDICARE | END 2020-05-28 | LOC: M OUTALCOH 08:45 | PROVIDERS: ATTEND Psychiatry & Neurology Addiction Medicine | DX: F10.20 Alcohol dependence, uncomplicated (principal); F14.20 Cocaine dependence, uncomplicated; F16.20 Hallucinogen dependence, uncomplicated; F17.200 Nicotine dependence, unspecified, uncomplicated ==

== ENCOUNTER 2020-06-21 10:30 | Outpatient (RCR) | payer MEDICARE ==
[2020-06-28] MEDS ORDERED: COGE1INJ PO (11:18)
[2020-06-28] MEDS ORDERED: BENZ-52 PO (15:33)
[2020-06-28] MEDS ORDERED: QUET200T2 PO (15:39)
[2020-06-28] MEDS ORDERED: LITH300C PO (15:39)
[2020-06-28] MEDS ORDERED: HYDR-3363 PO (15:41)
[2020-06-28] MEDS ORDERED: NALT50TA4 PO (15:41)
== END 2020-06-27 ==
LOC: M OUTALCOH 10:30
PROVIDERS: ATTEND Psychiatry & Neurology Addiction Medicine
DX: F10.20 Alcohol dependence, uncomplicated (principal); F14.20 Cocaine dependence, uncomplicated; F16.20 Hallucinogen dependence, uncomplicated; F17.200 Nicotine dependence, unspecified, uncomplicated
CPT/HCPCS: 90832; 90853; H0038

== ENCOUNTER 2020-06-28 10:04 | Inpatient (IN) | payer MEDICARE, OTHER ==
[~2020-06-28] VITALS: Ht 154.9 cm; Wt 94.9 kg
[~2020-06-28 10:04] MED LIST changes: -DOK100TA PO; +DOK100TA2 PO
[2020-06-28 11:08] LABS: HEMATOCRIT 35.5 % (36.0-47.0); HEMOGLOBIN 11.8 g/dl (12.0-15.5); MEAN CORPUSCULAR HEMOGLOBIN 29.4 pg (27.0-33.0); MEAN CORPUSCULAR HGB CONC 33.2 g/dl (32.0-36.5); MEAN CORPUSCULAR VOLUME 88.3 fl (80.0-96.0); PLATELET COUNT, AUTOMATED 347 10^3/uL (150-450); RED BLOOD COUNT 4.02 10^6/uL (4.00-5.40); WHITE BLOOD COUNT 6.6 10^3/uL (4.0-10.0)
[2020-06-28] MEDS ORDERED: COGE1INJ PO (11:18)
[2020-06-28 11:30] LABS: HCG, SERUM QUALITATIVE NEGATIVE (NEGATIVE)
[2020-06-28 11:40] LABS: ACETAMINOPHEN LEVEL < 2.0 UG/ML (10.0-30.0); ALBUMIN 4.2 GM/DL (3.2-5.2); ALT/SGPT 66 U/L (12-78); BILIRUBIN,DIRECT 0.2 MG/DL (0.0-0.2); BILIRUBIN,TOTAL 0.7 MG/DL (0.2-1.0); BLOOD UREA NITROGEN 12 MG/DL (7-18); CALCIUM LEVEL 9.6 MG/DL (8.5-10.1); CARBON DIOXIDE LEVEL 23 MEQ/L (21-32); CHLORIDE LEVEL 108 MEQ/L (98-107); CREATININE FOR GFR 1.03 MG/DL (0.55-1.30); ETHYL ALCOHOL (ETHANOL) < 0.003 % (0.000-0.010); GLOMERULAR FILTRATION RATE > 60.0 (>60); GLUCOSE, FASTING 123 MG/DL (70-100); LITHIUM LEVEL 0.41 MEQ/L (0.60-1.20); POTASSIUM SERUM 3.6 MEQ/L (3.5-5.1); SALICYLATE LEVEL < 1.7 MG/DL (5.0-30.0); SODIUM LEVEL 139 MEQ/L (136-145); TOTAL PROTEIN 7.9 GM/DL (6.4-8.2)
[2020-06-28 12:45] LABS: AMPHETAMINES LEVEL URINE POSITIVE (NEGATIVE); BARBITURATES URINE NEGATIVE (NEGATIVE); BENZODIAZEPINES URINE NEGATIVE (NEGATIVE); CANNABINOIDS URINE POSITIVE (NEGATIVE); COCAINE METABOLITE URINE NEGATIVE (NEGATIVE); METHADONE URINE NEGATIVE (NEGATIVE); OPIATES URINE NEGATIVE (NEGATIVE); PHENCYCLIDINE URINE NEGATIVE (NEGATIVE)
[2020-06-28] MEDS ORDERED: BENZ-52 PO (15:33)
[2020-06-28] MEDS ORDERED: LITH300C PO (15:39)
[2020-06-28] MEDS ORDERED: QUET200T2 PO (15:39)
[2020-06-28] MEDS ORDERED: HYDR-3363 PO (15:41)
[2020-06-28] MEDS ORDERED: NALT50TA4 PO (15:41)
[2020-06-28] MEDS ORDERED: LORazepam 2 MG TAB PO PRN (16:00)
[2020-06-28] MEDS ORDERED: MAALOX 30 ML SUSP *UDC PO PRN (16:00)
[2020-06-28] MEDS ORDERED: ACETAMINOPHEN TAB 650MG DOSE (2X325MG) PO PRN (16:00)
[2020-06-28] MEDS ORDERED: MOM 30ML SUSPENSION UDC PO PRN (16:00)
[2020-06-28 17:10] VITALS: BP 132/80
[2020-06-28] MEDS: MULTIVITAMINS/MINERALS THERAP 1 TAB PO SCH (18:19)
[2020-06-28] MEDS: FOLIC ACID 1 MG TAB PO SCH (18:19)
[2020-06-28 19:00] VITALS: BP 132/80
[2020-06-28] MEDS: QUEtiapine FUMARATE 200 MG TAB PO SCH (20:14)
[2020-06-28] MEDS: LITHIUM CARBONATE 450 MG **CR** TAB PO SCH (20:15)
[2020-06-28] MEDS: LITHIUM CARBONATE 300 MG CAP PO SCH (20:15)
[2020-06-28] MEDS: NALTREXONE 50 MG TAB PO SCH (20:16)
[2020-06-28] MEDS: BENZTROPINE 1 MG TAB PO SCH (20:16)
[2020-06-28] MEDS: THIAMINE 100 MG TAB PO SCH (20:16)
[2020-06-29 05:30] VITALS: BP 136/69
[2020-06-29 06:35] VITALS: BP 136/69
[2020-06-29] MEDS ORDERED: PRAZ1CAP PO (08:59)
[2020-06-29] MEDS ORDERED: metFORMIN (GLUCOPHAGE) 500 MG TAB PO SCH (09:00)
[2020-06-29] MEDS: FOLIC ACID 1 MG TAB PO SCH (09:32)
[2020-06-29] MEDS: BENZTROPINE 1 MG TAB PO SCH ×2 (09:32→21:08)
[2020-06-29] MEDS: metFORMIN (GLUCOPHAGE) 500 MG TAB PO SCH (09:32)
[2020-06-29] MEDS: THIAMINE 100 MG TAB PO SCH ×2 (09:32→21:08)
[2020-06-29] MEDS: MULTIVITAMINS/MINERALS THERAP 1 TAB PO SCH (09:32)
--- NOTE | 2020-06-29 10:21 | HPEPDOC ---
[facility] Medical History & Physical Date of Admission Jun 29, 2020 Date of Service: Jun 29, 2020 History and Physical CHIEF COMPLAINT: Medical evaluation HISTORY OF PRESENT ILLNESS: 34-year-old female past medical history of diabetes and asthma admitted to the inpatient psychiatric unit with paranoid schizophrenia and drug abuse. Patient tells me he is feeling well currently with no active medical complaints. I am asked to provide a medical assessment of patient admitted to the psychiatric unit. My assessment is limited to medical problems and does not address any psychiatric problems which is deferred to the in-house psychiatrist. PAST MEDICAL HISTORY: Diabetes on metformin Asthma Hypertension Anemia PAST SURGICAL HISTORY: 2 C-sections Cholecystectomy 2010 SOCIAL HISTORY: Endorses drinking 1-2 beers every few days socially Endorses smoking half a pack of tobacco per day Endorses drug abuse including methamphetamines and cannabis FAMILY HISTORY: Mother has history of SLE, fibromyalgia Father history of prostate cancer ALLERGIES: Please see below. REVIEW OF SYSTEMS: 10 point review of systems complete all negative otherwise stated in HPI HOME MEDICATIONS: Please see below. PHYSICAL EXAMINATION: Constitutional: Awake and alert, in no apparent distress. Obese ENT: Sclera are clear. Mucosa is moist. Respiratory: Lungs CTA bilaterally. No respiratory distress. No use of accessory muscles. Cardiovascular: RRR S1 and S2 are normal Gastrointestinal: Abdomen is soft, non distended, non tender, BS present. Musculoskeletal: No edema Neurologic: No focal neurological deficit. Mental Status: A&O x3, normal affect Skin: Warm, dry LABORATORY DATA: See below. MICROBIOLOGY: Please see below. ASSESSMENT/PLAN 34-year-old female past medical history of diabetes, asthma, hypertension and paranoid schizophrenia admitted inpatient psychiatric unit after drug abuse. I was asked to see the patient for medical evaluation # Hypertension: On any medications. Attempted left somewhat of medications or weight loss but was unsuccessful. Will start patient on lisinopril 5 mg which will help with her blood pressure as well as renal protective for diabetic patient. Titrate as needed # Normocytic anemia: No history of anemia from prior. Recommend following up with PCP # Diabetes: Continue metformin. # Asthma: Albuterol inhaler when necessary A Yousef Hospitalist Vital Signs Vital Signs Date Time Temp Pulse Resp B/P (MAP) Pulse Ox O2 Delivery O2 Flow Rate FiO2 06/29/20 06:35 99.6 89 16 136/69 (91) 06/28/20 17:10 98 Room Air Laboratory Data Labs 24H Laboratory Tests 2 06/28/20 10:49: Nucleated Red Blood Cells % (auto) 0.0, Anion Gap 8, Glomerular Filtration Rate > 60.0, Calcium Level 9.6, Total Bilirubin 0.7, Direct Bilirubin 0.2, Aspartate Amino Transf (AST/SGOT) 37, Alanine Aminotransferase (ALT/SGPT) 66, Alkaline Phosphatase 91, Total Protein 7.9, Albumin 4.2, Albumin/Globulin Ratio 1.1L, Thyroid Stimulating Hormone (TSH) 2.240, Human Chorionic Gonadotropin, Qual NEGATIVE, Salicylates Level < 1.7L, Acetaminophen Level < 2.0L, [place] Level 0.41L, Ethyl Alcohol Level < 0.003 06/28/20 12:00: Urine Opiates Screen NEGATIVE, Urine Methadone Screen NEGATIVE, Urine Barbiturates Screen NEGATIVE, Urine Phencyclidine Screen NEGATIVE, Urine A mphetamines Screen POSITIVEH, Urine Benzodiazepines Screen NEGATIVE, Urine Cocaine Metabolite Screen NEGATIVE, Urine Cannabinoids Screen POSITIVEH 06/28/20 13:57: Coronavirus (COVID-19)(PCR) NEGATIVE CBC/BMP Laboratory Tests 06/28/20 10:49 Home Medications Scheduled Aripiprazole (Abilify Maintena) 400 Mg Suser.syr, 400 MG IM ASDIRECTED pt states next dose due 06/30/20 Benztropine Mesylate (Benztropine Mesylate) 1 Mg Tablet, 1 MG PO BID [place] Carbonate ([place] Carbonate ER) 450 Mg Tablet.er, 450 MG PO QHS TAKES WITH 300MG TABLET TO EQUAL 750MG Metformin HCl (Metformin HCl) 500 Mg Tablet, 500 MG PO BID for . Naltrexone HCl (Naltrexone HCl) 50 Mg Tablet, 50 MG PO QHS Prazosin Hcl (Prazosin HCl) 1 Mg Capsule, 1 MG PO QHS for . Quetiapine Fumarate (Quetiapine Fumarate) 200 Mg Tablet, 200 MG PO QHS Scheduled PRN Hydroxyzine HCl (Hydroxyzine HCl) 25 Mg Tablet, 25 MG PO Q4H PRN for ANXIETY Allergies Coded Allergies: haloperidol (Verified Allergy, Unknown, 09/14/19) risperidone (Verified Allergy, Unknown, 09/14/19) paliperidone (Verified Adverse Reaction, Intermediate, DYSTONIA, 09/14/19) thiothixene (Verified Adverse Reaction, Intermediate, DYSTONIA, 09/14/19) A-FIB/CHADSVASC A-FIB History Current/History of A-Fib/PAF?: No YOUSEF,KELSIE Montoya MD Jun 29, 2020 10:21
[2020-06-29] MEDS: lisinopriL 5 MG TAB PO SCH (14:48)
[2020-06-29] MEDS: hydrOXYzine 25 MG TAB PO PRN (14:50)
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
[2020-06-29 19:54] VITALS: BP 152/62
[2020-06-29] MEDS: NALTREXONE 50 MG TAB PO SCH (21:07)
[2020-06-29] MEDS: LITHIUM CARBONATE 450 MG **CR** TAB PO SCH (21:08)
[2020-06-29] MEDS: LITHIUM CARBONATE 300 MG CAP PO SCH (21:08)
[2020-06-29] MEDS: QUEtiapine FUMARATE 200 MG TAB PO SCH (21:08)
[2020-06-30 06:45] VITALS: BP 132/65
[2020-06-30] MEDS: lisinopriL 5 MG TAB PO SCH (09:00)
[2020-06-30] MEDS ORDERED: ARIPiprazole MONOHYDRATE 400 MG INJ (ABILIFY) IM SCH (09:00)
[2020-06-30] MEDS: FOLIC ACID 1 MG TAB PO SCH (09:00)
[2020-06-30] MEDS: THIAMINE 100 MG TAB PO SCH ×2 (09:00→20:36)
[2020-06-30] MEDS: metFORMIN (GLUCOPHAGE) 500 MG TAB PO SCH (09:00)
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
[2020-06-30] MEDS: MULTIVITAMINS/MINERALS THERAP 1 TAB PO SCH (10:14)
[2020-06-30] MEDS: BENZTROPINE 1 MG TAB PO SCH ×2 (10:15→20:37)
[2020-06-30 14:04] VITALS: BP 141/71
[2020-06-30] MEDS: hydrOXYzine 25 MG TAB PO PRN (16:16)
[2020-06-30 17:02] VITALS: BP 117/62
[2020-06-30 17:25] VITALS: BP 117/62
[2020-06-30] MEDS: LITHIUM CARBONATE 450 MG **CR** TAB PO SCH (20:36)
[2020-06-30] MEDS: NALTREXONE 50 MG TAB PO SCH (20:36)
[2020-06-30] MEDS: LITHIUM CARBONATE 300 MG CAP PO SCH (20:36)
[2020-06-30] MEDS: QUEtiapine FUMARATE 200 MG TAB PO SCH (20:37)
[2020-07-01 06:21] VITALS: BP 135/65
[2020-07-01] MEDS: MULTIVITAMINS/MINERALS THERAP 1 TAB PO SCH (09:59)
[2020-07-01] MEDS: THIAMINE 100 MG TAB PO SCH (09:59)
[2020-07-01] MEDS: BENZTROPINE 1 MG TAB PO SCH ×2 (09:59→20:31)
[2020-07-01] MEDS: hydrOXYzine 25 MG TAB PO PRN ×2 (09:59→16:58)
[2020-07-01] MEDS: metFORMIN (GLUCOPHAGE) 500 MG TAB PO SCH (09:59)
[2020-07-01] MEDS: lisinopriL 5 MG TAB PO SCH (09:59)
[2020-07-01] MEDS: FOLIC ACID 1 MG TAB PO SCH (10:00)
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
[2020-07-01 14:00] VITALS: BP 127/83
[2020-07-01 16:00] VITALS: BP 116/63
[2020-07-01] MEDS: LITHIUM CARBONATE 300 MG CAP PO SCH (20:31)
[2020-07-01] MEDS: NALTREXONE 50 MG TAB PO SCH (20:31)
[2020-07-01] MEDS: QUEtiapine FUMARATE 200 MG TAB PO SCH (20:32)
[2020-07-01] MEDS: NAPROXEN 250 MG TAB PO PRN (20:32)
[2020-07-01] MEDS: LITHIUM CARBONATE 450 MG **CR** TAB PO SCH (20:33)
[2020-07-01 20:35] VITALS: BP 120/80
[2020-07-02 05:08] VITALS: BP 123/71
[2020-07-02 05:18] VITALS: BP 123/71
[2020-07-02] MEDS: MULTIVITAMINS/MINERALS THERAP 1 TAB PO SCH (09:00)
[2020-07-02] MEDS: lisinopriL 5 MG TAB PO SCH (09:42)
[2020-07-02] MEDS: metFORMIN (GLUCOPHAGE) 500 MG TAB PO SCH (09:42)
[2020-07-02] MEDS: BENZTROPINE 1 MG TAB PO SCH ×2 (09:42→22:20)
[2020-07-02] MEDS: hydrOXYzine 25 MG TAB PO PRN ×4 (09:43→22:20)
[2020-07-02] MEDS: FOLIC ACID 1 MG TAB PO SCH (09:43)
[2020-07-02 14:00] VITALS: BP 136/74
[2020-07-02] MEDS: NAPROXEN 250 MG TAB PO PRN ×2 (14:12→22:22)
[2020-07-02 16:32] VITALS: BP 141/73
--- NOTE | 2020-07-02 18:39 | MHIPNPDOC ---
[facility] Progress Note Progress Note DATE OF SERVICE: 07/02/20 HISTORY: According to the ED report - Patient is a 34 -year-old Single, Disabled, Domiciled , female, who reports that she has been clean and sober for 2 months. Pt reports that she was d/c'd from rehab and was doing rather well just taking her Suboxone until a couple nights ago. Pt reports that she met a man who wanted to get high with her so she went back to his house. Pt reports that she then sold her food stamp card for two hundred dollars and received Janey. Pt reports that she has been using Meth and Janey ever since and pt states that she feels that she can no longer resist the cravings. Pt reports that she continues to feel depressed however, states that she is no longer SI. Pt states "can I go home now?" several times during the interview. Pt talks and rambles in circles and is very difficult to follow at times. Pt had to be redirected several times. Pt reports that she has multiple stressors however, her main stress is that she does not have enough money for a new winter jacket and a pair of boots for the upcoming winter. VITAL SIGNS: See below. NEW TEST RESULTS: CURRENT MEDICATIONS: See below. MENTAL STATUS EXAMINATION: Patient is a 34 -year-old Single, Disabled, Domiciled, Female. She is dressed in hospital scrubs, hygiene is poor. Speech: Is spontaneous, fluent slow rate, normal tone and volume Language skills are intact Thought processes including: linear and goal oriented Thought content: mild depression and anxiety, denies SI/HI, denies paranoid delusions, she reports auditory hallucinations, she says some voices was familiar, some are not. Abstract reasoning, and computation: fair Description of associations: auditory hallucinations Description of abnormal or psychotic thoughts: auditory hallucinations about people who talk about previous traumatic experiences. Judgment: fair Insight: fair Orientation: alert and oriented to person, place, time and situation Recent and remote memory: intact Attention span and concentration: fair Language: expansive Fund of knowledge: below average Mood: "a little depressed" Affect: constricted DIAGNOSES: Schizoaffective Disorder Amphetamine Use Disorder Methamphetamine Use Disorder Cannabis Use Disorder ASSESSMENT:continue with current treatment plan. Encouraged her to talk to staff if the auditory hallucinations become commanding in nature ( homicidal or suicidal commands) MANAGEMENT PLAN: Continue with current medications. TIME SPENT: 15 minutes. Vital Signs Vital Signs Date Time Temp Pulse Resp B/P (MAP) Pulse Ox O2 Delivery O2 Flow Rate FiO2 07/02/20 16:32 99.1 71 18 141/73 (95) 99 Room Air Current Medications Current Medications Medications (Trade) Dose Ordered Sig/Tana Route PRN Reason Start Time Stop Time Status Last Admin Dose Admin Acetaminophen (Tylenol Tab) 650 mg Q6HP PRN PO HEADACHE or DISCOMFORT 06/28/20 16:00 Al Hydrox/Mg Hydrox/Simethicone (Mylanta) 30 ml Q4HP PRN PO HEARTBURN/INDIGESTION 06/28/20 16:00 Aripiprazole (Abilify Maintena) 400 mg Q30D IM 06/30/20 09:00 06/30/20 09:00 Benztropine Mesylate (Cogentin) 1 mg BID PO 06/28/20 21:00 07/02/20 09:42 Folic Acid (Folic Acid) 1 mg DAILY PO 06/28/20 09:00 07/02/20 09:43 Home Med (Med Rec Complete!) ASDIRECTED XX 06/28/20 15:45 06/28/20 15:46 DC Hydroxyzine HCl (Atarax) 25 mg Q4H PRN PO ANXIETY 06/28/20 16:00 07/02/20 14:12 Lisinopril (Prinivil) 5 mg DAILY PO 06/29/20 10:30 07/02/20 09:42 [place] Carbonate (Eskalith-Cr) 450 mg QHS PO 06/28/20 21:00 07/01/20 20:33 [place] Carbonate ([place] Carbonate) 300 mg QHS PO 06/28/20 21:00 07/01/20 20:31 Lorazepam (Ativan) 2 mg ASDIRECTED PRN PO SEE PROTOCOL 06/28/20 16:00 Magnesium Hydroxide (Milk Of Magnesia) 30 ml DAILYPRN PRN PO CONSTIPATION 06/28/20 16:00 Metformin HCl (Glucophage) 500 mg DAILY PO 06/29/20 09:00 06/28/20 18:07 DC Metformin HCl (Glucophage) 1,000 mg DAILY PO 06/29/20 09:00 07/02/20 09:42 Multivitamins (Theragram-M) 1 tab DAILY PO 06/28/20 09:00 07/02/20 09:00 Naltrexone HCl (Revia) 50 mg QHS PO 06/28/20 21:00 07/01/20 20:31 Naproxen (Naprosyn) 500 mg BIDP PRN PO PAIN 06/28/20 18:15 07/02/20 14:12 Quetiapine Fumarate (SEROquel) 200 mg QHS PO 06/28/20 21:00 07/01/20 20:32 Thiamine HCl (Thiamine HCl) 100 mg BID PO 06/28/20 21:00 07/01/20 09:01 DC 07/01/20 09:59 Allergies Coded Allergies: haloperidol (Verified Allergy, Unknown, 09/14/19) risperidone (Verified Allergy, Unknown, 09/14/19) paliperidone (Verified Adverse Reaction, Intermediate, DYSTONIA, 09/14/19) thiothixene (Verified Adverse Reaction, Intermediate, DYSTONIA, 09/14/19) MILO KNIGHT MD Jul 02, 2020 18:30
[2020-07-02 20:00] LABS: APPEARANCE, URINE CLEAR (CLEAR); BACTERIA, URINE AUTO NEGATIVE (NEGATIVE); BILIRUBIN, URINE AUTO NEGATIVE (NEGATIVE); BLOOD, URINE BLOOD NEGATIVE (NEGATIVE); COLOR, URINE YELLOW (YELLOW); GLUCOSE, URINE (UA) AUTO NEGATIVE (NEGATIVE); KETONE, URINE AUTO NEGATIVE (NEGATIVE); LEUKOCYTE ESTERASE, URINE AUTO NEGATIVE (NEGATIVE); MUCUS, URINE SMALL (NEGATIVE); NITRITE, URINE AUTO NEGATIVE (NEGATIVE); PROTEIN, URINE AUTO NEGATIVE (NEGATIVE); RBC, URINE AUTO 0 /HPF (0-3); SPECIFIC GRAVITY URINE AUTO 1.014 (1.002-1.035); SQUAMOUS EPITHELIAL CELL UR AU 1 /HPF (0-6); UROBILINOGEN, URINE AUTO 0.2 mg/dL (0.0-2.0); WBC, URINE AUTO 1 /HPF (0-3)
[2020-07-02 21:55] VITALS: BP 139/72
[2020-07-02] MEDS: LITHIUM CARBONATE 450 MG **CR** TAB PO SCH (22:20)
[2020-07-02] MEDS: NALTREXONE 50 MG TAB PO SCH (22:20)
[2020-07-02] MEDS: QUEtiapine FUMARATE 200 MG TAB PO SCH (22:20)
[2020-07-02] MEDS: LITHIUM CARBONATE 300 MG CAP PO SCH (22:20)
[2020-07-03 06:38] VITALS: BP 110/61
[2020-07-03] MEDS: BENZTROPINE 1 MG TAB PO SCH ×2 (10:24→20:36)
[2020-07-03] MEDS: lisinopriL 5 MG TAB PO SCH (10:24)
[2020-07-03] MEDS: metFORMIN (GLUCOPHAGE) 500 MG TAB PO SCH (10:24)
[2020-07-03] MEDS: hydrOXYzine 25 MG TAB PO PRN ×3 (10:24→21:39)
[2020-07-03] MEDS: MULTIVITAMINS/MINERALS THERAP 1 TAB PO SCH (10:25)
[2020-07-03] MEDS: FOLIC ACID 1 MG TAB PO SCH (10:25)
[2020-07-03 17:42] VITALS: BP 143/64
[2020-07-03] MEDS: LITHIUM CARBONATE 450 MG **CR** TAB PO SCH (20:35)
[2020-07-03] MEDS: QUEtiapine FUMARATE 200 MG TAB PO SCH (20:35)
[2020-07-03] MEDS: NALTREXONE 50 MG TAB PO SCH (20:35)
[2020-07-03] MEDS: LITHIUM CARBONATE 300 MG CAP PO SCH (20:36)
[2020-07-04 06:26] VITALS: BP 113/59
[2020-07-04] MEDS ORDERED: LISI-542 PO (09:34)
[2020-07-04] MEDS: MULTIVITAMINS/MINERALS THERAP 1 TAB PO SCH (10:16)
[2020-07-04 10:17] VITALS: BP 132/68
[2020-07-04] MEDS: BENZTROPINE 1 MG TAB PO SCH (10:17)
[2020-07-04] MEDS: lisinopriL 5 MG TAB PO SCH (10:17)
[2020-07-04] MEDS: FOLIC ACID 1 MG TAB PO SCH (10:18)
[2020-07-04] MEDS: metFORMIN (GLUCOPHAGE) 500 MG TAB PO SCH (10:18)
--- NOTE | 2020-07-04 11:44 | MHDSPDOC ---
[facility] Discharge Summary Discharge Summary DATE OF ADMISSION: Jun 28, 2020 at 15:59 DATE OF DISCHARGE: July 04, 2020 at 1135 DISCHARGE DIAGNOSES: Schizoaffective Disorder Amphetamine Use Disorder Methamphetamine Use Disorder Cannabis Use Disorder REASON FOR ADMISSION: According to the ED report - Patient is a 34 -year-old Single, Disabled, Domiciled , female, who reports that she has been clean and sober for 2 months. Pt reports that she was d/c'd from rehab and was doing rather well just taking her Suboxone until a couple nights ago. Pt reports that she met a man who wanted to get high with her so she went back to his house. Pt reports that she then sold her food stamp card for two hundred dollars and received Janey. Pt reports that she has been using Meth and Janey ever since and pt states that she feels that she can no longer resist the cravings. Pt reports that she continues to feel depressed however, states that she is no longer SI. Pt states "can I go home now?" several times during the interview. Pt talks and rambles in circles and is very difficult to follow at times. Pt had to be redirected several times. Pt reports that she has multiple stressors however, her main stress is that she does not have enough money for a new winter jacket and a pair of boots for the upcoming winter. CONSULTANTS INVOLVED: See Medical H + P By Hospitalist TREATMENT AND PROGRESS ON THE UNIT: Patient was admitted to the [facility] on a 9.39 legal status he was afforded the following treatment modalities: 1) Individual Therapy 2) Group Therapy 3) Medication Management 4) Milieu Therapy 5) Safe Environment HOSPITAL COURSE: Patient was admitted to [facility] on a 9.39 legal status, she was continued on all home medications. ON 06/29/20 she was given her Abilify Maintena 400 mg IM which she has been compliant with in the past. Patient had reported fears of the auditory hallucinations and was having intrusive thoughts of self harm while being alone. During her hospitalization she was cooperative with her treatment regimen, compliant with her medications, and social with peers, visible on the unit and attended groups. DISCHARGE ASSESSMENT: On discharge, patient is reporting that her hallucinations have decreased. She reports that she feels comfortable about being at home. She has a normal mentation and meets criteria for discharge. I discussed with her need of abstinence from drugs and alcohol, she verbalized understanding. She denies depression, anxiety, suicidal ideation. She is not observed to be manic, psychotic, delusional or paranoid. She meets criteria for discharge today. And the treatment team is in agreement. MENTAL STATUS EXAMINATION ON DISCHARGE: Patient is a 34 -year-old Single, Disabled, Domiciled , female, who reports that she has been clean and sober for 2 months relapsed on Janey and was psychotic in the ED and reporting vague thoughts of self harm. Speech: Is fluid, conversant, normal rate, tone and volume Language skills are intact Thought processes including: linear and goal oriented Thought content: denies depression and anxiety. Denies suicidal/homicidal ideation, planning or intent. Abstract reasoning, and computation: fair Description of associations: less hallucinations Description of abnormal or psychotic thoughts: reports decreased auditory hallucinations Judgment: fair Insight: fair Orientation: alert and oriented to person, place, time and situation Recent and remote memory: intact Attention span and concentration: good Language: expansive Fund of knowledge: average Mood: Euthymic Mood Affect: reactive MEDICATIONS ON DISCHARGE: See medication reconciliations. Patient's Abiphoenixfangel Hinesa is due 07/28/20 PLAN/FOLLOWUP ARRANGEMENTS: Dr. Kimbrough at [facility], see Heel Gummer's notes The amount of time spent in the coordination of care for this patient was approximately 25 minutes. Vital Signs/I&Os Vital Signs Date Time Temp Pulse Resp B/P (MAP) Pulse Ox O2 Delivery O2 Flow Rate FiO2 07/04/20 10:17 132/68 07/04/20 06:26 98.2 89 16 07/03/20 17:42 100 Room Air Medications Scheduled Aripiprazole (Debora Hinesa) 400 Mg Suser.syr, 400 MG IM ASDIRECTED, (Reported) pt states next dose due 06/30/20 Benztropine Mesylate (Benztropine Mesylate) 1 Mg Tablet, 1 MG PO BID, (Reported) Lisinopril (Lisinopril) 5 Mg Tablet, 5 MG PO DAILY for Blood Pressure, #7 [place] Carbonate ([place] Carbonate ER) 450 Mg Tablet.er, 450 MG PO QHS, (Reported) TAKES WITH 300MG TABLET TO EQUAL 750MG Metformin HCl (Metformin HCl) 500 Mg Tablet, 500 MG PO BID for . , (Reported) Naltrexone HCl (Naltrexone HCl) 50 Mg Tablet, 50 MG PO QHS, (Reported) Prazosin Hcl (Prazosin HCl) 1 Mg Capsule, 1 MG PO QHS for . , (Reported) Quetiapine Fumarate (Quetiapine Fumarate) 200 Mg Tablet, 200 MG PO QHS, (Reported) Scheduled PRN Hydroxyzine HCl (Hydroxyzine HCl) 25 Mg Tablet, 25 MG PO Q4H PRN for ANXIETY, (Reported) Allergies Coded Allergies: haloperidol (Verified Allergy, Unknown, 09/14/19) risperidone (Verified Allergy, Unknown, 09/14/19) paliperidone (Verified Adverse Reaction, Intermediate, DYSTONIA, 09/14/19) thiothixene (Verified Adverse Reaction, Intermediate, DYSTONIA, 09/14/19) BLOSSOM MCINTYRE NP Jul 04, 2020 11:34
== END 2020-07-04 13:04 | disposition home or self-care (01) | DRG 750 ==
LOC: M ED 10:04 → M ED INP 15:59 → M PSY 17:07
PROVIDERS: ADMIT Psychiatry & Neurology Addiction Medicine; ATTEND Psychiatry & Neurology Psychiatry
DX: F25.9 Schizoaffective disorder, unspecified (principal); I10 Essential (primary) hypertension; E11.9 Type 2 diabetes mellitus without complications; F15.10 Other stimulant abuse, uncomplicated; D64.9 Anemia, unspecified; F17.200 Nicotine dependence, unspecified, uncomplicated; F12.10 Cannabis abuse, uncomplicated; J45.909 Unspecified asthma, uncomplicated; Z79.84 Long term (current) use of oral hypoglycemic drugs; Z79.899 Other long term (current) drug therapy; Z88.8 Allergy status to other drugs, medicaments and biological substances

== ENCOUNTER → 2020-07-28 | Outpatient (CLI) | payer MEDICAID ==
[~2020-07-28] MED LIST changes: +HYDR-3363 PO; +LISI-542 PO; +NALT50TA4 PO; +QUET200T2 PO
== END ==
LOC: M OUTALCOH 08:02
PROVIDERS: ATTEND Psychiatry & Neurology Addiction Medicine
DX: F15.20 Other stimulant dependence, uncomplicated (principal)

== ENCOUNTER 2020-08-11 13:56 | Emergency (ER) | payer MEDICARE, MEDICAID ==
[~2020-08-11 13:56] MED LIST changes: -LISI-542 PO; +LISI-898 PO; +LISI10TA22 PO; -LISI10TA4 PO; -QUET1TAB10 PO; +QUET300T2 PO
[2020-08-11 14:40] LABS: HEMATOCRIT 32.8 % (36.0-47.0); HEMOGLOBIN 10.8 g/dl (12.0-15.5); MEAN CORPUSCULAR HEMOGLOBIN 29.6 pg (27.0-33.0); MEAN CORPUSCULAR HGB CONC 32.9 g/dl (32.0-36.5); MEAN CORPUSCULAR VOLUME 89.9 fl (80.0-96.0); PLATELET COUNT, AUTOMATED 340 10^3/uL (150-450); RED BLOOD COUNT 3.65 10^6/uL (4.00-5.40); WHITE BLOOD COUNT 6.6 10^3/uL (4.0-10.0)
--- OUTSIDE RECORDS SUMMARY | 2020-08-11 14:44 | CCD ---
Author Author Thelma Shinedesiree Paredes Organization Unknown Address [address] [address] Phone Care Team Providers Care Overhead Crane Inspector Name Role Phone Lena Shine PCP Allergies, Adverse Reactions, Alerts No Data in Section Problem List Concept Problem Description Status Start Date Created Date Resolv ed Date Snomed Code F25.0 Schizoaffective Disorder, Bipolar type Active 0 08/10/2020 F14.20 Stimulant Use Disorder. Severe: Cocaine Active 08/10/2020 Medications Rx Norm Medication Route Route Concept Start Date Stop Date Dosage Kamron quency Duration Formula Strength Dosage Form Dosage Form Code Dosage Description Medication Id Account Npid Author First Name Author Last Name Taxonomy Code Taxonomy Desc Phone Number [phone] Debora Townsend intramuscularly 11/25/2019 once a month 400 mg suspension,extended rel syring 07432 [id number] [phone] Rolf Garcia [id number] Psychiatric/Mental Health [phone] 850213 Seroquel by mouth [id number] 06/02/2020 every night 200 mg tab let 80999 686387 [id number] Katie Parker [id number] Psychiatric/Mental Health [phone] [id number] naltrexone 07/12/2020 50 mg tablet 47283 304460 [phone] Katei Parker [id number] Psychiatric/Mental Health [phone] benztropine by mouth [id number] 08/04/2020 twice a day 0.5 mg tablet 16230 053606 [phone] Katie Parker [id number] Psychiatric/Mental Health [phone] 472122 lithium carbonate by mouth [id number] 08/04/2020 at bedtime 450 mg tablet extended release 09523 098589 [id number] Katie Ferrararow [id number] Psychiatric/Mental Health [phone] 841946 prazosin by mouth [id number] 07/19/2020 once a day 2 mg capsul e 09069 644488 [id number] Katie Garcia [id number] Psychiatric/Mental Health [phone] Social History Social History Element Description Concept Effective Date Smoking Status Current every day smoker [id number] 3 Immunizations No Data in Section Vital Signs No Data in Section Procedures Date Concept Id Description Targeted Site Concept Targeted Site Concept Type 08/10/2020 87243 Extended Individual Psychotherapy - 45 min CPT Patient has no history of implantable de vices Encounters Encounter Start Date End Date Encounter Type Description Diagnosis Di agnosis Desc Location Author First Name Author Last Name Npid Taxonomy Cod e Taxonomy Desc Phone Number Location Addr1 Location Addr2 Location [facility] Location Sta Location [facility] [id number] 08/10/2020 08/10/2020 69256 Extended Individual Psych otherapy - 45 min F25.0 Schizoaffective disorder, bipolartype [facility] [phone] [id number] Psychologist [id number] [address] [address] Plan of Treatment No Data in Section Lab Results No Data in Section Instructions No Data in Section Insurance Providers Insurance Id Policy Effective Date Policy Thru Date Company [employer] [id number] 2019 Dual Complete Me dicare Community Plan [id number] 2015 MEDICAID
--- OUTSIDE RECORDS SUMMARY | 2020-08-11 14:45 | CCD ---
Author Author Manuela Shinejaqueline Paredes Organization Unknown Address [address] [address] Phone Care Team Providers Care Dispatcher Maintenance Service Name Role Phone Lena Shine PCP Allergies, Adverse Reactions, Alerts No Data in Section Problem List Concept Problem Description Status Start Date Created Date Resolv ed Date Snomed Code F25.0 Schizoaffective Disorder, Bipolar type Active 1 F14.20 Stimulant Use Disorder. Severe: Cocaine Active 07/27/2020 Medications Rx Norm Medication Route Route Concept Start Date Stop Date Dosage Kamron quency Duration Formula Strength Dosage Form Dosage Form Code Dosage Description Medication Id Account Npid Author First Name Author Last Name Taxonomy Code Taxonomy Desc Phone Number [phone] aripiprazole by mouth [id number] 06/02/2020 once a day 10 mg t ablet 67098 053735 [phone] Chery Lee [id number] Nurse Practitioner [phone] 538230 Seroquel by mouth [id number] 06/02/2020 every night 200 mg tab let 64934 577057 [phone] Chery Dentono [id number] Nurse Practitioner [phone] [id number] naltrexone 07/12/2020 50 mg tablet 57995 638320 [id number] Katie Garcia [id number] Psychiatric/Mental Health [phone] prazosin by mouth [id number] 06/15/2020 once a day 1 mg capsul e 59626 947945 [id number] Katieranulfo Garcia [id number] Psychiatric/Mental Health [phone] 413704 benztropine by mouth [id number] 06/02/2020 twice a day 1 mg ta blet 34165 422926 [id number] Chery Lee [id number] Nurse Practitioner [phone] 4291167 Abilify Maintena intramuscularly 11/25/2019 once a month 400 mg suspension,extended rel syring 76492 626201 [phone] Rolf Garcia [id number] Psychiatric/Mental Health [phone] 136834 lithium carbonate 07/09/2019 at bedtime 450 mg tablet extended release 34965 405467 [phone] Chery Lee [id number] Nurse Pr actitioner [phone] Social History Social History Element Description Concept Effective Date Smoking Status Current every day smoker [id number] 2927840 0 Immunizations No Data in Section Vital Signs No Data in Section Procedures Date Concept Id Description Targeted Site Concept Targeted Site Concept Type 07/27/2020 13404 Extended Individual Psychotherapy - 45 min CPT Patient has no history of implantable de vices Encounters Encounter Start Date End Date Encounter Type Description Diagnosis Di agnosis Desc Location Author First Name Author Last Name Npid Taxonomy Cod e Taxonomy Desc Phone Number Location Addr1 Location Addr2 Location [facility] Location [facility] Location [facility] [id number] 07/27/2020 07/27/2020 61670 Extended Individual Psych otherapy - 45 min F25.0 Schizoaffective disorder, bipolartype [facility] [phone] [id number] Psychologist [id number] [address] [address] Plan of Treatment No Data in Section Lab Results No Data in Section Instructions No Data in Section Insurance Providers Insurance Id Policy Effective Date Policy Thru Date Company N [employer] [id number] 2019 Dual Complete Me dicare Community Plan [id number] 2015 MEDICAID
--- OUTSIDE RECORDS SUMMARY | 2020-08-11 14:45 | CCD ---
Author Author Zonia Garcia Organization Unknown Address [address] [address] Phone Care Team Providers Care Garden Center Manager Name Role Phone Katie Garcia PCP Allergies, Adverse Reactions, Alerts No Data in Section Problem List Concept Problem Description Status Start Date Created Date Resolv ed Date Snomed Code F25.0 Schizoaffective Disorder, Bipolar type Active 1 09/07/2019 F14.20 Stimulant Use Disorder. Severe: Cocaine Active 2020 Medications Rx Norm Medication Route Route Concept Start Date Stop Date Dosage Kamron quency Duration Formula Strength Dosage Form Dosage Form Code Dosage Description Medication Id Account Npid Author First Name Author Last Name Taxonomy Code Taxonomy Desc Phone Number [phone] lithium carbonate 07/09/2019 at bedtime 450 mg tablet extended release 52152 336826 [phone] Chery Lee [id number] Nurse Pr actitioner [phone] Abilifangel Maintena intramuscularly 11/25/2019 once a month 400 mg suspension,extended rel syring 37339 592092 [phone] Rolf Garcia [id number] Psychiatric/Mental Health [phone] 713492 aripiprazole by mouth [id number] 06/02/2020 once a day 10 mg t ablet 59581 302822 [id number] Chery Dentono [id number] Nurse Practitioner [phone] 381867 Seroquel by mouth [id number] 06/02/2020 every night 200 mg tab let 21247 276559 [id number] Chery Perryorho [id number] Nurse Practitioner [phone] 811112 benztropine by mouth [id number] 06/02/2020 twice a day 1 mg ta blet 71206 175695 [id number] Chery Dentono [id number] Nurse Practitioner [phone] 482066 prazosin by mouth [id number] 06/15/2020 once a day 1 mg capsul e 06653 211417 [id number] Katie Garcia [id number] Psychiatric/Mental Health [phone] Social History Social History Element Description Concept Effective Date Smoking Status Current every day smoker [id number] 5443473 0 Immunizations No Data in Section Vital Signs Encounter Date Height Ins Weight Lbs Bmi Bp Systolic Bp Diastoli c Oxygen Saturation Respiration Rate Pulse Rate Body Temp Head Circumference Heigh t Lying 2020 0.00 0.00 0.00 0 0 0.00 0 0 0.00 0.0 0.0 0 Procedures Date Concept Id Description Targeted Site Concept Targeted Site Concept Type 2020 96768 E/M Level 3 - Established Patient CPT 2020 90960 Psychotherapy ADD ON - 30 Minutes CPT Patient has no history of implantable de vices Encounters Encounter Start Date End Date Encounter Type Description Diagnosis Di agnosis Desc Location Author First Name Author Last Name Npid Taxonomy Cod e Taxonomy Desc Phone Number Location Addr1 Location Addr2 Location [facility] Location [facility] Location [facility] [id number] 2020 2020 61469 E/M Level 3 - Established Pa tient F25.0 Schizoaffective disorder, bipolartype [facility] Jose Wilson [phone] [id number] Psychiatric/Mental Health [phone] [address] [address] Plan of Treatment No Data in Section Lab Results No Data in Section Instructions No Data in Section Functional Cognitive Status No Data in Section Insurance Providers Insurance Id Policy Effective Date Policy Thru Date Company [employer] [id number] 2019 Dual Complete Me dicare Community Plan [id number] 2015 MEDICAID
--- OUTSIDE RECORDS SUMMARY | 2020-08-11 14:45 | CCD ---
Author Author Zonia Bauman Organization Unknown Address [address] [place] [address] Phone Care Team Providers Care Circular Knife Machine Cutter Name Role Phone Tanya Bauman PCP Allergies, Adverse Reactions, Alerts No Data in Section Problem List Concept Problem Description Status Start Date Created Date Resolv ed Date Snomed Code F25.0 Schizoaffective Disorder, Bipolar type Active 1 08/02/2019 F14.20 Stimulant Use Disorder. Severe: Cocaine Active 06/02/2020 Medications Rx Norm Medication Route Route Concept Start Date Stop Date Dosage Kamron quency Duration Formula Strength Dosage Form Dosage Form Code Dosage Description Medication Id Account Npid Author First Name Author Last Name Taxonomy Code Taxonomy Desc Phone Number [id number] lithium carbonate 07/09/2019 at bedtime 450 mg tablet extended release 63395 209125 [phone] Katie [place] [id number] Psychiatric/Mental Health [phone] Abilifangel Maintena intramuscularly 11/25/2019 once a month 400 mg suspension,extended rel syring 67190 355254 [id number] Rolf archuleta Jose [id number] Psychiatric/Mental Health [phone] 048837 aripiprazole by mouth [id number] 06/02/2020 once a day 10 mg t ablet 00361 279446 [id number] Katie [place] [id number] Psychiatric/Mental Health [phone] 930533 Seroquel by mouth [id number] 06/02/2020 at bedtime 50 mg table t 65252 978191 [phone] Katie [place] [id number] Psychiatric/Mental Health [id number] 074817 Seroquel by mouth [id number] 06/02/2020 every night 200 mg tab let 00627 827276 [id number] Katie Jose [id number] Psychiatric/Mental Health [phone] 737120 benztropine by mouth [id number] 06/02/2020 twice a day 1 mg ta blet 08145 462383 [id number] Katie Garcia [id number] Psychiatric/Mental Health [phone] 110143 lithium carbonate 07/09/2019 06/02/2020 at bedtime 300 mg tablet extended release 61711 565254 [id number] Katie Garcia [id number] Psychiatric/Mental Health [phone] 096878 Seroquel by mouth [id number] 03/11/2020 06/02/2020 twice a day 100 mg tablet 76581 957502 [phone] Jonn Yarbrough [id number] Psychiatr y [phone] Social History Social History Element Description Concept Effective Date Smoking Status Current every day smoker [id number] 6802784 5 Immunizations No Data in Section Vital Signs No Data in Section Procedures Date Concept Id Description Targeted Site Concept Targeted Site Concept Type 06/02/2020 H2010 Injectable Medication Administra tion w/ Monitoring & Education CPT Patient has no history of implantable de vices Encounters Encounter Start Date End Date Encounter Type Description Diagnosis Di agnosis Desc Location Author First Name Author Last Name Npid Taxonomy Cod e Taxonomy Desc Phone Number Location Addr1 Location Addr2 Location [facility] Location Sta Location Zip [id number] 06/02/2020 06/02/2020 H2010 Injectable Medi cation Administration w/ Monitoring & Education F25.0 Schizoaffective disorder, bipolartype [facility] Mitul Martínez [phone] [id number] R egistered Nurse [id number] [address] [place] [address] 0 Plan of Treatment No Data in Section Lab Results No Data in Section Instructions No Data in Section Insurance Providers Insurance Id Policy Effective Date Policy Thru Date Company [employer] [id number] 2019 Dual Complete Me dicare Community Plan [id number] 2015 MEDICAID
--- OUTSIDE RECORDS SUMMARY | 2020-08-11 14:45 | CCD ---
Author Author Thelma Shinedesiree Paredes Organization Unknown Address [address] [address] Phone Care Team Providers Care Heel Compressor Name Role Phone Lena Shine PCP Allergies, Adverse Reactions, Alerts No Data in Section Problem List Concept Problem Description Status Start Date Created Date Resolv ed Date Snomed Code F25.0 Schizoaffective Disorder, Bipolar type Active 1 09/05/2019 F14.20 Stimulant Use Disorder. 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, Severe: Amphetamine-type subst ance Active 07/05/2020 Medications Rx Norm Medication Route Route Concept Start Date Stop Date Dosage Kamron quency Duration Formula Strength Dosage Form Dosage Form Code Dosage Description Medication Id Account Npid Author First Name Author Last Name Taxonomy Code Taxonomy Desc Phone Number [id number] lithium carbonate 07/09/2019 at bedtime 450 mg tablet extended release 93128 [phone] Chery Lee [id number] Nurse Pr actitioner [phone] Abilify Maintena intramuscularly 11/25/2019 once a month 400 mg suspension,extended rel syring 22557 708598 [id number] Rolf Garcia [id number] Psychiatric/Mental Health [phone] 746411 aripiprazole by mouth [id number] 06/02/2020 once a day 10 mg t ablet 55369 576812 [id number] Chery Lee [id number] Nurse Practitioner [id number] 537961 Seroquel by mouth [id number] 06/02/2020 every night 200 mg tab let 10219 188668 [id number] Chery Lee [id number] Nurse Practitioner [phone] 880836 benztropine by mouth [id number] 06/02/2020 twice a day 1 mg ta blet 35836 007654 [phone] Chery Lee [id number] Nurse Practitioner [id number] 432689 prazosin by mouth [id number] 06/15/2020 once a day 1 mg capsul e 20324 719637 [id number] Katie Garcia [id number] Psychiatric/Mental Health [phone] Social History Social History Element Description Concept Effective Date Smoking Status Current every day smoker [id number] 8 Immunizations No Data in Section Vital Signs No Data in Section Procedures Date Concept Id Description Targeted Site Concept Targeted Site Concept Type 07/05/2020 99080 Extended Individual Psychotherapy - 45 min CPT Patient has no history of implantable de vices Encounters Encounter Start Date End Date Encounter Type Description Diagnosis Di agnosis Desc Location Author First Name Author Last Name Npid Taxonomy Cod e Taxonomy Desc Phone Number Location Addr1 Location Addr2 Location [facility] Location Sta te Location Zip [id number] 07/05/2020 07/05/2020 30005 Extended Individual Psych otherapy - 45 min F25.0 Schizoaffective disorder, bipolartype [facility] [phone] [id number] Psychologist [id number] [address] [address] Plan of Treatment No Data in Section Lab Results No Data in Section Instructions No Data in Section Insurance Providers Insurance Id Policy Effective Date Policy Thru Date Company Em high [id number] 2019 Dual Complete Me dicare Community Plan [id number] 2015 MEDICAID
--- OUTSIDE RECORDS SUMMARY | 2020-08-11 14:45 | CCD ---
Author Author Zonia Bauman Organization Unknown Address [address] [place] [address] Phone Care Team Providers Care Responder Name Role Phone Bauman Tanya PCP Allergies, Adverse Reactions, Alerts No Data in Section Problem List Concept Problem Description Status Start Date Created Date Resolv ed Date Snomed Code F25.0 Schizoaffective Disorder, Bipolar type Active 1 08/31/2019 F14.20 Stimulant Use Disorder. Severe: Cocaine Active 06/30/2020 Medications Rx Norm Medication Route Route Concept Start Date Stop Date Dosage Kamron quency Duration Formula Strength Dosage Form Dosage Form Code Dosage Description Medication Id Account Npid Author First Name Author Last Name Taxonomy Code Taxonomy Desc Phone Number [id number] lithium carbonate 07/09/2019 at bedtime 450 mg tablet extended release 55248 [phone] Chery Dentono [id number] Nurse Pr actitioner [phone] Abilifangel Maintena intramuscularly 11/25/2019 once a month 400 mg suspension,extended rel syring 11543 608579 [id number] Rolf Garcia [id number] Psychiatric/Mental Health [phone] 775942 aripiprazole by mouth [id number] 06/02/2020 once a day 10 mg t ablet 91851 703625 [id number] Chery Egorho [id number] Nurse Practitioner [id number] 833139 Seroquel by mouth [id number] 06/02/2020 every night 200 mg tab let 09553 058686 [id number] Chery Egorho [id number] Nurse Practitioner [id number] 618136 benztropine by mouth [id number] 06/02/2020 twice a day 1 mg ta blet 28964 366444 [id number] Chery Egorho [id number] Nurse Practitioner [id number] 159674 prazosin by mouth [id number] 06/15/2020 once a day 1 mg capsul e 74358 177398 [id number] Katie Garcia [id number] Psychiatric/Mental Health [phone] Social History Social History Element Description Concept Effective Date Smoking Status Current every day smoker [id number] 4809717 3 Immunizations No Data in Section Vital Signs No Data in Section Procedures Date Concept Id Description Targeted Site Concept Targeted Site Concept Type 06/30/2020 H2010 Injectable Medication Administra tion w/ Monitoring & Education CPT Patient has no history of implantable de vices Encounters Encounter Start Date End Date Encounter Type Description Diagnosis Di agnosis Desc Location Author First Name Author Last Name Npid Taxonomy Cod e Taxonomy Desc Phone Number Location Addr1 Location Addr2 Location [facility] Location Sta te Location Zip [id number] 06/30/2020 06/30/2020 H2010 Injectable Medi cation Administration w/ Monitoring & Education F25.[address], [address] [facility] Mitul Wallacea [id number] R egistered Nurse [id number] [address] [place] [phone] Plan of Treatment No Data in Section Lab Results No Data in Section Instructions No Data in Section Insurance Providers Insurance Id Policy Effective Date Policy Thru Date Company [employer] [id number] 2019 Dual Complete Me dicare Community Plan [id number] 2015 MEDICAID
--- OUTSIDE RECORDS SUMMARY | 2020-08-11 14:45 | CCD ---
Author Author Thelma Shinedesiree Paredes Organization Unknown Address [address] [place] [address] Phone Care Team Providers Care Fire Engine Operator Name Role Phone Lena Shine PCP Allergies, Adverse Reactions, Alerts No Data in Section Problem List Concept Problem Description Status Start Date Created Date Resolv ed Date Snomed Code F25.0 Schizoaffective Disorder, Bipolar type Active 1 07/31/2019 F14.20 Stimulant Use Disorder. Severe: Cocaine Active 05/31/2020 F10.20 Alcohol Use Disorder, Severe Active 05/31/2020 F12.20 Cannabis Use Disorder, Moderate Active 05/31/20 20 Z72.0 Tobacco Use Disorder, Mild Active 05/31/2020 Medications Rx Norm Medication Route Route Concept Start Date Stop Date Dosage Kamron quency Duration Formula Strength Dosage Form Dosage Form Code Dosage Description Medication Id Account Npid Author First Name Author Last Name Taxonomy Code Taxonomy Desc Phone Number [id number] lithium carbonate 07/09/2019 at bedtime 450 mg tablet extended release 10770 [phone] Katie Garcia [id number] Psychiatric/Mental Health [id number] lithium carbonate 07/09/2019 at bedtime 300 mg tablet extended release 69031 423863 [id number] Katiemehul Garcia [id number] Psychiatric/Mental Health [phone] 7499219 Abilify Maintena intramuscularly 11/25/2019 once a month 400 mg suspension,extended rel syring 59022 885105 [phone] Rolf Garcia [id number] Psychiatric/Mental Health [phone] 797334 Seroquel by mouth [id number] 03/11/2020 twice a day 100 mg tab let 48492 799698 [phone] Jonn Yarbrough [id number] Psychiatry [id number] Social History Social History Element Description Concept Effective Date Smoking Status Current every day smoker [id number] 4840968 3 Immunizations No Data in Section Vital Signs No Data in Section Procedures Date Concept Id Description Targeted Site Concept Targeted Site Concept Type 05/31/2020 74651 Extended Individual Psychotherapy - 45 min CPT Patient has no history of implantable de vices Encounters Encounter Start Date End Date Encounter Type Description Diagnosis Di agnosis Desc Location Author First Name Author Last Name Npid Taxonomy Cod e Taxonomy Desc Phone Number Location Addr1 Location Addr2 Location [facility] Location [facility] Location Zip [id number] 05/31/2020 05/31/2020 81213 Extended Individual Psych otherapy - 45 min F25.0 Schizoaffective disorder, bipolartype [facility] [phone] [id number] Psychologist [id number] [address] [place] [address] Plan of Treatment No Data in Section Lab Results No Data in Section Instructions No Data in Section Insurance Providers Insurance Id Policy Effective Date Policy Thru Date Company [employer] [id number] 2019 Dual Complete Me dicare Community Plan [id number] 2015 MEDICAID
--- OUTSIDE RECORDS SUMMARY | 2020-08-11 14:45 | CCD ---
Author Author [place] Zonia Katie Organization Unknown Address [address] [place] [address] Phone Care Team Providers Care System Operator Name Role Phone Katie Garcia PCP Allergies, [...] Name Taxonomy Code Taxonomy Desc Phone Number [phone] lithium carbonate 07/09/2019 at bedtime 450 mg tablet extended release 71621 [phone] Katie Jose [id number] Psychiatric/Mental Health [phone] Abilify Maintena intramuscularly 11/25/2019 once a month 400 mg suspension,extended rel syring 28333 693315 [id number] Rolf Garcia [id number] Psychiatric/Mental Health [id number] 298282 aripiprazole by mouth [id number] 06/02/2020 once a day 10 mg t ablet 54304 795283 [id number] Katie Ferrararow [id number] Psychiatric/Mental Health [id number] 607501 Seroquel by mouth [id number] 06/02/2020 at bedtime 50 mg table t 32275 425007 [id number] Katie Jose [id number] Psychiatric/Mental Health [phone] 479960 Seroquel by mouth [id number] 06/02/2020 every night 200 mg tab let 58127 166399 [id number] Katie Jose [id number] Psychiatric/Mental Health [id number] 398500 benztropine by mouth [id number] 06/02/2020 twice a day 1 mg ta blet 28442 557653 [id number] Katie Garcia [id number] Psychiatric/Mental Health [id number] 417763 lithium carbonate 07/09/2019 06/02/2020 at bedtime 300 mg tablet extended release 08143 624249 [id number] Katie Garcia [id number] Psychiatric/Mental Health [id number] 878882 Seroquel by mouth [id number] 03/11/2020 06/02/2020 twice a day 100 mg tablet 27026 989471 [id number] Jonn Yarbrough [id number] Psychiatr y [id number] Social History Social History Element Description Concept Effective Date Smoking Status Current every day smoker [id number] 5 Immunizations No Data in Section Vital Signs Encounter Date Height Ins Weight Lbs Bmi Bp Systolic Bp Diastoli c Oxygen Saturation Respiration Rate Pulse Rate Body Temp Head Circumference Heigh t Lying 06/02/2020 0.00 0.00 0.00 0 0 0.00 0 0 0.00 0.0 0.0 0 Procedures Date Concept Id Description Targeted Site Concept Targeted Site Concept Type 06/02/2020 88823 E/M Level 3 - Established Patient CPT 06/02/2020 59092-78 Telemed A/O 30" CPT Patient has no history of implantable de vices Encounters Encounter Start Date End Date Encounter Type Description Diagnosis Di agnosis Desc Location Author First Name Author Last Name Npid Taxonomy Cod e Taxonomy Desc Phone Number Location Addr1 Location Addr2 Location [facility] Location [facility] Location Zip [id number] 06/02/2020 06/02/2020 55349 E/M Level 3 - Established Pa tient F25.0 Schizoaffective disorder, bipolartype [facility] Jose Wilson [phone] [id number] Psychiatric/Mental Health [id number] [address] [place] [address] [place] [address] Plan of Treatment No Data in Section Lab Results No Data in Section Instructions No Data in Section Functional Cognitive Status No Data in Section Insurance Providers Insurance Id Policy Effective Date Policy Thru Date Company [employer] [id number] 2019 Dual Complete Me dicare Community Plan [id number] 2015 MEDICAID
--- OUTSIDE RECORDS SUMMARY | 2020-08-11 14:45 | CCD ---
Author Author Zonia Garcia Organization Unknown Address [address] [address] Phone Care Team Providers Care Packing House Supervisor Name Role Phone Ashish Garcianey PCP Allergies, Adverse Reactions, Alerts No Data in Section Problem List Concept Problem Description Status Start Date Created Date Resolv ed Date Snomed Code F25.0 Schizoaffective Disorder, Bipolar type Active 1 09/19/2019 F14.20 Stimulant Use Disorder. Severe: Cocaine Active 07/19/2020 Medications Rx Norm Medication Route Route Concept Start Date Stop Date Dosage Kamron quency Duration Formula Strength Dosage Form Dosage Form Code Dosage Description Medication Id Account Npid Author First Name Author Last Name Taxonomy Code Taxonomy Desc Phone Number [id number] lithium carbonate 07/09/2019 at bedtime 450 mg tablet extended release 60653 156871 [phone] Chery Lee [id number] Nurse Pr actitioner [phone] Abilifangel Maintena intramuscularly 11/25/2019 once a month 400 mg suspension,extended rel syring 71407 432211 [phone] Rolf Garcia [id number] Psychiatric/Mental Health [phone] 050217 aripiprazole by mouth [id number] 06/02/2020 once a day 10 mg t ablet 38458 114049 [id number] Chery Dentono [id number] Nurse Practitioner [phone] 484629 Seroquel by mouth [id number] 06/02/2020 every night 200 mg tab let 77440 068920 [id number] Chery Perryorho [id number] Nurse Practitioner [id number] 152155 benztropine by mouth [id number] 06/02/2020 twice a day 1 mg ta blet 32037 630875 [id number] Chery Dentono [id number] Nurse Practitioner [id number] 809527 prazosin by mouth [id number] 06/15/2020 once a day 1 mg capsul e 31662 716071 [id number] Katie Garcia [id number] Psychiatric/Mental Health [id number] 7707167 naltrexone 07/12/2020 50 mg tablet 96580 847289 [id number] Katie Garcia [id number] Psychiatric/Mental Health [phone] Social History Social History Element Description Concept Effective Date Smoking Status Current every day smoker [id number] 2881349 2 Immunizations No Data in Section Vital Signs Encounter Date Height Ins Weight Lbs Bmi Bp Systolic Bp Diastoli c Oxygen Saturation Respiration Rate Pulse Rate Body Temp Head Circumference Heigh t Lying 07/19/2020 0.00 0.00 0.00 0 0 0.00 0 0 0.00 0.0 0.0 0 Procedures Date Concept Id Description Targeted Site Concept Targeted Site Concept Type 07/19/2020 32464-66 [facility] Telemed E/M Lvl 3--Est pt CPT 07/19/2020 56153-87 Telemed A/O 30" CPT Patient has no history of implantable de vices Encounters Encounter Start Date End Date Encounter Type Description Diagnosis Di agnosis Desc Location Author First Name Author Last Name Npid Taxonomy Cod e Taxonomy Desc Phone Number Location Addr1 Location Addr2 Location [facility] Location [facility] Location [facility] [id number] 07/19/2020 07/19/2020 95762-65 [facility] Telemed E/M Lvl 3--Est p t F25.0 Schizoaffective disorder, bipolartype [facility] Jose Wilson [id number] [id number] Psychiatric/Mental Health [id number] [address] [address] Plan of Treatment No Data in Section Lab Results No Data in Section Instructions No Data in Section Functional Cognitive Status No Data in Section Insurance Providers Insurance Id Policy Effective Date Policy Thru Date Company [employer] [id number] 2019 Dual Complete Me dicare Community Plan [id number] 2015 MEDICAID
--- OUTSIDE RECORDS SUMMARY | 2020-08-11 14:46 | CCD ---
Author Author [facility] Organization [facility] Address Unknown Phone Unavailable Support Name Relationship Address Phone U Next Of Kin Unknown Unavailable JEFFY CHAMPION Next Of Kin . [place] [id number] Alecia Day Next Of Kin Unknown Unavailable Hazel Braswell Next Of Kin [address] [place] [address] Claire Bonilla Next Of Kin [address] [place] [address] ALECIA DAY Next Of Kin [address] [place], [place] [id number] Jonn José MD Next Of Kin [address] [id number] [place] [employer]EV[employer] [place] [address] [place] SEMIAUTOMATIC TAPER OPERATOR Next Of Kin [id number] [address] [facility] SEMIAUTOMATIC TAPER [place]PER[place] [address] UE Next Of Kin Unknown Unavailable DISABLED Next Of Kin Unknown Unavailable EDUARD MCGHEE Next Of Kin [address] [place] [address] RAMON LINARES Next Of Kin [address] [address] CALLIE LINARES Next Of Kin Unknown CHILO LINARES Next Of Kin [address] [place] [address] BRAULIO [place] [address] UNEMPLOYED Next Of Kin [address] [place] [address] Unavailable NONE, STATED Next Of Kin Unknown Unavailable Care Team Providers Care Bill Of Lading Clerk Name Role Phone ASARCINTHIA MD Unavailable Unavailable ASAR, CINTHIA KAUR Unavailable Unavailable ASARCINTHIA MD Unavailable Unavailable ASARCINTHIA MD Unavailable Unavailable ASAR, CINTHIA KAUR Unavailable Unavailable ASARCINTHIA MD Unavailable Unavailable ASARCINTHIA MD Unavailable Unavailable CHARISSE BLAKE MD Unavailable Unavailable AsaKori rivera MD Unavailable Unavailable Alecia Martin Unavailable [facility] Unavailable Unavailable Cristhian, A Claire LIVESTOCK RANCH HAND Unavailable Unavailable Cristhian, A Claire LIVESTOCK RANCH HAND Unavailable Unavailable Cristhian, A Claire LIVESTOCK RANCH HAND Unavailable Unavailable Cristhian, A Claire LIVESTOCK RANCH HAND Unavailable Unavailable Cristhian, A Claire LIVESTOCK RANCH HAND Unavailable Unavailable Cristhian, A Claire LIVESTOCK RANCH HAND Unavailable Unavailable Cristhian, A Claire LIVESTOCK RANCH HAND Unavailable Unavailable Claude, A Claire LIVESTOCK RANCH HAND Unavailable Unavailable Claude, A Claire LIVESTOCK RANCH HAND Unavailable Unavailable Claude, A Claire LIVESTOCK RANCH HAND Unavailable Unavailable Claude, A Claire LIVESTOCK RANCH HAND Unavailable Unavailable Claude, A Claire LIVESTOCK RANCH HAND Unavailable Unavailable Claude, A Claire LIVESTOCK RANCH HAND Unavailable Unavailable Claude, A Claire LIVESTOCK RANCH HAND Unavailable Unavailable Claude, A Claire LIVESTOCK RANCH HAND Unavailable Unavailable Claude, A Claire LIVESTOCK RANCH HAND Unavailable Unavailable Claude, A Claire LIVESTOCK RANCH HAND Unavailable Unavailable Claude, A Claire LIVESTOCK RANCH HAND Unavailable Unavailable Claude, A Claire LIVESTOCK RANCH HAND Unavailable Unavailable Claude, A Claire LIVESTOCK RANCH HAND Unavailable Unavailable Claude, A Claire LIVESTOCK RANCH HAND Unavailable Unavailable Claude, A Claire LIVESTOCK RANCH HAND Unavailable Unavailable Claude, A Claire LIVESTOCK RANCH HAND Unavailable Unavailable Claude, A Claire LIVESTOCK RANCH HAND Unavailable Unavailable Claude, A Claire LIVESTOCK RANCH HAND Unavailable Unavailable Claude, A Claire LIVESTOCK RANCH HAND Unavailable Unavailable Claude, A Claire LIVESTOCK RANCH HAND Unavailable Unavailable AVA VILLARERAL MD Unavailable Unavailable Roxy, C Efraín Unavailable Unavailable Beggs, C Efraín Unavailable Unavailable Roxy, C Efraín Unavailable Unavailable Roxy, C Efraín Unavailable Unavailable Beggs, C Efraín Unavailable Unavailable Roxy, C Efraín Unavailable Unavailable Roxy, C Efraín Unavailable Unavailable Bri Garcia PMH-INSTANT POWDER SUPERVISOR Unavailable Unavailable Bri Garcia PMH-INSTANT POWDER SUPERVISOR Unavailable Unavailable Bri Garcia PMH-INSTANT POWDER SUPERVISOR Unavailable Unavailable Bri Garcia PMH-INSTANT POWDER SUPERVISOR Unavailable Unavailable Bri Garcia PMH-INSTANT POWDER SUPERVISOR Unavailable Unavailable Hachita, K Katie PMH-INSTANT POWDER SUPERVISOR Unavailable Unavailable Tanya Bauman Unavailable Hayden, Charisse Unavailable Unavailable Hayden, Charisse Unavailable Unavailable Hayden, Charisse Unavailable Unavailable CristhianClaire LIVESTOCK RANCH HAND LIVESTOCK RANCH HAND Unavailable Unavailable Lnidsay Rick MD Unavailable Unavailable Lindsay Rick MD Unavailable Unavailable Lena Shine Unavailable BERNARDA RICHEY MD Unavailable Unavailable RAJASEKARAN, PAKKAM MD Unavailable Unavailable RAJASEKARAN, PAKKAM MD Unavailable Unavailable RAJASEKARAN, PAKKAM MD Unavailable Unavailable RAJASEKARAN, PAKKAM MD Unavailable Unavailable RAJASEKARAN, PAKKAM MD Unavailable Unavailable RAJASEKARAN, PAKKAM MD Unavailable Unavailable Re-disclosure Warning The records that you are about to access may contain information from federally-assisted alcohol or drug abuse programs. If such information is present, then the following federally mandated warning applies: This information has been disclosed to you from records protected by federal confidentiality rules (42 CFR part 2). The federal rules prohibit you from making any further disclosure of this information unless further disclosure is expressly permitted by the written consent of the person to whom it pertains or as otherwise permitted by 42 CFR part 2. A general authorization for the release of medical or other information is NOT sufficient for this purpose. The Federal rules restrict any use of the information to criminally investigate or prosecute any alcohol or drug abuse patient.The records that you are about to access may contain highly sensitive health information, the redisclosure of which is protected by Article 27-F of the [facility] Public Health law. If you continue you may have access to information: Regarding HIV / AIDS; Provided by facilities licensed or operated by the [facility] Office of Mental Health; or Provided by the [facility] Office for People With Developmental Disabilities. If such information is present, then the following [facility] mandated warning applies: This information has been disclosed to you from confidential records which are protected by state law. State law prohibits you from making any further disclosure of this information without the specific written consent of the person to whom it pertains, or as otherwise permitted by law. Any unauthorized further disclosure in violation of state law may result in a fine or skilled nursing sentence or both. A general authorization for the release of medical or other information is NOT sufficient authorization for further disc losure. Allergies and Adverse Reactions Type Description Substance Reaction Status Data Source(s ) Drug allergy paliperidone paliperidone [facility] Drug allergy risperidone risperidone [facility] Drug allergy Drug allergy paliperidone (From Invega) [facility] Drug allergy Drug allergy risperidone (From Risperdal) [facility] Drug allergy Drug allergy No Known Allergies [facility] Family History Family Member Name Family Member Gender Family Member Status Date o f Status Description Data Source(s) Unknown Male Problem [facility] ([facility]) Encounters Encounter Providers Location Date Indications Data Source(s ) Extended Individual Psych[facility] - 45 min [facility] 12:[facility]00 PM EST - 08/10/2020 12:00:00 PM EST [facility]) Attender: Lena Shine 08/10/2020 12:00:00 AM EST [facility] ([facility]) Extended Individual Psychotherapy - 45 min [facility] 07[facility]27[facility]2020 02:00:00 AM EST - 07/27/2020 02:00:00 AM EST [facility] ([facility]) Attender: Lena Shine 07/27/2020 12:00:00 AM EST [facility] ([facility]) Outpatient Attender: [facility] 01:30:00 AM EST - 07/19/2020 01:30:00 AM EST [facility] ([facility]) Attender: Katie HARTMANN 07/19/2020 12: 00:00 AM EST [facility] ([facility]) Outpatient Attender: Katie ENRIQUEZBURKE [facility] 2020 11:00:00 AM EST - 2020 11:00:00 AM EST [facility] ([facility]) Attender: Katie ENRIQUEZBURKE 2020 12: 00:00 AM EST [facility] ([facility]) Extended Individual Psychotherapy - 45 min Attender: Arminda Shine [facility] 07/05/2020 02:00:00 AM EST - 07/05/2020 02:00:00 AM EST [facility] ([facility]) Attender: Lena Shine 07/05/2020 12:00:00 AM EST [facility] ([facility]) Injectable Medication Administration w/ Monitoring & E ducation Attender: Tanya Bauman [facility] 06/30/2020 11:30:00 AM EST - 06/30/2020 11:30:00 AM EST [facility] ([facility]) Attender: Tanya Bauman 06/30/2020 12:00:00 AM EST [facility] ([facility]) Injectable Medication Administration w/ Monitoring & E ducation Attender: Tanya Bauman [facility] 06/02/2020 11:30:00 AM EST - 06/02/2020 11:30:00 AM EST [facility] ([facility]) Outpatient Attender: Katie ENRIQUEZBURKE [facility] 06/02/2020 10:00:00 AM EST - 06/02/2020 10:00:00 AM EST [facility] ([facility]) Attender: Tanya Bauman 06/02/2020 12:00:00 AM EST [facility] ([facility]) Attender: Katie HARTMANN 06/02/2020 12: 00:00 AM EST [facility] ([facility]) Extended Individual Psychotherapy - 45 min [facility] 05/31/2020 11:00:00 AM EST - 05/31/2020 11:00:00 AM EST [facility] ([facility]) Attender: Lena Shine 05/31/2020 12:00:00 AM EST [facility] ([facility]) [id number]"Psychotherapy Attender: Lena Shine [facility] 05/12/2020 09:00:00 AM EDT - 05/12/2020 09:00:00 AM EDT [facility] ([facility]) Attender: Lena Shine 05/12/2020 12:00:00 AM EDT [facility] ([facility]) Outpatient Attender: KEVIN BROWN 05/09/2020 08:23:01 A M EDT [facility] Inpatient Attender: Cinthia Gonzales nder: CINTHIA LAMAS MDAdmitter: CINTHIA LAMAS MD [facility] 04/18/2020 04:07:00 PM EDT - 05/09/2020 11:40:00 AM EDT PSYCHOACTIVE SUBSTANCE DEPENDENCE [facility] PSYCHOACTIVE SUBSTANCE DEPENDENCE Patient discharged. Inpatient Attender: MADHU VILLARREAL MDAt tender: BERNARDA RICHEY MDAttender: Charisse BlakeAttender: CHARISSE BLAKE MDAdmitter: BERNARDA RICHEY MD ER-3RD 04/12/2020 11:58:00 AM EDT - 04/15/2020 11:05:00 AM EDT [facility] Patient discharged. Emergency Attender: Asuncion West MDAttender: Warner Rick [facility] 04/11/2020 03:03:00 PM EDT - 04/12/2020 12:35:00 AM EDT HALLUCINATIONS [facility] HALLUCINATIONS Patient discharged. Inpatient Attender: Cinthia Gonzales nder: CINTHIA LAMAS MDAdmitter: CINTHIA LAMAS MD [facility] 04/06/2020 10:10:00 AM EDT - 04/11/2020 11:30:00 PM EDT PSYCHOACTIVE SUBSTANCE DEPENDENCE [facility] PSYCHOACTIVE SUBSTANCE DEPENDENCE Patient discharged. Outpatient Attender: [facility] 04/01/2020 11:5 0:03 AM EDT [facility] Outpatient Attender: KEVIN BROWN FP 04/01/2020 11:50:01 A M EDT [facility] Outpatient Attender: KEVIN KONG 02/29/2020 02:53:01 P M EDT [facility] Outpatient Attender: KEVIN KONG 02/19/2020 08:44:01 A M EDT [facility] Outpatient Attender: KEVIN NICOLASP FP 02/17/2020 02:19:01 P M EDT [facility] Outpatient Attender: KEVIN Cristhian [facility] 02/16/2020 11:50:01 A M EDT [facility] Outpatient Attender: LIVESTOCK RANCH HAND Cristhian [facility] 02/10/2020 01:23:00 P M EDT [facility] Injectable Psychotropic Medication Administration (Inj ection Only) Attender: Alecia Varshalee [facility] 01/21/2020 02:30:00 AM EDT - 01/21/2020 02:30:00 AM EDT [facility]) Outpatient Attender: Katie [facility] 01/21/2020 02:00:00 AM EDT - 01/21/2020 02:00:00 AM EDT [facility] ([facility]) Attender: Katie HARTMANN 01/21/2020 12: 00:00 AM EDT [facility] ([facility]) Attender: Alecia Martin 01/21/2020 12:00:00 AM EDT [facility] ([facility]) Outpatient Attender: KEVIN Cristhian [facility] 01/20/2020 12:32:00 P M EDT [facility] Injectable Psychotropic Medication Administration (Inj ection Only) Attender: Tanya Bauman [facility] 12/24/2019 11:30:00 AM EDT - 12/24/2019 11:30:00 AM EDT [facility] ([facility]) Outpatient Attender: KEVIN Cristhian [facility] 12/24/2019 10:44:00 A M EDT [facility] Attender: Tanya Mitul 12/24/2019 12:00:00 AM EDT [facility] ([facility]) Outpatient Attender: Katie HARTMANN [facility] 12/11/2019 11:30:00 AM EDT - 12/11/2019 11:30:00 AM EDT [facility] ([facility]) Attender: Katie HARTMANN 12/11/2019 12: 00:00 AM EDT [facility] ([facility]) Outpatient Attender: Claire KONG 12/09/2019 03:3 0:02 PM EDT [facility] Outpatient Attender: KEVIN KONG 12/08/2019 08:43:00 A M EDT [facility] Outpatient Attender: KEVIN KONG 11/26/2019 07:34:02 P M EDT [facility] Outpatient Attender: Claire KONG 11/26/2019 07:3 4:00 PM EDT [facility] Injectable Psychotropic Medication Administration (Inj ection Only) Attender: Tanya Bauman [facility] 11/26/2019 11:30:00 AM EDT - 11/26/2019 11:30:00 AM EDT [facility] ([facility]) Attender: Tanya Mitul 11/26/2019 12:00:00 AM EDT [facility] ([facility]) Injectable Medication Administration w/ Monitoring & E ducation Attender: Tanya Bauman [facility] 11/25/2019 09:00:00 AM EDT - 11/25/2019 09:00:00 AM EDT [facility] ([facility] Attender: Tanya Bauman 11/25/2019 12:00:00 AM EDT [facility] ([facility]) Outpatient Attender: Claire KONG 11/19/2019 12:5 3:02 PM EDT [facility] Outpatient Attender: KEVIN KONG 11/19/2019 12:53:00 P M EDT [facility] Outpatient Attender: KEVIN KONG 11/19/2019 12:22:02 P M EDT [facility] Outpatient Attender: Claire KONG 11/16/2019 02:0 9:01 AM EDT [facility] Outpatient Attender: KEVIN KONG 11/16/2019 02:09:00 A M EDT [facility] Outpatient Attender: Claire KONG 11/16/2019 02:0 8:02 AM EDT [facility] Outpatient Attender: KEVIN KONG 11/16/2019 02:08:01 A M EDT [facility] Outpatient Attender: KEVIN BROWN 11/06/2019 03:59:01 P M EDT [facility] Outpatient Attender: KEVIN BROWN 11/06/2019 03:57:00 P M EDT [facility] Outpatient Attender: Claire BROWN 11/05/2019 10:2 4:32 AM EDT [facility] Outpatient Attender: KEVIN BROWN 10/28/2019 01:06:02 P M EDT [facility] Outpatient Attender: Claire BROWN 10/28/2019 01:0 5:00 PM EDT [facility] Injectable Psychotropic Medication Administration (Inj ection Only) Attender: Tanya Bauman [facility] 10/28/2019 09:00:00 AM EDT - 10/28/2019 09:00:00 AM EDT [facility] ([facility] Attender: Tanya Bauman 10/28/2019 12:00:00 AM EDT [facility] ([facility]) Outpatient Att[facility]: [facility] 10/26/2019 05:50:00 P M EDT [facility] Outpatient Att[facility]: [facility]IN [facility] 10/26/2019 10:10:00 A M EDT [facility] Outpatient Attender: Katie Garcia [facility]-INSTANT POWDER SUPERVISOR [facility] 10/26/2019 09:00:00 AM EDT - 10/26/2019 09:00:00 AM EDT [facility] ([facility]) Outpatient Attender: [facility] 10/26/2019 08:48:00 A M EDT [facility] Outpatient Attender: Claire [facility] 10/26/2019 08:4 6:00 AM EDT [facility] Attender: Katie ENRIQUEZ-INSTANT POWDER SUPERVISOR 10/26/2019 12: 00:00 AM EDT [facility] ([facility]) Outpatient Attender: KEVIN BROWN 10/23/2019 08:01:45 P M EDT [facility] Outpatient Attender: [facility] 10/20/2019 01:44:00 P M EDT [facility] Injectable Psychotropic Medication Administration (Inj ection Only) Attender: Tanya Bauman [facility] 10/08/2019 02:30:00 AM EDT - 10/08/2019 02:30:00 AM EDT [facility] ([facility]) Attender: Tanya Bauman 10/08/2019 12:00:00 AM EDT [facility] ([facility]) Outpatient Attender: KEVIN KONG 09/24/2019 09:38:16 A M [facility] Outpatient Attender: Claire KONG 09/16/2019 09:1 5:03 AM [facility] Injectable Psychotropic Medication Administration (Inj ection Only) Attender: Tanya Bauman [facility] 09/09/2019 08:30:00 AM EST - 09/09/2019 08:30:00 AM EST [facility] ([facility] Attender: Tanya Bauman 09/09/2019 12:00:00 AM EST [facility] ([facility]) Outpatient Attender: KEVIN KONG 09/08/2019 12:08:02 P M [facility] Outpatient Attender: Claire KONG 09/08/2019 12:0 8:01 PM [facility] Outpatient Attender: KEVIN BROWN FP 09/08/2019 11:03:00 A M [facility] Outpatient Attender: Claire KONG 09/08/2019 10:1 6:01 AM [facility] Outpatient Attender: KEVIN KONG 08/28/2019 03:35:01 P M [facility] Outpatient Attender: Claire KONG 08/27/2019 01:5 1:01 PM [facility] Outpatient Attender: KEVIN KONG 08/27/2019 01:18:00 P M [facility] Outpatient Attender: KEVIN KONG 08/26/2019 01:01:01 P M [facility] Outpatient Attender: KEVIN KONG 08/12/2019 12:47:01 P M [facility] Outpatient Attender: KEVIN KONG 08/12/2019 12:45:01 P M [facility] Outpatient Attender: [facility] 08/12/2019 12:36:02 P M [facility] Outpatient Attender: Efraín Ramsey [facility] 08/06/2019 02:30:00 AM EST - 08/06/2019 02:30:00 AM EST [facility] Attender: Efraín Ramsey 08/06/2019 12:00:00 AM EST [facility] ([facility]) Outpatient Attender: KEVIN [facility] 08/04/2019 11:56:00 A M [facility] Injectable Psychotropic Medication Administration (Inj ection Only) Attender: Tanya Bauman [facility] 07/24/2019 02:30:00 AM EST - 07/24/2019 02:30:00 AM EST [facility] ([facility]) Attender: Tanya Bauman 07/24/2019 12:00:00 AM EST [facility] ([facility]) Outpatient 07/23/2019 08:35:00 PM [facility] Outpatient 07/23/2019 01:06:00 PM [facility] Outpatient 07/23/2019 01:05:00 PM [facility] Outpatient Attender: Claire [facility] 07/13/2019 09:5 3:02 PM [facility] Outpatient Attender: Efraín Ramsey [facility] 1 09/09/2018 09:30:00 AM EST - 07/09/2019 09:30:00 AM EST [facility] Attender: Efraín Ramsey 07/09/2019 12:00:00 AM EST [facility] ([facility]) Injectable Psychotropic Medication Administration (Inj ection Only) Attender: Tanya Bauman [facility] 07/03/2019 02:00:00 AM EST - 07/03/2019 02:00:00 AM EST [facility] ([facility]) Attender: Tanya Bauman 07/03/2019 12:00:00 AM EST [facility] ([facility]) Outpatient Attender: Efraín Ramsey [facility] 1 08/30/2018 01:30:00 AM EST - 06/29/2019 01:30:00 AM EST [facility] ([facility]) Attender: Efraín Ramsey 06/29/2019 12:00:00 AM EST [facility] ([facility]) Functional Status Medications Medication Brand Name Start Date Product Form Dose Route Admi nistrative Instructions Pharmacy Instructions Status Indications Reaction Description Data Source(s) benztropine mesylate 0.5 MG Oral Tablet benztropine 08/04/19 12:00:00 AM EST 0.5 mg by mouth completed [id number] benztropine by mo [facility] [id number] 08/04/2020 twice a day 0.5 mg tablet 75311 [id number] Ashish Garcia [id number] Psychiatric/Mental Health [facility] ([facility]) Maloy Carbonate 450 MG Extended Release Oral Tablet lithiu m carbonate 08/04/2020 12:00:00 AM EST 450 mg by mouth completed [id number] lithium carbonate by mouth [id number] 08/04/2020 at bedtime 450 mg tablet extended release [id number] Katie Garcia [id number] Psychiatric/Mental Health [facility] ([facility]) Prazosin 2 MG Oral Capsule prazosin 07/19/2020 12:00:00 AM EST 2 mg by mouth completed [id number] prazosin by mouth [id number] 07/19/2020 on ce a day 2 mg capsule 04656 [id number] [id number] Katie Garcia [id number] Psychiatric[facility]Mental Health [facility] ([facility]) Naltrexone hydrochloride 50 MG Oral Tablet naltrexone 07/12/2020 12:00:00 AM EST 50 mg completed [id number] naltrexone 0 50 mg tablet 11204 [id number] Katie Garcia [id number] P sychiatric/Mental Health [facility] ([facility]) Naltrexone hydrochloride 50 MG Oral Tablet naltrexone 07/12/2020 12:00:00 AM EST 50 mg completed [id number] naltrexone 0 50 mg tablet 16892 [id number] Katie Garcia [id number] P sychiatric/Mental Health [facility] ([facility]) Prazosin 1 MG Oral Capsule prazosin 06/15/2020 12:00:00 AM EST 1 mg by mouth completed [id number] prazosin by mouth [id number] 06/15/2020 on ce a day 1 mg capsule 81725 [id number] Katiemehul Garcai [id number] Psychiatric/Mental Health [facility] ([facility]) benztropine mesylate 1 MG Oral Tablet benztropine 06/02/2020 12:00 :00 AM EST 1 mg by mouth completed [id number] benztropine by mouth [id number] 1 08/02/2019 twice a day 1 mg tablet 97882 [id number] Katie minor [id number] Psychiatric/Mental Health [facility] ([facility]) quetiapine 200 MG Oral Tablet [Seroquel] Seroquel 06/02/2020 12 :00:00 AM EST 200 mg by mouth completed [id number] Seroquel by mouth [id number] every night 200 mg tablet 93150 702460 [id number] Chery Lee [id number] Nurse Practitioner [facility] ([facility]) quetiapine 200 MG Oral Tablet [Seroquel] Seroquel 06/02/2020 12 :00:00 AM EST 200 mg by mouth completed [id number] Seroquel by mouth [id number] every night 200 mg tablet 60355 [id number] Katie lei [id number] Psychiatric/Mental Health [facility] ([facility]) benztropine mesylate 1 MG Oral Tablet benztropine 06/02/2020 12:00 :00 AM EST 1 mg by mouth completed [id number] benztropine by mouth [id number] 1 08/02/2019 twice a day 1 mg tablet 01896 349494 [id number] Chery Lee [id number] Nurse Practitioner [facility] ([facility]) quetiapine 200 MG Oral Tablet [Seroquel] Seroquel 06/02/2020 12 :00:00 AM EST 200 mg by mouth completed [id number] Seroquel by mouth [id number] every night 200 mg tablet 50172 169147 [id number] Katie lei [id number] Psychiatric/Mental Health [facility] ([facility]) aripiprazole 10 MG Oral Tablet aripiprazole 06/02/2020 12:00:00 AM ES T 10 mg by mouth completed [id number] aripiprazole by mouth [id number] 1 08/02/2019 once a day 10 mg tablet 16419 [id number] Chery Dentono 3 [id number] Nurse Practitioner [facility] ([facility]) aripiprazole 10 MG Oral Tablet aripiprazole 06/02/2020 12:00:00 AM ES T 10 mg by mouth completed [id number] aripiprazole by mouth [id number] 1 08/02/2019 once a day 10 mg tablet 55371 [id number] Chery Lee [id number] Nurse Practitioner [facility] ([facility]) quetiapine 100 MG Oral Tablet [Seroquel] Seroquel 03/11/2020 12 :00:00 AM EDT 100 mg by mouth completed [id number] Seroquel by mouth [id number] 8 03/11/2020 06/02/2020 twice a day 100 mg tablet 58651 [id number] [id number] Doe francisco Yarbrough [id number] Psychiatry [facility] ([facility]) quetiapine 300 MG Oral Tablet quetiapine 12/24/2019 12:00:00 AM EDT 300 mg by mouth completed [id number] quetiapine by mouth [id number] 201902/17/2020 twice a day 30 300 mg tablet 75788 459202 [id number] Rolf Garcia [id number] Psychiatric/Mental Health [facility] ([facility]) quetiapine 300 MG Oral Tablet quetiapine 12/24/2019 12:00:00 AM EDT 300 mg by mouth completed [id number] quetiapine by mouth [id number] 201901/23/2020 twice a day 30 300 mg tablet 24316 235757 [id number] Rolf Garcia [id number] Psychiatric/Mental Health [facility] ([facility]) Amantadine Hydrochloride 100 MG Oral Tablet amantadine HCl 12/11/2019 12:00:00 AM EDT 100 mg by mouth completed [id number] amantadine HCl by mouth [id number] 12/11/2019 as directed 100 mg tablet 63218 [id number] Katie Garcia [id number] Psychiatric/Mental Health [facility] ([facility]) 2 ML aripiprazole 200 MG/ML Prefilled Syringe [Abilify] Abil sharif Maintena 11/25/2019 12:00:00 AM EDT 400 mg completed [id number] Abilify Maintena intramuscularly 11/25/2019 once a month 400 mg suspension,extended rel syring 99922 405133 [id number] Rolf Garcia [id number] Psychiatric/Mental Health [facility] ([facility]) 2 ML aripiprazole 200 MG/ML Prefilled Syringe [Abilify] Abil sharif Maintena 11/25/2019 12:00:00 AM EDT 400 mg completed [id number] Abilify Maintena intramuscularly 11/25/2019 once a month 400 mg suspension,extended rel syring 81968 839238 [id number] Rolf Garcia [id number] Psychiatric/Mental Health [facility] ([facility]) 2 ML aripiprazole 200 MG/ML Prefilled Syringe [Abilify] Abil sharif Maintena 11/25/2019 12:00:00 AM EDT 400 mg completed [id number] Abilify Maintena intramuscularly 11/25/2019 once a month 400 mg suspension,extended rel syring 33745 [id number] Rolf Garcia [id number] Psychiatric/Mental Health [facility] ([facility]) 2 ML aripiprazole 200 MG/ML Prefilled Syringe [Abilify] Abil sharif Maintena 11/25/2019 12:00:00 AM EDT 400 mg completed [id number] Abilify Maintena intramuscularly 11/25/2019 once a month 400 mg suspension,extended rel syring 66205 [id number] Rolf Garcia [id number] Psychiatric/Mental Health [facility] ([facility]) 2 ML aripiprazole 200 MG/ML Prefilled Syringe [Abilify] Abil sharif Maintena 11/25/2019 12:00:00 AM EDT 400 mg completed [id number] Abilify Maintena intramuscularly 11/25/2019 once a month 400 mg suspension,extended rel syring 30564 181150 [id number] Rolf Garcia [id number] Psychiatric/Mental Health [facility] ([facility]) quetiapine 300 MG Oral Tablet quetiapine 11/20/2019 12:00:00 AM EDT 300 mg completed [id number] quetiapine 11/20/2019 12/20/2019 30 300 mg tablet 00651 111459 [id number] Katie Garcia [id number] P sychiatric/Mental Health [facility] ([facility]) quetiapine 300 MG Oral Tablet quetiapine 11/20/2019 12:00:00 AM EDT 300 mg completed [id number] quetiapine 11/20/2019 12/20/2019 30 300 mg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 MINUTES 08/06 12:00:00 AM EST - 08/06/2019 12:00:00 AM EST [facility] ([facility]) OFFICE OUTPATIENT VISIT 10 MINUTES 08/06/2019 12:00:00 AM EST [facility] ([facility]) THERAPEUTIC PROPHYLACTIC/DX INJECTION SUBQ/IM 07/24/2019 12:00:00 AM EST - 07/24/2019 12:00:00 AM EST [facility] ([facility]) THERAPEUTIC PROPHYLACTIC/DX INJECTION SUBQ/IM 07/24/20 19 12:00:00 AM EST [facility] ([facility]) OFFICE OUTPATIENT VISIT 10 MINUTES 07/09 12:00:00 AM EST - 07/09/2019 12:00:00 AM EST [facility] ([facility]) OFFICE OUTPATIENT VISIT 10 MINUTES 07/09/2019 12:00:00 AM EST [facility] ([facility]) THERAPEUTIC PROPHYLACTIC/DX INJECTION SUBQ/IM 07/03/2019 12:00:00 AM EST - 07/03/2019 12:00:00 AM EST [facility] ([facility]) THERAPEUTIC PROPHYLACTIC/DX INJECTION SUBQ/IM 07/03/20 19 12:00:00 AM EST [facility] ([facility]) OFFICE OUTPATIENT VISIT 15 MINUTES 06/29 12:00:00 AM EST - 06/29/2019 12:00:00 AM EST [facility] ([facility]) OFFICE OUTPATIENT VISIT 15 MINUTES 06/29/2019 12:00:00 AM EST [facility] ([facility]) Results ID Date Data Source [id number] 06/28/2020 01:57:00 PM EST [facility] Name Value Range Interpretation Code Description Data Jennifer rce(s) Supporting Document(s) SARS coronavirus 2 RNA [Presence] in Res piratory specimen by ANJALI with probe detection [facility] This lab was ordered by [facility] a nd reported by [facility]. ID Date Data Source [id number] 05/09/2020 09:10:00 AM EDT [facility] Name Value Range Interpretation Code Description Data Jennifer rce(s) Supporting Document(s) Maloy 0.60-1.20 Normal (applies to non-numeric resul ts) [facility] ID Date Data Source [id number] 05/07/2020 07:06:00 AM EDT [facility] Value Range Interpretation Code Description Data Jennifer rce(s) Supporting Document(s) LAB Glucose,Fingerstick 83 mg/dL 70-110 Normal (applies t o non-numeric results) [facility] ID Date Data Source [id number] 05/06/2020 06:40:00 AM EDT [facility] Value Range Interpretation Code Description Data Jennifer rce(s) Supporting Document(s) LAB Glucose,Fingerstick 91 mg/dL 70-110 Normal (applies t o non-numeric results) [facility] ID Date Data Source [id number] 05/05/2020 09:58:00 AM EDT [facility] Value Range Interpretation Code Description Data Jennifer rce(s) Supporting Document(s) Maloy 0.60-1.20 Below low normal [facility] ID Date Data Source [id number] 05/05/2020 06:47:00 AM EDT [facility] Value Range Interpretation Code Description Data Jennifer rce(s) Supporting Document(s) LAB Glucose,Fingerstick 109 mg/dL 70-110 Normal ( applies to non-numeric results) [facility] ID Date Data Source [id number] 05/04/2020 07:05:00 AM EDT [facility] Value Range Interpretation Code Description Data Jennifer rce(s) Supporting Document(s) LAB Glucose,Fingerstick 98 mg/dL 70-110 Normal (applies t o non-numeric results) [facility] ID Date Data Source [id number] 05/03/2020 06:52:00 AM EDT [facility] Value Range Interpretation Code Description Data Jennifer rce(s) Supporting Document(s) LAB Glucose,Fingerstick 123 mg/dL 70-110 Above high normal [facility] ID Date Data Source [id number] 05/02/2020 06:39:00 AM EDT [facility] Name Value Range Interpretation Code Description Data Jennifer rce(s) Supporting Document(s) LAB Glucose,Fingerstick 92 mg/dL 70-110 Normal (applies t o non-numeric results) [facility] ID Date Data Source [id number] 05/02/2020 02:37:00 AM EDT [facility] Name Value Range Interpretation Code Description Data Jennifer rce(s) Supporting Document(s) LAB Glucose,Fingerstick 102 mg/dL 70-110 Normal ( applies to non-numeric results) [facility] ID Date Data Source [id number] 05/02/2020 02:18:00 AM EDT [facility] Value Range Interpretation Code Description Data Jennifer rce(s) Supporting Document(s) LAB Glucose,Fingerstick 93 mg/dL 70-110 Normal (applies t o non-numeric results) [facility] ID Date Data Source [id number] 05/02/2020 02:18:00 AM EDT [facility] Value Range Interpretation Code Description Data Jennifer rce(s) Supporting Document(s) LAB Glucose,Fingerstick 93 mg/dL 70-110 Normal (applies t o non-numeric results) [facility] ID Date Data Source [id number] 05/02/2020 02:18:00 AM EDT [facility] Value Range Interpretation Code Description Data Jennifer rce(s) Supporting Document(s) LAB Glucose,Fingerstick 110 mg/dL 70-110 Normal ( applies to non-numeric results) [facility] ID Date Data Source [id number] 04/29/2020 06:38:00 AM EDT [facility] Value Range Interpretation Code Description Data Jennifer rce(s) Supporting Document(s) LAB Glucose,Fingerstick 91 mg/dL 70-110 Normal (applies t o non-numeric results) [facility] ID Date Data Source [id number] 04/28/2020 07:24:00 AM EDT [facility] Name Value Range Interpretation Code Description Data Jennifer rce(s) Supporting Document(s) LAB Glucose,Fingerstick 105 mg/dL 70-110 Normal ( applies to non-numeric results) [facility] ID Date Data Source [id number] 04/27/2020 05:09:00 PM EDT [facility] Value Range Interpretation Code Description Data Jennifer rce(s) Supporting Document(s) LAB Glucose,Fingerstick 160 mg/dL 70-110 Above high normal [facility] ID Date Data Source [id number] 04/27/2020 09:08:00 AM T [facility] Value Range Interpretation Code Description Data Jennifer rce(s) Supporting Document(s) LAB Glucose,Fingerstick 105 mg/dL 70-110 Normal ( applies to non-numeric results) [facility] ID Date Data Source [id number] 04/26/2020 08:57:00 PM EDT [facility] Value Range Interpretation Code Description Data Jennifer rce(s) Supporting Document(s) LAB Glucose,Fingerstick 88 mg/dL 70-110 Normal (applies t o non-numeric results) [facility] ID Date Data Source [id number] 04/26/2020 06:33:00 AM EDT [facility] Value Range Interpretation Code Description Data Jennifer rce(s) Supporting Document(s) LAB Glucose,Fingerstick 94 mg/dL 70-110 Normal (applies t o non-numeric results) [facility] ID Date Data Source [id number] 04/25/2020 05:27:00 PM EDT [facility] Name Value Range Interpretation Code Description Data Jennifer rce(s) Supporting Document(s) LAB Glucose,Fingerstick 108 mg/dL 70-110 Normal ( applies to non-numeric results) [facility] ID Date Data Source [id number] 04/25/2020 06:57:00 AM EDT [facility] Value Range Interpretation Code Description Data Jennifer rce(s) Supporting Document(s) LAB Glucose,Fingerstick 95 mg/dL 70-110 Normal (applies t o non-numeric results) [facility] ID Date Data Source [id number] 04/24/2020 04:47:00 PM EDT [facility] Value Range Interpretation Code Description Data Jennifer rce(s) Supporting Document(s) LAB Glucose,Fingerstick 103 mg/dL 70-110 Normal ( applies to non-numeric results) [facility] ID Date Data Source [id number] 04/24/2020 07:35:00 AM EDT [facility] Value Range Interpretation Code Description Data Jennifer rce(s) Supporting Document(s) LAB Glucose,Fingerstick 99 mg/dL 70-110 Normal (applies t o non-numeric results) [facility] ID Date Data Source [id number] 04/23/2020 08:47:00 PM EDT [facility] Value Range Interpretation Code Description Data Jennifer rce(s) Supporting Document(s) LAB Glucose,Fingerstick 90 mg/dL 70-110 Normal (applies t o non-numeric results) [facility] ID Date Data Source [id number] 04/23/2020 04:34:00 PM EDT [facility] Value Range Interpretation Code Description Data Jennifer rce(s) Supporting Document(s) LAB Glucose,Fingerstick 101 mg/dL 70-110 Normal ( applies to non-numeric results) [facility] ID Date Data Source [id number] 04/23/2020 06:24:00 AM EDT [facility] Value Range Interpretation Code Description Data Jennifer rce(s) Supporting Document(s) LAB Glucose,Fingerstick 86 mg/dL 70-110 Normal (applies t o non-numeric results) [facility] ID Date Data Source [id number] 04/22/2020 04:42:00 PM EDT [facility] Value Range Interpretation Code Description Data Jennifer rce(s) Supporting Document(s) LAB Glucose,Fingerstick 91 mg/dL 70-110 Normal (applies t o non-numeric results) [facility] ID Date Data Source [id number] 04/22/2020 06:40:00 AM EDT [facility] Name Value Range Interpretation Code Description Data Jennifer rce(s) Supporting Document(s) LAB Glucose,Fingerstick 103 mg/dL 70-110 Normal ( applies to non-numeric results) [facility] ID Date Data Source [id number] 04/21/2020 04:45:00 PM EDT [facility] Value Range Interpretation Code Description Data Jennifer rce(s) Supporting Document(s) LAB Glucose,Fingerstick 95 mg/dL 70-110 Normal (applies t o non-numeric results) [facility] ID Date Data Source [id number] 04/21/2020 06:31:00 AM T [facility] Value Range Interpretation Code Description Data Jennifer rce(s) Supporting Document(s) LAB Glucose,Fingerstick 95 mg/dL 70-110 Normal (applies t o non-numeric results) [facility] ID Date Data Source [id number] 04/20/2020 04:47:00 PM EDT [facility] Value Range Interpretation Code Description Data Jennifer rce(s) Supporting Document(s) LAB Glucose,Fingerstick 112 mg/dL 70-110 Above high normal [facility] ID Date Data Source [id number] 04/20/2020 07:20:00 AM EDT [facility] Value Range Interpretation Code Description Data Jennifer rce(s) Supporting Document(s) LAB Glucose,Fingerstick 101 mg/dL 70-110 Normal ( applies to non-numeric results) [facility] ID Date Data Source [id number] 04/19/2020 05:05:00 PM EDT [facility] Value Range Interpretation Code Description Data Jennifer rce(s) Supporting Document(s) LAB Glucose,Fingerstick 119 mg/dL 70-110 Above high normal [facility] ID Date Data Source [id number] 04/19/2020 11:03:00 AM EDT [facility] Name Value Range Interpretation Code Description Data Jennifer rce(s) Supporting Document(s) Vitamin D,Total (25OH) 30.0-100.0 Normal (applies to non-n umeric results) [facility] Reference Range: <10 ng/mL: Deficien t 10-30 ng/mL: Insufficient 30-100 ng/mL: Sufficient >100 ng/mL: Toxicity possible ID Date Data Source [id number] 04/19/2020 11:03:00 AM EDT [facility] Name Value Range Interpretation Code Description Data Jennifer rce(s) Supporting Document(s) Hep Bs Ag Result T-Test Nonreactive Normal (applies to non -numeric results) [facility] ID Date Data Source [id number] 04/19/2020 11:03:00 AM EDT [facility] Name Value Range Interpretation Code Description Data Jennifer rce(s) Supporting Document(s) Hep C Ab-T Test Nonreactive Normal (applies to non-numeric results) [facility] ID Date Data Source [id number] 04/19/2020 11:03:00 AM EDT [facility] Name Value Range Interpretation Code Description Data Jennifer rce(s) Supporting Document(s) Syphilis Serology Nonreactive Normal (applies to non-numer ic results) [facility] ID Date Data Source [id number] 04/19/2020 11:03:00 AM EDT [facility] Name Value Range Interpretation Code Description Data Jennifer rce(s) Supporting Document(s) HAVM Nonreactive Normal (applies to non-numeric resu lts) [facility] ID Date Data Source [id number] 04/19/2020 09:34:00 AM EDT [facility] Name Value Range Interpretation Code Description Data Jennifer rce(s) Supporting Document(s) Sodium 138 mmol/L 137-145 Normal (applies to non-numeric resul ts) [facility] Potassium 3.5-5.1 Normal (applies to non-numeric resul ts) [facility] Chloride 109 mmol/L 98-112 Normal (applies to non-numeric resul ts) [facility] Carbon Dioxide CO2 22.0-33.0 Normal (applies to non-numer ic results) [facility] Anion Gap 4.0-11.0 Below low normal [facility] BUN 10 mg/dL 7-17 Normal (applies to non-numeric resul ts) [facility] Creatinine 0.70-1.20 Normal (applies to non-numeric resul ts) [facility] GFR 84 mL/min >60 Normal (applies to non-numeric resul ts) [facility] Result based on MDRD formula. Glucose Level 95 mg/dL 74-99 Normal (applies to non-numeric re sults) [facility] The reference range is only applicable w hen fasting. Calcium-Uncorrected 8.4-10.2 Normal (applies to non-nume elenita results) [facility] Corrected Calcium 8.4-10.2 Normal (applies to non-numeri c results) [facility] Bilirubin,Total 0.2-1.3 Normal (applies to non-numeric results) [facility] Bilirubin,Direct 0.0-0.3 Normal (applies to non-numeric results) [facility] SGOT(AST) 18 U/L 14-36 Normal (applies to non-numeric resul ts) [facility] SGPT(ALT) 49 U/L 9-52 Normal (applies to non-numeric resul ts) [facility] Alkaline Phosphatase 93 U/L 38-126 Normal (applies to non-num genaro results) [facility] can increase Alkaline Phosp le vels up to 2 times the normal adult value. Normal values for children and adolescents are 2 to 3 times the normal adult value. CPK 115 U/L 26-192 Normal (applies to non-numeric resul ts) [facility] Total Protein 6.3-8.2 Normal (applies to non-numeric re sults) [facility] Albumin 3.5-5.0 Normal (applies to non-numeric resul ts) [facility] Thyroid Stimulate Hormone TSH 0.358-3.740 No rmal (applies to non-numeric results) [facility] ID Date Data Source [id number] 04/19/2020 09:34:00 AM EDT [facility] Name Value Range Interpretation Code Description Data Jennifer rce(s) Supporting Document(s) Magnesium 1.80-2.40 Normal (applies to non-numeric resul ts) [facility] ID Date Data Source [id number] 04/19/2020 09:34:00 AM EDT [facility] Name Value Range Interpretation Code Description Data Jennifer rce(s) Supporting Document(s) C-Reactive Protein,Wide Range <3.00 Normal (applies t o non-numeric results) [facility] ID Date Data Source [id number] 04/19/2020 08:57:00 AM EDT [facility] Name Value Range Interpretation Code Description Data Jennifer rce(s) Supporting Document(s) White Blood Count 4.8-10.8 Normal (applies to non-numeri c results) [facility] Red Blood Count 3.68-5.22 Normal (applies to non-numeric results) [facility] Hemoglobin 11.2-15.7 Below low normal [facility] Hematocrit 34.1-44.9 Below low normal [facility] Mean Corpuscular Volume 81-99 Normal (applies to non- numeric results) [facility] Mean Corpuscular Hemoglobin 27.0-33.0 Normal (appli es to non-numeric results) [facility] Mean Corpuscular HGB Conc 32.0-36.0 Normal (applies to no n-numeric results) [facility] Red Cell Distribution Width 11.5-14.5 Normal (appli es to non-numeric results) [facility] Platelet Count 348 X10 3/uL 130-450 Normal (applies to non-numeric results) [facility] Mean Platelet Volume 9.5-12.7 Below low normal [facility] Imm Grans% (AUTO) 0 % 0-2 Normal (applies to non-numeri c results) [facility] Neutrophils % (AUTO) 46 % 40-75 Normal (applies to non-num genaro results) [facility] Lymphocytes % (AUTO) 44 % 21-46 Normal (applies to non-num genaro results) [facility] Monocytes % (AUTO) 6 % 5-12 Normal (applies to non-numer ic results) [facility] Eosinophils % (AUTO) 3 % 1-5 Normal (applies to non-num genaro results) [facility] Basophils % (AUTO) 1 % 0-1 Normal (applies to non-numer ic results) [facility] Imm Grans# (AUTO) 0.0-0.5 Normal (applies to non-numeri c results) [facility] Neutrophils # (AUTO) 1.5-8.1 Normal (applies to non-num genaro results) [facility] Lymphocytes # (AUTO) 1.0-3.1 Normal (applies to non-num genaro results) [facility] Monocytes # (AUTO) 0.2-1.3 Normal (applies to non-numer ic results) [facility] Eosinophils# (AUTO) 0.0-0.5 Normal (applies to non-nume elenita results) [facility] Basophils # (AUTO) 0.0-0.1 Normal (applies to non-numer ic results) [facility] ID Date Data Source [id number] 04/19/2020 08:28:00 AM EDT [facility] Name Value Range Interpretation Code Description Data Jennifer rce(s) Supporting Document(s) Opiate Screen,Urine Negative Normal (applies to non-nume elenita results) [facility] Amphetamine Screen,Urine Negative Normal (applies to non -numeric results) [facility] Benzodiazepines Scrn,Ur result Negative N ormal (applies to non-numeric results) [facility] Cocaine Screen,Urine Negative Normal (applies to non-num genaro results) [facility] Methadone Screen,Urine Negative Normal (applies to non-n umeric results) [facility] Cannabinoid Screen, Ur Negative Normal (applies to non-n umeric results) [facility] Therapeutic Drug Ranges for Emergency an d Rehabilitation Threshold Levels (ng/mL) Cocaine 300 Opiates 300 Cannabinoids 50 Barbiturates 200 Benzodiazepine 200 Methadone 300 Amphetamines 1000 All positive findings are presumptive and unconfirmed. Confirmation of positive results are performed only at request of provider. Unconfirmed results must not be used for non-medical purposes (i.e. pre-employment and legal purposes) ID Date Data Source [id number] 04/19/2020 08:13:00 AM EDT [facility] Name Value Range Interpretation Code Description Data Jennifer rce(s) Supporting Document(s) Color,Urine Yellow Normal (applies to non-numeric resu lts) [facility] Clarity,Urine Clear Normal (applies to non-numeric re sults) [facility] Specific [place],Urine 1.001-1.030 Normal (applies to non- numeric results) [facility] PH,Urine 4.6-8.0 Normal (applies to non-numeric resul ts) [facility] Protein,Urine Negative Normal (applies to non-numeric re sults) [facility] Glucose,Urine (UA) Negative Normal (applies to non-numer ic results) [facility] Ketones,Urine Negative Normal (applies to non-numeric re sults) [facility] Blood,Urine Negative Normal (applies to non-numeric resu lts) [facility] Bilirubin,Urine Negative Normal (applies to non-numeric results) [facility] Urobilinogen,Urine Norm 0.2-1 Normal (applies to non-numer ic results) [facility] Leukocyte Esterase,Urine Negative Normal (applies to non -numeric results) [facility] Nitrite,Urine Negative Normal (applies to non-numeric re sults) [facility] ID Date Data Source [id number] 04/19/2020 08:13:00 AM EDT [facility] Name Value Range Interpretation Code Description Data Jennifer rce(s) Supporting Document(s) Urine HCG Negative Normal (applies to non-numeric resul ts) [facility] ID Date Data Source [id number] 04/19/2020 06:36:00 AM EDT [facility] Name Value Range Interpretation Code Description Data Jennifer rce(s) Supporting Document(s) LAB Glucose,Fingerstick 100 mg/dL 70-110 Normal ( applies to non-numeric results) [facility] ID Date Data Source [id number] 04/18/2020 04:52:00 PM EDT [facility] Name Value Range Interpretation Code Description Data Jennifer rce(s) Supporting Document(s) Respiratory specimen severe acute respir atory syndrome coronavirus 2 (SARS-CoV-2) RNA [facility] ital This lab was ordered by [facility] ospital and reported by [facility]. ID Date Data Source [id number] 04/18/2020 04:51:00 PM EDT [facility] PLEASE CALL REHAB WITH RESULTS [facility]? YESEmployed in healthcare? NOSymptomatic per CDC? NOHospitalized? YESICU? NOResident in congregated care? ex [facility], [facility] NO? UNKNOWN Name Value Range Interpretation Code Description Data Jennifer rce(s) Supporting Document(s) SARS-CoV-2 RNA Negative Normal (applies to non-numeric r esults) [facility] Negative results should be treated as pr esumptive and, if inconsistent with clinical signs and symptoms or necessary for patient management, should be tested with different authorized or cleared molecular tests. Negative results do not preclude SARS-CoV-2 infection and should not be used as the sole basis for patient management decisions. Negative results should be considered in the context of a patients recent exposures, history and the presence of clinical signs and symptoms consistent with COVID-19. This test has not been FDA cleared or approved; this test has been authorized by FDA under an Emergency Use Authorization for use by laboratories certified under the Clinical Laboratory Improvement Amendments of 1988 (CLIA), 42 U.S.C. 263a, to perform moderate complexity/high complexity tests and at the Point of Care (POC), i.e., in patient care settings operating under a CLIA Certificate of Waiver, Certificate of Compliance, or Certificate of Accreditation. Factsheets for healthcare providers: https://www.fda.gov/media/852190/download Factsheets for patients: https://www.fda.gov/media/517609/download THIS IS A STATE REPORTABLE COMMUNICABLE DISEASE. Manual entry verified by Stefania Esquivel 04/18/20 1651 ID Date Data Source [id number] 04/15/2020 11:14:00 AM EDT [address] [id number] NAME: KAREN TRIPATHI#: [id number] PHYSICIAN: MADHU VILLARREAL MD ADM. DATE: 04/12/20ACCOUNT #: [id number] DISCH. DATE: 04/15/20DISCHARGE SUMMARYIDENTIFICATION: A 34-year-old female with long history of psychosis.CHIEF COMPLAINT: "I'm feeling suicidal."REASON FOR ADMISSION: Suicidal ideation, auditory hallucinations.HISTORY OF PRESENT ILLNESS: The patient stated that she was in the rehab thatshe used to use cocaine in the past, she was in rehab for a week and at thatpoint, she decided to quit. The patient stated that she came to the hospitalthat she does not have more depression or voices that she had in the past, butat this point, she does not want to stay in the rehab, it was too stressfuland the voices are getting loud. The patient said that she has been hearingvoices since she was a teenager and the voices at this point are not more thanbefore. They are not command hallucinations. However, the day in rehab, itwas getting too loud and she did not like the environment that the voices aregetting loud to. Even though she denied that there was command, we have to becareful. The patient during this interview stated the voice is quiet andcalmed down since because the environment is quiet than the rehab. Eventhough the patient denied any suicidal or voices at this point, we have to becareful, especially since she described the voices for a long time.PAST PSYCHIATRIC HISTORY: Long history with diagnosis of schizoaffectivedisorder. She described hearing voices since the age of 17. Had 2 suicidalgestures by overdose; one at the age of 17; one 3 years ago. Denied anyhistory of self-mutilation. Denied any command hallucinations.DRUGS, ALCOHOL, AND TOBACCO: The patient stated that she has a long historyof use of drugs. Drug of choice is crack cocaine. She has done rehabs in [facility]. She was clean a year and a half 2 years ago. The patient stated thatat this point, she is doing well with that. She is not using any substanceexcept alcohol that she is trying to use socially.MEDICAL HISTORY: She denies any medical problems.ALLERGIES: TO RISPERDAL AND INVEGA.LEGAL HISTORY: None.HISTORY OF ABUSE: None.FAMILY HISTORY: Depression in the family.SOCIAL HISTORY: The patient is from [place]. Described a difficult growingup. Finished high school. She has no working experience. She is living in [facility] in [place].DIAGNOSIS AT ADMISSION: Schizoaffective disorder.MEDICATIONS AT DISCHARGE: Seroquel 200 mg once a day, lithium 300 mg twice aday, Haldol 10 mg 3 times a day. The patient was on Seroquel 200 mg twice aday, but has tapered down to stay with only one neuroleptic.LABORATORY DATA: The patient had an A1c of 5.2. Triglycerides of 59,cholesterol 188, LDL 123. TSH of 2.1. Maloy level 0.5.HOSPITAL COURSE: The patient stayed in our service for 4 days. We put neymar on all her medications. She did well with that. She denies anyproblems. She stated that she is not suicidal and the voices are not present.The patient was requesting the discharge. We contacted the TLS in [place].They stated that they want her to go to rehab, but of course, there are nolegal grounds to force her to go to rehab. This is not mandated by court.The patient stated that she does not need to go to rehab that she will workwith them to go to outpatient chemical dependence if that is what they want.The patient stated that the use of alcohol has been social, but sheunderstands that she cannot use alcohol at all, so she will do the best towork with them for outpatient rehab.MENTAL STATUS EXAMINATION: The patient was pleasant, cooperative. Deniedsuicidal or homicidal ideations. Denied delusions. Judgment and insight arefair. Reality testing is intact. Decision- making capacity is intact.DIAGNOSES: Schizoaffective disorder, substance abuse.PLAN: The patient will be discharged today and go back to [facility].Continue the treatment for mental health and chemical dependence as anoutpatient.Date Dictated: 04/15/2020 10:26:01Date Transcribed: 04/15/2020 10:14:53JV/Ike #: [id number]: 04/15/20 1026 Electronically SignedTRANS:04/15/20 1114 MADHU VILLARREAL MDTRANS BY:CHRISTY SIGNED:04/15/20REPORT COPY TO: Name Value Range Interpretation Code Description Data Jennifer rce(s) Supporting Document(s) ID Date Data Source [id number] 04/15/2020 07:16:00 AM EDT [facility] [address] [id number] NAME: KAREN TRIPATHI#: [id number] PHYSICIAN: MADHU VILLARREAL, [facility]: [id number] ADM. DATE: 04/12/20PATIENT : 89 DISCH. DATE: [50}DISCHARGE SUMMARYMHU discharge planNicotine Replacement TherapySmoking Status Current every day smokerPrescribed at discharge Rx for med given at DCAlcohol/Drug DisorderAlcohol or Drug Disorder counseling prescribedPersonal Care InstructionsDischarge Activity: As toleratedDischarge diet: RegularFollow Up CareFollow Up:Follow up with your Primary care physicianPriority ItemsUrgent/Important items that need to be addressed at primary care follow- upappointmentDischarge InformationDISCHARGE INFORMATION* Thank you for choosing [facility] and allowing us toserve you* Our Goal is to provide the highest quality of care.* This discharge information is to help you better understand your diagnosisand medication* Avoid taking iwbc-uez-miaftwo medicines unless approved by your physician.* Take your medications as prescribed. DO NOT stop any medications unlessapproved first* Weigh yourself daily. Report any gain of 5 lbs in a week* 24 Hour Crisis HOTLINE available: Call Reachout at [phone]* Chem. Dependency: Walk in Clinics [place] ([phone]) and [facility] ([phone]) anytime Saturday thru Saturday 8 to 10am. [place] ([phone]) anytimeMond thru Saturday 8 to 10am. [facility] ([phone]) Saturday or Saturday from 8to 10am (Bring $30 to [facility]) SMOKING CESSATION* Smoking is dangerous to your health. It delays the healing process, andworks against your medications. Not smoking will improve your health* Our hospital participates with the Opt-to-Quit program. You will be contactedafter discharge by the HEALTH SYSTEM Smoker's Quitline for support with tobaccocessation. You have the option once contacted to refuse this service.* You can also go online to www.[employer]. Free nicotine replacementsare available ___Attention* You should contact your follow up Physician as it is important that you lethim or her check you and report any new or remaining problems. If yourcondition worsens, follow up with your provider or visit our EmergencyDepartment. If you received pain medication, anxiety medications, musclerelaxants, or any medication that causes drowsiness, you cannot operatemachiPicturelifey, power tools, or drive.Safe ActSafe Act Completed NoiStopiStop completed NoEND ENDDICT: 04/15/20715 Electronically SignedTRANS:04/15/20715 MADHU VILLARREAL MDTRANS BY:DATE SIGNED:04/15/20TIME SIGNED: 07REPORT COPY TO: Name Value Range Interpretation Code Description Data Jennifer rce(s) Supporting Document(s) ID Date Data Source [id number] 04/15/2020 08:41:00 AM EDT [facility] Name Value Range Interpretation Code Description Data Jennifer rce(s) Supporting Document(s) FGLU 100 mg/dL 70-110 N [facility] ID Date Data Source [id number] 04/14/2020 10:39:00 AM EDT [facility] [address] [id number] NAME: KAREN TRIPATHI#: [id number] PHYSICIAN: MADHU VILLARREAL MD ADM. DATE: 04/12/20PROGRESS NOTE DATE: 04/14/20 .#: 320ACCOUNT #: [id number] NOTEIDENTIFICATION: This is a 34-year-old female with signs of psychosis chronicand alcohol dependence.VITAL SIGNS: Temperature of 97.8, pulse 74, respirations 17, blood qdjitwhb16/66.SUBJECTIVE: The patient came to the interview room. She stated that she isnot hearing any voices that the last time was less than 24 hours ago, but ismumbling that she does not understand what they are saying. The patientstated that "I hear voices my whole life, never clear, just like mumbling inmy head that never change with any medication."The patient stated that she does not want to go back to the rehab that herproblems with alcohol are not that important and she knows she can controlthem. The patient stated that the medications are helping her. Sheunderstands that she is taking 2 different neuroleptics, Seroquel and Haldoland she is on a high dose of Haldol with 30 mg daily and Seroquel 200 mg atbedtime. Our understanding is that the Seroquel have to be tapered down anddiscontinued the next few months. The patient is also on lithium 300 mgb.i.d. and the patient stated that she is okay with that. She has been takinglithium for a long time. The lithium level at admission was 0.5. At thispoint, the patient is requesting the discharge. She wants to go back to theS that she feels that she is safe to be discharged. We will contact the TLSto see the safety at home.MENTAL STATUS EXAMINATION: The patient is pleasant, cooperative. Deniessuicidal or homicidal ideations. Denied delusions. Judgment and insight arefair. Reality testing is intact. Decision making capacity is intact.DIAGNOSES: Mood disorder with psychosis and alcohol dependence.PLAN: Continue with the medication. See for safety discharge, probablytomorrow.Date Dictated: 04/14/2020 10:04:15Date Transcribed: 04/14/2020 09:39:36JColt/Juma #: [id number]: 04/14/20 1004 Electronically SignedTRANS:04/14/20 1039 MADHU VILLARREAL MDTRANS BY:CHRISTY SIGNED:04/14/20REPORT COPY TO: Name Value Range Interpretation Code Description Data Jennifer rce(s) Supporting Document(s) ID Date Data Source [id number] 04/14/2020 12:57:00 PM EDT [facility] Name Value Range Interpretation Code Description Data Jennifer rce(s) Supporting Document(s) FGLU 103 mg/dL 70-110 N [facility] ID Date Data Source [id number] 04/14/2020 01:53:00 AM EDT [facility] [address] [id number] NAME: KAREN TRIPATHI Ede Banegas#: [id number] PHYSICIAN: MADHU VILLARREAL MD ADM. DATE: 04/12/20ACCOUNT #: [id number] .#: [id number] ASSESSMENTIDENTIFICATION: A 34-year-old female with long history of psychosis.CHIEF COMPLAINT: "I'm feeling suicidal."REASON FOR ADMISSION: Suicidal ideation with auditory hallucinations.HISTORY OF PRESENT ILLNESS: The patient stated that she is in a program forrehab. She used crack cocaine. She has been in the rehab for a week. Thepatient stated that she is not mandated by court that they recommend that micheal does not want to continue the treatment. The patient stated that shestarted hearing voices, telling her to hurt herself that she does not knowwhat else to do that the voices are getting loud, but she cannot pinpoint anyspecific trigger. The patient stated that she has been taking hermedica tions; however, in the rehab, she was not getting the medication asprescribed and that is when the voices became louder.During this interview, the patient stated that she is not hearing any voicesbecause she got the medication as prescribed.PAST PSYCHIATRIC HISTORY: Long history with diagnosis of schizoaffectivedisorder. The patient described voices since the age of 17. She had 2suicidal gestures by overdose, 3 years ago and at the age of 17. Denied anyself-mutilation. She has been in the inpatient psychiatric service before,the first time at the age of 17. At this point, she is followed by mulugte[facility].DRUGS, ALCOHOL, AND TOBACCO: The patient described the use of all the drugs.Drug of choice is cocaine crack. She has been in rehab in the past. She had1 year and a half of being clean that was 2 years ago. The patient stated atthat time, she was doing well, but she relapsed.MEDICAL HISTORY: The patient denied any medical problems.ALLERGIES: TO RISPERDAL AND INVEGA.LEGAL HISTORY: None.HISTORY OF ABUSE: None.FAMILY HISTORY: Depression in the family.The patient described the use of other substance. Drug of choice crackcocaine.SOCIAL HISTORY: The patient is from [place]. Described a difficult growingup. Finished high school. She has no work experience. She is not workingnow. She is living in [facility] in [place].LABORATORY DATA: At the time of admission, A1c 5.2. Triglycerides 59,cholesterol 188, LDL 123. TSH 2.14. Maloy level 0.5.MEDICATIONS: Seroquel 200 mg twice a day, lithium 300 mg twice a day p.o.,Haldol 10 mg p.o. 3 times a day. The patient had prescribed Seroquel 200 mgtwice a day. We do not see the need to two different neuroleptics at thispoint. However, we will reduce the Seroquel to one at bedtime. We willdiscuss that with the patient.MENTAL STATUS EXAMINATION: The patient was pleasant, cooperative. Describedauditory hallucinations. Denied suicidal or homicidal ideation at this point,but she described command hallucinations before. Judgment and insight arequestionable. Reality testing is questionable. Decision-making capacity isquestionable. Orientation is 3/3. Memory is poor. Concentration is poor.DIAGNOSIS: Schizoaffective di sorder.PLAN: At this point, we will continue with the Haldol 10 mg p.o. 3 times aday and the lithium 300 mg p.o. twice a day. We will reduce the Seroquel onlyat bedtime. We will discuss with the patient that the use of two neurolepticsat that dose only will increase the side effects.Date Dictated: 04/13/2020 10:35:33Date Transcribed: 04/14/2020 00:53:21JV/RAVJob #: [id number]: 04/13/20 1035 Electronically SignedTRANS:04/14/20 0153 MADHU VILLARREAL MDTRANS BY:CHRISTY SIGNED:04/14/20REPORT COPY TO: Name Value Range Interpretation Code Description Data Jennifer rce(s) Supporting Document(s) ID Date Data Source [id number] 04/13/2020 09:21:00 AM EDT [facility] Name Value Range Interpretation Code Description Data Jennifer rce(s) Supporting Document(s) LITHIUM 0.50 mmol/L 0.50-1.20 N [facility] ID Date Data Source [id number] 04/13/2020 09:14:00 AM EDT [facility] Name Value Range Interpretation Code Description Data Jennifer rce(s) Supporting Document(s) USTSH 2.14 uIU/mL 0.270-4.200 N [facility] ID Date Data Source [id number] 04/13/2020 09:11:00 AM EDT [facility] Name Value Range Interpretation Code Description Data Jennifer rce(s) Supporting Document(s) HbA1C 5.20 % 3.8-5.6 N [facility] Please note: new test methodology requ ired change inreference range effective 01/01/20 ID Date Data Source [id number] 04/13/2020 08:05:00 AM EDT [facility] Name Value Range Interpretation Code Description Data Jennifer rce(s) Supporting Document(s) FGLU 52 mg/dL 70-110 L [facility] ID Date Data Source [id number] 04/11/2020 03:03:00 PM EDT [facility] Name: KAREN TRIPATHI [facility] Rec #: [id number] : 1985 Age/Sex: 34F Date of Service: 04/11/20 DISPOSITION SUMMARY Discharge Summary [facility] Name:Karen Tripathi Emergency Department Age:34 yrs Sex:Female :1985 Arrival:04/11/2020 15:03 Departure Date04/12/2020 Departure Time00:42 Private MD:[facility] Outcome: Transfer Location: [facility] Condition: Chief Complaint: - Hallunications Diagnosis: Suicidal ideations, Bipolar disorder, unspecified Prescriptions: Custom Notes: Attending Physician: Asuncion West MD Private MD: [facility] Mid Level Provider: Daniela King PA Accepting Physician: Dr. Blake Orders: Acetaminophen Level, Beta Hcg,Qualitative, Cbc With Auto Differential, Comprehensive Metabolic Prof., Drugs Of Abuse Screen, ETOH, Salicylate, UA., Cardiology EKG Interpretation - Choose Reason for Test, TSH, LORazepam, Urinalysis Auto w/Microscopy, Urine Culture, Maloy, Em ergency Room EKG Order - Use EKG Work-Up /Quick Select, 1:1 Supervision, Collect Urine - Clean Catch, POC - Collect COVID-19 swab, LORazepam, QUEtiapine Discharge Instruction: Fax Visit Summary Name Value Range Interpretation Code Description Data Jennifer rce(s) Supporting Document(s) ID Date Data Source [id number] 04/11/2020 03:03:00 PM EDT [facility] Name: KAREN TRIPATHI Med Rec #: [id number] : 1985 Age/Sex: 34F Date of Service: 04/11/20 PHYSICIAN CHART Physician Documentation [facility] Name: Karen Tripathi Age: 34 yrs Sex: Female : 1985 Arrival Date: 04/11/2020 Time: 15:03 Bed 6 Private MD: Out, [facility] ED Physician Asuncion West Disposition: 04/11 16:05 Attestation: I was present, saw, evaluated and participated aaq in the care with the Advanced Practice Provider. I agree with HPI as documented. My personal exam reveals findings consistent with those documented. HPI: 15:31 This 34 yrs old Female presents to ER via Walk-In with mmo complaints of Hallunications. 15:31 Patient is a 34-year-old female with a past medical history mmo significant for schizophrenia, bipolar disorder, PTSD and polysubstance abuse who presents today complaining of visual and auditory hallucinations and suicidal ideation. The patient states she is currently having suicidal thoughts, however she states she does not have a plan. She also states she has been having visual and auditory hallucinations, typically she is able to control these on her own however they have been too powerful for her for the past few days. The patient regularly sees providers in [place] including a psychiatrist and mental health specialist but she states she came up to [place], [place] 6 days ago for rehabilitation. The patient states her drug of choice is crack cocaine and states last time she used was 4 to 5 months ago. The patient states her last alcoholic beverage was 2 weeks ago. The patient reports that recently her mental health specialist had made some medication changes because she states her provider thought she was "too heavily medicated". The patient states it was around this time that she began having symptoms of hallucinations. Patient states she does not have any physical pain at this time or other symptoms. The patient states she is willing to go to an inpatient psychiatric facility.. 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 Haldol 10 mg Oral tab 1 tab 3 times per day 2. Seroquel 200 mg Oral tab 1 tab 2 times per day 3. lithium carbonate 300 mg Oral tab 1 tab 2 times per day 4. metformin 1,000 mg Oral tr24 1 tab once daily - PMHx: Schizophrenia; Diabetes mellitus; - PSHx: section; Cholecystectomy; ROS: 15:38 Constitutional: Negative for fever, chills, and weight mmo loss, E yes: Negative for vision changes, diplopia, blurred vision, photophobia, vision loss, injury, pain, redness, and discharge. ENT: Negative for ear pain, tinnitus, sinus pain, sinus congestion, sore throat, or difficulty swallowing. Neck: Negative for injury, pain, and swelling, Cardiovascular: Negative for chest pain, palpitations, and edema, Respiratory: Negative for shortness of breath, cough, wheezing, and pleuritic chest pain, Abdomen/GI: Negative for abdominal pain, nausea, vomiting, diarrhea, and constipation, Back: Negative for injury and pain, : Negative for dysuria, hematuria, urinary frequency, or urinary urgency. MS/Extremity: Negative for injury and deformity. Skin: Negative for injury, rash, and discoloration. Neuro: Negative for headache, weakness, numbness, tingling, and seizure. Psych: Positive for auditory hallucinations, visual hallucinations, suicidal ideation. Exam: 15:39 Constitutional: This is a well developed, well nourished mmo patient who is awake, alert, and in no acute distress. Head/Face: Normocephalic, atraumatic. Eyes: Pupils equal round and reactive to light, extra-ocular motions intact. Lids and lashes normal. Conjunctiva and sclera are non-icteric and not injected. Cornea within normal limits. Periorbital areas with no swelling, redness, or edema. Cardiovascular: Regular rate and rhythm with a normal S1 and S2. No gallops, murmurs, or rubs. No pulse defici ts. Respiratory: Lungs have equal breath sounds bilaterally, clear to auscultation and percussion. No rales, rhonchi or wheezes noted. Abdomen/GI: Soft, non-tender, with normal bowel sounds. No distension or tympany. No guarding or rebound. No evidence of tenderness throughout. Back: No spinal tenderness. No costovertebral tenderness. Full range of motion. Skin: Warm, dry with normal turgor. Normal color with no rashes, no lesions, and no evidence of cellulitis. MS/ Extremity: Pulses equal, no cyanosis. Neurovascular intact. Full, normal range of motion. Neuro: Awake and alert, GCS 15, oriented to person, place, time, and situation. 15:39 Psych: Behavior/mood is pleasant, cooperative, Affect is calm, Oriented to person, place, time, Patient having thoughts of suicide. Denies suicidal plan. Judgement / Insight is normal. Memory is normal. Delusions/hallucinations are present and described as Patient states she is having visual and auditory hallucinations however she does not describe them.. Vital Signs: 15:17 BP 108 / 75; Pulse 96; Resp 20; Temp 98.0(TE); Pulse Ox 98% mp3 on R/A; Weight 86.18 kg; Height 5 ft. 1 in. (154.94 cm); Pain 0/10; 16:24 BP 107 / 54; Pulse 68; Resp 16; Temp 98.3; Pulse Ox 100% on sj R/A; 17:22 BP 115 / 69; Pulse 90; Resp 18; Temp 98.4; Pulse Ox 99% ; sj 18:11 BP 119 / 69; Pulse 85; Resp 16; Temp 99.1; Pulse Ox 99% ; sj 21:32 BP 111 / 69; Pulse 81; Resp 14; Pulse Ox 100% on R/A; skb 04/12 00:28 BP 116 / 79; Pulse 74; Resp 14; Temp 98.0(TE); Pulse Ox skb 100% on R/A; 04/11 15:17 Body Mass Index 35.90 (86.18 kg, 154.94 cm) mp3 MDM: 04/11 15:26 Patient medically screened. mmo 15:54 ED course: EKG shows a regular rate with a sinus mmo arrhythmia. IN interval is within normal limits. QRS duration is within normal limits. QT interval is within normal limits.. 17:06 ED course: Red blood cells are seen in the urine however mmo patient states she is currently on her menstrual cycle.. 18:01 ED course: Wzgvu-tu-cyut COVID negative. mmo 19:43 Case presented to: Dr. Warner Rick. Data reviewed: vital mmo signs, nurses notes, lab test result(s), EKG. ED course: The patient is a 34-year-old -Burmese female with a past medical history significant for schizophrenia, PTSD, bipolar disorder who presents today complaining of visual and audio hallucinations with suicidal ideation. The patient states she does not have a plan. The patient had a one-on-one sitter. She states that she is willing to go to an inpatient psychiatric facility. The patient's information was faxed over to Nelson Arce and at this point we await a consult phone call. The patient is doing well and resting comfortably in her room.. 23:26 ED course: Patient accepted by Dr. Blake to [facility]. . jtv 23:30 ED course: Accepted by Dr. Blake to [facility] ED for psych jtv assessment. Patient will go BLS. He requested that I adminster her 200mg of Seroquel which is her evening dose of medication. . 04/11 15:35 Order name: Acetaminophen Level; Complete Time: 18:16 mmo 04/11 18:08 Interpretation: Within normal limits: Aceta; normal . mmo 04/11 15:35 Order name: Beta Hcg,Qualitative; Complete Time: 17:45 mmo 04/11 17:45 Interpretation: Beta HCG,Screen Negative. mmo 04/11 15:35 Order name: Cbc With Auto Differential; Complete Time: 17:42mmo 04/11 17:45 Interpretation: WBC 5.5; RBC 4.23; HGB 13.1; HCT 37.9; PLT mmo 365. 04/11 15:35 Order name: Comprehensive Metabolic Prof.; Complete Time: mmo 18:16 04/11 18:16 Interpretation: NA 139; CL 108; CO2 26.0; GAP 5.0; BUN 8; mmo CREAT 0.99; Glom Filtration 79; GLU 146; CA 9.2; T Bili 0.4; SGPT(ALT) 44; ALK PHOS 86; TP 7.6; ALB 3.6; K 4.4; SGOT(AST) 28. 04/11 15:35 Order name: Drugs Of Abuse Screen; Complete Time: 17:04 mmo 04/11 17:04 Interpretation: U Opiate Screen Negative; U Shruti Screen mmo Negative; U Eugene Screen Negative; Ur Radha Screen Negative; Ur Cannab Scr Negative. 04/11 15:35 Order name: ETOH; Complete Time: 18:00 mmo 04/11 18:00 Interpretation: ETOH < 10.0. mmo 04/11 15:35 Order name: Salicylate; Complete Time: 18:16 mmo 04/11 18:09 Interpretation: Within normal limits: ROSA MARIA; normal. mmo 04/11 15:35 Order name: UA.; Complete Time: 17:04 mmo 04/11 17:05 Interpretation: Ur Color Julia; Ur Clarity Clear; Ur Spec mmo gravity 1.024; Ur PH 6.5; Ur Protein Negative; Ur Glucose Negative; Ur Ketones Trace; Ur Blood Large; Ur Bilirubin Negative; Ur Urobilinogen 1.0; Ur Leuk Est Negative; Ur Nitrite Negative. 04/11 15:35 Order name: Cardiology EKG Interpretation - Choose Reason mmo for Test 04/11 15:35 Order name: TSH; Complete Time: 18:16 mmo 04/11 18:09 Interpretation: Within normal limits: TSH 1.380. mmo 04/11 16:54 Order name: Urinalysis Auto w/Microscopy; Complete Time: EDMS 17:04 04/11 16:55 Order name: Urine Culture EDMS 04/11 23:25 Order name: Maloy jtv 04/11 15:35 Order name: Emergency Room EKG Order - Use EKG Work-Up mmo /Quick Select; Complete Time: 15:50 04/11 15:35 Order name: 1:1 Supervision; Complete Time: 15:37 mmo 04/11 15:35 Order name: Collect Urine - Clean Catch; Complete Time: mmo 1 5:53 04/11 15:35 Order name: POC - Collect COVID-19 swab; Complete Time: mmo 15:49 Dispensed Medications: 16:03 Drug: LORazepam 1 mg [lorazepam 1 mg tablet (1 tabs)] sj Route: PO; 21:24 Drug: LORazepam 1 mg [lorazepam 1 mg tablet (1 tabs)] skb Route: PO; 04/12 00:35 Follow up: Response: Anxiety decreased skb 00:01 Drug: Seroquel - QUEtiapine 200 mg [quetiapine 100 mg skb tablet (2 tabs)] Route: PO; 00:35 Follow up: Response: No adverse reaction skb Disposition Summary: 04/11/20 23:27 Transfer Ordered Transfer Location: [facility] jtv Reason: Higher level of care jtv Accepting Physician: Dr. Blake(04/12/20 00:42) amanda Diagnosis - Suicidal ideations jtv - Bipolar disorder, unspecified jtv Forms: - Fax Visit Summary jtv Signatures: Dispatcher [employer] Josleyn Mathis RN RN sj Vieth, Julie, MD MD jtv Palmer, MacKenzie, RN RN mp3 Ana Kwon RN RN skb Warner Rick MD MD aaDaniela Brock PA PA mmo Corrections: (The following items were deleted from the chart) 04/11 15:19 15:18 Home Meds: None; mp3 mp3 15:38 15:31 Patient is a 34-year-old female with a past medical mmo history significant for schizophrenia, bipolar disorder, PTSD and polysubstance abuse who presents today complaining of visual and auditory hallucinations and suicidal ideation.. mmo 15:38 15:31 Patient is a 34-year-old female with a past medical mmo history significant for schizophrenia, bipolar disorder, PTSD and polysubstance abuse who presents today complaining of visual and auditory hallucinations and suicidal ideation. The patient states she is currently having suicidal thoughts, however she states she does not have a plan. She also states she has been having visual and auditory hallucinations, typically she is able to control these on her own however they have been too powerful for her for the past few days. The patient regularly sees providers in [facility] a psychiatrist and mental health specialist but she states she came up to [place], [place] 6 days ago for rehabilitation. The patient states her drug of choice is crack cocaine and states last time she used was 4 to 5 months ago. The patient states her last alcoholic beverage was 2 weeks ago. The patient reports that recently her mental health specialist had made some medication changes because she states her provider thought she was "too heavily medicated". The patient states it was around this time that she began having symptoms of hallucinations. . mmo 15:49 15:31 Patient is a 34-year-old female with a past medical mmo history significant for schizophrenia, bipolar disorder, PTSD and polysubstance abuse who presents today complaining of visual and auditory hallucinations and suicidal ideation. The patient states she is currently having suicidal thoughts, however she states she does not have a plan. She also states she has been having visual and auditory hallucinations, typically she is able to control these on her own however they have been too powerful for her for the past few days. The patient regularly sees providers in [place] including a psychiatrist and mental health specialist but she states she came up to [place], [place] 6 days ago for rehabilitation. The patient states her drug of choice is crack cocaine and states last time she used was 4 to 5 months ago. The patient states her last alcoholic beverage was 2 weeks ago. The patient reports that recently her mental health specialist had made some medication changes because she states her provider thought she was "too heavily medicated". The patient states it was around this time that she began having symptoms of hallucinations. Patient states she does not have any physical pain at this time or other symptoms.. mmo 18:16 18:08 NA 139; CL 108; CO2 26.0; GAP 5.0; BUN 8; CREAT 0.99; mmo Glom Filtration 79; GLU 146; CA 9.2; T Bili 0.4; SGPT(ALT) 44; ALK PHOS 86; TP 7.6; ALB 3.6. mmo 18:16 18:16 NA 139; CL 108; CO2 26.0; GAP 5.0; BUN 8; CREAT 0.99; mmo Glom Filtration 79; GLU 146; CA 9.2; T Bili 0.4; SGPT(ALT) 44; ALK PHOS 86; TP 7.6; ALB 3.6; K 4.4. mmo 04/12 00:42 04/11 23:27 Dr. Blake jtv skb Name Value Range Interpretation Code Description Data Jennifer rce(s) Supporting Document(s) ID Date Data Source [id number] 04/11/2020 03:03:00 PM EDT [facility] Name: KAREN TRIPATHI [facility] Rec #: [id number] : 1985 Age/Sex: 34F Date of Service: 04/11/20 NURSE CHART Nurse's Notes [facility] Name: Kaern Tripathi Age: 34 yrs Sex: Female : 1985 Arrival Date: 04/11/2020 Time: 15:03 Bed 6 Private MD: Out, Of [facility] Diagnosis: Suicidal ideations;Bipolar disorder, unspecified Presentation: 04/11 15:16 Transition of care: patient was not received from another [facility] setting of care. Presenting complaint: Patient states - I'm having visual & hearing hallucinations. I've had them before. Have you travelled in the last 30 days? Yes, Where have you travelled? Traveled from [facility] , no respiratory symptoms present, no GI symptoms. Have you had contact with an individual with a confirmed diagnosis of Ebola or COVID-19? No. 15:16 Acuity: Emergent - 2 [facility] 15:16 Method Of Arrival: Walk-In [facility] Triage Assessment: 15:17 SEPSIS SCREEN: A Confirmed or Suspected Infection is 3 Unknown, their temperature is not <96.8 or >100.9, their heart rate is >90, their RR is not >20, it is unknown if their WBC is <4 or >12, the patient does not have new or unexplained altered mental status. SIRS or Sepsis criteria is not present. Suicide Screening: Have you had thoughts of harming yourself or others? Yes, complete C-SSRS. The patient appears to have no apparent distress, The patient is behaving appropriately according to age, cooperative. The patient denies having pain. 15:19 C-SSRS: Note: Pt placed on 1:1 & charge nurse Gwen made mp3 aware. 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 Haldol 10 mg Oral tab 1 tab 3 times per day 2. Seroquel 200 mg Oral tab 1 tab 2 times per day 3. lithium carbonate 300 mg Oral tab 1 tab 2 times per day 4. metformin 1,000 mg Oral tr24 1 tab once daily - PMHx: Schizophrenia; Diabetes mellitus; - PSHx: section; Cholecystectomy; Screenin:54 AUDIT Patient response: Pt is received [facility]hab[facility] polysubstance abuse. Drug Abuse Scre ening Test: 1. Have you used drugs other than those required for medical reasons? Yes (1 point). Abuse screen: Denies threats or abuse. Nutritional screening: On diabetic diet. Patient has no identifiable fall risk (Burch Scale: 0 points). Assessment: 18:08 See Triage Assessment. The patient is cooperative. Neuro: No Neuro Deficit is noted. Level of Consciousness is awake, Patient is oriented to person, place and time. Psych: 15:23 Objective: Patient is cooperative. Interventions: Removed personal items and placed in bag. Patient placed in hospital gown. pt is immediately placed with sitter within arms length. Vital Signs: 15:17 BP 108 / 75; Pulse 96; Resp 20; Temp 98.0(TE); Pulse Ox 98% mp3 on R/A; Weight 86.18 kg; Height 5 ft. 1 in. (154.94 cm); Pain 0/10; 16:24 BP 107 / 54; Pulse 68; Resp 16; Temp 98.3; Pulse Ox 100% on sj R/A; 17:22 BP 115 / 69; Pulse 90; Resp 18; Temp 98.4; Pulse Ox 99% ; sj 18:11 BP 119 / 69; Pulse 85; Resp 16; Temp 99.1; Pulse Ox 99% ; sj 21:32 BP 111 / 69; Pulse 81; Resp 14; Pulse Ox 100% on R/A; skb 04/12 00:28 BP 116 / 79; Pulse 74; Resp 14; Temp 98.0(TE); Pulse Ox skb 100% on R/A; 04/11 15:17 Body Mass Index 35.90 (86.18 kg, 154.94 cm) mp3 Vitals: 00:28 Vitals are Complete in accordance with Emergency Department skb Policy. ED Course: 04/11 15:04 Patient arrived in ED. jst 15:15 Out, [facility] is Private Physician. mp3 15:17 Triage completed. mp3 15:17 Arm band placed on left wrist. mp3 15:20 Joselyn Tran RN is Primary Nurse. mp3 15:23 Daniela King PA is PHCP. mmo 15:23 Warner Rick MD is Attending Physician. mmo 15:49 An EKG was obtained and reviewed by Warner Rick MD COVID-19 sj specimens collected by Joselyn Tran RN Nasal Swab. 15:53 Radiology: None performed. sj 15:54 Placed in gown, Bed in low position, Call light in reach, sj Side rails up X2, sitter is at the bedside. Assisted to bathroom. with NA. 15:54 No procedures ordered. Urine collected. Clean catch sj specimen. 18:50 Primary Nurse role handed off by Joselyn Tran RN sj 18:50 Ana Kwon RN is Primary Nurse. sj 21:16 Attending Physician role handed off by Warner Rick MD jt 21:16 Asuncion West MD is Attending Physician. jtv Administered Medications: 16:03 Drug: LORazepam 1 mg [lorazepam 1 mg tablet (1 tabs)] Route: PO; 21:24 Drug: LORazepam 1 mg [lorazepam 1 mg tablet (1 tabs)] skb Route: PO; 04/12 00:35 Follow up: Response: Anxiety decreased skb 00:01 Drug: Seroquel - QUEtiapine 200 mg [quetiapine 100 mg skb tablet (2 tabs)] Route: PO; 00:35 Follow up: Response: No adverse reaction skb Outcome: 04/11 23:27 ER care complete, transfer ordered by MD. raines 04/12 00:34 Patient verbalized understanding of disposition skb instructions. Patient has no functional deficits. The patient was transferred by EMS ground transport [facility]. Condition: stable Not Applicable. 00:42 Patient left the ED. skb 00:50 Report given to Florencia ROBLES at [facility] ED skb 07:44 24 hour call back N/A - Patient was transferred sj Signatures: Joselyn Tran RN RN ViethAsuncion MD MD jtv Palmer, MacKenzie RN RN mp3 Ana Kwon RN RN Nia Florez Megan, PA PA mmo Corrections: (The following items were deleted from the chart) 04/11 15:19 15:18 Home Meds: None; mp3 mp3 Name Value Range Interpretation Code Description Data Jennifer rce(s) Supporting Document(s) ID Date Data Source [id number] 04/12/2020 04:59:00 PM EDT [address] [address]GZTSRZP AND PHYSICALPATIENT NAME: KAREN TRIPATHI MR#: [id number] PHYSICIAN: BERNARDA RICHEY MDAUTHOR: Salvador Virk DATE: 04/12/20 RM#: [id number] & PHYSICAL DATE: 04/12/20 : 89EVALUATION TIME: 1705HistoryChief Complaint/Admit ReasonSuicidal ideationHistory of Presenting IllnessPatient is a 34-year-old AA female presenting as transfer from [facility] withsuicidal ideation. Onset was shortly after detox, severe, worsening,associated with anxiety. Patient apparently has a cocaine abuse history andwas in their detox unit and expressed suicidal ideation. She denies anysuicidal ideation or homicidal ideation to me but feels anxious. She is ahistory of diabetes mellitus, obesity class II, schizophrenia, anxiety. Shehas no acute complaints.Past Medical/Surgical HistoryPast Medical/Surgical HistoryMedical ProblemsAnxietyCocaine abuseDiabetes mellitus type 2 in obeseObesity, Class II, BMI 35-39.9SchizophreniaSuicidal ideationAdditional NotesPast surgical history and cholecystectomyReconciled Home Med ListSee Reconciled Home Medication ListAllergiesCoded Allergies:paliperidone (From INVEGA) (04/12/20)risperidone (From RISPERDAL) (04/12/20)Family history Father has cancer 59. Mother has lupus 50s she reports both hissick and unhealthy but cannot give more information due to her mental status.Social History no tobacco use, no alcohol use, recreational drug useReview of SystemsSystems reviewed and negative Constitutional, Integumentary, Eyes, ENT,Respiratory, Cardiovascular, GI, , Musculoskeletal, Rodrick, Endocrine,Neurology, Psych, Allergy/ImmunologyExamVital SignsVital Signs-24 [id number] 98.4Pulse 104Resp 18B/P 95/67B/P MeanPulse Ox 95O2 DeliveryO2 Flow CikyJaL8Mxyavjwo ExaminationGeneral Appearance no acute distress, afebrile, alert, awakeHead atraumatic, normocephalicNeck no JVD, no lymphadenopathyCardiovascular regular rateAbdomen soft, non-tenderExtremities no clubbing, no cyanosis, no edemaMuscoskeletal full range of motion, normal inspectionNeurological alert, no motor deficits, no sensory deficitsSkin AssessmentSkin dry, intact, warmLymphatic no lymphadenopathyPsych/Mental Status anxiousData ReviewLaboratory DataRecent Labs-48 hours09/[id number] (0.50 - 1.20 mmol/L) 0.50Reviewed as above no other on file thus farAssessment/PlanDiagnosis/Problem1. Suicidal ideation2. Anxiety3. SchizophreniaA&PThe above to the behest of psychiatry.4. Diabetes mellitus type 2 in obeseA&PAgree with metformin5. Obesity, Class II, BMI 35-39.9A&POutpatient follow-up counseling6. Cocaine abuseA&POutpatient follow-upAdditional NotesPatient is medically stable for inpatient psychiatric care. Any concernsplease contact our service.Total time spent 20 minutesResuscitation status Full codePlan discussed with patientCase discussed with nursing staffCopies ToCopies to Family Provider: [facility] physicianCQM VTE HISTORYVTE HISTORYPrior VTE? NoDATE SIGNED: 04/12/20 Electronically SignedTIME SIGNED: [address] Name Value Range Interpretation Code Description Data Jennifer rce(s) Supporting Document(s) ID Date Data Source [id number] 04/12/2020 02:37:00 AM EDT Nelson lilly Name Value Range Interpretation Code Description Data Jennifer rce(s) Supporting Document(s) LITHIUM 0.50 mmol/L 0.50-1.20 [facility] ID Date Data Source [id number] 04/12/2020 01:58:00 PM EDT [place] [facility] Physician DocumentationClaxton-Claude Green edical CenterName: Karen PradotcherAge: 34 yrsSex: FemaleDOB: 1985MRN: [id number] Date: 04/12/2020Time: 01:25Account#: [id number] MD:ED Physician Cesario Tripp Summary:04/12/20 12:05Hospitalization OrderedHospitalization Status: Inpatient Admission uo2Ujhnical: Bernarda Richey tc4Zxecvwjb: Mental Health Unit rp8Piwtqiuvr: Stable ww3Uaqgumd: an ongoing problem ad1Lqzbthlj: are unchanged pl6Jarf Assignment: az7Gbhnazwyw- Schizophrenia, unspecified kd6Acbslesvwe Information- Admission Type: Inpatient Status. sz8Hionx:- Medication Reconciliation th4- SBAR th4- Medication Reconciliation Form - 2nd Copy th4HPI:03/1501:58 This 34 yrs old Black Female presents to ER via Ambulance with dz8cpumhdijzt of Psych Problem.01:58 Patient is transferred from [facility] for psychiatric evaluation. Patient dk2was at their detox center for cocaine. While she was going to detoxshe started to endorse suicidal ideation as well as visualhallucinations. She was evaluated, medically cleared and they requestto send her here. Upon arrival, the patient states some mild generalGI discomfort without nausea as well as requesting something foranxiety. I had asked for them to give Seroquel, the patient cannotrecall if she was given her Seroquel or not. She has she requestsAtivan. She denies any pain besides mild abdominal discomfort, deniesany fever or new worsened cough. .Historical:- Allergies: No known Allergies;- Home Meds:1. Haldol 10 mg Oral tab 1 tab 3 times per day2. Seroquel 200 mg Oral tab 1 tab 2 times per day3. lithium carbonate 300 mg Oral cap 1 cap 2 times per day4. metformin 1,000 mg Oral tab daily5. Benadryl 50 mg Oral cap 1 cap once daily- PMHx: Schizophrenia; Diabetes mellitus;- PSHx: section; Cholecystectomy;- Immunization history: Flu vaccine is not up to date.- Social history: Smoking status: Patient uses tobacco products,current every day smoker. Patient uses street drugs, marijuana,Patient/guardian denies using street drugs, IV drugs, Patientstopped using crack cocaine in the past 4 months, started usingMolly after that, has been in detox at [facility] for these drugs as wellas marijuana, ETOH status Denies use of ETOH.- Advance Directives:: None.ROS:01:59 Constitutional: Negative for chills, fever. Eyes: Negative for yn8fudakgpqx, vision loss. ENT: Negative for difficulty swallowing,difficulty handling secretions. Neck: Negative for stiffness, bonytenderness. Cardiovascular: Negative for chest pain, palpitations .Respiratory: Negative for hemoptysis, shortness of breath, acutechanges. Abdomen/GI: Positive for abdominal pain, Negative fornausea, vomiting, diarrhea, rectal bleeding. Back: Negative fordecreased range of motion, acute changes. MS/extremity: Negative fordecreased range of motion, puncture. Skin: Negative for jaundice,pallor. Neuro: Negative for dizziness, headache, loss ofconsciousness, seizure activity, syncope. Psych: Positive for drugdependence, visual hallucinations, suicidal ideation, Negative for.Exam:02:01 Constitutional: The patient appears in no acute distress, alert, hv5xdvcm, comfortable, non-diaphoretic, non-toxic, well developed.02:01 Head/face: Exam is negative for contusion, deformity.02:01 Eyes: Exam is negative for drainage, abnormalities of symmetry, size,shape and reaction of the pupils.02:01 ENT: Exam is negative for epistaxis, abnormal voice.02:01 Neck: Exam negative for meningismus, nuchal rigidity.02:01 Chest/axilla: Exam negative for crepitus, flail chest.02:01 Cardiovascular: Exam negative for bradycardia, JVD.02:01 Respiratory: Exam negative for respiratory distress, shortness ofbreath, stridor, tachypnea.02:01 Abdomen/GI: Exam negative for guarding, pulsatile mass.02:01 Back: Exam negative for CVA tenderness, vertebral tenderness.02:01 Musculoskeletal/extremity: Exam is negative for decreased range ofmotion, open injury, pelvic instability.02:01 Skin: Exam negative for cyanosis, pallor.02:01 Neuro: Exam negative for focal neuro deficits, confusion, dysarthria.02:01 Psych: Behavior/mood is pleasant, cooperative, Affect is calm,Oriented to person, place, time, Patient having thoughts of suicide.Vital Signs:01:40 BP 119 / 71; Pulse 105; Resp 18; Temp 97.4; Pulse Ox 96% ; kk213:58 BP 95 / 67; Pulse 104; Resp 18; Temp 98.4; Pulse Ox 95% ; Pain 0/10; tlm13:58 vitals taken by mental health nurse, Er nurse notification not made tlmGlasgow Coma Score:02:01 Eye Response: spontaneous(4). Verbal Response: oriented(5). Motor cw0Ghbbqhwi: obeys commands(6). Total: 15.MDM:01:29 Patient medically screened. dk202:03 Data reviewed: nurses notes. ED course: Patient transfer from outside ey1lguopgjr, has some mild GI complaints as well as requesting somethingfor anxiety. I give her Pepcid and Lorazepam. Patient is medicallycleared prior to arrival here, agree with their assessment except nolithium level was drawn. She states she had her morning doseyesterday. A lithium level is drawn, but essentially the patient iscleared for psychiatric evaluation from my standpoint..06:57 Transition of care: After a detail discussion of the patient's case, [address] transferred to Kyle Tripp MD.12:06 ED course: Patient remained stable in the ER. I received this patient th4at change of shift. A change of shift patient was pending PSAevaluation and disposition. Patient has been seen and evaluated byPSA and presented to the psychiatrist. Patient will be admitted forfurther evaluation and treatment. See PSA note. Patient has beencooperative..03/1501:32 Order name: Maloy Level; Complete Time: 02:50 [id number] Order name: Medically Cleared for Eval by-Psychosocial, [employer] Operator dk2(.PSA); Complete Time: :22 Order name: VS q shift; Complete Time: bl:23 Order name: Observation Level 3; Complete Time: : blkDispensed Medications:02:04 Drug: Famotidine 20 mg [famotidine 20 mg tablet (1 tabs)] Route: PO; ef103:05 Follow up: Response: No adverse reaction ef102:04 Drug: LORazepam 2 mg [lorazepam 1 mg tablet (2 tabs)] Route: PO; ef103:05 Follow up: Response: Anxiety decreased ef109:04 Drug: SEROquel 200 mg Route: PO; blk09:05 Follow up: Response: No adverse reaction; No change in condition blk09:04 Drug: lithium 300 mg Route: PO; blk09:05 Follow up: Response: No adverse reaction; No change in condition blk09:04 Drug: metFORMIN 1000 mg Route: PO; blk09:06 Follow up: Response: No adverse reaction; No change in condition blk09:05 Drug: diphenhydrAMINE 50 mg [diphenhydramine 25 mg tablet (2 tabs)] blkRoute: PO;09:05 Follow up: Response: No adverse reaction; No change in condition blk09:05 Drug: Haloperidol 10 mg [haloperi dol 5 mg tablet (2 tabs)] Route: PO; blk09:05 Follow up: Response: No adverse reaction; No change in condition blkSignatures:Dispatcher [employer] Jessica Velazquez RN TRAVIS blkKDenice larsen RN TRAVIS jy8QntaptdKyle Tripp MD MD pb1FbzxwaLary Chamberlain RN RN so9UpkatkuCharisse Blake MD MD dk2 Name Value Range Interpretation Code Description Data Jennifer rce(s) Supporting Document(s) ID Date Data Source [id number] 04/12/2020 01:58:00 PM EDT [facility] Nurse's NotesClmarisolNY[facility] Katarina terName: Karen SamuelerAge: 34 yrsSex: FemaleDOB: 1985MRN: [id number] Date: 04/12/2020Time: 01:25Account#: [id number] Harlan KAUR:Diagnosis: Schizophrenia, unspecifiedPresentation:03/1501:28 Presenting complaint: Patient transferred from [facility] for mental health hm8rdjzvoovjq. Presented to their ER on 04/11 from detox with visual andauditory hallucinations. Coronavirus Screening: Patient negative forfever and symptoms of lower respiratory illness (e.g., cough,difficulty breathing). Patient denies exposure to infectious person.Patient denies international travel or travel to area with widespreadCOVID 19 in the 14 days before illness onset. No symptoms or risksidentified at this time. Flu-like symptoms reported: no. Have youtraveled internationally or had contact with someone that has and hasbeen ill in the past 3 weeks? no Have you traveled to a location withwidespread or ongoing COVID-19 community spread? no. Have you hadclose contact with confirmed or suspected COVID-19 case? no. Have youbeen diagnosed with COVID-19 in the past 30 days? no. Are youcurrently on quarantine by Public Health? no. Communicable DiseaseScreen: Negative for fever>/= 100 degrees Fahrenheit. Communicabledisease screen is negative. (-) rash or unusual skin lesion (-)travel/contact with traveler (-) respiratory symptoms.01:28 Acuity: Triage 2 kk201:28 Method Of Arrival: Ambulance: [facility] kk201:30 Acuity Assignment: Triage 2 eo3Cijizs Assessment:01:39 General: Appears in no apparent distress, Behavior is cooperative. oy9Tdkvue Screening: (1)Signs/symptoms infection No. Pain: Denies pain.PSS-3 Now I'm going to ask you some questions that we ask everyonetreated here, no matter what problem they are here for. It is part ofthe hospital's policy and it helps us to make sure we are not missinganything important. Over the past 2 weeks, have you felt down,depressed, or hopeless? No. Over the past 2 weeks, have had thoughtsof killing yourself? No. Neuro: Level of Consciousness is awake,alert, Oriented to person, place, time. Respiratory: A irway is patentRespiratory effort is even, unlabored.Historical:- Allergies: No known Allergies;- Home Meds:1. Haldol 10 mg Oral tab 1 tab 3 times per day2. Seroquel 200 mg Oral tab 1 tab 2 times per day3. lithium carbonate 300 mg Oral cap 1 cap 2 times per day4. metformin 1,000 mg Oral tab daily5. Benadryl 50 mg Oral cap 1 cap once daily- PMHx: Schizophrenia; Diabetes mellitus;- PSHx: section; Cholecystectomy;- Immunization history: Flu vaccine is not up to date.- Social history: Smoking status: Patient uses tobacco products,current every day smoker. Patient uses street drugs, marijuana,Patient/guardian denies using street drugs, IV drugs, Patientstopped using crack cocaine in the past 4 months, started usingMolly after that, has been in detox at [facility] for these drugs as wellas marijuana, ETOH status Denies use of ETOH.- Advance Directives:: None.Screenin:41 Abuse screen: Denies threats or abuse. Denies injuries from another. db9Cmgznwxwwpm screening: No deficits noted. Offer of HIV testing:patient was previously offered screening. Fall Risk None identified.Assessment:01:40 General: see triage assessment . kk213:57 Reassessment: Patient appears in no apparent distress at this time. tlmPsychosocial:08:12 SAFE Act Report Not Completed. Intervention: Observation Level 3.kk23Fodqfl health consult is initiated at 08:12.09:47 Referral Information: Evaluation referral is generated by [address] The patient was referred for evaluation becausesuicidal ideations, auditory and visual hallucinations.10:04 Subjective: The patients chief complaint is suicidal ideations,ig01kghjcjjp and visual hallucinations. Pt presents to the ED as atransfer from [facility] after expressing suicidal ideations, auditory andvisual hallucinations. Pt was at [facility] to attend their chemicaldependency program because of crack cocaine abuse when she expressedshe was suicidal. Pt also reported she has a history of schizophreniaand bipolar disorder. Pt reports she is still expressing suicidalideations at this time. Pt reports she is experiencing auditory andvisual hallucinations and states the auditory hallucinations tell herto hurt herself. Pt states that she has been inpatient before lasttime being around a year and a half ago at [facility]. Pt reports shewas going to rehab at [facility] and she told them she was feeling suicidalso they transferred her. Pt reports that she does go to outpatientservices through [facility] in [place] and sees a psychiatrist there aswell. Pt states that she has a suicide attempt in the past but it waswhen she was a child. Pt reports that she feels she needs inpatientat this time to get her medications adjusted. Pt denies access toguns . Delusions are denied, Hallucinations are auditory, visual,Patient's mood is depressed, Having thoughts of suicide. Deniessuicidal plan.10:52 Patient reports history of anxiety, Depression, schizophrenia,kk79qqwxptf attempt: as a child [facility] Current OutpatientMental Health Services: Psychiatrist / Agency: [facility]. LivingEnvironment: Family / Home Support: fair The patient currently livesalone. The patient is.10:56 Patient presents to Emergency Department with the following syoppruxyp20alxzyp the past 2 weeks: anxiety, depressed mood, hallucinations - auditory, visual, suicidal ideation with no plan.11:00 Objective: Patient is cooperative, Speech is normal. Affect yxtb29fzundsptefi. Mental status exam: Patients appearance is appropriate,Patient's behavior is normal, Speech is normal. Affect isappropriate. Mood is depressed. Perception : hallucinations - auditory and visual. Appetite is normal. Memory is good. Energy levelis normal. Content of thought is normal. Thought Process is intact.Cognitive level is Oriented to person,place and time. Insight /Judgment is good. Rapport with interviewer is good. SuicidalIdeation: Vague. Homicidal Ideation: Denies.11:35 Consultation: Psych MD informed of patient's status at 11:35, ED LMea47egrjemxn of patients status at 11:35, Mental Health MANAGER MANUFACTURING made awareof pt status at 11:35. Disposition: Medically cleared for dispositionby Dr Blake. Psychiatric Consult is performed by phone with Ronal The patient is admitted to [facility] Patient report isgiven to TRAVIS Pollard. Legal Status: Patient's legal status will beEmergency: 9.39. Commitment papers are completed. Pt provided with acopy of their legal status and rights. DSM-V DX Clarion I diagnosis:Schizophrenia Clarion II diagnosis: Deferred Clarion III diagnosis: None.Clarion IV diagnosis: poor impulse control.11:38 [facility] Admission Criteria: The patient is experiencing aurtjzxgob02rlecntyl. The patient displays symptoms of severe psychiatricdisorder resulting in disordered behavior and significantinterference with his / her ability to maintain self care.Hallucinations. The patient requires continuous observation and/orcontrol to protect self, others or property. The patient's carerequires a multi-modal treatment plan under close supervision andcoordination due to the complexity and severity of the patient'ssymptoms. The patient requires administration and monitoring ofpsychoactive medications by skilled medical providers due to the sideeffects of the psychoactive medications or significant dosageadjustments. Awaiting transfer to [facility]. Transition of care to Pt willbe escorted by PSA and ELONA. The patient is not a shared services manager ormilitary dependent. [place] Suicide Severity Rating Scale: SuicidalIdeation Rating 3; Intensity of Ideations Rating 12; SuicidalBehavior Rating 2.Psych:01:41 Subjective: Delusions are denied, Hallucinations are auditory, so8jksgze. Objective: Patient is cooperative, Speech is normal, Affectis appropriate. Interventions: Removed personal items and placed inbag. Patient placed in hospital gown. Searched person for dangerousitems. Observation Level Level 3 Sitter needed. Charge nursenotified. Denice Paz Level 3 order placed.Vital Signs:01:40 BP 119 / 71; Pulse 105; Resp 18; Temp 97.4; Pulse Ox 96% ; kk213:58 BP 95 / 67; Pulse 104; Resp 18; Temp 98.4; Pulse Ox 95% ; Pain 0/10; tlm13:58 vitals taken by mental health nurse, Er nurse notification not made tlmGlasgow Coma Score:02:01 Eye Response: spontaneous(4). Verbal Response: oriented(5). Motor df5Nbifgopl: obeys commands(6). Total: 15.ED Course:01:25 Patient arrived in ED. kk201:28 Charisse Blake MD is Attending Physician. dk201:30 Triage completed. kk201:40 Patient placed in exam room. kk201:41 Patient has correct armband on for positive identification. Bed in kk2low position.02:04 Lights dimmed. Warm blanket given. ef102:05 PO fluids given. ef102:30 Valuables inventory done. geg07:21 No apparent distress. Resting quietly. blk07:21 Diet tray ordered. PO fluids given. blk07:21 No Physician assisted procedures completed. blk09:00 No apparent distress. Resting quietly. blk09:03 Diet: Tolerated well. blk10:59 No apparent distress. Resting quietly. blk10:59 Diet tray ordered. blk12:05 Attending Physician role handed off by Charisse Blake MD th412:05 Kyle Tripp MD is Attending Physician. th412:05 Bernarda Richey MD is Hospitalizing Provider. ki7Cyixbdcrrqou Medications:02:04 Drug: Famotidine 20 mg [famotidine 20 mg tablet (1 tabs)] Route: PO; ef103:05 Follow up: Response: No adverse reaction ef102:04 Drug: LORazepam 2 mg [lorazepam 1 mg tablet (2 tabs)] Route: PO; ef103:05 Follow up: Response: Anxiety decreased ef109:04 Drug: SEROquel 200 mg Route: PO; blk09:05 Follow up: Response: No adverse reaction; No change in condition blk09:04 Drug: lithium 300 mg Route: PO; blk09:05 Follow up: Response: No adverse reaction; No change in condition blk09:04 Drug: metFORMIN 1000 mg Route: PO; blk09:06 Follow up: Response: No adverse reaction; No change in condition blk09:05 Drug: diphenhydrAMINE 50 mg [diphenhydramine 25 mg tablet (2 tabs)] blkRoute: PO;09:05 Follow up: Response: No adverse reaction; No change in condition blk09:05 Drug: Haloperidol 10 mg [haloperidol 5 mg tablet (2 tabs)] Route: PO; blk09:05 Follow up: Response: No adverse reaction; No change in condition blkOutcome:12:05 Decision to Hospitalize by Provider. th413:58 Condition: stable. tlm13:58 Instructed on need for admit.13:58 Discharge Assessment: Patient awake, alert and oriented x 3. Nocognitive and/or functional deficits noted. Patient verbal izedunderstanding of disposition instructions. Patient verbalizedunderstanding of disposition instructions. Patient has no functionaldeficits.13:58 Patient left the ED. tlmSignatures:Jessica Lazaro, RN RN Michelle, Joycelyn, LEONA LEONA gegMartin, Minnie, RN RN tlmKnchi, Denice, RN TRAVIS sh7DikmgcpKyle Tripp MD MD no4Wpidit, Lary, RN TRAVIS ce1Hdxv, Charisse Fraga MD MD dk2 Name Value Range Interpretation Code Description Data Jennifer rce(s) Supporting Document(s) ID Date Data Source [id number] 04/11/2020 05:44:00 PM EDT [facility] Name Value Range Interpretation Code Description Data Jennifer rce(s) Supporting Document(s) Beta HCG Screen,Qualitative Negative Normal (appli es to non-numeric results) [facility] ID Date Data Source [id number] 04/11/2020 06:09:00 PM EDT [facility] Name Value Range Interpretation Code Description Data Jennifer rce(s) Supporting Document(s) Sodium 139 mmol/L 137-145 Normal (applies to non-numeric resul ts) [facility] Potassium 3.5-5.1 Normal (applies to non-numeric resul ts) [facility] Specimen hemolyzed, interpret with care. Chloride 108 mmol/L 98-112 Normal (applies to non-numeric resul ts) [facility] Carbon Dioxide CO2 22.0-33.0 Normal (applies to non-numer ic results) [facility] Anion Gap 4.0-11.0 Normal (applies to non-numeric resul ts) [facility] BUN 8 mg/dL 7-17 Normal (applies to non-numeric resul ts) [facility] Creatinine 0.70-1.20 Normal (applies to non-numeric resul ts) [facility] GFR 79 mL/min >60 Normal (applies to non-numeric resul ts) [facility] Result based on MDRD formula. Glucose Level 146 mg/dL 74-99 Above high normal [facility] The reference range is only applicable w hen fasting. Calcium-Uncorrected 8.4-10.2 Normal (applies to non-nume elenita results) [facility] Corrected Calcium 8.4-10.2 Normal (applies to non-numeri c results) [facility] Bilirubin,Total 0.2-1.3 Normal (applies to non-numeric results) [facility] SGOT(AST) 28 U/L 14-36 Normal (applies to non-numeric resul ts) [facility] SGPT(ALT) 44 U/L 9-52 Normal (applies to non-numeric resul ts) [facility] Alkaline Phosphatase 86 U/L 38-126 Normal (applies to non-num genaro results) [facility] can increase Alkaline Phosp le vels up to 2 times the normal adult value. Normal values for children and adolescents are 2 to 3 times the normal adult value. Total Protein 6.3-8.2 Normal (applies to non-numeric re sults) [facility] Albumin 3.5-5.0 Normal (applies to non-numeric resul ts) [facility] ID Date Data Source [id number] 04/11/2020 06:09:00 PM EDT [facility] Name Value Range Interpretation Code Description Data Jennifer rce(s) Supporting Document(s) Thyroid Stimulate Hormone TSH 0.358-3.740 No rmal (applies to non-numeric results) [facility] ID Date Data Source [id number] 04/11/2020 06:09:00 PM EDT [facility] Name Value Range Interpretation Code Description Data Jennifer rce(s) Supporting Document(s) Salicylate 0.0-20.0 Normal (applies to non-numeric resul ts) [facility] ID Date Data Source [id number] 04/11/2020 06:09:00 PM EDT [facility] Name Value Range Interpretation Code Description Data Jennifer rce(s) Supporting Document(s) Acetaminophen 10.0-30.0 Below low normal [facility] ID Date Data Source [id number] 04/11/2020 05:54:00 PM EDT [facility] Name Value Range Interpretation Code Description Data Jennifer rce(s) Supporting Document(s) Ethanol Less than 10.0 Normal (applies to non-numeric r esults) [facility] ID Date Data Source [id number] 04/11/2020 05:42:00 PM EDT [facility] Name Value Range Interpretation Code Description Data Jennifer rce(s) Supporting Document(s) White Blood Count 4.8-10.8 Normal (applies to non-numeri c results) [facility] Red Blood Count 3.68-5.22 Normal (applies to non-numeric results) [facility] Hemoglobin 11.2-15.7 Normal (applies to non-numeric resul ts) [facility] Hematocrit 34.1-44.9 Normal (applies to non-numeric resul ts) [facility] Mean Corpuscular Volume 81-99 Normal (applies to non- numeric results) [facility] Mean Corpuscular Hemoglobin 27.0-33.0 Normal (appli es to non-numeric results) [facility] Mean Corpuscular HGB Conc 32.0-36.0 Normal (applies to no n-numeric results) [facility] Red Cell Distribution Width 11.5-14.5 Normal (appli es to non-numeric results) [facility] Platelet Count 365 X10 3/uL 130-450 Normal (applies to non-numeric results) [facility] Mean Platelet Volume 9.5-12.7 Normal (applies to non-num genaro results) [facility] Imm Grans% (AUTO) 0 % 0-2 Normal (applies to non-numeri c results) [facility] Neutrophils % (AUTO) 55 % 40-75 Normal (applies to non-num genaro results) [facility] Lymphocytes % (AUTO) 38 % 21-46 Normal (applies to non-num genaro results) [facility] Monocytes % (AUTO) 4 % 5-12 Below low normal [facility] Eosinophils % (AUTO) 3 % 1-5 Normal (applies to non-num genaro results) [facility] Basophils % (AUTO) 0 % 0-1 Normal (applies to non-numer ic results) [facility] Imm Grans# (AUTO) 0.0-0.5 Normal (applies to non-numeri c results) [facility] Neutrophils # (AUTO) 1.5-8.1 Normal (applies to non-num genaro results) [facility] Lymphocytes # (AUTO) 1.0-3.1 Normal (applies to non-num genaro results) [facility] Monocytes # (AUTO) 0.2-1.3 Normal (applies to non-numer ic results) [facility] Eosinophils# (AUTO) 0.0-0.5 Normal (applies to non-nume elenita results) [facility] Basophils # (AUTO) 0.0-0.1 Normal (applies to non-numer ic results) [facility] ID Date Data Source [id number] 04/12/2020 01:21:00 PM EDT [facility] Name Value Range Interpretation Code Description Data Jennifer rce(s) Supporting Document(s) Urine Culture Normal (applies to non-numeric re sults) [facility] ID Date Data Source [id number] 04/11/2020 04:57:00 PM EDT [facility] Name Value Range Interpretation Code Description Data Jennifer rce(s) Supporting Document(s) Opiate Screen,Urine Negative Normal (applies to non-nume elenita results) [facility] Barbiturate Screen,Urine Negative Normal (applies to non -numeric results) [facility] Benzodiazepines Scrn,Ur result Negative N ormal (applies to non-numeric results) [facility] Cocaine Screen,Urine Negative Normal (applies to non-num genaro results) [facility] Cannabinoid Screen, Ur Negative Normal (applies to non-n umeric results) [facility] Therapeutic Drug Ranges for Emergency an d Rehabilitation Threshold Levels (ng/mL) Cocaine 300 Opiates 300 Cannabinoids 50 Barbiturates 200 Benzodiazepine 200 Methadone 300 Amphetamines 1000 All positive find ings are presumptive and unconfirmed. Confirmation of positive results are performed only at request of provider. Unconfirmed results must not be used for non-medical purposes (i.e. pre-employment and legal purposes) ID Date Data Source [id number] 04/11/2020 04:56:00 PM EDT [facility] Name Value Range Interpretation Code Description Data Jennifer rce(s) Supporting Document(s) Color,Urine Yellow [facility] pital Clarity,Urine Clear Normal (applies to non-numeric re sults) [facility] Specific [place],Urine 1.001-1.030 Normal (applies to non- numeric results) [facility] PH,Urine 5.0-8.0 Normal (applies to non-numeric resul ts) [facility] Protein,Urine Negative Normal (applies to non-numeric re sults) [facility] Glucose,Urine (UA) Negative Normal (applies to non-numer ic results) [facility] Ketones,Urine Negative [facility] ospital Blood,Urine Negative [facility] pital Bilirubin,Urine Negative Normal (applies to non-numeric results) [facility] Urobilinogen,Urine Norm 0.2-1 Normal (applies to non-numer ic results) [facility] Leukocyte Esterase,Urine Negative Normal (applies to non -numeric results) [facility] Nitrite,Urine Negative Normal (applies to non-numeric re sults) [facility] ID Date Data Source [id number] 04/11/2020 04:56:00 PM EDT [facility] Name Value Range Interpretation Code Description Data Jennifer rce(s) Supporting Document(s) RBC,Auto Urine 0-2 [facility] WBC Urine Auto 0-10 Normal (applies to non-numeric r esults) [facility] Casts,Hyaline,Urine Auto 0-2 Normal (applies to non -numeric results) [facility] Bacteria Urine Auto None Seen Normal (applies to non-nume elenita results) [facility] Epithelial Cell Ur Auto None-Few Normal (applies to non- numeric results) [facility] ID Date Data Source [id number] 04/12/2020 02:30:00 PM EDT [facility] Name: KAREN TRIPATHI : [birth year] Age/Sex: 34F Ordering Provider: LAVELL Ozuna Med Rec #: [id number] Reg Status:DEP ER Room #: Date of Service: 04/11/20 Report Number: [id number] cc: LAVELL Ozuna; PCP Unknown Send Report To: Reason for exam: HALLUCINATIONS SINUS RHYTHM WITH SINUS ARRHYTHMIA NORMAL ECG Physician [employer] Team Member: Dr. Barrington Izaguirre M.D. ECG HEART RATE: 60 /min ECG RR INTERVAL: 1000 ms ECG P DURATION: 110 ms ECG QRS DURATION: 88 ms ECG IN INTERVAL: 155 ms ECG QT INTERVAL: 397 ms ECG QTC INTERVAL: 397 ms Q-T dispersion: ms ECG P AXIS: 23 deg ECG QRS AXIS: 16 deg ECG T AXIS: 13 deg REPORT SIGNATURE ON FILE 04/12/20 143 Reported By: Barrington Izaguirre MD <<Signature on File>> Exam Date/Time: 04/11/20 1544 Order #: [id number] Dictation Date/Time: 04/12/201429 Transcribed Date/Time: 04/12/20 143 [facility]: [facility] Name Value Range Interpretation Code Description Data Jennifer rce(s) Supporting Document(s) ID Date Data Source [id number] 04/12/2020 01:42:00 AM EDT [facility] Name Value Range Interpretation Code Description Data Jennifer rce(s) Supporting Document(s) [place] 0.60-1.20 Above high normal [facility] ID Date Data Source [id number] 04/08/2020 05:44:00 PM EDT [facility] Name Value Range Interpretation Code Description Data Jennifer rce(s) Supporting Document(s) Respiratory specimen severe acute respir atory syndrome coronavirus 2 (SARS-CoV-2) RNA [facility] ital This lab was ordered by [facility] Adrianna marquez and reported by [facility]. ID Date Data Source [id number] 04/08/2020 05:43:00 PM EDT [facility] First test? YESEmployed in healthcare? NOSymptomatic per CDC? NOHospitalized? YESICU? NOResident in congregated care? ex [facility], [facility] NO? UNKNOWN Name Value Range Interpretation Code Description Data Jennifer rce(s) Supporting Document(s) SARS-CoV-2 RNA Negative Normal (applies to non-numeric r esults) [facility] Negative results should be treated as pr esumptive and, if inconsistent with clinical signs and symptoms or necessary for patient management, should be tested with different authorized or cleared molecular tests. Negative results do not preclude SARS-CoV-2 infection and should not be used as the sole basis for patient management decisions. Negative results should be considered in the context of a patients recent exposures, history and the presence of clinical signs and symptoms consistent with COVID-19. This test has not been FDA cleared or approved; this test has been authorized by FDA under an Emergency Use Authorization for use by laboratories certified under the Clinical Laboratory Improvement Amendments of 1988 (CLIA), 42 U.S.C. 263a, to perform moderate complexity/high complexity tests and at the Point of Care (POC), i.e., in patient care settings operating under a CLIA Certificate of Waiver, Certificate of Compliance, or Certificate of Accreditation. Factsheets for healthcare providers: https://www.fda.gov/media/081589/download Factsheets for patients: https://www.fda.gov/media/577734/download THIS IS A STATE REPORTABLE COMMUNICABLE DISEASE. Manual entry verified by Amberly Anderson 04/08/20 1743 ID Date Data Source [id number] 04/07/2020 04:36:00 PM EDT [facility] Name Value Range Interpretation Code Description Data Jennifer rce(s) Supporting Document(s) LAB Glucose,Fingerstick 117 mg/dL 70-110 Above high normal [facility] ID Date Data Source [id number] 04/07/2020 12:24:00 PM EDT [facility] Name Value Range Interpretation Code Description Data Jennifer rce(s) Supporting Document(s) LAB Glucose,Fingerstick 109 mg/dL 70-110 Normal ( applies to non-numeric results) [facility] ID Date Data Source [id number] 04/07/2020 01:28:00 PM EDT [facility] Name Value Range Interpretation Code Description Data Jennifer rce(s) Supporting Document(s) HIV 1/2 Ab p24 Ag Screen Nonreactive Normal (applies to non-numeric results) [facility] ID Date Data Source [id number] 04/07/2020 11:42:00 AM EDT [facility] Name Value Range Interpretation Code Description Data Jennifer rce(s) Supporting Document(s) Maloy 0.60-1.20 Normal (applies to non-numeric resul ts) [facility] ID Date Data Source [id number] 04/07/2020 06:37:00 AM EDT [facility] Name Value Range Interpretation Code Description Data Jennifer rce(s) Supporting Document(s) LAB Glucose,Fingerstick 99 mg/dL 70-110 Normal (applies t o non-numeric results) [facility] ID Date Data Source [id number] 04/06/2020 09:33:00 PM EDT [facility] Value Range Interpretation Code Description Data Jennifer rce(s) Supporting Document(s) LAB Glucose,Fingerstick 106 mg/dL 70-110 Normal ( applies to non-numeric results) [facility] ID Date Data Source [id number] 04/12/2020 07:52:00 AM EDT [facility] Value Range Interpretation Code Description Data Jennifer rce(s) Supporting Document(s) Cannabinoids Confirm,Ur result . Very abnor mal (applies to non-numeric units [facility] Carboxy THC GC/MS Conf 74 ng/mL Cutoff=10 01 Performed at: [facility] [address] [id number] [employer] Professor: Delores Bass MD, Phone: [phone] ID Date Data Source [id number] 04/06/2020 04:41:00 PM EDT [facility] Value Range Interpretation Code Description Data Jennifer rce(s) Supporting Document(s) LAB Glucose,Fingerstick 107 mg/dL 70-110 Normal ( applies to non-numeric results) [facility] ID Date Data Source [id number] 04/06/2020 03:04:00 PM EDT [facility] Value Range Interpretation Code Description Data Jennifer rce(s) Supporting Document(s) Hemoglobin A1C % Less than 5.7% Normal (applies to non-num genaro results) [facility] HBA1C: Normal: Less than 5.7% Prediabetes: 5.7% to 6.4% Diabetes: 6.5% or higher HA1C % vs Estimated Average Glucose (eAG) % eAG % eAG 6% 126 mg/dL 10% 240 mg/dL 7% 154 mg/dL 11% 269 mg/dL 8% 183 mg/dL 12% 298 mg/dL 9% 212 mg/dL Reference: [place], 2017 ID Date Data Source [id number] 04/06/2020 02:11:00 PM EDT [facility] Value Range Interpretation Code Description Data Jennifer rce(s) Supporting Document(s) Hep C Ab-T Test Nonreactive Normal (applies to non-numeric results) [facility] ID Date Data Source [id number] 04/06/2020 02:11:00 PM EDT [facility] Value Range Interpretation Code Description Data Ejnnifer rce(s) Supporting Document(s) Hep Bs Ag Result T-Test Nonreactive Normal (applies to non -numeric results) [facility] ID Date Data Source [id number] 04/06/2020 02:11:00 PM EDT [facility] Value Range Interpretation Code Description Data Jennifer rce(s) Supporting Document(s) Syphilis Serology Nonreactive Normal (applies to non-numer ic results) [facility] ID Date Data Source [id number] 04/06/2020 02:11:00 PM EDT [facility] Name Value Range Interpretation Code Description Data Jennifer rce(s) Supporting Document(s) HAVM Nonreactive Normal (applies to non-numeric resu lts) [facility] ID Date Data Source [id number] 04/06/2020 02:11:00 PM EDT [facility] Name Value Range Interpretation Code Description Data Jennifer rce(s) Supporting Document(s) Vitamin D,Total (25OH) 30.0-100.0 Below low normal [facility] Reference Range: <10 ng/mL: Deficien t 10-30 ng/mL: Insufficient 30-100 ng/mL: Sufficient >100 ng/mL: Toxicity possible ID Date Data Source [id number] 04/06/2020 01:35:00 PM EDT [facility] Name Value Range Interpretation Code Description Data Jennifer rce(s) Supporting Document(s) Sodium 137 mmol/L 137-145 Normal (applies to non-numeric resul ts) [facility] Potassium 3.5-5.1 Normal (applies to non-numeric resul ts) [facility] Chloride 107 mmol/L 98-112 Normal (applies to non-numeric resul ts) [facility] Carbon Dioxide CO2 22.0-33.0 Normal (applies to non-numer ic results) [facility] Anion Gap 4.0-11.0 Normal (applies to non-numeric resul ts) [facility] BUN 12 mg/dL 7-17 Normal (applies to non-numeric resul ts) [facility] Creatinine 0.70-1.20 Normal (applies to non-numeric resul ts) [facility] GFR 56 mL/min >60 Below low normal [facility] Result based on MDRD formula. Glucose Level 112 mg/dL 74-99 Above high normal [facility] The reference range is only applicable w hen fasting. Calcium-Uncorrected 8.4-10.2 Normal (applies to non-nume elenita results) [facility] Corrected Calcium 8.4-10.2 Normal (applies to non-numeri c results) [facility] Bilirubin,Total 0.2-1.3 Normal (applies to non-numeric results) [facility] Bilirubin,Direct 0.0-0.3 Normal (applies to non-numeric results) [facility] SGOT(AST) 21 U/L 14-36 Normal (applies to non-numeric resul ts) [facility] SGPT(ALT) 29 U/L 9-52 Normal (applies to non-numeric resul ts) [facility] Alkaline Phosphatase 96 U/L 38-126 Normal (applies to non-num genaro results) [facility] can increase Alkaline Phosp le vels up to 2 times the normal adult value. Normal values for children and adolescents are 2 to 3 times the normal adult value. CPK 131 U/L 26-192 Normal (applies to non-numeric resul ts) [facility] Total Protein 6.3-8.2 Normal (applies to non-numeric re sults) [facility] Albumin 3.5-5.0 Normal (applies to non-numeric resul ts) [facility] Thyroid Stimulate Hormone TSH 0.358-3.740 No rmal (applies to non-numeric results) [facility] ID Date Data Source [id number] 04/06/2020 01:35:00 PM EDT [facility] Name Value Range Interpretation Code Description Data Jennifer rce(s) Supporting Document(s) Magnesium 1.80-2.40 Normal (applies to non-numeric resul ts) [facility] ID Date Data Source [id number] 04/06/2020 01:35:00 PM EDT [facility] Name Value Range Interpretation Code Description Data Jennifer rce(s) Supporting Document(s) C-Reactive Protein,Wide Range <3.00 Normal (applies t o non-numeric results) [facility] ID Date Data Source [id number] 04/06/2020 01:00:00 PM EDT [facility] Name Value Range Interpretation Code Description Data Jennifer rce(s) Supporting Document(s) White Blood Count 4.8-10.8 Normal (applies to non-numeri c results) [facility] Red Blood Count 3.68-5.22 Normal (applies to non-numeric results) [facility] Hemoglobin 11.2-15.7 Normal (applies to non-numeric resul ts) [facility] Hematocrit 34.1-44.9 Normal (applies to non-numeric resul ts) [facility] Mean Corpuscular Volume 81-99 Normal (applies to non- numeric results) [facility] Mean Corpuscular Hemoglobin 27.0-33.0 Normal (appli es to non-numeric results) [facility] Mean Corpuscular HGB Conc 32.0-36.0 Normal (applies to no n-numeric results) [facility] Red Cell Distribution Width 11.5-14.5 Normal (appli es to non-numeric results) [facility] Platelet Count 355 X10 3/uL 130-450 Normal (applies to non-numeric results) [facility] Mean Platelet Volume 9.5-12.7 Below low normal [facility] Imm Grans% (AUTO) 0 % 0-2 Normal (applies to non-numeri c results) [facility] Neutrophils % (AUTO) 51 % 40-75 Normal (applies to non-num genaro results) [facility] Lymphocytes % (AUTO) 39 % 21-46 Normal (applies to non-num genaro results) [facility] Monocytes % (AUTO) 6 % 5-12 Normal (applies to non-numer ic results) [facility] Eosinophils % (AUTO) 3 % 1-5 Normal (applies to non-num genaro results) [facility] Basophils % (AUTO) 1 % 0-1 Normal (applies to non-numer ic results) [facility] Imm Grans# (AUTO) 0.0-0.5 Normal (applies to non-numeri c results) [facility] Neutrophils # (AUTO) 1.5-8.1 Normal (applies to non-num genaro results) [facility] Lymphocytes # (AUTO) 1.0-3.1 Above high normal [facility] Monocytes # (AUTO) 0.2-1.3 Normal (applies to non-numer ic results) [facility] Eosinophils# (AUTO) 0.0-0.5 Normal (applies to non-nume elenita results) [facility] Basophils # (AUTO) 0.0-0.1 Normal (applies to non-numer ic results) [facility] ID Date Data Source [id number] 04/06/2020 06:43:00 PM EDT [facility] Name Value Range Interpretation Code Description Data Jennifer rce(s) Supporting Document(s) Opiate Screen,Urine Negative Normal (applies to non-nume elenita results) [facility] Amphetamine Screen,Urine Negative Normal (applies to non -numeric results) [facility] Benzodiazepines Scrn,Ur result Negative N ormal (applies to non-numeric results) [facility] Cocaine Screen,Urine Negative Normal (applies to non-num genaro results) [facility] Methadone Screen,Urine Negative Normal (applies to non-n umeric results) [facility] Cannabinoid Screen, Ur Negative [facility] Therapeutic Drug Ranges for Emergency an d Rehabilitation Threshold Levels (ng/mL) Cocaine 300 Opiates 300 Cannabinoids 50 Barbiturates 200 Benzodiazepine 200 Methadone 300 Amphetamines 1000 All positive find ings are presumptive and unconfirmed. Confirmation of positive results are performed only at request of provider. Unconfirmed results must not be used for non-medical purposes (i.e. pre-employment and legal purposes) ID Date Data Source [id number] 04/06/2020 06:18:00 PM EDT [facility] Name Value Range Interpretation Code Description Data Jennifer rce(s) Supporting Document(s) Color,Urine Yellow Normal (applies to non-numeric resu lts) [facility] Clarity,Urine Clear Normal (applies to non-numeric re sults) [facility] Specific [place],Urine 1.001-1.030 Normal (applies to non- numeric results) [facility] PH,Urine 5.0-8.0 Normal (applies to non-numeric resul ts) [facility] Protein,Urine Negative Normal (applies to non-numeric re sults) [facility] Glucose,Urine (UA) Negative Normal (applies to non-numer ic results) [facility] Ketones,Urine Negative Normal (applies to non-numeric re sults) [facility] Blood,Urine Negative Normal (applies to non-numeric resu lts) [facility] Bilirubin,Urine Negative Normal (applies to non-numeric results) [facility] Urobilinogen,Urine Norm 0.2-1 Normal (applies to non-numer ic results) [facility] Leukocyte Esterase,Urine Negative Normal (applies to non -numeric results) [facility] Nitrite,Urine Negative Normal (applies to non-numeric re sults) [facility] ID Date Data Source [id number] 04/06/2020 06:18:00 PM EDT [facility] Name Value Range Interpretation Code Description Data Jennifer rce(s) Supporting Document(s) Urine HCG Negative Normal (applies to non-numeric resul ts) [facility] ID Date Data Source [id number] 03/15/2020 12:15:00 AM EDT [facility] 33.211.133.4 G/DL30.9 PG325 103.59 1013. 17.1 37.312.232.7 G/DL30.0 PG341 104.06 1013. 25.6 Name Value Range Interpretation Code Description Data Jennifer rce(s) Supporting Document(s) ID Date Data Source [id number] 02/16/2020 07:29:00 AM EDT [facility] 33.211.133.4 G/DL30.9 PG325 103.59 1013. 17.1 37.312.232.7 G/DL30.0 PG341 104.06 1013. 25.6 Name Value Range Interpretation Code Description Data Jennifer rce(s) Supporting Document(s) ID Date Data Source [id number] 02/16/2020 07:29:00 AM EDT [facility] 33.211.133.4 G/DL30.9 PG325 103.59 1013. 17.1 37.312.232.7 G/DL30.0 PG341 104.06 1013. 25.6 Name Value Range Interpretation Code Description Data Jennifer rce(s) Supporting Document(s) BG FASTING 106 mg/dL 70-100 H [facility] T4, FREE 0.98 ng/dL 0.76-1.46 N [facility] TSH 3.120 microintl units/mL 0.358-3.740 N [facility] ID Date Data Source [id number] 11/19/2019 10:03:15 AM EDT [facility] Vital Signs performed by: Elizabeth Strickland, November 19, 2019 10:04 AMVital Signs performed by: Elizabeth Gaviria LPN, November 19, 2019 10:04 AMInitial Intake Information from: patientSmoking, Tobacco, Vaping or Smoke Exposure StatusSmoke Status: current every day smokerTobacco Use: YesAdv to Quit: YesDo you vape? NoPassive Smoke Exposure: NoMenstrual HistoryLast Menstrual Period (LMP): 10/27/2019LMP History: ApproximateAny possibility of ? NoHealthcare HistorySince your last office visit...Have you been admitted to the hospital? NoHave you been to an emergency room (ER) or urgent care clinic? NoHave you seen another healthcare provider? Yes - [facility] [place] Have you seen a dentist? Yes - [facility] Rate Your HealthIn general, would you say your health is? Very GoodPain AssessmentAre you currently having any pain which... You would like your provider to address? No Affects your activity level? NoDepression Screening - PHQ-2Over the last two weeks, have you... Had little interest or pleasure in doing things? Not at all Been feeling down, depressed, or hopeless? Not at all PHQ-2 Score: 0Anxiety Screening - CJ-2Over the last two weeks, have you been... Feeling nervous, anxious, or on edge? Not at all Unable to stop or control worrying? Not at all CJ-2 Score: 0Food InsecurityWithin the past year...Did you worry whether your food would run out before you got money to buy more? NoWas there a time when the food you bought didn't last and you didn't have money to get more? YesInfectious Disease / Travel ScreeningRecent travel for you or any close contacts? NoHave you had any close contact with anyone diagnosed with or under investigation for COVID-19 (coronavirus)? NoHave you had any of the following symptoms recently? Fever? NoRespiratory symptoms: cough, cold, congestion, shortness of breath, difficulty breathing? NoScreening, Brief Intervention, & Referral to Treatment (SBIRT)Pre- Screening Questions How many times have you have 4 or more drinks in a day? 0How many times have you used an illegal drug or used a prescription medication for a non-medical reason? 0Patient History Medical History:Heart MurmurHypertensionSchizophreniaAsthmaSurgical History:GallbladderFamily History:Mother- LupusFather- Prostate [place]?Social/Personal History: Advised to Quit/Tobacco Education: YesChief Complaintfollow-up visit lab results Phone History of Present Illness (HPI)This visit was conducted via telephone. Claire BROWN has received verbal consent from the patient/guardian to conduct this visit via telehealth. The patient has been made aware that they have the right to refuse telehealth; of my location and the security of the telehealth software; any other parties present in the session; and that they have a right to select another provider if chosen for a face to face visit.34 YO via phone visit for follow up visit and review of lab Results. Pt states healthy diet and physical activities. Pt states medication compliance. Pt denies other concerns at this time. Telephone visit 18 minutes. HPI performed by: Claire BROWN, November 19, 2019 12:19 PMTransitions of Care InboundProblem ReviewProblem List was reviewed and/or updated during this visit.Medication Reconciliation & ReviewMedication List was reviewed and/or updated during this visit, including review of any mgpq-gyf-seuekid medications, herbal therapies, and/or supplements.Allergy ReviewAllergy List was reviewed and/or updated during this visit.Adult Preventive CareProvider Calculated and Reviewed all Clinical Protocols for patient today. Screening Tobacco Screening: Smoking Status: current every day smoker (11/19/2019) Tobacco Use: Currently (11/19/2019) Advised to Quit: Yes (11/19/2019)Cancer Screening Pap Smear/HPV TestingReviewed: Previous Comments: [facility])Today's Comments[facility] , will get done afte Covid-19Review of Systems General: Denies loss of appetite, chills, dizziness, fatigue, fever, continued fever, headache, feeling ill, sweats, night sweats, sleep disturbances, weight loss. Eyes: Denies blurring of vision, double vision, irritation, discharge, vision loss, eye pain, eye swelling, droopy eyelid, sensitivity to light, red ness, itching. Ears/Nose/Throat: Denies earache, ear discharge, ringing in ears, decreased hearing, nasal congestion, nosebleeds, runny nose, sore throat, hoarseness, difficulty swallowing, dry mouth, tooth pain, bleeding gums, swollen glands. Cardiovascular: Denies chest pain, palpitations, feeling faint, trouble breathing w/exertion, SOB upon lying down, SOB at night, peripheral edema, elevated blood pressure, decreased heart rate. Respiratory: Denies cough, difficulty breathing, shortness of breath, excessive sputum, coughing up blood, wheezing, chest pain. Gastrointestinal: Denies nausea, vomiting, bleeding, burning, itching, irritation, cramps, diarrhea. Genitourinary: Denies urinary incontinence, pain with urination, burning with urination, urinary frequency, urinary hesitancy, urinary urgency, urinary urgency at night, incomplete emptying, blood in urine. Musculoskeletal: Denies back pain, joint pain, leg pain, other pain-see comments, joint swelling, body aches, muscle aches, muscle cramps, muscle weakness, stiffness, recent injury. Skin: Denies rash, hives, redness, itching, dryness, nail changes, suspicious lesions, athlete's foot, rash on palms, rash on bottom of feet. Neurologic: Denies muscle impairment, weakness, numbness/tingling, seizures, slurred speech, feeling faint, tremors, vertigo, paralysis on one side, paralysis on both sides. Psychiatric: Denies depression, anxiety, memory loss, mental disturbance, suicidal ideation, homicidal ideation, hallucinations, paranoia, feeling stressed, hearing voices. Endocrine: Denies cold intolerance, heat intolerance, excessive thirst, excessive hunger, excessive urination, weight loss, weight gain. Physical ExamJudgment & Insight: intactCare Management Plan Transitions of CareInboundRate Your HealthIn general, would you say your health is? Very GoodAssessment & Plan Problems:Added: Person consulting for explanation of examination or test findings (ICD-V65.8) (TPH99-Q95.2) Assessment: Instructions: We have reviewed your lab results with you today.Hyperlipidemia, unspecified (EQG51-E26.5) Assessment: Instructions: Please continue lifestyle changes to include healthy diet and physical activities. Please try to limit sugars, carbohydrates, sodium and fats in your diet. Please try to avoid processed foods.vitamin D deficiency (ICD-268.9) (OKC10-R42.9) Assessment: Instructions: Script sent to pharmacy for you today.Prediabetes (MBH65-G42.03) Assessment: Instructions: Please continue lifestyle changes to include healthy diet and physical activities. Please try to limit sugars and carbohydr ates in your diet. Please try to avoid processed foods.Person consulting for explanation of examination or test findings (ICD-V65.8) (BCS32-N55.2) Assessment: Lab results reviewed. Results indicates prediabetes, hyperlipidemia, and vitamin D deficiency.Telephone visit 18 minutes.Patient Instructions/Care Plan: Person consulting for explanation of examination or test findings: We have reviewed your lab results with you today.Hyperlipidemia- unspecified: Please continue lifestyle changes to include healthy diet and physical activities. Please try to limit sugars, carbohydrates, sodium and fats in your diet. Please try to avoid processed foods.vitamin D deficiency: Script sent to pharmacy for you today.Prediabetes: Please continue lifestyle changes to include healthy diet and physical activities. Please try to limit sugars and carbohydrates in your diet. Please try to avoid processed foods. Plan developed in collaboration with patient and/or familyMedications:VITAMIN D (ERGOCALCIFEROL) 27083 UNIT ORAL CAPSULEAMOXICILLIN 500 MG CAPSABILIFY MAINTENA SUSPENSION RECONSTITUTED ERSYMMETRELSEROQUEL 25 MG ORAL TABLETMETFORMIN HCL 500 MG ORAL TABLETCOLACE CAPSULELITHIUM CARBONATE ER 300 MG ORAL TABLET EXTENDED RELEASEVENTOLIN HFA 108 (90 Base) MCG/ACT INHALATION AEROSOL SOLUTIONBENZTROPINE MESYLATE 2 MG ORAL TABLETMedication Changes:New Prescription:VITAMIN D (ERGOCALCIFEROL) 16137 UNIT ORAL CAPSULE-1 po q wk for 12 wks Qty: 12[Capsule] Refills: 0 Method: ElectronicRemoved:INVEGA SUSTENNA 234 MG/1.5ML INTRAMUSCULAR SUSPENSION-inject once month;yAllergies:* RISPERDAL (Critical)* INVEGA (Critical)HALDOL (Critical)Orders:COMP METABOLIC PANEL [CPT-40962] CBC W/DIFF [CPT-12415] HgBA1c [CPT-06615] LIPID PANEL [CPT-27568] Vitamin D 250H Unspecified [CPT-09516] Telephone E&M 11-20 min Medical Discussion [CPT-93389] Follow-Up Return to clinic: 3 months for follow up Medications:VITAMIN D (ERGOCALCIFEROL) 17979 UNIT ORAL CAPSULE (ERGOCALCIFEROL) 1 po q wk for 12 wks #12[Capsule] x 0 Route:ORAL Entered and Authorized by: Claire BROWN Method used: Electronically to [facility]* (retail) [address] [place] [address] Note to Pharmacy: Route: ORAL; Indications: VITAMIN D DEFICIENCY RxID: [id number] signed by Claire BROWN on 11/26/2019 at 7:33 PM Name Value Range Interpretation Code Description Data Jennifer rce(s) Supporting Document(s) ID Date Data Source [id number] 11/05/2019 09:09:33 AM EDT [facility] Current Problems: Obesity, unspecified ( JIF64-H66.9)BRONCHITIS (ICD-490) (ICD10- J40)SINUSITIS, ACUTE (ICD-461.9) (SRW56-M56.90)DENTAL CARIES EXTENDING INTO PULP (ICD-521.03) (WFS26-N89.63)Elevated liver enzymes level (UMZ92-N48.8)Health Screening (ICD-V70.0) (ZPR23-E72.9)Edema of hand (ICD-782.3) (ICD10- R60.0)Eruption (ICD-782.1) (PVN40-C92)Pain in right lower limb (ICD-729.5) (MGM32-M57.604)Unspecified fracture of right lower leg, sequela (ICD10- S82.91xS)Other forms of dyspnea (JGY83-Z35.09)Onychomycosis of toenails (ICD- 110.1) (XQQ40-B50.1)Cough (ICD-786.2) (GLV01-K09)Other neutropenia (XUG88-F85. 8)Vitamin D deficiency (ICD-268.9) (GYA94-J98.9)Preventative health care (ICD- V70.0) (CDF53-P43.00)General Adult Medical Exam WITH Abnormal Findings (over 18) (ICD-V70.0) (CLD91-U80.01)ASTHMA (ICD-493.90) (TGG33-A81.909)Schizophrenia (ICD-295.90) (KET63-M67.9)Hypertension (ICD-401.9) ([id number])HEART MURMUR (ICD- 785.2) (PQR21-Q06.1)Need for prophylactic vaccination and inoculation against other combinations of diseases (ICD-V06.8) (UOT39-Z42)Tobacco use (ICD-305.1) (KRY95-P45.0)Current Medications: AMOXICILLIN 500 MG CAPS (AMOXICILLIN) 1 tablet by mouth every 8 hours until gone; Route: ORALABILIFY MAINTENA SUSPENSION RECONSTITUTED ER * SYMMETREL bid; Route: ORALSEROQUEL 25 MG ORAL TABLET (QUETIAPINE FUMARATE) qhs; Route: ORALMETFORMIN HCL 500 MG ORAL TABLET (METFORMIN HCL) qd; Route: ORALCOLACE CAPSULE (DOCUSATE SODIUM CAPS) po 4 tab qhsLITHIUM CARBONATE ER 300 MG ORAL TABLET EXTENDED RELEASE (LITHIUM CARBONATE) po 2 qhs; Route: ORALVENTOLIN HFA 108 (90 Base) MCG/ACT INHALATION AEROSOL SOLUTION (ALBUTEROL SULFATE) 2 puffs every 4 hours as needed. MDD 8 puffs.; Route: INHALATIONBENZTROPINE MESYLATE 2 MG ORAL TABLET (BENZTROPINE MESYLATE) 1 tablet PO TID; Route: ORALINVEGA SUSTENNA 234 MG/1.5ML INTRAMUSCULAR SUSPENSION (PALIPERIDONE PALMITATE) inject once month;y; Route: INTRAMUSCULARCurrent Allergies: * RISPERDAL (Critical)* INVEGA (Critical)HALDOL (Critical) Dental Chart: Procedures:Type - CDT Code - Description B - (D0220) Intraoral, periapical, first radiographic image on Tooth # 20 (Performed by Kath Whittington DMD) B - (D0140) Limited oral evaluation - problem focused on Tooth # 20 (Performed by Kath Whittington DMD) Treatments:Type - CDT Code - Description T - (D7140) Extraction, erupted tooth or exposed root (elevation and/or forceps removal) on Tooth # 20 (Performed by Kath Whittington DMD) Chart Notes:amy (Nov 05 2019 9:43AM): S: CC: "I broke my tooth on the bottom left and I thought I could come in and get some antibiotics. I have an appointment with Dr. Ramos November 10 to have my other tooth taken out."O: RMHx (-)per pt. no changes HPI: about [address]:0. BP: 147/96 PA taken #20. Intra-oral signs of infection present near #20. #20 broken due to caries into the pulp.A: DDS recommends to have #20 extracted when seen with which pt has appointment with in 6 days. Placed prescription of [facility] to [facility]. DX: #20 badly broken due to caries into the pulp.P: Added extraction #20 to existing OS referral.E-scribe Amoxicillin 500mg q8h until gone dispense 21 tabs zero refills Assisted By: AMNV: radha.Kath Whittington DMD by amy (11/05/2019 9:43 AM): Tooth Notes and Watches:- Tooth 28 Watch: Do [place] RDH by charles (08/12/2019 10:48 AM): Assessment & Plan Medications:AMOXICILLIN 500 MG CAPSABILIFY MAINTENA SUSPENSION RECONSTITUTED ERSYMMETRELSEROQUEL 25 MG ORAL TABLETMETFORMIN HCL 500 MG ORAL TABLETCOLACE CAPSULELITHIUM CARBONATE ER 300 MG ORAL TABLET EXTENDED RELEASEVENTOLIN HFA 108 (90 Base) MCG/ACT INHALATION AEROSOL SOLUTIONBENZTROPINE MESYLATE 2 MG ORAL TABLETINVEGA SUSTENNA 234 MG/1.5ML INTRAMUSCULAR SUSPENSIONMedication Changes:New Prescription:AMOXICILLIN 500 MG CAPS-1 tablet by mouth every 8 hours until gone Qty: 21[Capsule] Refills: 0 Method: ElectronicAllergies:* RISPERDAL (Critical)* INVEGA (Critical)HALDOL (Critical) Name Value Range Interpretation Code Description Data Jennifer rce(s) Supporting Document(s) ID Date Data Source [id number] 10/26/2019 10:00:00 AM EDT [facility] Name Value Range Interpretation Code Description Data Jennifer rce(s) Supporting Document(s) VIT D25 TOT 11.2 ng/mL 30.0-100.[address] [facility] BG FASTING 99 mg/dL 70-100 N [facility] T4, FREE 0.78 ng/dL 0.76-1.46 N [facility] TSH 2.810 microintl units/mL 0.358-3.740 N [facility] ID Date Data Source [id number] 10/26/2019 10:00:00 AM EDT [facility] Name Value Range Interpretation Code Description Data Jennifer rce(s) Supporting Document(s) HGBA1C 5.7 % N [facility] ID Date Data Source [id number] 10/26/2019 10:00:00 AM EDT [facility] Name Value Range Interpretation Code Description Data Jennifer rce(s) Supporting Document(s) HCT 38.3 % 36.0-47.0 N [facility] HGB 13.1 g/dL 12.0-15.5 N [facility] MCH 34.2 G/DL pg 32.0-36.5 N [facility] MCHC 31.4 PG % 27.0-33.0 N [facility] PLATELETS 349 10 10*3/mm3 150-450 N [facility] RBC 4.17 10 10*6/mm3 4.00-5.40 N [facility] RDW 12.8 % 11.5-14.5 N [facility] WBC TOTAL 5.1 4.0-10.0 N [facility] ID Date Data Source [id number] 10/26/2019 10:00:00 AM EDT [facility] Name Value Range Interpretation Code Description Data Jennifer rce(s) Supporting Document(s) APPEARANCE U CLEAR CLEAR N [facility] SPEC GR URIN 1.016 1.002-1.035 N [facility] F [facility] UA COLOR YELLOW YELLOW N [facility] ID Date Data Source [id number] 10/26/2019 08:48:12 AM EDT [facility] Measurements & CalculationsHeight: 62 inches (5 ft. 2 in.) 157.48 cm Weight: 213 pounds 6 oz. 96.99 kg Body Mass Index (BMI): 39.17BMI Interpretation: ObeseBody Surface Area (BSA): 1.97Weight Management Education Done (Nutrition/Physical Activity)Vital SignsTemperature: 98.8FPulse Rate: 92 beats/minuteRespiratory Rate: 14 respirations/minuteBlood Pressure: 134/91 O2 Saturation: 95% Vital Signs performed by: Elizabeth Gaviria LPN, October 26, 2019 8:58 AMVital Signs performed by: Elizabeth Gaviria LPN, October 26, 2019 8:58 AMMultiple Vital SignsInitial BP: 137/94Vitals #2BP: 134/91 (primary)Initial Intake Information from: patientRoom #: 13Smoking, Tobacco, Vaping or Smoke Exposure StatusSmoke Status: current every day smokerTobacco Use: YesAdv to Quit: YesDo you vape? NoPassive Smoke Exposure: NoMenstrual HistoryLast Menstrual Period (LMP): 10/24/2019Any possibility of ? NoHealthcare HistorySince your last office visit...Have you been admitted to the hospital? NoHave you been to an emergency room (ER) or urgent care clinic? NoHave you seen another healthcare provider? Yes - community clinic , [facility] Have you seen a dentist? Yes - NCFHRate Your HealthIn general, would you say your health is? Very GoodPain AssessmentAre you currently having any pain which... You would like your provider to address? No Affects your activity level? NoDepression Screening - PHQ-2Over the last two weeks, have you... Had little interest or pleasure in doing things? Not at all Been feeling down, depressed, or hopeless? Not at all PHQ-2 Score: 0Anxiety Screening - CJ-2Over the last two weeks, have you been... Feeling nervous, anxious, or on edge? Not at all Unable to stop or control worrying? Not at all CJ-2 Score: 0Food InsecurityWithin the past year...Did you worry whether your food would run out before you got money to buy more? NoWas there a time when the food you bought didn't last and you didn't have money to get more? YesInfectious Disease / Travel ScreeningRecent travel for you or any close contacts? NoHave you had any close contact with anyone diagnosed with or under investigation for COVID-19 (coronavirus)? NoHave you had any of the following symptoms recently? Fever? NoRespiratory symptoms: cough, cold, congestion, shortness of breath, difficulty breathing? NoPRAPARE Sociodemographic Characteristics Race: Black or Ethnicity: Not or Preferred Language: EnglishFamily and Home Address: [address] [place] [address] What is your housing situation today? I have housing Are you worried about losing your housing? NoMoney and Resources In the past year, have you or any family members you live with been unable to get any of the following when it was really needed? Denies Insecurity: food, utilities, clothing, child caregiver private home, phone, legal services, otherWithin the past year did you worry whether your food would run out before you got money to buy more? NoWithin the past year was there a time when the food you bought didn't last and you didn't have money to get more? YesSocial and Emotional Health How often do you see or talk to people that you care about and feel close to? More than 5 times a week How stressed are you? A little bitAdditional Optional Domains Do you feel physically and emotionally safe where you live? Yes In the past year, have you been afraid of a partner, ex-partner? NoScreening, Brief Intervention, & Referral to Treatment (SBIRT)Pre-Screening Questions How many times have you color[place] ve 4 or more drinks in a day? 0How many times have you used an illegal drug or used a prescription medication for a non-medical reason? 0Performed by: Elizabeth Gaviria LPN, October 26, 2019 8:55 AMPatient History Social/Personal History: Advised to Quit/Tobacco Education: YesChief ComplaintAnnual PE no C/Ob room 13History of Present Illness (HPI)34 yo female here for Annual PE , Pt states medication compoliance Pt states still followed at [facility] clinic for her MH.Pt states stable on present medications.Pt states seen by Abdelrahman. Pt states lives in [place] housing. Pt states biological mother of two children ages 9 and 7 years old. Pt states does not have custody. Pt states children were taken from her at because she wasnt able to care for them.Pt states still smoking minimally. Pt denies any new concerns today. HPI performed by: Claire BROWN, October 26, 2019 9:10 AMTransitions of Care InboundProblem ReviewProblem List was reviewed and/or updated during this visit.Medication Reconciliation & ReviewMedication List was reviewed and/or updated during this visit, including review of any pcne-bih-ysljtsd medications, herbal therapies, and/or supplements.Allergy ReviewAllergy List was reviewed and/or updated during this visit.Adult Preventive CareProvider Calculated and Reviewed all Clinical Protocols for patient today. Screening Tobacco Screening: Smoking Status: current every day smoker (10/26/2019) Tobacco Use: Currently (10/26/2019) Advised to Quit: Yes (10/26/2019)Labs/Meds/Other Counseling-Nutrition and Physical Activity:BMI Interpretation: Obese (10/26/2019) Counseling: Done (10/26/2019) Physical Activity: Done (10/26/2019)Cancer Screening Pap Smear/HPV TestingReviewed: Previous Comments: Stating she had one 2 months ago but doesnt remember where she had one (01/17/2017)Today's Comments: [facility] Review of Systems General: Denies loss of appetite, chills, dizziness, fatigue, fever, continued fever, headache, feeling ill, sweats, night sweats, sleep disturbances, weight loss. Eyes: Denies blurring of vision, double vision, irritation, discharge, vision loss, eye pain, eye swelling, droopy eyelid, sensitivity to light, redness, itching. Ears/Nose/Throat: Denies earache, ear discharge, ringing in ears, decreased hearing, nasal congestion, nosebleeds, runny nose, sore throat, hoarseness, difficulty swallowing, dry mouth, tooth pain, bleeding gums, swollen glands. Cardiovascular: Denies chest pain, palpitations, feeling faint, trouble breathing w/exertion, SOB upon lying down, SOB at night, peripheral edema, elevated blood pressure, decreased heart rate. Gastrointestinal: Denies nausea, vomiting, bleeding, burning, itching, irritation, cramps, constipation. Genitourinary: Denies urinary incontinence, pain with urination, burning with urination, urinary frequency, urinary hesitancy, urinary urgency, urinary urgency at night, incomplete emptying, blood in urine. Musculoskeletal: Denies back pain, joint pain, leg pain, joint swelling, body aches, muscle aches, muscle cramps, muscle weakness, stiffness, recent injury. Neurologic: Denies muscle impairment, weakness, numbness/tingling, seizures, slurred speech, feeling faint, tremors, vertigo, paralysis on one side, paralysis on both sides. Psychiatric: Denies depression, anxiety, memory loss, mental disturbance, suicidal ideation, homicidal ideation, hallucinations, paranoia, feeling stressed, hearing voices. Endocrine: Denies cold intolerance, heat intolerance, excessive thirst, excessive hunger, excessive urination, weight loss, weight gain. Physical ExamGeneral Appearance: well nourished, well hydrated, no acute distressEyes, External: conjunctivae and lids normal, EOMIRespiratory, Auscultation: clear to auscultation bilaterally; no rales, rhonchi, or wheezesRespiratory, Effort: no intercostal retractions or use of accessory musclesCardiovascular, Auscultation: S1, S2 audible; no murmur, rub, or gallop; RRRPeripheral Circulation: no clubbing, cyanosis, edema, or varicositiesAbdomen: soft, non-tender, no masses, bowel sounds normalGait & Station: normalSkin, Inspection: no rashes, lesions, or ulcerationsOrientation: oriented to time, place, and personMood & Affect: no depression, anxiety, or agitationJudgment & Insight: intactCare Management Plan Transitions of CareInboundRate Your HealthIn general, would you say your health is? Very GoodAssessment & Plan Problems:Added: Obesity, unspecified (ICD10- E66.9) Assessment: Instructions: Please continue lifestyle changes to include healthy diet and physical activities.Assessed:Hypertension (ICD-401.9) (ERK36-T39) Assessment: Instructions: Your blood pressure is elevated today. We will continue to monitor for now. Please continue lifestyle changes to include healthy diet and physical activities. Please try to avoid processed foods. Please try to avoid added sodium in your diet.General Adult Medical Exam WITH Abnormal Findings (over 18) (ICD-V70.0) (DAE53-Z90.01) Assessment: Instructions: You have had your annual physical exam done today.Health Screening (ICD-V70.0) (RXB43-Y81.9) Assessment: Instructions: fasting labs ordered todayTobacco use (ICD-305.1) (JIB53-K86.0) Assessment: Pt states smoking 2-4 cigarettes daily. Smoking cessation discussed Instructions: Please continue to try to quit smoking. Please let us know if you need additional assistance in doing so.Schizophrenia (ICD-295.90) (ADJ33-S04.9) Assessment: Pt states stable on present medications. Instructions: Please continue medications as prescribed. Please continue to follow with your specialist.Patient Instructions/Care Plan: Hypertension: Your blood pressure is elevated today. We will continue to monitor for now. Please continue lifestyle changes to include healthy diet and physical activities. Please try to avoid processed foods. Please try to avoid added sodium in your diet.General Adult Medical Exam WITH Abnormal Findings (over 18): You have had your annual physical exam done today.Health Screening: fasting labs ordered todayTobacco use: Please continue to try to quit smoking. Please let us know if you need additional assistance in doing so.Schizophrenia: Please continue medications as prescribed. Please contin ue to follow with your specialist.Obesity- unspecified: Please continue lifestyle changes to include healthy diet and physical activities. Plan developed in collaboration with patient and/or familyMedications:ABILIFY MAINTENA SUSPENSION RECONSTITUTED ERSYMMETRELSEROQUEL 25 MG ORAL TABLETMETFORMIN HCL 500 MG ORAL TABLETCOLACE CAPSULELITHIUM CARBONATE ER 300 MG ORAL TABLET EXTENDED RELEASEVENTOLIN HFA 108 (90 Base) MCG/ACT INHALATION AEROSOL SOLUTIONBENZTROPINE MESYLATE 2 MG ORAL TABLETINVEGA SUSTENNA 234 MG/1.5ML INTRAMUSCULAR SUSPENSIONMedication Changes:Removed:PREDNISONE 1 MG ORAL TABLET-3 tabs qd, LOPERAMIDE HCL CAPSULE, CLONIDINE HCL 0.1 MG ORAL TABLET-take once daily, AMANTADINE HCL TABLET-take 1 tab po 2x dailyAllergies:* RISPERDAL (Critical)* INVEGA (Critical)HALDOL (Critical)Orders:COMP METABOLIC PANEL [CPT- 55652] CBC W/DIFF [CPT-89579] HgBA1c [CPT-46084] LIPID PANEL [CPT-66364] TSH [CPT-07215] T-4 free [CPT-02177] Vitamin D 250H Unspecified [CPT-13177] URINALYSIS [CPT-93593] 05239-Jtk Vst-Est Level I [CPT-54510] 59328 - Venipuncture [CPT-49787] Preventive, Est, (18-39) [CPT-34121] Follow-Up Return to clinic: 3-4 weeks for follow up Clinical Visit Summary CompletedLabs In-House Blood TestsDate/Time Collected: October 26, 2019 9:57 AMTest Result Reference Range Normal ValueComments: blood draw done in offcie done in the right ac tolerated well Saroj Farrar MA, October 26, 2019 9:57 AM Name Value Range Interpretation Code Description Data Jennifer rce(s) Supporting Document(s) ID Date Data Source [id number] 09/08/2019 11:10:36 AM [facility] Measurements & CalculationsHeight: 62 inches (5 ft. 2 in.) 157.48 cm Weight: 219 pounds 99.55 kg Body Mass Index (BMI): 40.20BMI Interpretation: Morbidly ObeseBody Surface Area (BSA): 1.99Weight Management Education Done (Nutrition/Physical Activity)Vital SignsTemperature: 98.3FPulse Rate: 99 beats/minuteRespiratory Rate: 17 respirations/minuteBlood Pressure: 112/70 O2 Saturation: 100% Vital Signs performed by: Juani Luis MA, September 08, 2019 11:20 AMInitial Intake Information from: patientRoom #: 13Smoking, Tobacco, Vaping or Smoke Exposure StatusSmoke Status: current every day smokerTobacco Use: YesAdv to Quit: YesDo you vape? NoPassive Smoke Exposure: YesMenstrual HistoryLast Menstrual Period (LMP): 09/01/2019Any possibility of ? NoComments: 1st period in 3 yearsHealthcare HistorySince your last office visit...Have you been to an emergency room (ER) or urgent care clinic? Yes - bronchitisHave you seen another healthcare provider? YesHave you seen a dentist? YesIntake performed by: Juani Luis MA, September 08, 2019 11:16 AMRate Your HealthIn general, would you say your health is? GoodPain AssessmentAre you currently having any pain which... You would like your provider to address? No Affects your activity level? NoDepression Screening - PHQ-2Over the last two weeks, have you... Had little interest or pleasure in doing things? Not at all Been feeling down, depressed, or hopeless? Not at all PHQ-2 Score: 0Anxiety Screening - CJ-2Over the last two weeks, have you be en... Feeling nervous, anxious, or on edge? Not at all Unable to stop or control worrying? Not at all CJ-2 Score: 0Infectious Disease / Travel ScreeningRecent travel for you, your family, and/or any sexual partners? NoScreening, Brief Intervention, & Referral to Treatment (SBIRT)Pre-Screening Questions How many times have you have 4 or more drinks in a day? 0How many times have you used an illegal drug or used a prescription medication for a non- medical reason? 0Performed by: Juani Luis MA, September 08, 2019 11:17 AMPatient History Medical History:Heart MurmurHypertensionSchizophreni aAsthmaSurgical History:GallbladderFamily History:Mother- LupusFather- Prostate CA?Social/Personal History: Advised to Quit/Tobacco Education: YesChief ComplaintbronchitisHistory of Present Illness (HPI)IRupali MA, am scribing for and in the presence of, Dr Lukas Sarmiento, DO34 yo female here for a same day visit. She was seen in the ER on 09/04/2019 for bronchitis. She is continuing to have congestion, after PE she shows severe bronchitis & a sinus infection. Is complaining of chills, & fever. Have advised to get OTC Theraflu to help with the cough. Transitions of Care InboundProblem ReviewProblem List was reviewed and/or updated during this visit.Medication Reconciliation & ReviewMedication List was reviewed and/or updated during this visit, including review of any dbrk-uax-wiibher medications, herbal therapies, and/or supplements.Allergy ReviewAllergy List was reviewed and/or updated during this visit.Adult Preventive CareProvider Calculated and Reviewed all Clinical Protoc ols for patient today. Screening Tobacco Screening: Smoking Status: current every day smoker (09/08/2019) Tobacco Use: Currently (09/08/2019) Advised to Quit: Yes (09/08/2019)Labs/Meds/Other Counseling-Nutrition and Physical Activity:BMI Interpretation: Morbidly Obese (09/08/2019) Counseling: Done (09/08/2019) Physical Activity: Done (09/08/2019)Review of Systems General: GEN: No night sweats, weight loss, + fevers, + chillsEyes: No vision changesEars: No hearing lossNose: + sinus painThroat: + sore throatResp: No sob, + wheezingCV: + chest pain & congestionGI: No abdominal painGU: No dysuria, urinary frequencyMusculoskeletal: No myalgias, arthralgiasNeuro: No [place], unilateral paresthesias, weaknessLympatics: No Lymph node swellingEndocrine: No polydipsia, polyuriaPhysical ExamGeneral Appearance: well nourished, well hydrated, no acute distressEyes, External: conjunctivae and lids normal, EOMINasal: throat sl injected, sinuses boggy/tenderRespiratory, Auscultation: clear to auscultation bilaterally; no rales, rhonchi, or wheezesRespiratory, Effort: no intercostal retractions or use of accessory musclesCardiovascular, Auscultation: S1, S2 audible; no murmur, rub, or gallop; RRRPeripheral Circulation: no clubbing, cyanosis, edema, or varicositiesAbdomen: soft, non-tender, no masses, bowel sounds normalGait & Station: normalSkin, Inspection: no rashes, lesions, or ulcerationsOrientation: oriented to time, place, and personMood & Affect: no depression, anxiety, or agitationJudgment & Insight: intactCare Management Plan Transitions of CareInboundRate Your HealthIn general, would you say your health is? GoodAssessment & Plan Problems:Added: SINUSITIS, ACUTE (ICD-461.9) (WQM12-G13.90)BRONCHITIS (ICD-490) (ICD10- J40)Assessment not SavedBRONCHITIS (DDT05-L28): Ceftin prescribed, pt to use OTC theraflu, Vicks Vaporub, and strong menthol cough drops.Medications:CEFUROXIME AXETIL 500 MG ORAL TABLETPREDNISONE 1 MG ORAL TABLETLOPERAMIDE HCL CAPSULEABILIFY MAINTENA SUSPENSION RECONSTITUTED ERCLONIDINE HCL 0.1 MG ORAL TABLETSYMMETRELSEROQUEL 25 MG ORAL TABLETMETFORMIN HCL 500 MG ORAL TABLETAMANTADINE HCL TABLETCOLACE CAPSULELITHIUM CARBONATE ER 300 MG ORAL TABLET EXTENDED RELEASEVENTOLIN HFA 108 (90 Base) MCG/ACT INHALATION AEROSOL SOLUTIONBENZTROPINE MESYLATE 2 MG ORAL TABLETINVEGA SUSTENNA 234 MG/1.5ML INTRAMUSCULAR SUSPENSIONMedication Changes:Added: PREDNISONE 1 MG ORAL TABLET-3 tabs qdNew Prescription:CEFUROXIME AXETIL 500 MG ORAL TABLET-i tab po bid Qty: 20[Tablet] Refills: 0 Method: ElectronicAllergies:* RISPERDAL (Critical)* INVEGA (Critical)HALDOL (Critical)Medications:CEFUROXIME AXETIL 500 MG ORAL TABLET (CEFUROXIME AXETIL) i tab po bid #20[Tablet] x 0 Route:ORAL Entered and Authorized by: Lukas Sarmiento DO Method used: Electronically to [facility]* (retail) [address] [place] [address] Note to Pharmacy: Route: ORAL; RxID: [id number]] Name Value Range Interpretation Code Description Data Jennifer rce(s) Supporting Document(s) ID Date Data Source [id number] 08/27/2019 01:13:11 PM [facility] Patient History Social/Personal History: Smoking Status: current every day smokerAdvised to Quit/Tobacco Education: YesCurrent Problems: DENTAL CARIES EXTENDING INTO PULP (ICD-521.03) (QPJ88-X73.63)Elevated liver enzymes level (HBN12-D71.8)Health Screening (ICD-V70.0) (KIX91-X03.9)Edema of hand (ICD-782.3) (SUO66-I31.0)Eruption (ICD-782.1) (XLH44-I03)Pain in right lower limb (ICD- 729.5) (ZLC37-P41.604)Unspecified fracture of right lower leg, sequela (ICD10- S82.91xS)Other forms of dyspnea (HII80-Z30.09)Onychomycosis of toenails (ICD- 110.1) (VRT57-L25.1)Cough (ICD-786.2) (PGC54-T50)Other neutropenia (ICD10- D70.8)Vitamin D deficiency (ICD-268.9) (KUX75-Z86.9)Preventative health care (ICD-V70.0) (WQW80-V44.00)General Adult Medical Exam WITH Abnormal Findings (over 18) (ICD-V70.0) (WDT01-B13.01)ASTHMA (ICD-493.90) (ICD10- J45.909)Schizophrenia (ICD-295.90) (ATX41-E21.9)Hypertension (ICD-401.9) (ICD10- I10)HEART MURMUR (ICD-785.2) (ZAY97-S58.1)Need for prophylactic vaccination and inoculation against other combinations of diseases (ICD-V06.8) (ICD10- Z23)Tobacco use (ICD-305.1) (WOC02-E73.0)Current Medications: LOPERAMIDE HCL CAPSULE (LOPERAMIDE HCL CAPS) ABILIFY MAINTENA SUSPENSION RECONSTITUTED ER CL ONIDINE HCL 0.1 MG ORAL TABLET (CLONIDINE HCL) take once daily; Route: ORAL* SYMMETREL bid; Route: ORALSEROQUEL 25 MG ORAL TABLET (QUETIAPINE FUMARATE) qhs; Route: ORALMETFORMIN HCL 500 MG ORAL TABLET (METFORMIN HCL) qd; Route: ORALAMANTADINE HCL TABLET (AMANTADINE HCL TABS) take 1 tab po 2x dailyCOLACE CAPSULE (DOCUSATE SODIUM CAPS) po 4 tab qhsLITHIUM CARBONATE ER 300 MG ORAL TABLET EXTENDED RELEASE (LITHIUM CARBONATE) po 2 qhs; Route: ORALVENTOLIN HFA 108 (90 Base) MCG/ACT INHALATION AEROSOL SOLUTION (ALBUTEROL SULFATE) 2 puffs every 4 hours as needed. MDD 8 puffs.; Route: INHALATIONBENZTROPINE MESYLATE 2 MG ORAL TABLET (BENZTROPINE MESYLATE) 1 tablet PO TID; Route: ORALINVEGA SUSTENNA 234 MG/1.5ML INTRAMUSCULAR SUSPENSION (PALIPERIDONE PALMITATE) inject once month;y; Route: INTRAMUSCULARCurrent Allergies: * RISPERDAL (Critical)* INVEGA (Critical)HALDOL (Critical) Dental Chart: Procedures:Type - CDT Code - Description B - (D1110) Prophylaxis, adult (Performed by Do Jacques RDH) Chart Notes:charles (Aug 27 2019 1:50PM): [place]-FairAdult prophyStressed TB bid, flossing (inst on string technique and Fl2/ antimicrobial rinse QD. Light calculus/ mod biofilm along #32. Tissue mod papillary inflammation around #32; light bleeding with hand scaling and ultrasonic use. "I broke that tooth off since the last time I saw you." #15 is broken off to the gum line. Pt denies any discomfort. Med Hx reviewed with pt- no changes. 6 month recall. Apprehensive at first but calmed down.N/V-Fillings. Stressed to pt the importance of following up on her referral to OS for extraction of #15 and 32. Do Jacques RDH by charles (08/27/2019 1:49 PM): Tooth Notes and Watches:- Tooth 28 Watch: DistalDo Jacques RDH by charles (08/12/2019 10:48 AM): Assessment & Plan Medications:LOPERAMIDE HCL CAPSULEABILIFY MAINTENA SUSPENSION RECONSTITUTED ERCLONIDINE HCL 0.1 MG ORAL TABLETSYMMETRELSEROQUEL 25 MG ORAL TABLETMETFORMIN HCL 500 MG ORAL TABLETAMANTADINE HCL TABLETCOLACE CAPSULELITHIUM CARBONATE ER 300 MG ORAL TABLET EXTENDED RELEASEVENTOLIN HFA 108 (90 Base) MCG/ACT INHALATION AEROSOL SOLUTIONBENZTROPINE MESYLATE 2 MG ORAL TABLETINVEGA SUSTENNA 234 MG/1.5ML INTRA MUSCULAR SUSPENSIONAllergies:* RISPERDAL (Critical)* INVEGA (Critical)HALDOL (Critical)Clinical Visit Summary DeclinedSmoking, Tobacco or Smoke Exposure StatusSmoke Status: current every day smokerTobacco Use: YesAdv to Quit: YesClinical List ReviewProblem ReviewProblem List was reviewed and/or updated during this visit.Medication Reconciliation & ReviewMedication List was reviewed and/or updated during this visit, including review of any ajsp-ers-iuzyeru medications, herbal therapies, and/or supplements.Allergy ReviewAllergy List was reviewed and/or updated during this visit. Name Value Range Interpretation Code Description Data Jennifer rce(s) Supporting Document(s) ID Date Data Source [id number] 08/12/2019 10:18:04 AM [facility] Patient History Social/Personal History: Smoking Status: current every day smokerAdvised to Quit/Tobacco Education: YesCurrent Problems: DENTAL CARIES EXTENDING INTO PULP (ICD-521.03) (SJB98-V62.63)Elevated liver enzymes level (PYV63-M55.8)Health Screening (ICD-V70.0) (FXU95-T74.9)Edema of hand (ICD-782.3) (CMY72-J40.0)Eruption (ICD-782.1) (TCU94-B65)Pain in right lower limb (ICD- 729.5) (TYW09-R43.604)Unspecified fracture of right lower leg, sequela (ICD10- S82.91xS)Other forms of dyspnea (TWF83-Q83.09)Onychomycosis of toenails (ICD- 110.1) (GGH41-B03.1)Cough (ICD-786.2) (MMC15-V35)Other neutropenia (ICD10- D70.8)Vitamin D deficiency (ICD-268.9) (HZG89-I06.9)Preventative health care (ICD-V70.0) (TRA09-Q24.00)General Adult Medical Exam WITH Abnormal Findings (over 18) (ICD-V70.0) (UGU83-Y27.01)ASTHMA (ICD-493.90) (ICD10- J45.909)Schizophrenia (ICD-295.90) (XNX70-V16.9)Hypertension (ICD-401.9) (ICD10- I10)HEART MURMUR (ICD-785.2) (CMQ73-R16.1)Need for prophylactic vaccination and inoculation against other combinations of diseases (ICD-V06.8) (ICD10- Z23)Tobacco use (ICD-305.1) (MWR49-R02.0)Current Medications: LOPERAMIDE HCL CAPSULE (LOPERAMIDE HCL CAPS) ABILIFY MAINTENA SUSPENSION RECONSTITUTED ER CL ONIDINE HCL 0.1 MG ORAL TABLET (CLONIDINE HCL) take once daily; Route: ORAL* SYMMETREL bid; Route: ORALSEROQUEL 25 MG ORAL TABLET (QUETIAPINE FUMARATE) qhs; Route: ORALMETFORMIN HCL 500 MG ORAL TABLET (METFORMIN HCL) qd; Route: ORALAMANTADINE HCL TABLET (AMANTADINE HCL TABS) take 1 tab po 2x dailyCOLACE CAPSULE (DOCUSATE SODIUM CAPS) po 4 tab qhsLITHIUM CARBONATE ER 300 MG ORAL TABLET EXTENDED RELEASE (LITHIUM CARBONATE) po 2 qhs; Route: ORALVENTOLIN HFA 108 (90 Base) MCG/ACT INHALATION AEROSOL SOLUTION (ALBUTEROL SULFATE) 2 puffs every 4 hours as needed. MDD 8 puffs.; Route: INHALATIONBENZTROPINE MESYLATE 2 MG ORAL TABLET (BENZTROPINE MESYLATE) 1 tablet PO TID; Route: ORALINVEGA SUSTENNA 234 MG/1.5ML INTRAMUSCULAR SUSPENSION (PALIPERIDONE PALMITATE) inject once month;y; Route: INTRAMUSCULARCurrent Allergies: * RISPERDAL (Critical)* INVEGA (Critical)HALDOL (Critical) Dental Chart: Procedures:Type - CDT Code - Description B - (D0274) Bitewings, 4 radiographic images (Performed by Do Jacques RDH) B - (D0150) Comprehensive oral evaluation - new or established patient (Performed by Kath Whittington DMD) B - (D0230) Intraoral, periapical, each additional radiographic image on Tooth # 11 (Performed by Do Jacques RDH) B - (D0220) Intraoral, periapical, first radiographic image on Tooth # 6 (Performed by Do Jacques RDH) B - (D0230) Intraoral, periapical, each additional radiographic image on Tooth # 8 (Performed by Do Jacques RDH) Treatments:Type - CDT Code - Description T - (D7140) Extraction, erupted tooth or exposed root (elevation and/or forceps removal) on Tooth # 15 (Performed by Do Jacques RDH) T - (D7140) Extraction, erupted tooth or exposed root (elevation and/or forceps removal) on Tooth # 32 (Performed by Do Jacques RDH) T - (D2150) Amalgam, 2 surfaces, primary or permanent on Tooth # 20 on Tooth Surface OD (Performed by Do Jaqcues RDH) T - (D2150) Amalgam, 2 surfaces, primary or permanent on Tooth # 21 on Tooth Surface OD (Performed by Do Jacques RDH) T - (D2150) Amalgam, 2 surfaces, primary or permanent on Tooth # 12 on Tooth Surface OD (Performed by Do Jacques RDH) T - (D2150) Amalgam, 2 surfaces, primary or permanent on Tooth # 13 on Tooth Surface MO (Performed by Do Jacques RDH) Existing:Type - CDT Code - Description[E] Erupted - Partial On #32 Surface O[E] Not Erupted On #17[E] Decay On #12 Surface OD, #13 Surface MO, #20 Surface OD, #21 Surface OD[E] Resin-Based Composite - Direct On #13 Surface O, #18 Surface O, #20 Surface O, #21 Surface O[E] Missing - [place] and Root On #14 Surface O Region XR, #19 Surface O Region XR, #2 Surface O Region XR, #3 Surface O Region XR, #30 Surface O Region XR, #31 Surface O Region XR, #4 Surface O Region XR, #5 Surface O Region XR Chart Notes:charles (Aug 12 2019 11:08AM): [place]-FairLast dental visit a year ago for extractions.Pt denies any discomfort at present but states she came in because her tooth was wiggling on the UL. Comprehensive exam, 4BW's, 4PA's- #6,8,11 and 14Pt states she is brushing usually in the am only. Stressed TB bid, flossing and Fl2 rinse QD. Tissue perio probings of 3mm and below; minimal BOP. Radiolucency present on the apical of #14; tooth is fractured. Pt does not chew with #32 partially erupted and pt c/o discomfort with the tooth if she bites on it. Med Hx reviewed with pt- she is seen in adult med here and denies any changes. 6 month recall. Exc pt. N/V-Prophy and fillings. Referral to OS for extraction of #14 and 32. One treatment plan is completed refer pt out for partials. Sawyer BARROSDo by charles (08/12/2019 11:07 AM): ; amy (Aug 12 2019 12:34PM): Adrianna(-). CC: none. Reviewed Xrays. Exam: caries detected, #32 pain on percussion due to bite.. OCS: WNL IO/ EO completed, No significant hard findings upon clinical exam Pt was cooperative.OHI givenReferral: OS for #14 and #32NV:fillingSawyer BARROS Do by amy (08/12/2019 12:34 PM): Tooth Notes and Watches:- Tooth 28 Watch: DistalDo Jacques RDH by charles (08/12/2019 10:48 AM): Assessment & Plan Problems:Added: DENTAL CARIES EXTENDING INTO PULP (ICD- 521.03) (EPE04-B52.63)Medications:LOPERAMIDE HCL CAPSULEABILIFY MAINTENA SUSPENSION RECONSTITUTED ERCLONIDINE HCL 0.1 MG ORAL TABLETSYMMETRELSEROQUEL 25 MG ORAL TABLETMETFORMIN HCL 500 MG ORAL TABLETAMANTADINE HCL TABLETCOLACE CAPSULELITHIUM CARBONATE ER 300 MG ORAL TABLET EXTENDED RELEASEVENTOLIN HFA 108 (90 Base) MCG/ACT INHALATION AEROSOL SOLUTIONBENZTROPINE MESYLATE 2 MG ORAL TABLETINVEGA SUSTENNA 234 MG/1.5ML INTRAMUSCULAR SUSPENSIONAllergies:* RISPERDAL (Critical)* INVEGA (Critical)HALDOL (Critical)Orders:Oral Surgery Referral [[id number]] Clinical Visit Summary DeclinedSmoking, Tobacco or Smoke Exposure StatusSmoke Status: current every day smokerTobacco Use: YesAdv to Quit: YesClinical List ReviewProblem ReviewProblem List was reviewed and/or updated during this visit.Medication Reconciliation & ReviewMedication List was reviewed and/or updated during this visit, including review of any jazd-voo-cpfqvem medications, herbal therapies, and/or supplements.Allergy ReviewAllergy List was reviewed and/or updated during this visit. Name Value Range Interpretation Code Description Data Jennifer rce(s) Supporting Document(s) Procedure Social History Code Duration Value Status Description Data Source(s ) Smoking 08/10/2020 12:00:00 AM EST Current every day smoker co mpleted Current every day smoker [facility]) Smoking 07/27/2020 12:00:00 AM EST Current every day smoker co mpleted Current every day smoker [facility] ([facility]) Smoking 07/19/2020 12:00:00 AM EST Current every day smoker co mpleted Current every day smoker [facility] ([facility]) Smoking 2020 12:00:00 AM EST Current every day smoker co mpleted Current every day smoker [facility] ([facility]) Smoking 07/05/2020 12:00:00 AM EST Current every day smoker co mpleted Current every day smoker [facility] ([facility]) Smoking 06/30/2020 12:00:00 AM EST Current every day smoker co mpleted Current every day smoker [facility] ([facility]) Smoking 06/02/2020 12:00:00 AM EST Current every day smoker co mpleted Current every day smoker [facility] ([facility]) Smoking 05/31/2020 12:00:00 AM EST Current every day smoker co mpleted Current every day smoker [facility] ([facility]) Smoking 05/12/2020 12:00:00 AM EDT Current every day smoker co mpleted Current every day smoker [facility] ([facility]) Smoking 01/21/2020 12:00:00 AM EDT Current every day smoker co mpleted Current every day smoker [facility] ([facility]) Smoking 12/24/2019 12:00:00 AM EDT Current every day smoker co mpleted Current every day smoker [facility] ([facility]) Smoking 12/11/2019 12:00:00 AM EDT Current every day smoker co mpleted Current every day smoker [facility] ([facility]) Smoking 11/26/2019 12:00:00 AM EDT Current every day smoker co mpleted Current every day smoker [facility] ([facility]) Smoking 11/25/2019 12:00:00 AM EDT Current every day smoker co mpleted Current every day smoker [facility] ([facility]) Smoking 10/28/2019 12:00:00 AM EDT Current every day smoker co mpleted Current every day smoker [facility] ([facility]) Smoking 10/26/2019 12:00:00 AM EDT Current every day smoker co mpleted Current every day smoker [facility] ([facility]) Smoking 10/08/2019 12:00:00 AM EDT Current every day smoker co mpleted Current every day smoker [facility] ([facility]) Smoking 09/09/2019 12:00:00 AM EST Current every day smoker co mpleted Current every day smoker [facility] ([facility]) Smoking 08/06/2019 12:00:00 AM EST Current every day smoker co mpleted Current every day smoker [facility] ([facility]) Smoking 07/24/2019 12:00:00 AM EST Current every day smoker co mpleted Current every day smoker [facility] ([facility]) Smoking 07/09/2019 12:00:00 AM EST Current every day smoker co mpleted Current every day smoker [facility] ([facility]) Smoking 07/03/2019 12:00:00 AM EST Current every day smoker co mpleted Current every day smoker [facility] ([facility]) Smoking 06/29/2019 12:00:00 AM EST Current every day smoker co mpleted Current every day smoker [facility] ([facility]) Vital Signs ID Date Data Source UNK Name Value Range Interpretation Code Description Data Source(s) Diastolic blood pressure 0 mm[Hg] Normal (applies to non-numeric results) 0 mm[Hg] [facility] ([facility]) Systolic blood pressure 0 mm[Hg] Normal (applies t o non-numeric results) 0 mm[Hg] [facility] ([facility]) Body mass index (BMI) [Ratio] 0.00 kg/m2 No rmal (applies to non-numeric results) 0.00 kg/m2 [facility] ([facility]) Body weight Measured 0.00 lbs Normal (applies to n on-numeric results) 0.00 lbs [facility] ([facility]) Body height 0.00 in Normal (applies to non-numeric resu lts) 0.00 in [facility] ([facility]) Diastolic blood pressure 0 mm[Hg] Normal (applies to non-numeric results) 0 mm[Hg] [facility] ([facility]) Systolic blood pressure 0 mm[Hg] Normal (applies t o non-numeric results) 0 mm[Hg] [facility] ([facility]) Body mass index (BMI) [Ratio] 0.00 kg/m2 No rmal (applies to non-numeric results) 0.00 kg/m2 [facility] ([facility]) Body weight Measured 0.00 lbs Normal (applies to n on-numeric results) 0.00 lbs [facility] ([facility]) Body height 0.00 in Normal (applies to non-numeric resu lts) 0.00 in [facility] ([facility]) Diastolic blood pressure 0 mm[Hg] Normal (applies to non-numeric results) 0 mm[Hg] [facility] ([facility]) Systolic blood pressure 0 mm[Hg] Normal (applies t o non-numeric results) 0 mm[Hg] [facility] ([facility]) Body mass index (BMI) [Ratio] 0.00 kg/m2 No rmal (applies to non-numeric results) 0.00 kg/m2 [facility] ([facility]) Body weight Measured 0.00 lbs Normal (applies to n on-numeric results) 0.00 lbs [facility] ([facility]) Body height 0.00 in Normal (applies to non-numeric resu lts) 0.00 in [facility] ([facility]) Diastolic blood pressure 0 mm[Hg] Normal (applies to non-numeric results) 0 mm[Hg] [facility] ([facility]) Systolic blood pressure 0 mm[Hg] Normal (applies t o non-numeric results) 0 mm[Hg] [facility] ([facility]) Body mass index (BMI) [Ratio] 0.00 kg/m2 No rmal (applies to non-numeric results) 0.00 kg/m2 [facility] ([facility]) Body weight Measured 0.00 lbs Normal (applies to n on-numeric results) 0.00 lbs [facility] ([facility]) Body height 0.00 in Normal (applies to non-numeric resu lts) 0.00 in [facility] ([facility]) Diastolic blood pressure 0 mm[Hg] Normal (applies to non-numeric results) 0 mm[Hg] [facility] ([facility]) Systolic blood pressure 0 mm[Hg] Normal (applies t o non-numeric results) 0 mm[Hg] [facility] ([facility]) Body mass index (BMI) [Ratio] 0.00 kg/m2 No rmal (applies to non-numeric results) 0.00 kg/m2 [facility] ([facility]) Body weight Measured 0.00 lbs Normal (applies to n on-numeric results) 0.00 lbs [facility] ([facility]) Body height 0.00 in Normal (applies to non-numeric resu lts) 0.00 in [facility] ([facility]) Diastolic blood pressure 0 mm[Hg] Normal (applies to non-numeric results) 0 mm[Hg] [facility] ([facility]) Systolic blood pressure 0 mm[Hg] Normal (applies t o non-numeric results) 0 mm[Hg] [facility] ([facility]) Body mass index (BMI) [Ratio] 0.00 kg/m2 No rmal (applies to non-numeric results) 0.00 kg/m2 [facility] ([facility]) Body weight Measured 0.00 lbs Normal (applies to n on-numeric results) 0.00 lbs [facility] ([facility]) Body height 0.00 in Normal (applies to non-numeric resu lts) 0.00 in [facility] ([facility]) Diastolic blood pressure 0 mm[Hg] Normal (applies to non-numeric results) 0 mm[Hg] [facility] ([facility]) Systolic blood pressure 0 mm[Hg] Normal (applies t o non-numeric results) 0 mm[Hg] [facility] ([facility]) Body mass index (BMI) [Ratio] 0.00 kg/m2 No rmal (applies to non-numeric results) 0.00 kg/m2 [facility] ([facility]) Body weight Measured 0.00 lbs Normal (applies to n on-numeric results) 0.00 lbs [facility] ([facility]) Body height 0.00 in Normal (applies to non-numeric resu lts) 0.00 in [facility] ([facility]) Diastolic blood pressure 0 mm[Hg] Normal (applies to non-numeric results) 0 mm[Hg] [facility] ([facility]) Systolic blood pressure 0 mm[Hg] Normal (applies t o non-numeric results) 0 mm[Hg] [facility] ([facility]) Body mass index (BMI) [Ratio] 0.00 kg/m2 No rmal (applies to non-numeric results) 0.00 kg/m2 [facility] ([facility]) Body weight Measured 0.00 lbs Normal (applies to n on-numeric results) 0.00 lbs [facility] ([facility]) Body height 0.00 in Normal (applies to non-numeric resu lts) 0.00 in [facility] ([facility]) ID Date Data Source [id number] 05/13/2020 06:08:00 AM EDT [facility] Name Value Range Interpretation Code Description Data Source(s) Weight Measurement Method 1 1 [facility] Weight (Calculated Kilograms) 92.99 92.99 [facility] Weight 3312 3312 [facility] Temperature Source 7 7 [facility] Temperature 98.0 98.0 [facility] Respiratory Effort 1 1 [facility] Respiratory Rate 16 16 [facility] Pulse Assessment Method 4 4 [facility] Pulse Rate 92 92 [facility] Height (Calculated Centimeters) 157.48 157. 48 [facility] Height 62 62 [facility] Blood Pressure 114/70 114/70 [facility] Body Mass Index (BMI) 37.5 37.5 [facility] Weight Measurement Method 1 1 [facility] Weight (Calculated Kilograms) 92.99 92.99 [facility] Weight 3312 3312 [facility] Temperature Source 7 7 [facility] Temperature 98.0 98.0 [facility] Respiratory Effort 1 1 [facility] Respiratory Rate 16 16 [facility] Pulse Assessment Method 4 4 [facility] Pulse Rate 92 92 [facility] Height (Calculated Centimeters) 157.48 157. 48 [facility] Height 62 62 [facility] Blood Pressure 114/70 114/70 [facility] Body Mass Index (BMI) 37.5 37.5 [facility] Weight Measurement Method 1 1 [facility] Weight (Calculated Kilograms) 92.99 92.99 [facility] Weight 3280 3280 [facility] Temperature Source 7 7 [facility] Temperature 98.0 98.0 [facility] Respiratory Effort 1 1 [facility] Respiratory Rate 16 16 [facility] Pulse Assessment Method 4 4 [facility] Pulse Rate 64 64 [facility] Height (Calculated Centimeters) 157.48 157. 48 [facility] Height 62 62 [facility] Blood Pressure 115/81 115/81 [facility] Body Mass Index (BMI) 37.5 37.5 [facility] Weight Measurement Method 1 1 [facility] Weight (Calculated Kilograms) 92.99 92.99 [facility] Weight 3280 3280 [facility] Temperature Source 7 7 [facility] Temperature 99.1 99.1 [facility] Respiratory Effort 1 1 [facility] Respiratory Rate 16 16 [facility] Pulse Assessment Method 4 4 [facility] Pulse Rate 83 83 [facility] Height (Calculated Centimeters) 157.48 157. 48 [facility] Height 62 62 [facility] Blood Pressure 142/77 142/77 [facility] Body Mass Index (BMI) 37.5 37.5 [facility] Weight (Calculated Kilograms) 87.54 87.54 [facility] Height (Calculated Centimeters) 154.94 154. 94 [facility] Body Mass Index (BMI) 36.4 36.4 [facility] ID Date Data Source [id number] 05/12/2020 05:23:00 PM EDT [facility] Name Value Range Interpretation Code Description Data Source(s) WEIGHT 88.63 kilos 88.63 kilos [facility] HEIGHT 154.94 centimeters 154.94 centimeter s [facility] ID Date Data Source [id number] 04/19/2020 09:24:00 AM EDT [facility] Name Value Range Interpretation Code Description Data Source(s) Weight (Calculated Kilograms) 87.54 87.54 [facility] Height (Calculated Centimeters) 154.94 154. 94 [facility] Body Mass Index (BMI) 36.4 36.4 [facility] Weight (Calculated Kilograms) 87.54 87.54 [facility] Height (Calculated Centimeters) 154.94 154. 94 [facility] Body Mass Index (BMI) 36.4 36.4 [facility] Weight (Calculated Kilograms) 87.54 87.54 [facility] Height (Calculated Centimeters) 154.94 154. 94 [facility] Body Mass Index (BMI) 36.4 36.4 [facility] ID Date Data Source [id number] 05/06/2020 10:30:00 AM EDT [facility] Name Value Range Interpretation Code Description Data Source(s) Weight Measurement Method 1 1 [facility] Weight (Calculated Kilograms) 87.54 87.54 [facility] Weight 3088 3088 [facility] Temperature Source 7 7 [facility] Temperature 98.2 98.2 [facility] Respiratory Effort 1 1 [facility] Respiratory Rate 18 18 [facility] Pulse Assessment Method 4 4 [facility] Pulse Rate 83 83 [facility] Height (Calculated Centimeters) 154.94 154. 94 [facility] Height 61 61 [facility] Blood Pressure 119/79 119/79 [facility] Body Mass Index (BMI) 36.4 36.4 [facility] Weight Measurement Method 1 1 [facility] Weight (Calculated Kilograms) 87.54 87.54 [facility] Weight 3088 3088 [facility] Temperature Source 7 7 [facility] Temperature 98.2 98.2 [facility] Respiratory Effort 1 1 [facility] Respiratory Rate 18 18 [facility] Pulse Assessment Method 4 4 [facility] Pulse Rate 83 83 [facility] Height (Calculated Centimeters) 154.94 154. 94 [facility] Height 61 61 [facility] Blood Pressure 119/79 119/79 [facility] Body Mass Index (BMI) 36.4 36.4 [facility] Weight Measurement Method 1 1 [facility] Weight (Calculated Kilograms) 87.54 87.54 [facility] Weight 3088 3088 [facility] Temperature Source 7 7 [facility] Temperature 98.2 98.2 [facility] Respiratory Effort 1 1 [facility] Respiratory Rate 18 18 [facility] Pulse Assessment Method 4 4 [facility] Pulse Rate 83 83 [facility] Height (Calculated Centimeters) 154.94 154. 94 [facility] Height 61 61 [facility] Blood Pressure 119/79 119/79 [facility] Body Mass Index (BMI) 36.4 36.4 [facility] Weight Measurement Method 1 1 [facility] Weight (Calculated Kilograms) 87.54 87.54 [facility] Weight 3088 3088 [facility] Temperature Source 7 7 [facility] Temperature 97.6 97.6 [facility] Respiratory Effort 1 1 [facility] Respiratory Rate 17 17 [facility] Pulse Assessment Method 4 4 [facility] Pulse Rate 97 97 [facility] Height (Calculated Centimeters) 154.94 154. 94 [facility] Height 61 61 [facility] Blood Pressure 113/74 113/74 [facility] Body Mass Index (BMI) 36.4 36.4 [facility]
[2020-08-11 14:57] LABS: HCG, SERUM QUALITATIVE NEGATIVE (NEGATIVE)
[2020-08-11 14:58] LABS: AMPHETAMINES LEVEL URINE NEGATIVE (NEGATIVE); BARBITURATES URINE NEGATIVE (NEGATIVE); BENZODIAZEPINES URINE NEGATIVE (NEGATIVE); CANNABINOIDS URINE NEGATIVE (NEGATIVE); COCAINE METABOLITE URINE NEGATIVE (NEGATIVE); METHADONE URINE NEGATIVE (NEGATIVE); OPIATES URINE NEGATIVE (NEGATIVE); PHENCYCLIDINE URINE NEGATIVE (NEGATIVE)
[2020-08-11 15:15] LABS: ACETAMINOPHEN LEVEL < 2.0 UG/ML (10.0-30.0); ALBUMIN 4.1 GM/DL (3.2-5.2); ALT/SGPT 33 U/L (12-78); BILIRUBIN,DIRECT 0.1 MG/DL (0.0-0.2); BILIRUBIN,TOTAL 0.4 MG/DL (0.2-1.0); BLOOD UREA NITROGEN 9 MG/DL (7-18); CALCIUM LEVEL 9.8 MG/DL (8.5-10.1); CARBON DIOXIDE LEVEL 26 MEQ/L (21-32); CHLORIDE LEVEL 110 MEQ/L (98-107); CREATININE FOR GFR 0.86 MG/DL (0.55-1.30); ETHYL ALCOHOL (ETHANOL) < 0.003 % (0.000-0.010); GLOMERULAR FILTRATION RATE > 60.0 (>60); GLUCOSE, FASTING 97 MG/DL (70-100); POTASSIUM SERUM 3.9 MEQ/L (3.5-5.1); SALICYLATE LEVEL < 1.7 MG/DL (5.0-30.0); SODIUM LEVEL 140 MEQ/L (136-145); TOTAL PROTEIN 7.3 GM/DL (6.4-8.2)
[2020-08-12 00:05] VITALS: BP 117/65
--- NOTE | 2020-08-12 08:54 | ECGEPIP ---
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
== END 2020-08-12 00:12 ==
LOC: M ED 13:56
DX: F23 Brief psychotic disorder (principal); E11.9 Type 2 diabetes mellitus without complications; I10 Essential (primary) hypertension; F20.9 Schizophrenia, unspecified; D64.9 Anemia, unspecified; J45.909 Unspecified asthma, uncomplicated; F17.200 Nicotine dependence, unspecified, uncomplicated; F12.90 Cannabis use, unspecified, uncomplicated; Z79.84 Long term (current) use of oral hypoglycemic drugs; Z79.899 Other long term (current) drug therapy; Z88.8 Allergy status to other drugs, medicaments and biological substances
CPT/HCPCS: 36415; 80048; 80076; 80307; 84443; 84703; 85027; 87486; 87581; 87633; 87798; 93005; 99285; G0480

== ENCOUNTER 2020-09-05 18:11 | Inpatient (IN) | payer MEDICARE, MEDICAID ==
[~2020-09-05] VITALS: Ht 154.9 cm; Wt 88.6 kg
[2020-09-05 20:51] LABS: HEMATOCRIT 34.7 % (36.0-47.0); HEMOGLOBIN 11.3 g/dl (12.0-15.5); MEAN CORPUSCULAR HEMOGLOBIN 28.4 pg (27.0-33.0); MEAN CORPUSCULAR HGB CONC 32.6 g/dl (32.0-36.5); MEAN CORPUSCULAR VOLUME 87.2 fl (80.0-96.0); PLATELET COUNT, AUTOMATED 282 10^3/uL (150-450); RED BLOOD COUNT 3.98 10^6/uL (4.00-5.40); WHITE BLOOD COUNT 6.3 10^3/uL (4.0-10.0)
[2020-09-05 21:37] LABS: ACETAMINOPHEN LEVEL < 2.0 UG/ML (10.0-30.0); ALBUMIN 3.5 GM/DL (3.2-5.2); ALT/SGPT 18 U/L (12-78); BILIRUBIN,DIRECT < 0.1 MG/DL (0.0-0.2); BILIRUBIN,TOTAL < 0.1 MG/DL (0.2-1.0); BLOOD UREA NITROGEN 10 MG/DL (7-18); CALCIUM LEVEL 9.4 MG/DL (8.5-10.1); CARBON DIOXIDE LEVEL 27 MEQ/L (21-32); CHLORIDE LEVEL 111 MEQ/L (98-107); CREATININE FOR GFR 0.79 MG/DL (0.55-1.30); ETHYL ALCOHOL (ETHANOL) < 0.003 % (0.000-0.010); GLOMERULAR FILTRATION RATE > 60.0 (>60); GLUCOSE, FASTING 82 MG/DL (70-100); SALICYLATE LEVEL < 1.7 MG/DL (5.0-30.0); SODIUM LEVEL 143 MEQ/L (136-145); THYROID STIMULATING HORMONE 0.675 uIU/ML (0.358-3.740); TOTAL PROTEIN 6.8 GM/DL (6.4-8.2)
[2020-09-05 22:01] LABS: HCG, SERUM QUALITATIVE NEGATIVE (NEGATIVE)
[2020-09-05 22:24] LABS: AMPHETAMINES LEVEL URINE NEGATIVE (NEGATIVE); BARBITURATES URINE NEGATIVE (NEGATIVE); BENZODIAZEPINES URINE NEGATIVE (NEGATIVE); CANNABINOIDS URINE POSITIVE (NEGATIVE); COCAINE METABOLITE URINE NEGATIVE (NEGATIVE); METHADONE URINE NEGATIVE (NEGATIVE); OPIATES URINE NEGATIVE (NEGATIVE); PHENCYCLIDINE URINE NEGATIVE (NEGATIVE)
[2020-09-05] MEDS ORDERED: VITMTA PO (23:31)
[2020-09-05] MEDS ORDERED: D31000TA2 PO (23:31)
[2020-09-05] MEDS ORDERED: ABIL1INJ2 IM (23:31)
[2020-09-05] MEDS ORDERED: TRAZ-186 PO (23:31)
[2020-09-05] MEDS ORDERED: LISI-898 PO (23:31)
[2020-09-05] MEDS ORDERED: BENZ0.5T23 PO (23:31)
[2020-09-05 23:45] LABS: RSV AMPLIFICATION NEGATIVE (NEGATIVE)
[2020-09-06] MEDS ORDERED: MAALOX 30 ML SUSP *UDC PO PRN (01:00)
[2020-09-06] MEDS ORDERED: traZODone 50 MG TAB PO PRN (01:00)
[2020-09-06] MEDS ORDERED: ACETAMINOPHEN TAB 650MG DOSE (2X325MG) PO PRN (01:00)
[2020-09-06] MEDS ORDERED: MOM 30ML SUSPENSION UDC PO PRN (01:00)
[2020-09-06 02:07] VITALS: BP 128/71
[2020-09-06] MEDS: NICOTINE 21MG/24HR 1 EA TRANSDERMAL TD SCH (09:00)
--- NOTE | 2020-09-06 16:34 | HPEPDOC ---
General Date of Admission Sep 05, 2020 at 18:12 Date of Service: Sep 06, 2020 Chief Complaint The patient is a 35-year-old female admitted with a reason for visit of Unspecified Psychotic D/O. Source: Patient Exam Limitations: Clinical conditions Timing/Duration: Day(s) Severity: Moderate History of Present Illness Patient is 35 years old female with past history of diabetes, hypertension, paranoid schizophrenia, asthma admitted to the inpatient psychiatric unit with psychosis. Patient did not want to provide details about her admission to the hospital. Patient denied fever, chills, shortness of breath, palpitations, nausea, vomiting, diarrhea or dysuria Home Medications Scheduled Aripiprazole (Abilify Maintena) 400 Mg Suser.syr, 400 MG IM QMONTH, (Reported) Benztropine Mesylate (Benztropine Mesylate) 0.5 Mg Tablet, 0.5 MG PO BID, (Reported) Cholecalciferol (Vitamin D3) (Vitamin D3) 1,000 Unit Tablet, 2,000 UNITS PO DAILY, (Reported) Lisinopril (Lisinopril) 5 Mg Tablet, 5 MG PO DAILY, (Reported) Metformin HCl (Metformin HCl) 500 Mg Tablet, 500 MG PO BID, (Reported) Multivitamins (Thera M Plus Tablet) 1 Each Tablet, 1 TAB PO DAILY, (Reported) Naltrexone HCl (Naltrexone HCl) 50 Mg Tablet, 50 MG PO QHS, (Reported) Quetiapine Fumarate (Quetiapine Fumarate) 200 Mg Tablet, 200 MG PO QHS, (Reported) Trazodone HCl (Trazodone HCl) 50 Mg Tablet, 50 MG PO QHS, (Reported) Scheduled PRN Hydroxyzine HCl (Hydroxyzine HCl) 25 Mg Tablet, 25 MG PO Q6H PRN for ANXIETY, (Reported) Allergies Coded Allergies: haloperidol (Verified Allergy, Unknown, 09/14/19) risperidone (Verified Allergy, Unknown, 09/14/19) paliperidone (Verified Adverse Reaction, Intermediate, DYSTONIA, 09/14/19) thiothixene (Verified Adverse Reaction, Intermediate, DYSTONIA, 09/14/19) Past Medical History Medical History Paranoid schizophrenia, Diabetes on metformin Asthma Hypertension Anemia Surgical History 2 C-sections Cholecystectomy 2010 Family History Mother has history of SLE, fibromyalgia Father history of prostate cancer Social History * Smoker: current smoker Alcohol: occationally Drugs: marijuana, IV drug use (amphetamines, johnson) A-FIB/CHADSVASC A-FIB History Current/History of A-Fib/PAF?: No Current PO Anticoag Therapy: No Review of Systems Constitutional: Denies: Chills, Fever Eyes: Denies: Pain ENT: Denies: Head Aches Skin: Denies: Rash Pulmonary: Denies: Dyspnea Cardiovascular: Denies: Chest Pain, Palpitations Gastrointestinal: Denies: Nausea Genitourinary: Denies: Dysuria Hematologic: Denies: Bruising Endocrine: Denies: Polydipsia Musculoskeletal: Denies: Neck Pain, Back Pain Neurological: Denies: Weakness Psych: Denies: Thoughts of Self Harm Physical Examination General Exam: Positive: Alert Eye Exam: Positive: PERRLA ENT Exam: Positive: Atraumatic Neck Exam: Positive: Supple; Negative: JVD Chest Exam: Positive: Clear to auscultation Heart Exam: Positive: Rate Normal Telemetry: Positive: No significant arrhythmia Abdomen Exam: Positive: Normal bowel sounds Extremity Exam: Negative: Clubbing, Cyanosis Skin Exam: Positive: Nl turgor and temperature Neuro Exam: Positive: Normal Gait, Strength at 5/5 X4 ext Psych Exam: Positive: Oriented x 3 Vital Signs Vital Signs Date Time Temp Pulse Resp B/P (MAP) Pulse Ox O2 Delivery O2 Flow Rate FiO2 09/06/20 02:07 98.4 87 18 128/71 (90) 97 Room Air Laboratory Data Labs 24H Laboratory Tests 2 09/05/20 20:41: Nucleated Red Blood Cells % (auto) 0.0, Anion Gap 5L, Glomerular Filtration Rate > 60.0, Calcium Level 9.4, Total Bilirubin < 0.1L, Direct Bilirubin < 0.1, Aspartate Amino Transf (AST/SGOT) 104H, Alanine Aminotransferase (ALT/SGPT) 18, Alkaline Phosphatase 98, Total Protein 6.8, Albumin 3.5, Albumin/Globulin Ratio 1.1L, Thyroid Stimulating Hormone (TSH) 0.675, Human Chorionic Gonadotropin, Qual NEGATIVE, Salicylates Level < 1.7L, Acetaminophen Level < 2.0L, Ethyl Alcoh ol Level < 0.003 09/05/20 21:47: Urine Opiates Screen NEGATIVE, Urine Methadone Screen NEGATIVE, Urine Barbiturates Screen NEGATIVE, Urine Phencyclidine Screen NEGATIVE, Urine Amph etamines Screen NEGATIVE, Urine Benzodiazepines Screen NEGATIVE, Urine Cocaine Metabolite Screen NEGATIVE, Urine Cannabinoids Screen POSITIVEH 09/05/20 22:48: Coronavirus (COVID-19)(PCR) NEGATIVE, Influenza Type A (RT-PCR) NEGATIVE, Influenza Type B (RT-PCR) NEGATIVE, Respiratory Syncytial Virus (PCR) NEGATIVE 09/06/20 07:04: Bedside Glucose (Misc Panel) 110H CBC/BMP Laboratory Tests 09/05/20 20:41 Assessment/Plan Patient is 35 years old female with past history of diabetes, hypertension, paranoid schizophrenia, asthma admitted to the inpatient psychiatric unit with psychosis. Patient did not want to provide details about her admission to the hospital. Patient denied fever, chills, shortness of breath, palpitations, nausea, vomiting, diarrhea or dysuria Problems (1) Psychosis Status: Acute Problem Text: defer treatment to psych team (2) Diabetes mellitus Status: Chronic Problem Text: Continue metformin Diabetes diet (3) Hypertension Status: Chronic Problem Text: Blood pressures under control Continue lisinopril Plan / VTE VTE Prophylaxis Ordered?: No VTE Exclusion Mechanical Proph: Low Risk for VTE SASHA ROGERS DO Sep 06, 2020 16:33
[2020-09-06] MEDS: metFORMIN (GLUCOPHAGE) 500MG TAB PO SCH (17:41)
[2020-09-06 17:52] VITALS: BP 119/65
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
[2020-09-07 06:39] VITALS: BP 118/76
[2020-09-07] MEDS: metFORMIN (GLUCOPHAGE) 500MG TAB PO SCH ×2 (08:52→17:30)
[2020-09-07] MEDS: NICOTINE 21MG/24HR 1 EA TRANSDERMAL TD SCH (08:56)
[2020-09-07] MEDS: MULTIVITAMINS/MINERALS THERAP 1 TAB PO SCH (09:44)
[2020-09-07] MEDS: VITAMIN D 1,000 INTERNATIONAL UNITS TABLET PO SCH (09:45)
[2020-09-07] MEDS: lisinopriL 5 MG TAB PO SCH (09:46)
--- NOTE | 2020-09-07 13:08 | MHIPNPDOC ---
[facility] Progress Note Progress Note DATE OF SERVICE: 09/07/20 HISTORY: "My child support case officer sent me here because I was hearing voices." History of Present Illness Patient is a 35 year old single disabled domiciled female who is Broad e d by police on a 9:45 [facility] staff there reported that she had delusions that she was and wanted to get the baby out of her. The patient had auditory hallucinations cursing at her, the voices were telling her to kill herself patient. She reports that she is compliant with her oral medications and doesn't recall the last time she received her Abilify Maintena injectable. Patient was discharged from this hospital in June with similar complaints. She reports occasional alcohol use, recently used Emy once last week and has a history of methamphetamine use but has not been using. According to the collateral pt hasn't been acting right for the last few days, was afraid to shower believes that there is a baby inside her that needed to be cut out, she's been aggressive, throwing things, punching martinze and been not been sleeping. Collateral also reports that she was making statements that didn't make sense, according to her father the patient's neighbor told him that she asked the neighbor what would happen if she killed somebody. Father is requesting patient to be admitted for her safety. Patient currently lives at [facility] patient has a long history of substance abuse and dependence. In the interview which patient refused to participate fully in the interview, she was reporting anxiety, decreased energy levels, and erratic sleep, as well as, the community reports of her being aggressive, having delusions and making bizarre statements. Past psychiatric history previous psychiatric diagnosis schizophrenia paranoid type, history of Schizoaffective Addiction history history of alcohol, methamphetamines has not used for several months emy marijuana VITAL SIGNS: See below. CURRENT MEDICATIONS: See below. MENTAL STATUS EXAMINATION: Patient is a 35 year old single disabled domiciled female who is Broad e d by police on a 9:45 [facility] staff there reported that she had delusions Speech: Is fluid, conversant, normal rate, tone and volume Language skills are intact Thought processes including: linear and goal oriented Thought content: denies depression and anxiety. Denies suicidal/homicidal ideation, planning or intent. Abstract reasoning, and computation: fair Description of associations: denies, none observed Description of abnormal or psychotic thoughts: denies, none observed. Judgment: fair Insight: fair Orientation: alert and oriented to person, place, time and situation Recent and remote memory: intact Attention span and concentration: good Language: expansive Fund of knowledge: average Mood: Euthymic Mood Affect: reactive DIAGNOSES: Schizoaffective Disorder Stimulant Use Disorder History of Methamphetamine Use Disorder Cannabis Use Disorder ASSESSMENT: In today's meeting patient states that she was admitted to the hospital because she was having auditory hallucinations. She states that she often has auditory hallucinations but she has had them for years. She says that she reinforced this with her child support case officer who had her brought to the hospital. Patient admits that she was using Emy last week, she does not admit that this may have caused psychotic symptoms as she denies that she had any. She does believe that she is due for her Deobra Townsend. She is improving in her psychotic symptoms, she denies that she is with a baby, reports mild auditory hallucinations, is visible on the unit and cooperative with hospitalization. MANAGEMENT PLAN: Patient can continue all medications, will verify when Debora Townsend is due. Patient can return home when she is stable TIME SPENT: 25 minutes. Vital Signs Vital Signs Date Time Temp Pulse Resp B/P (MAP) Pulse Ox O2 Delivery O2 Flow Rate FiO2 09/07/20 09:46 118/76 09/07/20 06:39 97.4 84 18 96 Room Air Laboratory Data 24H Labs Laboratory Tests 2 09/07/20 06:12: Bedside Glucose (Misc Panel) 109H Current Medications Current Medications Medications (Trade) Dose Ordered Sig/Tana Route PRN Reason Start Time Stop Time Status Last Admin Dose Admin Acetaminophen (Tylenol Tab) 650 mg Q6HP PRN PO HEADACHE or DISCOMFORT 09/06/20 01:00 Al Hydrox/Mg Hydrox/Simethicone (Mylanta) 30 ml Q4HP PRN PO HEARTBURN/INDIGESTION 09/06/20 01:00 Aripiprazole (AbiLIFY) 5 mg DAILY PO 09/06/20 09:00 09/07/20 09:45 Home Med (Med Rec Complete!) ASDIRECTED XX 09/05/20 23:45 09/05/20 23:34 DC Lisinopril (Prinivil) 5 mg DAILY PO 09/07/20 09:00 09/07/20 09:46 Magnesium Hydroxide (Milk Of Magnesia) 30 ml DAILYPRN PRN PO CONSTIPATION 09/06/20 01:00 Metformin HCl (Glucophage) 500 mg BID@0800,1800 PO 09/06/20 18:00 09/07/20 08:52 Multivitamins (Theragram-M) 1 tab DAILY PO 09/07/20 09:00 09/07/20 09:44 Nicotine (Nicoderm Cq 21mg) 1 patch DAILY TD 09/06/20 09:00 Olanzapine (ZyPREXA ZYDIS) 5 mg Q6HP PRN PO anxiety/agitation 09/06/20 02:00 Trazodone HCl (Desyrel) 50 mg QHSP PRN PO INSOMNIA 09/06/20 01:00 09/07/20 02:34 Vitamin D (Vitamin D) 2,000 units DAILY PO 09/07/20 09:00 09/07/20 09:45 Allergies Coded Allergies: haloperidol (Verified Allergy, Unknown, 09/14/19) risperidone (Verified Allergy, Unknown, 09/14/19) paliperidone (Verified Adverse Reaction, Intermediate, DYSTONIA, 09/14/19) thiothixene (Verified Adverse Reaction, Intermediate, DYSTONIA, 09/14/19) BLOSSOM MCINTYRE NP Sep 07, 2020 13:07
[2020-09-07] MEDS: OLANZapine ORAL DISINTEGRATING TAB 5MG PO PRN (14:18)
[2020-09-07 18:12] VITALS: BP 132/70
[2020-09-08] MEDS: OLANZapine ORAL DISINTEGRATING TAB 5MG PO PRN (05:49)
[2020-09-08 06:47] VITALS: BP 123/57
[2020-09-08] MEDS: metFORMIN (GLUCOPHAGE) 500MG TAB PO SCH (07:27)
[2020-09-08 08:00] VITALS: BP 110/70
[2020-09-08] MEDS: lisinopriL 5 MG TAB PO SCH (08:00)
[2020-09-08] MEDS: VITAMIN D 1,000 INTERNATIONAL UNITS TABLET PO SCH (08:00)
[2020-09-08] MEDS: NICOTINE 21MG/24HR 1 EA TRANSDERMAL TD SCH (08:00)
[2020-09-08] MEDS: MULTIVITAMINS/MINERALS THERAP 1 TAB PO SCH (08:00)
[2020-09-08] MEDS ORDERED: ABIL1TAB11 PO (11:39)
[2020-09-08] MEDS ORDERED: QUET200T2 PO (11:39)
[2020-09-08] MEDS ORDERED: BENZ0.5T23 PO (11:39)
[2020-09-08] MEDS ORDERED: ABIL1INJ2 IM (11:39)
--- NOTE | 2020-09-08 15:48 | MHDSPDOC ---
[facility] Discharge Summary Discharge Summary DATE OF ADMISSION: Sep 05, 2020 at 18:12 DATE OF DISCHARGE: September 08, 2020 at 1141 DISCHARGE DIAGNOSES: Schizoaffective Disorder Stimulant Use Disorder History of Methamphetamine Use Disorder Cannabis Use Disorder REASON FOR ADMISSION: Patient is a 35 year old single disabled domiciled female who is [place] police on a 9:45 [facility] staff there reported that she had delusions that she was and wanted to get the baby out of her. The patient had auditory h allucinations cursing at her, the voices were telling her to kill herself patient. She reports that she is compliant with her oral medications and doesn't recall the last time she received her Abilify Maintena injectable. Patient was discharged from this hospital in June with similar complaints. She reports occasional alcohol use, recently used Janey once last week and has a history of methamphetamine use but has not been using. According to the collateral pt hasn't been acting right for the last few days, was afraid to shower believes that there is a baby inside her that needed to be cut out, she's been aggressive, throwing things, punching martinez and been not been sleeping. Collateral also reports that she was making statements that didn't make sense, according to her father the patient's neighbor told him that she asked the neighbor what would happen if she killed somebody. Father is requesting patient to be admitted for her safety. Patient currently lives at [facility] patient has a long history of substance abuse and dependence. In the interview which patient refused to participate fully in the interview, she was reporting anxiety, decreased energy levels, and erratic sleep, as well as, the community reports of her being aggressive, having delusions and making bizarre statements. CONSULTANTS INVOLVED: See Medical H + P by Hospitalist TREATMENT AND PROGRESS ON THE UNIT: [facility] a 9.39 legal status he was afforded the following treatment modalities: 1) Individual Therapy 2) Group Therapy 3) Medication Management 4) Milieu Therapy 5) Safe Environment HOSPITAL COURSE: Patient was admitted to the [facility] on a 9.39 legal status. She was restarted on her home medications. She reported that she did not know when she was due for her Abilify Maintena Injection 400 mg IM. [facility] for [facility] who confirmed that patient is due to receive this on 09/14/20 - Rx sent to patient's pharmacy DISCHARGE ASSESSMENT: In today's interview, patient is alert and oriented, pts dress is appropriate. Hygiene and grooming is fair. She is pleasant and eng aged in the interview. Denies depression and anxiety. Denies suicidal and homicidal ideation, planning or intent. Denies and is not observed with graciela, psychotic symptoms of delusions, bizarre thinking, obsessions, paranoia, ruminations illogical thoughts, flight of ideas or having poor insight and judgement. Patient has normal mentation, declines further hospitalization on a voluntary status and meets criteria for discharge today. Patient encouraged to return to hospital if his symptoms worsen or change and encouraged to call unit if he/she/they needs to speak to provider for questions regarding medications or care. MENTAL STATUS EXAMINATION ON DISCHARGE: Patient is a 35 year old single disabled domiciled female who is Broad e d by police on a 9:45 [facility] staff there reported that she had delusions Speech: Is fluid, conversant, normal rate, tone and volume Language skills are intact Thought processes including: linear and goal oriented Thought content: denies depression and anxiety. Denies suicidal/homicidal ideation, planning or intent. Abstract reasoning, and computation: fair Description of associations: denies, none observed Description of abnormal or psychotic thoughts: denies, none observed. Judgment: fair Insight: fair Orientation: alert and oriented to person, place, time and situation Recent and remote memory: intact Attention span and concentration: good Language: expansive Fund of knowledge: average Mood: Euthymic Mood Affect: reactive MEDICATIONS ON DISCHARGE: See Medication Summary PLAN/FOLLOWUP ARRANGEMENTS: [facility] The amount of time spent in the coordination of care for this patient was approximately 35 minutes. Vital Signs/I&Os Vital Signs Date Time Temp Pulse Resp B/P (MAP) Pulse Ox O2 Delivery O2 Flow Rate FiO2 09/08/20 08:00 110/70 09/08/20 06:47 98.8 83 20 98 Room Air 98.0 Laboratory Data Labs 24H Laboratory Tests 2 09/07/20 17:31: Bedside Glucose (Misc Panel) 109H Medications Scheduled Aripiprazole (Abilify Maintena) 400 Mg Suser.syr, 400 MG IM QMONTH for Auditory Hallucinations, #1 Due September 14, 2020 Aripiprazole (Abilify) 5 Mg Tablet, 5 MG PO DAILY for Antipsychotic, #7 Benztropine Mesylate (Benztropine Mesylate) 0.5 Mg Tablet, 0.5 MG PO BID for EPS symptoms, #14 Cholecalciferol (Vitamin D3) (Vitamin D3) 1,000 Unit Tablet, 2,000 UNITS PO DAILY, (Reported) Lisinopril (Lisinopril) 5 Mg Tablet, 5 MG PO DAILY, (Reported) Metformin HCl (Metformin HCl) 500 Mg Tablet, 500 MG PO BID, (Reported) Multivitamins (Thera M Plus Tablet) 1 Each Tablet, 1 TAB PO DAILY, (Reported) Naltrexone HCl (Naltrexone HCl) 50 Mg Tablet, 50 MG PO QHS, (Reported) Quetiapine Fumarate (Quetiapine Fumarate) 200 Mg Tablet, 200 MG PO QHS for Sleep, #7 Trazodone HCl (Trazodone HCl) 50 Mg Tablet, 50 MG PO QHS, (Reported) Scheduled PRN Hydroxyzine HCl (Hydroxyzine HCl) 25 Mg Tablet, 25 MG PO Q6H PRN for ANXIETY, (Reported) Allergies Coded Allergies: haloperidol (Verified Allergy, Unknown, 09/14/19) risperidone (Verified Allergy, Unknown, 09/14/19) paliperidone (Verified Adverse Reaction, Intermediate, DYSTONIA, 09/14/19) thiothixene (Verified Adverse Reaction, Intermediate, DYSTONIA, 09/14/19) BLOSSOM MCINTYRE NP Sep 08, 2020 11:41
== END 2020-09-08 13:11 | disposition home or self-care (01) | DRG 885 ==
LOC: M ED 18:11 → M ED INP 18:12 → M PSY 09-06 02:04
PROVIDERS: ADMIT Psychiatry & Neurology Psychiatry; ATTEND Psychiatry & Neurology Psychiatry
DX: F25.9 Schizoaffective disorder, unspecified (principal); F15.10 Other stimulant abuse, uncomplicated; F12.10 Cannabis abuse, uncomplicated; F17.200 Nicotine dependence, unspecified, uncomplicated; E11.9 Type 2 diabetes mellitus without complications; I10 Essential (primary) hypertension; J45.909 Unspecified asthma, uncomplicated; Z79.84 Long term (current) use of oral hypoglycemic drugs; Z20.822 Contact with and (suspected) exposure to COVID-19; Z81.8 Family history of other mental and behavioral disorders; Z88.8 Allergy status to other drugs, medicaments and biological substances; Z79.899 Other long term (current) drug therapy

== ENCOUNTER 2020-10-21 08:25 | Inpatient (IN) | payer MEDICARE, MEDICAID ==
[~2020-10-21] VITALS: Ht 154.9 cm; Wt 75.3 kg
[~2020-10-21 08:25] MED LIST changes: +ABIL1TAB11 PO; -ACET-908 PO; +ACET-910 PO; +BENZ0.5T23 PO; +D31000TA2 PO; +TRAZ-186 PO; +VITMTA PO
[2020-10-21 10:37] LABS: HEMATOCRIT 33.7 % (36.0-47.0); HEMOGLOBIN 11.2 g/dl (12.0-15.5); MEAN CORPUSCULAR HEMOGLOBIN 29.1 pg (27.0-33.0); MEAN CORPUSCULAR HGB CONC 33.2 g/dl (32.0-36.5); MEAN CORPUSCULAR VOLUME 87.5 fl (80.0-96.0); PLATELET COUNT, AUTOMATED 335 10^3/uL (150-450); RED BLOOD COUNT 3.85 10^6/uL (4.00-5.40); WHITE BLOOD COUNT 6.4 10^3/uL (4.0-10.0)
[2020-10-21 11:08] LABS: HCG, SERUM QUALITATIVE NEGATIVE (NEGATIVE)
[2020-10-21 11:11] LABS: ACETAMINOPHEN LEVEL < 2.0 UG/ML (10.0-30.0); ALBUMIN 3.9 GM/DL (3.2-5.2); ALT/SGPT 20 U/L (12-78); BILIRUBIN,DIRECT 0.2 MG/DL (0.0-0.2); BILIRUBIN,TOTAL 0.6 MG/DL (0.2-1.0); BLOOD UREA NITROGEN 13 MG/DL (7-18); CALCIUM LEVEL 9.3 MG/DL (8.5-10.1); CARBON DIOXIDE LEVEL 25 MEQ/L (21-32); CHLORIDE LEVEL 106 MEQ/L (98-107); CPK CREATINE PHOSPHOKINASE 799 U/L (26-192); CREATININE FOR GFR 0.82 MG/DL (0.55-1.30); ETHYL ALCOHOL (ETHANOL) < 0.003 % (0.000-0.010); GLOMERULAR FILTRATION RATE > 60.0 (>60); GLUCOSE, FASTING 111 MG/DL (70-100); POTASSIUM SERUM 3.6 MEQ/L (3.5-5.1); SALICYLATE LEVEL < 1.7 MG/DL (5.0-30.0); SODIUM LEVEL 139 MEQ/L (136-145); THYROID STIMULATING HORMONE 0.953 uIU/ML (0.358-3.740); TOTAL PROTEIN 7.4 GM/DL (6.4-8.2)
[2020-10-21] MEDS ORDERED: LORazepam 2 MG TAB PO STA (11:15)
[2020-10-21] MEDS ORDERED: NS 1,000 ML IV ONE (11:40)
[2020-10-21 11:54] LABS: AMPHETAMINES LEVEL URINE POSITIVE (NEGATIVE); BARBITURATES URINE NEGATIVE (NEGATIVE); BENZODIAZEPINES URINE NEGATIVE (NEGATIVE); CANNABINOIDS URINE POSITIVE (NEGATIVE); COCAINE METABOLITE URINE NEGATIVE (NEGATIVE); METHADONE URINE NEGATIVE (NEGATIVE); OPIATES URINE NEGATIVE (NEGATIVE); PHENCYCLIDINE URINE NEGATIVE (NEGATIVE)
[2020-10-21 18:24] LABS: RSV AMPLIFICATION NEGATIVE (NEGATIVE)
[2020-10-21] MEDS ORDERED: PROAAER10 INH (19:23)
[2020-10-21] MEDS ORDERED: PT COMMENT (19:25)
[2020-10-21] MEDS ORDERED: ALBUTEROL 90 MCG/ACT 8GM HFA INHALER INH PRN (20:35)
[2020-10-21] MEDS ORDERED: MAALOX 30 ML SUSP *UDC PO PRN (20:35)
[2020-10-21] MEDS ORDERED: ACETAMINOPHEN TAB 650MG DOSE (2X325MG) PO PRN (20:35)
[2020-10-21] MEDS ORDERED: MOM 30ML SUSPENSION UDC PO PRN (20:35)
[2020-10-21] MEDS ORDERED: traZODone 50 MG TAB PO PRN (20:35)
[2020-10-21] MEDS: QUEtiapine FUMARATE 200 MG TAB PO SCH (21:32)
[2020-10-21] MEDS: traZODone 50 MG TAB PO SCH (21:32)
[2020-10-21] MEDS: BENZTROPINE 0.5 MG TAB PO SCH (21:32)
[2020-10-21] MEDS: metFORMIN (GLUCOPHAGE) 500MG TAB PO SCH (21:33)
[2020-10-21] MEDS: NALTREXONE 50 MG TAB PO SCH (21:49)
[2020-10-22 00:30] VITALS: BP 124/83
[2020-10-22] MEDS: BENZTROPINE 0.5 MG TAB PO SCH ×2 (09:23→21:04)
[2020-10-22] MEDS: lisinopriL 5 MG TAB PO SCH (09:23)
[2020-10-22] MEDS: MULTIVITAMINS/MINERALS THERAP 1 TAB PO SCH (09:23)
[2020-10-22] MEDS: VITAMIN D 1,000 INTERNATIONAL UNITS TABLET PO SCH (09:23)
[2020-10-22] MEDS: metFORMIN (GLUCOPHAGE) 500MG TAB PO SCH ×2 (09:23→21:04)
--- NOTE | 2020-10-22 11:22 | HPEPDOC ---
General Date of Admission Oct 21, 2020 at 20:59 Date of Service: Oct 22, 2020 Chief Complaint The patient is a 35-year-old female admitted with a reason for visit of Unspecified Psychotic D/O. History of Present Illness 35 year old female with PMH of Schizoaddective disorder, polysubstance abuse, DM, HTN, asthma admitted to the [facility] for unspecified psychotic disorder with utox positive for amphetamine and cannabis. I am examining the patietn today for medical history and physical. Complains of her both knees hurting which she attributes to walking too much. Says it is dull and aching about 3/10 in intensity. She also has aches and pain in other parts of th body but did not elaborate any more other than she reports that she is feeling good. No other medical complaints. Home Medications Scheduled Aripiprazole (Abilify Maintena) 400 Mg Suser.syr, 400 MG IM QMONTH for Auditory Hallucinations Due September 14, 2020 Aripiprazole (Abilify) 5 Mg Tablet, 5 MG PO DAILY for Antipsychotic Benztropine Mesylate (Benztropine Mesylate) 0.5 Mg Tablet, 0.5 MG PO BID for EPS symptoms Cholecalciferol (Vitamin D3) (Vitamin D3) 1,000 Unit Tablet, 2,000 UNITS PO DAILY, (Reported) Lisinopril (Lisinopril) 5 Mg Tablet, 5 MG PO DAILY, (Reported) Metformin HCl (Metformin HCl) 500 Mg Tablet, 500 MG PO BID, (Reported) Multivitamins (Thera M Plus Tablet) 1 Each Tablet, 1 TAB PO DAILY, (Reported) Naltrexone HCl (Naltrexone HCl) 50 Mg Tablet, 50 MG PO QHS, (Reported) Quetiapine Fumarate (Quetiapine Fumarate) 200 Mg Tablet, 200 MG PO QHS for Sleep Trazodone HCl (Trazodone HCl) 50 Mg Tablet, 50 MG PO QHS, (Reported) Scheduled PRN Albuterol Sulfate (Proair Hfa) 8.5 Gm Hfa.aer.ad, 2 PUFF INH for SHORTNESS OF BREATH, (Reported) Hydroxyzine HCl (Hydroxyzine HCl) 25 Mg Tablet, 25 MG PO Q6H PRN for ANXIETY, (Reported) Miscellaneous Medications [Pt Comment] , (Reported) MED REC COMPLETED FROM EXTERNAL MED LIST Allergies Coded Allergies: haloperidol (Verified Allergy, Unknown, 09/14/19) risperidone (Verified Allergy, Unknown, 09/14/19) paliperidone (Verified Adverse Reaction, Intermediate, DYSTONIA, 09/14/19) thiothixene (Verified Adverse Reaction, Intermediate, DYSTONIA, 09/14/19) Past Medical History Medical History Diabetes Asthma Hypertension Anemia Heart murmur from Polysubstance use disorder Schizoaffective Disorder Stimulant Use Disorder Surgical History 2 C-sections Cholecystectomy 2010 Family History Mother : SLE, fibromyalgia Father: prostate cancer Social History * Smoker: current smoker Alcohol: occationally (1-2 beers ) Drugs: marijuana, other (methaphetamine) A-FIB/CHADSVASC A-FIB History Current/History of A-Fib/PAF?: No Review of Systems Constitutional: Denies: Chills, Fever, Night Sweats Eyes: Denies: Pain, Vision change ENT: Denies: Head Aches, Ear Pain, Dysphagia Skin: Denies: Rash, Lesions, Breakdown Pulmonary: Denies: Dyspnea, Cough Cardiovascular: Denies: Chest Pain, Palpitations, Orthopnea, Paroxysmal Noc. Dyspnea, Lt Headedness Gastrointestinal: Denies: Nausea, Vomiting, Abdominal Pain, Diarrhea Genitourinary: Denies: Dysuria, Frequency, Incontinence, Retention Musculoskeletal: Reports: Joint Pain (both knee pain) Neurological: Denies: Weakness, Numbness, Change in speech, Confusion Psych: Reports: Mood Normal Physical Examination General Exam: Positive: Alert, Cooperative, No Acute Distress Eye Exam: Positive: PERRLA, Conjunctiva & lids normal, EOMI; Negative: Sclera icteric ENT Exam: Positive: Atraumatic, Mucous membr. moist/pink, Pharynx Normal Neck Exam: Positive: Supple; Negative: JVD, thyromegaly Chest Exam: Positive: Clear to auscultation, Normal air movement Heart Exam: Positive: Rate Normal, Regular Rhythm, Normal S1, Normal S2; Negative: Murmurs, Rubs Abdomen Exam: Positive: Normal bowel sounds, Soft; Negative: Tenderness, Hepatospenomegaly Extremity Exam: Negative: Clubbing, Cyanosis, Edema Vital Signs Vital Signs Date Time Temp Pulse Resp B/P (MAP) Pulse Ox O2 Delivery O2 Flow Rate FiO2 10/22/20 09:23 124/83 10/22/20 00:30 98.4 112 18 96 Room Air Laboratory Data Labs 24H Laboratory Tests 2 10/21/20 17:34: Total Creatine Kinase 629H, Coronavirus (COVID-19)(PCR) NEGATIVE, Influenza Type A (RT-PCR) NEGATIVE, Influenza Type B (RT-PCR) NEGATIVE, Respiratory Syncytial Virus (PCR) NEGATIVE Assessment/Plan 35 year old female with PMH of Schizoaddective disorder, polysubstance abuse, DM, HTN, asthma admitted to the [facility] for unspecified psychotic disorder with utox positive for amphetamine and cannabis. I am examining the patietn today for medical history and physical. Psychosis/ schizoaffective disorder/polysubstance use disorder as per psychiatry DM continue metformin Hypertension lisinopril Asthma albuterol prn. Plan / VTE VTE Prophylaxis Ordered?: No LETICIA MACIAS MD Oct 22, 2020 11:21
[2020-10-22] MEDS: OLANZapine ORAL DISINTEGRATING TAB 5MG PO PRN (16:03)
[2020-10-22 17:53] VITALS: BP 133/77
[2020-10-22] MEDS: NALTREXONE 50 MG TAB PO SCH (21:04)
[2020-10-22] MEDS: QUEtiapine FUMARATE 200 MG TAB PO SCH (21:04)
[2020-10-22] MEDS: traZODone 50 MG TAB PO SCH (21:04)
--- NOTE | 2020-10-22 21:26 | WAPSY-INT ---
[facility] INITIAL ASSESSMENT DATE OF ADMISSION: 10/21/2020 DATE OF EVALUATION: 10/22/2020 HISTORY OF PRESENT ILLNESS: I was not able to evaluate this 35-year-old -Chilean female because the patient actually refused to see me, and so information is obtained from the chart. It seems that she presented to the hospital stating that she was hearing voices, that she had done Janey two days before that, that she has stopped taking her Abilify, Maintena injection and that she had been in a hotel waiting for permanent placement by [facility]. PAST PSYCHIATRIC HISTORY: Unable to obtain. PAST MEDICAL HISTORY: Unable to obtain. ABUSE HISTORY: Unable to obtain. SUBSTANCE ABUSE HISTORY: The patient admitted that she had used Janey the day before. REVIEW OF SYSTEMS: VITAL SIGNS: Blood pressure 124/83, pulse 112, respirations 18. I am unable to complete the rest of the review of systems as the patient refused to talk to me. MENTAL STATUS EXAMINATION: Unable to complete. DIAGNOSIS: 1. Schizoaffective disorder. 2. Stimulant use disorder. 3. Cannabis use disorder. TREATMENT PLAN: At this point we will further manage her for what appears to be psychotic symptoms and we will continue Abilify 5 mg q. daily, Cogentin 0.5 mg twice daily, Naltrexone 5 mg q. h.s., Trazodone 50 mg q. h.s. p.r.n. for insomnia, Hydroxyzine 35 mg q. 6 hours p.r.n. for anxiety and hopefully we will get the patient back on her Abilify Maintena but we need to find out where she actually has been receiving it and when stable she will be discharged with appropriate follow up. [facility]
[2020-10-23 06:30] VITALS: BP 117/60
[2020-10-23] MEDS: BENZTROPINE 0.5 MG TAB PO SCH ×2 (07:57→19:42)
[2020-10-23] MEDS: VITAMIN D 1,000 INTERNATIONAL UNITS TABLET PO SCH (07:57)
[2020-10-23] MEDS: MULTIVITAMINS/MINERALS THERAP 1 TAB PO SCH (07:57)
[2020-10-23] MEDS: lisinopriL 5 MG TAB PO SCH (07:58)
[2020-10-23] MEDS: metFORMIN (GLUCOPHAGE) 500MG TAB PO SCH ×2 (07:58→19:42)
[2020-10-23] MEDS: hydrOXYzine 25 MG TAB PO PRN (14:28)
[2020-10-23 17:29] VITALS: BP 111/59
[2020-10-23] MEDS: OLANZapine ORAL DISINTEGRATING TAB 5MG PO PRN (19:41)
[2020-10-23] MEDS: QUEtiapine FUMARATE 200 MG TAB PO SCH (19:41)
[2020-10-23] MEDS: traZODone 50 MG TAB PO SCH (19:42)
[2020-10-23] MEDS: NALTREXONE 50 MG TAB PO SCH (19:42)
[2020-10-24 06:37] VITALS: BP 146/93
[2020-10-24] MEDS: metFORMIN (GLUCOPHAGE) 500MG TAB PO SCH ×2 (09:35→21:00)
[2020-10-24] MEDS: MULTIVITAMINS/MINERALS THERAP 1 TAB PO SCH (09:35)
[2020-10-24] MEDS: VITAMIN D 1,000 INTERNATIONAL UNITS TABLET PO SCH (09:35)
[2020-10-24] MEDS: lisinopriL 5 MG TAB PO SCH (09:36)
[2020-10-24] MEDS: BENZTROPINE 0.5 MG TAB PO SCH ×2 (09:36→21:00)
[2020-10-24] MEDS: ALBUTEROL 90 MCG/ACT 8GM HFA INHALER INH PRN (14:38)
[2020-10-24] MEDS: OLANZapine ORAL DISINTEGRATING TAB 5MG PO PRN (16:15)
[2020-10-24 16:40] VITALS: BP 131/77
[2020-10-24] MEDS ORDERED: ARIPiprazole MONOHYDRATE 400 MG INJ (ABILIFY) IM ONE (18:00)
[2020-10-24] MEDS: NALTREXONE 50 MG TAB PO SCH (21:00)
[2020-10-24] MEDS: QUEtiapine FUMARATE 200 MG TAB PO SCH (21:00)
[2020-10-24] MEDS: traZODone 50 MG TAB PO SCH (21:00)
[2020-10-25 06:47] VITALS: BP 119/58
[2020-10-25] MEDS: lisinopriL 5 MG TAB PO SCH (08:51)
[2020-10-25] MEDS: BENZTROPINE 0.5 MG TAB PO SCH ×2 (08:52→21:33)
[2020-10-25] MEDS: MULTIVITAMINS/MINERALS THERAP 1 TAB PO SCH (08:52)
[2020-10-25] MEDS: metFORMIN (GLUCOPHAGE) 500MG TAB PO SCH ×2 (08:52→21:33)
[2020-10-25] MEDS: VITAMIN D 1,000 INTERNATIONAL UNITS TABLET PO SCH (08:52)
--- NOTE | 2020-10-25 09:50 | MHIPN ---
PROGRESS NOTE DATE: 10/24/2020 SUBJECTIVE: I still hear voices and see things. OBJECTIVE: She is a 35-year-old female with history of schizoaffective disorder, admitted for auditory and visual hallucinations. Currently complains of some auditory hallucinations. Patient is somewhat guarded and seen walking along the hallway. She has been compliant with the medications. MENTAL STATUS EXAMINATION: Appearance: Well groomed. Behavior: Cooperative, somewhat pacing. Eye contact normal. Speech: Spontaneous, conversant. Affect: Constricted. Mood: Mildly depressed. Thought process: Goal directed. Thought content: Complains of auditory and visual hallucinations. She is alert and oriented to time, place and person. Currently denies any suicidal or homicidal thoughts. Her insight and judgment are poor. DIAGNOSIS: Schizoaffective disorder. Vital signs: Temperature 98.8, pulse 99, respiratory rate 16, blood pressure 131/77, pulse oximetry 99%. ASSESSMENT: Patient still continues to hear voices and also complains of visual hallucinations. PLAN: Continue current medications. ESTIMATED LENGTH OF STAY: 3 to 4 days. TIME SPENT: 25 minutes.
[2020-10-25] MEDS: hydrOXYzine 25 MG TAB PO PRN (11:27)
[2020-10-25] MEDS: OLANZapine ORAL DISINTEGRATING TAB 5MG PO PRN (15:29)
[2020-10-25 16:40] VITALS: BP 130/79
--- NOTE | 2020-10-25 17:17 | MHIPN ---
[facility] PROGRESS NOTE DATE: 10/23/2020 The patient today tells me that "I am tired." She says that she did not sleep good last night. She tells me that she needed to come in the hospital because she had been hearing voices and felt like someone wanted to kill her. She admits she stopped taking her Abilify Maintena, but it seems that it might have been just about 10 days ago that maybe she was due for her injection but she is not sure. MENTAL STATUS EXAMINATION: This patient is alert and oriented times three. Eye contact is fair. Psychomotor activity is decreased. There is no formal thought disorder. She says her mood is okay. Affect flat. She says she is hearing voices and she is having paranoid thoughts that someone wants to hurt her. She says she is not suicidal or homicidal. Concentration is fair. Memory is intact. Insight and judgment poor. DIAGNOSES: Thought disorder noted. Schizoaffective disorder. Stimulant use disorder. Cannabis use disorder. TREATMENT PLAN: The patient will be given her Abilify Maintena but staff needs to call tomorrow to find out what dose of Abilify Maintena she is supposed to be on, or actually we know the dose is 400, but we do not know when she received the last dose.
--- NOTE | 2020-10-25 18:14 | MHIPN ---
[facility] PROGRESS NOTE DATE: 10/25/2020 SUBJECTIVE: "I'm doing better. I want to be discharged." OBJECTIVE: She is a 35-year-old female with history of schizoaffective disorder and polysubstance use disorder who was admitted because of severe psychosis. Patient was inappropriate and was hearing voices. She came for help by herself. She has a long history of mental illness. Currently her speech is pressured; however, she is cooperative. She was given Abilify 400 mg intramuscular (IM) injection. She is also on Abilify 5 mg daily oral dose for about 2 weeks. Patient will be monitored. MENTAL STATUS EXAMINATION: Casually dressed, cooperative. Made good eye contact. Speech is pressured, circumstantial. Denied any auditory or visual hallucinations. Denied any suicidal or homicidal ideas. Insight and judgment are poor. Memory immediate, remote, recent are good. Mood is euthymic. Affect is more congruent. VITAL SIGNS: Temperature 98.6, pulse 88, respiratory rate is 17, blood pressure is 130/79, pulse oximetry 100. LABORATORY DATA: CBC within normal limits. Chemistry: Creatine kinase was high, which is decreasing. Toxicology was positive for cannabis, amphetamine. ASSESSMENT: 1. Schizoaffective disorder, bipolar type. 2. Polysubstance abuse. PLAN: Continue current medication, monitor on the unit. Titrate the dose of Abilify. ESTIMATED LENGTH OF STAY: 4-5 days. TIME SPENT ON THE PATIENT: 25 minutes.
[2020-10-25] MEDS: NALTREXONE 50 MG TAB PO SCH (21:33)
[2020-10-25] MEDS: QUEtiapine FUMARATE 200 MG TAB PO SCH (21:33)
[2020-10-25] MEDS: traZODone 50 MG TAB PO SCH (21:33)
[2020-10-26] MEDS: OLANZapine ORAL DISINTEGRATING TAB 5MG PO PRN ×2 (01:02→16:08)
[2020-10-26] MEDS: hydrOXYzine 25 MG TAB PO PRN (01:02)
[2020-10-26 06:58] VITALS: BP 106/53
--- NOTE | 2020-10-26 08:45 | MHHPE ---
DATE OF ADMISSION: 10/21/2020 DATE OF EVALUATION: 10/22/2020 HISTORY OF PRESENT ILLNESS: I was not able to evaluate this 35-year-old -Slovenian female because the patient actually refused to see me, and so information is obtained from the chart. It seems that she presented to the hospital stating that she was hearing voices, that she had done Janey two days before that, that she has stopped taking her Abilify, Maintena injection and that she had been in a hotel waiting for permanent placement by [facility]. PAST PSYCHIATRIC HISTORY: Unable to obtain. PAST MEDICAL HISTORY: Unable to obtain. ABUSE HISTORY: Unable to obtain. SUBSTANCE ABUSE HISTORY: The patient admitted that she had used Janey the day before. REVIEW OF SYSTEMS: VITAL SIGNS: Blood pressure 124/83, pulse 112, respirations 18. I am unable to complete the rest of the review of systems as the patient refused to talk to me. MENTAL STATUS EXAMINATION: Unable to complete. DIAGNOSIS: 1. Schizoaffective disorder. 2. Stimulant use disorder. 3. Cannabis use disorder. TREATMENT PLAN: At this point we will further manage her for what appears to be psychotic symptoms and we will continue Abilify 5 mg q. daily, Cogentin 0.5 mg twice daily, Naltrexone 5 mg q. h.s., Trazodone 50 mg q. h.s. p.r.n. for insomnia, Hydroxyzine 35 mg q. 6 hours p.r.n. for anxiety and hopefully we will get the patient back on her Abilify Maintena but we need to find out where she actually has been receiving it and when stable she will be discharged with appropriate follow up. PRIMO
[2020-10-26] MEDS: MULTIVITAMINS/MINERALS THERAP 1 TAB PO SCH (09:07)
[2020-10-26] MEDS: VITAMIN D 1,000 INTERNATIONAL UNITS TABLET PO SCH (09:07)
[2020-10-26] MEDS: metFORMIN (GLUCOPHAGE) 500MG TAB PO SCH ×2 (09:08→22:32)
[2020-10-26] MEDS: BENZTROPINE 0.5 MG TAB PO SCH ×2 (09:10→22:32)
[2020-10-26] MEDS: lisinopriL 5 MG TAB PO SCH (09:10)
--- NOTE | 2020-10-26 16:07 | MHIPN ---
[facility] PROGRESS NOTE DATE: 10/26/2020 SUBJECTIVE: "I was hearing many voices. Now I hear only two voices." OBJECTIVE: She is a 35-year-old female with a history of schizoaffective disorder and polysubstance use disorder, who was admitted because of severe psychosis. Patient was bizarre and was complaining of auditory hallucinations. Currently her speech is pressured and complains of auditory hallucinations, which is less severe. Denies any side effect of the medications. Has been doing better. MENTAL STATUS EXAMINATION: Casually dressed, cooperative. Made good eye contact. Psychomotor activity is mildly increased. Speech somewhat pressured. Denied auditory or visual hallucinations. Denied suicidal or homicidal ideas. Insight and judgment are poor. Memory, immediate, remote, recent, is good. Mood is euthymic. Affect is mood congruent. VITAL SIGNS: Temperature 98, pulse 75, respiratory rate 20, blood pressure is 106/53, pulse oximetry is 97. LABORATORY DATA: CBC within normal limits. Chemistry: Her total creatine kinase was increased, now is improving. Will repeat creatine kinase tomorrow. Toxicology was positive for cannabis and amphetamines. ASSESSMENT: Schizoaffective disorder, bipolar type. PLAN: Continue current medications. Consider adding another mood stabilizer if patient continues to have more pressured speech and hyperactivity. TIME SPENT ON THE PATIENT: 25 minutes.
[2020-10-26 16:33] VITALS: BP 135/68
[2020-10-26] MEDS: QUEtiapine FUMARATE 200 MG TAB PO SCH (22:31)
[2020-10-26] MEDS: NALTREXONE 50 MG TAB PO SCH (22:32)
[2020-10-26] MEDS: traZODone 50 MG TAB PO SCH (22:32)
[2020-10-27 06:40] VITALS: BP 133/75
[2020-10-27] MEDS: VITAMIN D 1,000 INTERNATIONAL UNITS TABLET PO SCH (08:11)
[2020-10-27] MEDS: MULTIVITAMINS/MINERALS THERAP 1 TAB PO SCH (08:11)
[2020-10-27] MEDS: metFORMIN (GLUCOPHAGE) 500MG TAB PO SCH ×2 (08:12→20:36)
[2020-10-27] MEDS: lisinopriL 5 MG TAB PO SCH (08:12)
[2020-10-27] MEDS: BENZTROPINE 0.5 MG TAB PO SCH ×2 (08:12→20:36)
[2020-10-27] MEDS: OLANZapine ORAL DISINTEGRATING TAB 5MG PO PRN ×2 (09:51→17:49)
[2020-10-27] MEDS: NICOTINE 14 MG/24 HR TRANSDERMAL TD SCH (11:54)
--- NOTE | 2020-10-27 16:05 | MHIPNPDOC ---
[facility] Progress Note Progress Note DATE OF SERVICE: 10/27/20 SUBJECTIVE: "I'm doing better. I want to be discharged." OBJECTIVE: She is a 35-year-old female with history of schizoaffective disorder and polysubstance use disorder who was admitted because of severe psychosis. Patient was inappropriate and was hearing voices. She came for help by herself. She has a long history of mental illness. Currently her speech is pressured; however, she is cooperative. She was given Abilify 400 mg intramuscular (IM) injection. She is also on Abilify 5 mg daily oral dose for about 2 weeks. Patient will be monitored. Pt asking for discharge. MENTAL STATUS EXAMINATION: Casually dressed, cooperative. Made good eye contact. Speech is pressured, circumstantial. Denied any auditory or visual hallucinations. Denied any suicidal or homicidal ideas. Insight and judgment are poor. Memory immediate, remote, recent are good. Mood is euthymic. Affect is more congruent. LABORATORY DATA: CBC within normal limits. Chemistry: Creatine kinase was high, which is decreasing. Toxicology was positive for cannabis, amphetamine. ASSESSMENT: 1. Schizoaffective disorder, bipolar type. 2. Polysubstance abuse. PLAN: Continue current medication, monitor on the unit. Titrate the dose of SW working on discharging to [facility]. Vital Signs Vital Signs Date Time Temp Pulse Resp B/P (MAP) Pulse Ox O2 Delivery O2 Flow Rate FiO2 10/27/20 08:12 131/82 10/27/20 06:40 98.7 71 98 16 Room Air Current Medications Current Medications Medications (Trade) Dose Ordered Sig/Tana Route PRN Reason Start Time Stop Time Status Last Admin Dose Admin Acetaminophen (Tylenol Tab) 650 mg Q6HP PRN PO HEADACHE or DISCOMFORT 10/21/20 20:35 Al Hydrox/Mg Hydrox/Simethicone (Mylanta) 30 ml Q4HP PRN PO HEARTBURN/INDIGESTION 10/21/20 20:35 Albuterol Sulfate (Proventil, Ventolin Hfa) 2 puff ASDIRECTED PRN INH SHORTNESS OF BREATH 10/21/20 20:35 10/22/20 09:28 DC Albuterol Sulfate (Proventil, Ventolin Hfa) 2 puff Q4HP PRN INH SHORTNESS OF BREATH 10/22/20 09:25 10/24/20 14:38 Aripiprazole (AbiLIFY) 5 mg DAILY PO 10/22/20 09:00 10/27/20 08:11 Benztropine Mesylate (Cogentin) 0.5 mg BID PO 10/21/20 21:00 10/27/20 08:12 Home Med (Med Rec Complete!) ASDIRECTED XX 10/21/20 19:30 10/21/20 19:28 DC Hydroxyzine HCl (Atarax) 25 mg Q6H PRN PO ANXIETY 10/21/20 20:35 10/26/20 01:02 Lisinopril (Prinivil) 5 mg DAILY PO 10/22/20 09:00 10/27/20 08:12 Lorazepam (Ativan) 2 mg STAT STAT PO 10/21/20 11:15 10/21/20 11:16 DC 10/21/20 11:23 Magnesium Hydroxide (Milk Of Magnesia) 30 ml DAILYPRN PRN PO CONSTIPATION 10/21/20 20:35 Metformin HCl (Glucophage) 500 mg BID PO 10/21/20 21:00 10/27/20 08:12 Multivitamins (Theragram-M) 1 tab DAILY PO 10/22/20 09:00 10/27/20 08:11 Naltrexone HCl (Revia) 50 mg QHS PO 10/21/20 21:00 10/26/20 22:32 Nicotine (Nicoderm Cq 14mg) 1 patch DAILY TD 10/27/20 11:45 10/27/20 11:54 Olanzapine (ZyPREXA ZYDIS) 5 mg Q4HP PRN PO AGITATION 10/21/20 20:35 10/27/20 09:51 Quetiapine Fumarate (SEROquel) 200 mg QHS PO 10/21/20 21:00 10/26/20 22:31 Trazodone HCl (Desyrel) 50 mg QHS PO 10/21/20 21:00 10/26/20 22:32 Trazodone HCl (Desyrel) 50 mg QHSP PRN PO INSOMNIA 10/21/20 20:35 Cancel Vitamin D (Vitamin D) 2,000 units DAILY PO 10/22/20 09:00 10/27/20 08:11 Allergies Coded Allergies: haloperidol (Verified Allergy, Unknown, 09/14/19) risperidone (Verified Allergy, Unknown, 09/14/19) paliperidone (Verified Adverse Reaction, Intermediate, DYSTONIA, 09/14/19) thiothixene (Verified Adverse Reaction, Intermediate, DYSTONIA, 09/14/19) GUSTAVO CHICAS MD Oct 27, 2020 16:05
[2020-10-27 16:20] VITALS: BP 124/60
[2020-10-27] MEDS: QUEtiapine FUMARATE 200 MG TAB PO SCH (20:36)
[2020-10-27] MEDS: NALTREXONE 50 MG TAB PO SCH (20:36)
[2020-10-27] MEDS: traZODone 50 MG TAB PO SCH (20:36)
[2020-10-28 06:00] VITALS: BP 135/61
[2020-10-28] MEDS: metFORMIN (GLUCOPHAGE) 500MG TAB PO SCH ×2 (08:02→21:32)
[2020-10-28] MEDS: BENZTROPINE 0.5 MG TAB PO SCH ×2 (08:02→21:32)
[2020-10-28] MEDS: lisinopriL 5 MG TAB PO SCH (08:02)
[2020-10-28] MEDS: MULTIVITAMINS/MINERALS THERAP 1 TAB PO SCH (08:02)
[2020-10-28] MEDS: NICOTINE 14 MG/24 HR TRANSDERMAL TD SCH (08:03)
[2020-10-28] MEDS: VITAMIN D 1,000 INTERNATIONAL UNITS TABLET PO SCH (08:03)
[2020-10-28] MEDS: hydrOXYzine 25 MG TAB PO PRN (10:52)
[2020-10-28] MEDS: OLANZapine ORAL DISINTEGRATING TAB 5MG PO PRN (14:03)
[2020-10-28 16:19] VITALS: BP 124/83
--- NOTE | 2020-10-28 17:07 | MHIPNPDOC ---
[facility] Progress Note Progress Note DATE OF SERVICE: 10/28/20 SUBJECTIVE: "I'm doing better. I want to be discharged."Pt has some residual hallucinations Pt ignores them. OBJECTIVE: She is a 35-year-old female with history of schizoaffective disorder and polysubstance use disorder who was admitted because of severe psychosis. Patient was inappropriate and was hearing voices. She came for help by herself. She has a long history of mental illness. Currently her speech is pressured; however, she is cooperative. She was given Abilify 400 mg intramuscular (IM) injection. She is also on Abilify 5 mg daily oral dose for about 2 weeks. Patient will be monitored. Pt asking for discharge.Agreed for next week discharge. MENTAL STATUS EXAMINATION: Casually dressed, cooperative. Made good eye contact. Speech is pressured, circumstantial. Denied any auditory or visual hallucinations. Denied any suicidal or homicidal ideas. Insight and judgment are poor. Memory immediate, remote, recent are good. Mood is euthymic. Affect is more congruent. LABORATORY DATA: CBC within normal limits. Chemistry: Creatine kinase was high, which is decreasing. Toxicology was positive for cannabis, amphetamine. ASSESSMENT: 1. Schizoaffective disorder, bipolar type. 2. Polysubstance abuse. PLAN: Continue current medication, monitor on the unit. Titrate the dose of SW working on discharging to [facility]. Vital Signs Vital Signs Date Time Temp Pulse Resp B/P (MAP) Pulse Ox O2 Delivery O2 Flow Rate FiO2 10/28/20 16:19 98.6 99 18 124/83 (97) 98 Room Air Current Medications Current Medications Medications (Trade) Dose Ordered Sig/Tana Route PRN Reason Start Time Stop Time Status Last Admin Dose Admin Acetaminophen (Tylenol Tab) 650 mg Q6HP PRN PO HEADACHE or DISCOMFORT 10/21/20 20:35 Al Hydrox/Mg Hydrox/Simethicone (Mylanta) 30 ml Q4HP PRN PO HEARTBURN/INDIGESTION 10/21/20 20:35 Albuterol Sulfate (Proventil, Ventolin Hfa) 2 puff ASDIRECTED PRN INH SHORTNESS OF BREATH 10/21/20 20:35 10/22/20 09:28 DC Albuterol Sulfate (Proventil, Ventolin Hfa) 2 puff Q4HP PRN INH SHORTNESS OF BREATH 10/22/20 09:25 10/24/20 14:38 Aripiprazole (AbiLIFY) 5 mg DAILY PO 10/22/20 09:00 10/28/20 08:02 Benztropine Mesylate (Cogentin) 0.5 mg BID PO 10/21/20 21:00 10/28/20 08:02 Home Med (Med Rec Complete!) ASDIRECTED XX 10/21/20 19:30 10/21/20 19:28 DC Hydroxyzine HCl (Atarax) 25 mg Q6H PRN PO ANXIETY 10/21/20 20:35 10/28/20 10:52 Lisinopril (Prinivil) 5 mg DAILY PO 10/22/20 09:00 10/28/20 08:02 Lorazepam (Ativan) 2 mg STAT STAT PO 10/21/20 11:15 10/21/20 11:16 DC 10/21/20 11:23 Magnesium Hydroxide (Milk Of Magnesia) 30 ml DAILYPRN PRN PO CONSTIPATION 10/21/20 20:35 Metformin HCl (Glucophage) 500 mg BID PO 10/21/20 21:00 10/28/20 08:02 Multivitamins (Theragram-M) 1 tab DAILY PO 10/22/20 09:00 10/28/20 08:02 Naltrexone HCl (Revia) 50 mg QHS PO 10/21/20 21:00 10/27/20 20:36 Nicotine (Nicoderm Cq 14mg) 1 patch DAILY TD 10/27/20 11:45 10/28/20 08:03 Olanzapine (ZyPREXA ZYDIS) 5 mg Q4HP PRN PO AGITATION 10/21/20 20:35 10/28/20 14:03 Quetiapine Fumarate (SEROquel) 200 mg QHS PO 10/21/20 21:00 10/27/20 20:36 Trazodone HCl (Desyrel) 50 mg QHS PO 10/21/20 21:00 10/27/20 20:36 Trazodone HCl (Desyrel) 50 mg QHSP PRN PO INSOMNIA 10/21/20 20:35 Cancel Vitamin D (Vitamin D) 2,000 units DAILY PO 10/22/20 09:00 10/28/20 08:03 Allergies Coded Allergies: haloperidol (Verified Allergy, Unknown, 09/14/19) risperidone (Verified Allergy, Unknown, 09/14/19) paliperidone (Verified Adverse Reaction, Intermediate, DYSTONIA, 09/14/19) thiothixene (Verified Adverse Reaction, Intermediate, DYSTONIA, 09/14/19) GUSTAVO CHICAS MD Oct 28, 2020 17:06
[2020-10-28] MEDS: NALTREXONE 50 MG TAB PO SCH (21:31)
[2020-10-28] MEDS: traZODone 50 MG TAB PO SCH (21:32)
[2020-10-28] MEDS: QUEtiapine FUMARATE 200 MG TAB PO SCH (21:32)
[2020-10-29 06:25] VITALS: BP 135/79
[2020-10-29] MEDS: lisinopriL 5 MG TAB PO SCH (09:57)
[2020-10-29] MEDS: metFORMIN (GLUCOPHAGE) 500MG TAB PO SCH ×2 (09:57→20:18)
[2020-10-29] MEDS: MULTIVITAMINS/MINERALS THERAP 1 TAB PO SCH (09:58)
[2020-10-29] MEDS: VITAMIN D 1,000 INTERNATIONAL UNITS TABLET PO SCH (09:58)
[2020-10-29] MEDS: NICOTINE 14 MG/24 HR TRANSDERMAL TD SCH (09:59)
[2020-10-29] MEDS: BENZTROPINE 0.5 MG TAB PO SCH ×2 (10:03→20:18)
[2020-10-29 16:26] VITALS: BP 116/60
[2020-10-29] MEDS: OLANZapine ORAL DISINTEGRATING TAB 5MG PO PRN (17:55)
[2020-10-29] MEDS: traZODone 50 MG TAB PO SCH (20:18)
[2020-10-29] MEDS: QUEtiapine FUMARATE 200 MG TAB PO SCH (20:18)
[2020-10-29] MEDS: NALTREXONE 50 MG TAB PO SCH (20:18)
[2020-10-29] MEDS ORDERED: traZODone 50 MG TAB PO ONE (21:40)
[2020-10-30 06:30] VITALS: BP 118/56
[2020-10-30] MEDS: NICOTINE 14 MG/24 HR TRANSDERMAL TD SCH (09:17)
[2020-10-30] MEDS: MULTIVITAMINS/MINERALS THERAP 1 TAB PO SCH (09:17)
[2020-10-30] MEDS: BENZTROPINE 0.5 MG TAB PO SCH ×2 (09:18→21:19)
[2020-10-30] MEDS: metFORMIN (GLUCOPHAGE) 500MG TAB PO SCH ×2 (09:18→09:23)
[2020-10-30] MEDS: VITAMIN D 1,000 INTERNATIONAL UNITS TABLET PO SCH (09:20)
[2020-10-30] MEDS: lisinopriL 5 MG TAB PO SCH (09:22)
[2020-10-30] MEDS: OLANZapine ORAL DISINTEGRATING TAB 5MG PO PRN ×2 (13:31→18:33)
[2020-10-30 16:36] VITALS: BP 102/58
[2020-10-30] MEDS ORDERED: traZODone 100 MG TAB PO SCH (21:00)
[2020-10-30] MEDS: QUEtiapine FUMARATE 200 MG TAB PO SCH (21:20)
[2020-10-30] MEDS: NALTREXONE 50 MG TAB PO SCH (21:20)
[2020-10-31 06:00] VITALS: BP 153/83
[2020-10-31 09:19] VITALS: BP 153/83
[2020-10-31] MEDS: lisinopriL 5 MG TAB PO SCH (09:19)
[2020-10-31] MEDS: BENZTROPINE 0.5 MG TAB PO SCH (09:19)
[2020-10-31] MEDS: VITAMIN D 1,000 INTERNATIONAL UNITS TABLET PO SCH (09:19)
[2020-10-31] MEDS: MULTIVITAMINS/MINERALS THERAP 1 TAB PO SCH (09:20)
[2020-10-31] MEDS: metFORMIN (GLUCOPHAGE) 500MG TAB PO SCH (09:20)
[2020-10-31] MEDS: NICOTINE 14 MG/24 HR TRANSDERMAL TD SCH (09:21)
[2020-10-31] MEDS: ALBUTEROL 90 MCG/ACT 8GM HFA INHALER INH PRN (09:42)
[2020-10-31] MEDS ORDERED: ABIL400I IM (11:27)
[2020-10-31] MEDS ORDERED: ABIL1TAB11 PO (11:27)
--- NOTE | 2020-10-31 11:39 | MHDS ---
DISCHARGE SUMMARY DATE OF ADMISSION: 10/21/2020 DATE OF DISCHARGE: 10/31/2020 DIAGNOSES: Schizoaffective disorder bipolar type Polysubstance abuse IDENTIFYING DATA: The patient is a 35-year-old female with history of schizoaffective disorder and polysubstance abuse disorder, who was admitted because of severe psychosis. The patient was complaining of auditory hallucination. For HPI, past psychiatric history, substance abuse history, and social history please refer to the initial evaluation. HOSPITAL COURSE: The patient initially was depressed and was complaining of auditory hallucinations. Since she was not compliant with her medication, she was given Abilify 400 mg IM and she was also started on 5 mg of Abilify as oral substitute for about two weeks. She was also provided with individual, groups, and milieu therapy. She was encouraged to participate in activities, which she slowly accomplished. Though she had some residual hallucinations, she was able to ignore them. Her self-esteem improved. Her isolation decreased. She started attending groups. The patient was given psychoeducation regarding her long history of substance use. Her mood improved. She was relating well with the staff. She attended groups. Denied any side effects from the medication. Denies any suicidal or homicidal ideas. The plan is to discharge her to [facility]. MENTAL STATUS EXAMINATION: Casually depressed. Cooperative. Made good eye contact. Psychomotor activity normal. Speech rate, rhythm, and volume were good. The patient has some residual hallucinations and the patient ignores them. Her insight and judgment are fair. Denied any suicidal or homicidal ideas. LABORATORY DATA: CBC and CMP within normal limits. Initially the creatinine kinase was slightly high, which is slowly decreasing. Her toxicology report was stable for cannabis and amphetamine. DISCHARGE MEDICATIONS: 1. Abilify 400 mg IM every four weeks and for one more week, I will provide her Abilify 5 mg once daily. 2. She is also on quetiapine 200 mg at night, which I will continue. 3. Benztropine 0.5 mg b.i.d. 4. The patient is also on naltrexone 50 mg once daily. DISPOSITION: The patient will go to [facility] for her placement and follow-up at [facility] where she will get treatment for her substance use disorder as well.
== END 2020-10-31 12:06 | disposition home or self-care (01) | DRG 885 ==
LOC: M ED 08:25 → M ED INP 20:59 → M PSY 10-22 00:48
PROVIDERS: ADMIT Psychiatry & Neurology Child & Adolescent Psychiatry; ATTEND Psychiatry & Neurology Psychiatry
DX: F25.0 Schizoaffective disorder, bipolar type (principal); F15.10 Other stimulant abuse, uncomplicated; F12.10 Cannabis abuse, uncomplicated; E11.9 Type 2 diabetes mellitus without complications; I10 Essential (primary) hypertension; J45.909 Unspecified asthma, uncomplicated; F17.200 Nicotine dependence, unspecified, uncomplicated; Z79.84 Long term (current) use of oral hypoglycemic drugs; Z79.899 Other long term (current) drug therapy; Z88.8 Allergy status to other drugs, medicaments and biological substances; Z20.822 Contact with and (suspected) exposure to COVID-19; Z91.14 Patient's other noncompliance with medication regimen

== ENCOUNTER → 2021-02-03 | Outpatient (REF) | payer MEDICARE, MEDICAID ==
[~2021-02-03] MED LIST changes: +ABIL400I IM; -LISI-898 PO; +LISI5TAB11 PO; -PERP4TA PO; +PERP4TAB31 PO; +PROAAER10 INH; +PT COMMENT; +QUET50TA4; -TERB250T12 PO; +TERB250T91 PO
[2021-02-03 17:53] LABS: BASO % 0.7 % (0.0-1.0); EOS # 0.1 10^3/uL (0.0-0.5); EOS % 1.8 % (0.0-3.0); HEMATOCRIT 32.5 % (36.0-47.0); HEMOGLOBIN 10.4 g/dl (12.0-15.5); LYMPH # 1.5 10^3/uL (1.5-5.0); LYMPH % 33.8 % (24.0-44.0); MEAN CORPUSCULAR HEMOGLOBIN 27.7 pg (27.0-33.0); MEAN CORPUSCULAR VOLUME 86.7 fl (80.0-96.0); MONO # 0.3 10^3/uL (0.0-0.8); MONO % 6.4 % (2.0-8.0); NEUTROPHILS # 2.6 10^3/uL (1.5-8.5); NEUTROPHILS % 57.1 % (36.0-66.0); PLATELET COUNT, AUTOMATED 306 10^3/uL (150-450); RED BLOOD COUNT 3.75 10^6/uL (4.00-5.40); WHITE BLOOD COUNT 4.5 10^3/uL (4.0-10.0)
[2021-02-03 18:17] LABS: HEMOGLOBIN A1c 5.6 %
[2021-02-03 18:27] LABS: ALBUMIN 3.5 GM/DL (3.2-5.2); ALT/SGPT 19 U/L (12-78); BILIRUBIN,TOTAL 0.3 MG/DL (0.2-1.0); BLOOD UREA NITROGEN 10 MG/DL (7-18); CALCIUM LEVEL 9.1 MG/DL (8.5-10.1); CARBON DIOXIDE LEVEL 26 MEQ/L (21-32); CHLORIDE LEVEL 108 MEQ/L (98-107); CHOLESTEROL LEVEL 221 MG/DL (<200); CHOLESTEROL RISK RATIO 2.833 (<5); CREATININE FOR GFR 0.72 MG/DL (0.55-1.30); FREE T4 0.75 NG/DL (0.76-1.46); GLOMERULAR FILTRATION RATE > 60.0 (>60); GLUCOSE, FASTING 83 MG/DL (70-100); HDL CHOLESTEROL 78 MG/DL (>40); LDL CHOLESTEROL 134 MG/DL (<100); NON-HDL-C 143 MG/DL; POTASSIUM SERUM 4.6 MEQ/L (3.5-5.1); SODIUM LEVEL 140 MEQ/L (136-145); THYROID STIMULATING HORMONE 0.817 uIU/ML (0.358-3.740); TOTAL PROTEIN 6.9 GM/DL (6.4-8.2); TRIGLYCERIDES LEVEL 47 MG/DL (<150)
[2021-02-06 10:58] LABS: TOTAL 25(OH) VITAMIN D 49.3 NG/ML (30.0-100.0)
== END ==
LOC: M LAB REF 16:52
PROVIDERS: ATTEND Nurse Practitioner Family
DX: R73.03 Prediabetes (principal); I10 Essential (primary) hypertension; E66.9 Obesity, unspecified

== ENCOUNTER 2021-09-15 16:13 | Emergency (ER) | payer MEDICARE, MEDICAID ==
[~2021-09-15] VITALS: Ht 154.9 cm; Wt 85.5 kg
[~2021-09-15 16:13] MED LIST changes: -QUET50TA4
[2021-09-15 16:21] VITALS: BP 126/58
[2021-09-15] MEDS ORDERED: QUET50TA4 (16:27)
[2021-09-15] MEDS ORDERED: diphenhydrAMINE 25MG CAP PO ONE (16:50)
== END 2021-09-15 18:32 | disposition home or self-care (01) ==
LOC: EDBD 16:13 → M ED 16:13
DX: R41.82 Altered mental status, unspecified (principal); T40.1X1A Poisoning by heroin, accidental (unintentional), initial encounter; Y92.410 Unspecified street and highway as the place of occurrence of the external cause; F15.10 Other stimulant abuse, uncomplicated

== ENCOUNTER 2021-09-21 01:25 | Emergency (ER) | payer MEDICARE, MEDICAID ==
[~2021-09-21] VITALS: Ht 154.9 cm; Wt 85.0 kg
[~2021-09-21 01:25] MED LIST changes: +QUET50TA4
[2021-09-21 01:53] LABS: BASO % 0.7 % (0.0-1.0); EOS # 0.1 10^3/uL (0.0-0.5); EOS % 0.9 % (0.0-3.0); HEMATOCRIT 32.1 % (36.0-47.0); HEMOGLOBIN 10.6 g/dl (12.0-15.5); LYMPH # 3.1 10^3/uL (1.5-5.0); LYMPH % 56.3 % (24.0-44.0); MEAN CORPUSCULAR HEMOGLOBIN 27.6 pg (27.0-33.0); MEAN CORPUSCULAR VOLUME 83.6 fl (80.0-96.0); MONO # 0.4 10^3/uL (0.0-0.8); MONO % 6.6 % (2.0-8.0); NEUTROPHILS # 1.9 10^3/uL (1.5-8.5); NEUTROPHILS % 35.3 % (36.0-66.0); PLATELET COUNT, AUTOMATED 287 10^3/uL (150-450); RED BLOOD COUNT 3.84 10^6/uL (4.00-5.40); WHITE BLOOD COUNT 5.5 10^3/uL (4.0-10.0)
[2021-09-21 02:34] LABS: ACETAMINOPHEN LEVEL < 2.0 UG/ML (10.0-30.0); ALBUMIN 3.8 GM/DL (3.2-5.2); ALT/SGPT 18 U/L (12-78); BILIRUBIN,DIRECT 0.1 MG/DL (0.0-0.2); BILIRUBIN,TOTAL 0.4 MG/DL (0.2-1.0); BLOOD UREA NITROGEN 5 MG/DL (7-18); CALCIUM LEVEL 9.3 MG/DL (8.5-10.1); CARBON DIOXIDE LEVEL 26 MEQ/L (21-32); CHLORIDE LEVEL 105 MEQ/L (98-107); CREATININE FOR GFR 0.87 MG/DL (0.55-1.30); ETHYL ALCOHOL (ETHANOL) < 0.003 % (0.000-0.010); GLOMERULAR FILTRATION RATE > 60.0 (>60); GLUCOSE, FASTING 91 MG/DL (70-100); LIPASE 51 U/L (73-393); SALICYLATE LEVEL < 1.7 MG/DL (5.0-30.0); SODIUM LEVEL 137 MEQ/L (136-145); TOTAL PROTEIN 7.5 GM/DL (6.4-8.2)
[2021-09-21 04:00] VITALS: BP 143/77
== END 2021-09-21 04:00 | disposition home or self-care (01) ==
LOC: M ED 01:25
DX: R07.9 Chest pain, unspecified (principal); E11.9 Type 2 diabetes mellitus without complications; I10 Essential (primary) hypertension; J45.909 Unspecified asthma, uncomplicated; F25.9 Schizoaffective disorder, unspecified; F33.9 Major depressive disorder, recurrent, unspecified; F10.10 Alcohol abuse, uncomplicated; F15.10 Other stimulant abuse, uncomplicated; Z79.899 Other long term (current) drug therapy; Z79.84 Long term (current) use of oral hypoglycemic drugs; Z88.8 Allergy status to other drugs, medicaments and biological substances

== ENCOUNTER 2021-10-09 16:47 | Emergency (ER) | payer MEDICARE, MEDICAID ==
[~2021-10-09 16:47] MED LIST changes: -D31000TA2 PO; +PERP4TAB30 PO; -PERP4TAB31 PO; +VITA100093 PO
== END 2021-10-09 18:03 | disposition left against medical advice (07) ==
LOC: M ED 16:47
DX: Z53.29 Procedure and treatment not carried out because of patient's decision for other reasons (principal)

== ENCOUNTER 2021-11-03 22:24 | Emergency (ER) | payer MEDICARE, MEDICAID ==
[~2021-11-03] VITALS: Ht 154.9 cm; Wt 78.8 kg
[2021-11-03] MEDS ORDERED: NS 1,000 ML IV ONE (22:30)
[2021-11-03 23:17] LABS: HCG, SERUM QUALITATIVE NEGATIVE (NEGATIVE)
[2021-11-03 23:27] LABS: BASO % 0.3 % (0.0-1.0); EOS # 0.1 10^3/uL (0.0-0.5); EOS % 2.3 % (0.0-3.0); HEMOGLOBIN 10.1 g/dl (12.0-15.5); LYMPH # 2.5 10^3/uL (1.5-5.0); LYMPH % 62.4 % (24.0-44.0); MEAN CORPUSCULAR HGB CONC 31.6 g/dl (32.0-36.5); MEAN CORPUSCULAR VOLUME 85.6 fl (80.0-96.0); MONO # 0.4 10^3/uL (0.0-0.8); MONO % 8.8 % (2.0-8.0); NEUTROPHILS # 1.1 10^3/uL (1.5-8.5); NEUTROPHILS % 26.2 % (36.0-66.0); PLATELET COUNT, AUTOMATED 301 10^3/uL (150-450); RED BLOOD COUNT 3.74 10^6/uL (4.00-5.40)
[2021-11-03 23:36] LABS: BLOOD UREA NITROGEN 11 MG/DL (7-18); CALCIUM LEVEL 8.9 MG/DL (8.5-10.1); CARBON DIOXIDE LEVEL 22 MEQ/L (21-32); CHLORIDE LEVEL 105 MEQ/L (98-107); CREATININE FOR GFR 1.01 MG/DL (0.55-1.30); GLOMERULAR FILTRATION RATE > 60.0 (>60); GLUCOSE, FASTING 173 MG/DL (70-100); POTASSIUM SERUM 4.4 MEQ/L (3.5-5.1); SODIUM LEVEL 137 MEQ/L (136-145)
[2021-11-03 23:37] LABS: ACETAMINOPHEN LEVEL < 2.0 UG/ML (10.0-30.0); ALBUMIN 3.5 GM/DL (3.2-5.2); ALT/SGPT 29 U/L (12-78); BILIRUBIN,DIRECT < 0.1 MG/DL (0.0-0.2); BILIRUBIN,TOTAL 0.4 MG/DL (0.2-1.0); ETHYL ALCOHOL (ETHANOL) < 0.003 % (0.000-0.010); SALICYLATE LEVEL < 1.7 MG/DL (5.0-30.0); TOTAL PROTEIN 7.1 GM/DL (6.4-8.2)
[2021-11-04 02:02] LABS: AMPHETAMINES LEVEL URINE POSITIVE (NEGATIVE); BARBITURATES URINE NEGATIVE (NEGATIVE); BENZODIAZEPINES URINE NEGATIVE (NEGATIVE); CANNABINOIDS URINE POSITIVE (NEGATIVE); COCAINE METABOLITE URINE NEGATIVE (NEGATIVE); METHADONE URINE NEGATIVE (NEGATIVE); OPIATES URINE POSITIVE (NEGATIVE); PHENCYCLIDINE URINE NEGATIVE (NEGATIVE)
[2021-11-04 03:55] VITALS: BP 137/86
== END 2021-11-04 03:56 | disposition home or self-care (01) ==
LOC: EDBD 22:24 → M ED 22:24
DX: F11.10 Opioid abuse, uncomplicated (principal); R41.82 Altered mental status, unspecified; T40.1X1A Poisoning by heroin, accidental (unintentional), initial encounter; I10 Essential (primary) hypertension; Z79.899 Other long term (current) drug therapy; F17.210 Nicotine dependence, cigarettes, uncomplicated; F12.20 Cannabis dependence, uncomplicated

== ENCOUNTER 2021-11-19 01:04 | Emergency (ER) | payer MEDICARE, MEDICAID ==
[~2021-11-19] VITALS: Ht 154.9 cm; Wt 86.3 kg
[2021-11-19 01:09] VITALS: BP 148/77
== END 2021-11-19 02:57 | disposition left against medical advice (07) ==
LOC: M ED 01:04
DX: Z53.29 Procedure and treatment not carried out because of patient's decision for other reasons (principal)

== ENCOUNTER 2022-05-12 21:49 | Observation (INO) | payer MEDICARE, MEDICAID ==
[~2022-05-12] VITALS: Ht 154.9 cm; Wt 74.5 kg
[~2022-05-12 21:49] MED LIST changes: -CLOZ100T2 PO; +CLOZ100T5 PO
[2022-05-12 22:25] LABS: BASO % 0.4 % (0.0-1.0); EOS % 0.2 % (0.0-3.0); HEMATOCRIT 33.5 % (36.0-47.0); HEMOGLOBIN 10.9 g/dl (12.0-15.5); LYMPH # 2.8 10^3/uL (1.5-5.0); LYMPH % 53.1 % (24.0-44.0); MEAN CORPUSCULAR HEMOGLOBIN 25.6 pg (27.0-33.0); MEAN CORPUSCULAR HGB CONC 32.5 g/dl (32.0-36.5); MEAN CORPUSCULAR VOLUME 78.6 fl (80.0-96.0); MONO # 0.3 10^3/uL (0.0-0.8); MONO % 6.4 % (2.0-8.0); NEUTROPHILS # 2.1 10^3/uL (1.5-8.5); NEUTROPHILS % 39.7 % (36.0-66.0); PLATELET COUNT, AUTOMATED 343 10^3/uL (150-450); RED BLOOD COUNT 4.26 10^6/uL (4.00-5.40); WHITE BLOOD COUNT 5.3 10^3/uL (4.0-10.0)
[2022-05-12 23:02] LABS: CPK CREATINE PHOSPHOKINASE 64 U/L (26-192)
[2022-05-12 23:06] LABS: ALBUMIN 3.8 GM/DL (3.2-5.2); ALT/SGPT 44 U/L (12-78); BILIRUBIN,DIRECT 0.1 MG/DL (0.0-0.2); BILIRUBIN,TOTAL 0.4 MG/DL (0.2-1.0); BLOOD UREA NITROGEN 6 MG/DL (7-18); CALCIUM LEVEL 10.3 MG/DL (8.5-10.1); CARBON DIOXIDE LEVEL 29 MEQ/L (21-32); CHLORIDE LEVEL 101 MEQ/L (98-107); CREATININE FOR GFR 0.75 MG/DL (0.55-1.30); ETHYL ALCOHOL (ETHANOL) < 0.003 % (0.000-0.010); GLOMERULAR FILTRATION RATE > 60.0 (>60); GLUCOSE, FASTING 131 MG/DL (70-100); LIPASE 89 U/L (73-393); POTASSIUM SERUM 3.6 MEQ/L (3.5-5.1); SODIUM LEVEL 135 MEQ/L (136-145); THYROID STIMULATING HORMONE 0.835 uIU/ML (0.358-3.740)
[2022-05-12 23:12] LABS: HCG, SERUM QUALITATIVE NEGATIVE (NEGATIVE)
[2022-05-13] MEDS ORDERED: LIDOCAINE 2% 5ML JELLY UROJET TOP ONE (00:10)
[2022-05-13 01:03] LABS: AMPHETAMINES LEVEL URINE NEGATIVE (NEGATIVE); BARBITURATES URINE NEGATIVE (NEGATIVE); BENZODIAZEPINES URINE NEGATIVE (NEGATIVE); CANNABINOIDS URINE POSITIVE (NEGATIVE); COCAINE METABOLITE URINE NEGATIVE (NEGATIVE); METHADONE URINE NEGATIVE (NEGATIVE); OPIATES URINE NEGATIVE (NEGATIVE); PHENCYCLIDINE URINE NEGATIVE (NEGATIVE)
[2022-05-13] MEDS ORDERED: QUET300T2 PO (02:47)
[2022-05-13] MEDS ORDERED: ABIL1TAB11 PO (02:47)
[2022-05-13] MEDS ORDERED: ABIL1INJ2 INJ (02:47)
[2022-05-13] MEDS ORDERED: PRAZ2CAP PO (02:47)
[2022-05-13] MEDS ORDERED: TRAZ1TAB14 PO (02:47)
[2022-05-13] MEDS ORDERED: BENZ-52 PO (02:47)
[2022-05-13] MEDS ORDERED: HOME MED LIST COMPLETE! XX SCH (02:50)
[2022-05-13 05:27] VITALS: BP 111/62
[2022-05-13] MEDS ORDERED: ONDANSETRON 4MG 2ML VIAL IV PRN (05:30)
[2022-05-13] MEDS ORDERED: FAMOTIDINE 40MG/5ML ORAL SUSPENSON 50ML BOTTLE PO SCH (05:30)
[2022-05-13] MEDS ORDERED: METOCLOPRAMIDE INJ 10MG/2ML VIAL (J2765 PER 1) IV PRN (05:30)
[2022-05-13] MEDS ORDERED: ALBUTEROL SULFATE 2.5 MG/0.5 ML INH NEB SOLN NEB PRN (05:30)
[2022-05-13] MEDS ORDERED: INSULIN LISPRO (NovoLOG) PER UNIT SC SCH (07:30)
[2022-05-13 07:38] LABS: BLOOD UREA NITROGEN 5 MG/DL (7-18); CALCIUM LEVEL 9.4 MG/DL (8.5-10.1); CARBON DIOXIDE LEVEL 27 MEQ/L (21-32); CHLORIDE LEVEL 103 MEQ/L (98-107); CREATININE FOR GFR 0.88 MG/DL (0.55-1.30); GLOMERULAR FILTRATION RATE > 60.0 (>60); GLUCOSE, FASTING 140 MG/DL (70-100); POTASSIUM SERUM 3.6 MEQ/L (3.5-5.1); SODIUM LEVEL 136 MEQ/L (136-145)
[2022-05-13] MEDS ORDERED: KETOROLAC 30 MG/ML 1ML VIAL IV PRN (08:10)
[2022-05-13] MEDS ORDERED: GLUCOSE 4GM CHEW TABLET PO PRN (08:25)
[2022-05-13] MEDS ORDERED: DEXTROSE 50% 50 ML SYRINGE IV PRN (08:25)
[2022-05-13] MEDS ORDERED: GLUCAGON INJ 1MG VIAL SC PRN (08:25)
[2022-05-13] MEDS ORDERED: ACETAMINOPHEN TAB 650MG DOSE (2X325MG) PO PRN (09:00)
[2022-05-13] MEDS ORDERED: BISACODYL 5 MG TAB PO ONE (09:00)
[2022-05-13] MEDS ORDERED: SENOKOT S TAB PO SCH (09:00)
[2022-05-13] MEDS ORDERED: METOCLOPRAMIDE 5 MG TAB PO PRN (09:00)
[2022-05-13] MEDS ORDERED: FAMO20TA PO (09:14)
[2022-05-13] MEDS ORDERED: SENN-52 PO (09:14)
[2022-05-13] MEDS ORDERED: METO5TAB2 PO (09:14)
[2022-05-13] MEDS ORDERED: MOM 30ML SUSPENSION UDC PO ONE (10:00)
[2022-05-13 10:16] LABS: HEMOGLOBIN A1c 5.8 %
[2022-05-13] MEDS ORDERED: METOCLOPRAMIDE 5 MG TAB PO SCH (12:00)
== END 2022-05-13 10:55 | disposition left against medical advice (07) ==
LOC: M ED 21:49 → M ED INP 21:50
PROVIDERS: ADMIT Internal Medicine; ATTEND Internal Medicine
DX: R11.2 Nausea with vomiting, unspecified (principal); R10.9 Unspecified abdominal pain; R07.9 Chest pain, unspecified; R51.9 Headache, unspecified; F17.210 Nicotine dependence, cigarettes, uncomplicated; F12.10 Cannabis abuse, uncomplicated; R06.02 Shortness of breath; E11.9 Type 2 diabetes mellitus without complications; K59.00 Constipation, unspecified; N20.0 Calculus of kidney; I10 Essential (primary) hypertension; J45.909 Unspecified asthma, uncomplicated; F20.9 Schizophrenia, unspecified; Z79.899 Other long term (current) drug therapy; Z79.84 Long term (current) use of oral hypoglycemic drugs; Z88.8 Allergy status to other drugs, medicaments and biological substances
CPT/HCPCS: 36415; 70450; 71045; 74176; 80048; 80076; 80307; 81002; 82077; 82550; 83036; 83605; 83690; 84443; 84484; 84703; 85025; 87486; 87581; 87633; 87798; 93005; 93041; 99284; G0378

== ENCOUNTER 2022-05-20 16:08 | Inpatient (IN) | payer MEDICARE, MEDICAID ==
[~2022-05-20] VITALS: Ht 154.9 cm; Wt 50.0 kg
[~2022-05-20 16:08] MED LIST changes: +ABIL1INJ2 INJ; +FAMO20TA PO; +METO5TAB2 PO; +PRAZ2CAP PO; +SENN-52 PO
[2022-05-20 17:58] LABS: HEMOGLOBIN 10.4 g/dl (12.0-15.5); MEAN CORPUSCULAR HEMOGLOBIN 25.8 pg (27.0-33.0); MEAN CORPUSCULAR HGB CONC 32.5 g/dl (32.0-36.5); MEAN CORPUSCULAR VOLUME 79.4 fl (80.0-96.0); PLATELET COUNT, AUTOMATED 330 10^3/uL (150-450); RED BLOOD COUNT 4.03 10^6/uL (4.00-5.40); WHITE BLOOD COUNT 7.5 10^3/uL (4.0-10.0)
[2022-05-20 18:42] LABS: AMPHETAMINES LEVEL URINE POSITIVE (NEGATIVE); BARBITURATES URINE NEGATIVE (NEGATIVE); BENZODIAZEPINES URINE NEGATIVE (NEGATIVE); CANNABINOIDS URINE POSITIVE (NEGATIVE); COCAINE METABOLITE URINE NEGATIVE (NEGATIVE); METHADONE URINE NEGATIVE (NEGATIVE); OPIATES URINE NEGATIVE (NEGATIVE); PHENCYCLIDINE URINE NEGATIVE (NEGATIVE)
[2022-05-20 18:44] LABS: ACETAMINOPHEN LEVEL < 2.0 UG/ML (10.0-30.0); ALBUMIN 3.7 GM/DL (3.2-5.2); ALT/SGPT 47 U/L (12-78); BILIRUBIN,DIRECT 0.2 MG/DL (0.0-0.2); BILIRUBIN,TOTAL 0.5 MG/DL (0.2-1.0); BLOOD UREA NITROGEN 16 MG/DL (7-18); CALCIUM LEVEL 9.8 MG/DL (8.5-10.1); CARBON DIOXIDE LEVEL 24 MEQ/L (21-32); CHLORIDE LEVEL 105 MEQ/L (98-107); CREATININE FOR GFR 0.93 MG/DL (0.55-1.30); ETHYL ALCOHOL (ETHANOL) < 0.003 % (0.000-0.010); GLOMERULAR FILTRATION RATE > 60.0 (>60); GLUCOSE, FASTING 88 MG/DL (70-100); SALICYLATE LEVEL < 1.7 MG/DL (5.0-30.0); SODIUM LEVEL 138 MEQ/L (136-145); THYROID STIMULATING HORMONE 0.954 uIU/ML (0.358-3.740); TOTAL PROTEIN 7.9 GM/DL (6.4-8.2)
[2022-05-20 18:52] LABS: HCG, SERUM QUALITATIVE NEGATIVE (NEGATIVE)
[2022-05-20 19:09] LABS: RSV AMPLIFICATION NEGATIVE (NEGATIVE)
[2022-05-20] MEDS ORDERED: QUET100T2 PO (20:28)
[2022-05-20] MEDS ORDERED: QUET300T2 PO (20:28)
[2022-05-20] MEDS ORDERED: med rec comment (20:32)
[2022-05-20] MEDS ORDERED: METO5TAB2 PO (20:32)
[2022-05-20] MEDS ORDERED: FAMO20TA4 PO (20:32)
[2022-05-20] MEDS ORDERED: HOME MED LIST COMPLETE! XX SCH (20:35)
[2022-05-20] MEDS ORDERED: PRAZOSIN 1 MG CAP PO ONE (21:00)
[2022-05-20] MEDS ORDERED: FAMOTIDINE 20 MG TAB PO ONE (21:00)
[2022-05-20] MEDS ORDERED: traZODone 50 MG TAB PO ONE (21:00)
[2022-05-20] MEDS ORDERED: metFORMIN (GLUCOPHAGE) 500MG TAB PO ONE (21:00)
[2022-05-20] MEDS ORDERED: BENZTROPINE 1 MG TAB PO ONE (21:00)
[2022-05-20] MEDS ORDERED: QUEtiapine FUMARATE 100 MG TAB PO ONE (21:00)
[2022-05-21] MEDS ORDERED: MAALOX 30 ML SUSP *UDC PO PRN (13:50)
[2022-05-21] MEDS ORDERED: traZODone 50 MG TAB PO PRN (13:50)
[2022-05-21] MEDS ORDERED: MOM 30ML SUSPENSION UDC PO PRN (13:50)
[2022-05-21] MEDS ORDERED: ACETAMINOPHEN TAB 650MG DOSE (2X325MG) PO PRN (13:50)
[2022-05-21 16:22] VITALS: BP 112/74
[2022-05-22 06:31] VITALS: BP 106/62
[2022-05-22] MEDS ORDERED: SENNA 8.6 MG TAB (SENOKOT) PO PRN (09:45)
[2022-05-22] MEDS ORDERED: traZODone 50 MG TAB PO PRN (09:45)
[2022-05-22 10:48] VITALS: BP 124/70
[2022-05-22] MEDS: BENZTROPINE 1 MG TAB PO SCH ×2 (10:49→21:57)
[2022-05-22] MEDS: QUEtiapine FUMARATE 100 MG TAB PO SCH ×2 (10:50→21:57)
[2022-05-22] MEDS: metFORMIN (GLUCOPHAGE) 500MG TAB PO SCH ×2 (10:50→17:41)
[2022-05-22] MEDS: FAMOTIDINE 20 MG TAB PO SCH ×2 (10:50→21:57)
[2022-05-22] MEDS: lisinopriL 5 MG TAB PO SCH (10:50)
[2022-05-22] MEDS: MULTIVITAMINS/MINERALS THERAP 1 TAB PO SCH (10:53)
[2022-05-22 11:34] LABS: CHOLESTEROL RISK RATIO 2.6 (<5)
[2022-05-22] MEDS ORDERED: ARIPiprazole MONOHYDRATE 400 MG INJ (ABILIFY)(FREE PSY INPT ONLY) IM ONE (12:00)
[2022-05-22 16:10] VITALS: BP 113/63
[2022-05-22] MEDS: PRAZOSIN 1 MG CAP PO SCH (21:57)
[2022-05-23 06:18] VITALS: BP 109/65
[2022-05-23] MEDS: BENZTROPINE 1 MG TAB PO SCH ×2 (07:46→21:45)
[2022-05-23] MEDS: MULTIVITAMINS/MINERALS THERAP 1 TAB PO SCH (07:46)
[2022-05-23] MEDS: metFORMIN (GLUCOPHAGE) 500MG TAB PO SCH ×2 (07:46→17:40)
[2022-05-23] MEDS: FAMOTIDINE 20 MG TAB PO SCH ×2 (07:46→21:45)
[2022-05-23] MEDS: QUEtiapine FUMARATE 100 MG TAB PO SCH ×2 (07:47→21:45)
[2022-05-23] MEDS: lisinopriL 5 MG TAB PO SCH (07:47)
[2022-05-23 16:11] VITALS: BP 127/72
[2022-05-23] MEDS: PRAZOSIN 1 MG CAP PO SCH (21:45)
[2022-05-24 06:00] VITALS: BP 117/65
[2022-05-24] MEDS: MULTIVITAMINS/MINERALS THERAP 1 TAB PO SCH (08:50)
[2022-05-24] MEDS: metFORMIN (GLUCOPHAGE) 500MG TAB PO SCH ×2 (08:50→17:48)
[2022-05-24] MEDS: BENZTROPINE 1 MG TAB PO SCH ×2 (08:50→21:07)
[2022-05-24] MEDS: QUEtiapine FUMARATE 100 MG TAB PO SCH ×2 (08:51→21:07)
[2022-05-24] MEDS: FAMOTIDINE 20 MG TAB PO SCH ×2 (08:51→21:07)
[2022-05-24] MEDS: lisinopriL 5 MG TAB PO SCH (08:51)
[2022-05-24 18:06] VITALS: BP 138/75
[2022-05-24] MEDS: PRAZOSIN 1 MG CAP PO SCH (21:07)
[2022-05-25 06:18] VITALS: BP 116/65
[2022-05-25] MEDS: BENZTROPINE 1 MG TAB PO SCH (07:56)
[2022-05-25] MEDS: metFORMIN (GLUCOPHAGE) 500MG TAB PO SCH (07:56)
[2022-05-25] MEDS: MULTIVITAMINS/MINERALS THERAP 1 TAB PO SCH (07:56)
[2022-05-25] MEDS: QUEtiapine FUMARATE 100 MG TAB PO SCH (07:56)
[2022-05-25] MEDS: FAMOTIDINE 20 MG TAB PO SCH (07:56)
[2022-05-25 07:57] VITALS: BP 116/65
[2022-05-25] MEDS: lisinopriL 5 MG TAB PO SCH (07:57)
[2022-05-25] MEDS ORDERED: VITMTA PO (09:06)
[2022-05-25] MEDS ORDERED: METF500T13 PO (09:06)
[2022-05-25] MEDS ORDERED: SENN18TA PO (09:06)
[2022-05-25] MEDS ORDERED: ABIL1TAB11 PO (09:06)
[2022-05-25] MEDS ORDERED: MINI1CAP PO (09:06)
[2022-05-25] MEDS ORDERED: TRAZ-252 PO (09:06)
[2022-05-25] MEDS ORDERED: BENZ-52 PO (09:06)
[2022-05-25] MEDS ORDERED: FAMO20TA PO (09:06)
[2022-05-25] MEDS ORDERED: LISI5TAB11 PO (09:06)
[2022-05-25] MEDS ORDERED: QUET100T2 PO ×2 (09:06)
[2022-05-25] MEDS ORDERED: ABIL1INJ2 IM (09:12)
== END 2022-05-25 11:01 | disposition home or self-care (01) | DRG 885 ==
LOC: M ED 16:08 → M ED INP 05-21 13:50 → M PSY 05-21 16:13
PROVIDERS: ADMIT Psychiatry & Neurology Psychiatry; ATTEND Psychiatry & Neurology Psychiatry
DX: F25.9 Schizoaffective disorder, unspecified (principal); F15.10 Other stimulant abuse, uncomplicated; F12.10 Cannabis abuse, uncomplicated; Z81.8 Family history of other mental and behavioral disorders; Z91.14 Patient's other noncompliance with medication regimen; E11.9 Type 2 diabetes mellitus without complications; J45.909 Unspecified asthma, uncomplicated; I10 Essential (primary) hypertension; D64.9 Anemia, unspecified; F17.200 Nicotine dependence, unspecified, uncomplicated; Z79.84 Long term (current) use of oral hypoglycemic drugs; Z79.899 Other long term (current) drug therapy; Z88.8 Allergy status to other drugs, medicaments and biological substances

== ENCOUNTER → 2022-08-13 | Outpatient (REF) | payer MEDICARE, MEDICAID ==
[~2022-08-13] MED LIST changes: +FAMO20TA4 PO; +QUET100T2 PO; +SENN18TA PO; +TRAZ-252 PO; +med rec comment
[2022-08-13 17:05] LABS: BASO % 0.5 % (0.0-1.0); EOS # 0.1 10^3/uL (0.0-0.5); EOS % 1.5 % (0.0-3.0); HEMATOCRIT 31.1 % (36.0-47.0); HEMOGLOBIN 9.4 g/dl (12.0-15.5); LYMPH # 1.8 10^3/uL (1.5-5.0); LYMPH % 44.4 % (24.0-44.0); MEAN CORPUSCULAR HEMOGLOBIN 24.2 pg (27.0-33.0); MEAN CORPUSCULAR HGB CONC 30.2 g/dl (32.0-36.5); MEAN CORPUSCULAR VOLUME 80.2 fl (80.0-96.0); MONO # 0.3 10^3/uL (0.0-0.8); MONO % 6.5 % (2.0-8.0); NEUTROPHILS # 1.9 10^3/uL (1.5-8.5); NEUTROPHILS % 47.1 % (36.0-66.0); PLATELET COUNT, AUTOMATED 345 10^3/uL (150-450); RED BLOOD COUNT 3.88 10^6/uL (4.00-5.40)
[2022-08-13 17:35] LABS: TOTAL IRON BINDING CAPACITY 491 UG/DL (250-425)
[2022-08-13 17:36] LABS: ALBUMIN 3.9 G/DL (3.2-5.2); ALKALINE PHOSPHATASE 95 U/L (46-116); ALT/SGPT 53 U/L (7.0-40); AST/SGOT 29 U/L (<34); BILIRUBIN,TOTAL 0.4 MG/DL (0.3-1.2); BLOOD UREA NITROGEN 8 MG/DL (9-23); CALCIUM LEVEL 9.2 MG/DL (8.5-10.1); CARBON DIOXIDE LEVEL 25 MMOL/L (20-31); CHLORIDE LEVEL 104 MMOL/L (98-107); CHOLESTEROL LEVEL 225 MG/DL (<200); CHOLESTEROL RISK RATIO 2.27 (<5); CREATININE FOR GFR 0.71 MG/DL (0.55-1.30); GLOMERULAR FILTRATION RATE > 60.0 (>60); GLUCOSE, FASTING 84 MG/DL (60-100); HDL CHOLESTEROL 98.8 MG/DL (>40); IRON (FE) 21 UG/DL (50-170); LDL CHOLESTEROL 111.8 MG/DL (<100); NON-HDL-C 126 MG/DL; PERCENT SATURATION 4.3 % (13.2-45.0); POTASSIUM SERUM 4.6 MMOL/L (3.5-5.1); SODIUM LEVEL 137 MMOL/L (136-145); TOTAL PROTEIN 7.9 G/DL (5.7-8.2); TRIGLYCERIDES LEVEL 72 MG/DL (<150)
[2022-08-13 17:37] LABS: FERRITIN 4.3 NG/ML (7.3-270.7)
[2022-08-13 18:01] LABS: HIV 1&2 SCREEN CENTAUR NEGATIVE (NEGATIVE)
[2022-08-13 18:41] LABS: HEPATITIS C VIRUS ABY INDEX > 11.0 INDEX (<0.8)
== END ==
LOC: M LAB REF 16:36
PROVIDERS: ATTEND Nurse Practitioner Family
DX: D64.9 Anemia, unspecified (principal); Z11.59 Encounter for screening for other viral diseases; Z11.4 Encounter for screening for human immunodeficiency virus [HIV]; Z13.228 Encounter for screening for other metabolic disorders; Z79.899 Other long term (current) drug therapy

== ENCOUNTER 2022-12-09 01:39 | Inpatient (IN) | payer MEDICARE, MEDICAID ==
[~2022-12-09] VITALS: Ht 154.9 cm; Wt 82.7 kg
[~2022-12-09 01:39] MED LIST changes: -BENZ-52 PO; +BENZ0.5T2 PO; -BENZ0.5T23 PO; +BENZ1TAB5 PO; +BENZ2TAB48 PO; -BENZ2TAB5 PO
[2022-12-09 07:10] LABS: HEMATOCRIT 28.9 % (36.0-47.0); HEMOGLOBIN 8.9 g/dl (12.0-15.5); MEAN CORPUSCULAR HEMOGLOBIN 23.7 pg (27.0-33.0); MEAN CORPUSCULAR HGB CONC 30.8 g/dl (32.0-36.5); MEAN CORPUSCULAR VOLUME 77.1 fl (80.0-96.0); PLATELET COUNT, AUTOMATED 362 10^3/uL (150-450); RED BLOOD COUNT 3.75 10^6/uL (4.00-5.40); WHITE BLOOD COUNT 4.2 10^3/uL (4.0-10.0)
[2022-12-09 07:42] LABS: ETHYL ALCOHOL (ETHANOL) < 0.003 % (0.000-0.010)
[2022-12-09 07:44] LABS: ACETAMINOPHEN LEVEL < 2.0 UG/ML (10.0-20.0); ALBUMIN 3.1 G/DL (3.2-5.2); ALKALINE PHOSPHATASE 85 U/L (46-116); ALT/SGPT 45 U/L (7.0-40); AST/SGOT 36 U/L (<34); BILIRUBIN,DIRECT < 0.1 MG/DL (<0.4); BILIRUBIN,TOTAL < 0.2 MG/DL (0.3-1.2); BLOOD UREA NITROGEN 8 MG/DL (9-23); CALCIUM LEVEL 8.9 MG/DL (8.5-10.1); CARBON DIOXIDE LEVEL 25 MMOL/L (20-31); CHLORIDE LEVEL 108 MMOL/L (98-107); GLOMERULAR FILTRATION RATE > 60.0 (>60); GLUCOSE, FASTING 91 MG/DL (60-100); POTASSIUM SERUM 4.6 MMOL/L (3.5-5.1); SALICYLATE LEVEL < 3.0 MG/DL (<30); SODIUM LEVEL 138 MMOL/L (136-145); TOTAL PROTEIN 6.4 G/DL (5.7-8.2)
[2022-12-09 07:46] LABS: THYROID STIMULATING HORMONE 0.294 uIU/ML (0.55-4.78)
[2022-12-09 08:10] LABS: HCG, SERUM QUALITATIVE NEGATIVE (NEGATIVE)
[2022-12-09 10:37] LABS: AMPHETAMINES LEVEL URINE NEGATIVE (NEGATIVE); BARBITURATES URINE NEGATIVE (NEGATIVE); BENZODIAZEPINES URINE NEGATIVE (NEGATIVE); CANNABINOIDS URINE NEGATIVE (NEGATIVE); COCAINE METABOLITE URINE NEGATIVE (NEGATIVE); METHADONE URINE NEGATIVE (NEGATIVE); OPIATES URINE NEGATIVE (NEGATIVE); PHENCYCLIDINE URINE NEGATIVE (NEGATIVE)
[2022-12-09] MEDS ORDERED: ACETAMINOPHEN TAB 650MG DOSE (2X325MG) PO PRN (16:50)
[2022-12-09] MEDS ORDERED: OLANZapine ORAL DISINTEGRATING TAB 5MG PO PRN (16:50)
[2022-12-09] MEDS ORDERED: MOM 30ML SUSPENSION UDC PO PRN (16:50)
[2022-12-09] MEDS ORDERED: MAALOX 30 ML SUSP *UDC PO PRN (16:50)
[2022-12-09] MEDS ORDERED: CLON-412 PO (17:08)
[2022-12-09] MEDS ORDERED: SENNA 8.6 MG TAB (SENOKOT) PO PRN (17:10)
[2022-12-09] MEDS ORDERED: traZODone 50 MG TAB PO PRN (17:10)
[2022-12-09 17:30] VITALS: BP 135/75
[2022-12-09] MEDS: metFORMIN (GLUCOPHAGE) 500MG TAB PO SCH (18:23)
[2022-12-09] MEDS ORDERED: METF500T13 PO (19:04)
[2022-12-09] MEDS ORDERED: BENZ1TAB5 PO (19:04)
[2022-12-09] MEDS ORDERED: LISI5TAB11 PO (19:04)
[2022-12-09] MEDS ORDERED: QUET300T2 PO (19:04)
[2022-12-09] MEDS ORDERED: ABIL1INJ2 IM (19:09)
[2022-12-09] MEDS ORDERED: NALT50TA4 PO (19:09)
[2022-12-09] MEDS ORDERED: TRAZ1TAB14 PO (19:09)
[2022-12-09] MEDS ORDERED: ARIP1TAB6 PO (19:09)
[2022-12-09] MEDS ORDERED: VENTAER INH (19:09)
[2022-12-09] MEDS ORDERED: MULT400T10 PO (19:09)
[2022-12-09] MEDS ORDERED: ERGO500029 PO (19:09)
[2022-12-09] MEDS ORDERED: MED REC COMMENT (19:13)
[2022-12-09] MEDS ORDERED: HOME MED LIST COMPLETE! XX SCH (19:15)
[2022-12-09] MEDS: BENZTROPINE 1 MG TAB PO SCH (20:12)
[2022-12-09] MEDS: QUEtiapine FUMARATE 100 MG TAB PO SCH (20:12)
[2022-12-09] MEDS: cloNIDine 0.1MG TABLET PO SCH (20:13)
[2022-12-09] MEDS: FAMOTIDINE 20 MG TAB PO SCH (20:13)
[2022-12-10 06:57] VITALS: BP 115/58
[2022-12-10] MEDS: BENZTROPINE 1 MG TAB PO SCH ×2 (08:43→21:00)
[2022-12-10] MEDS: metFORMIN (GLUCOPHAGE) 500MG TAB PO SCH ×2 (08:43→17:39)
[2022-12-10] MEDS: NALTREXONE 50 MG TAB PO SCH (08:43)
[2022-12-10] MEDS: QUEtiapine FUMARATE 100 MG TAB PO SCH ×2 (08:43→21:00)
[2022-12-10] MEDS: MULTIVITAMINS/MINERALS THERAP 1 TAB PO SCH (08:43)
[2022-12-10] MEDS: cloNIDine 0.1MG TABLET PO SCH ×2 (08:43→21:00)
[2022-12-10] MEDS: lisinopriL 5 MG TAB PO SCH (08:45)
[2022-12-10] MEDS: FAMOTIDINE 20 MG TAB PO SCH ×2 (08:45→21:00)
[2022-12-10 18:00] VITALS: BP 108/58
[2022-12-11 06:14] VITALS: BP 104/59
[2022-12-11] MEDS: MULTIVITAMINS/MINERALS THERAP 1 TAB PO SCH (08:34)
[2022-12-11] MEDS: cloNIDine 0.1MG TABLET PO SCH ×2 (08:34→21:00)
[2022-12-11] MEDS: FAMOTIDINE 20 MG TAB PO SCH ×2 (08:34→21:00)
[2022-12-11] MEDS: NALTREXONE 50 MG TAB PO SCH (08:34)
[2022-12-11] MEDS: BENZTROPINE 1 MG TAB PO SCH ×2 (08:34→21:00)
[2022-12-11] MEDS: metFORMIN (GLUCOPHAGE) 500MG TAB PO SCH ×2 (08:35→17:12)
[2022-12-11] MEDS: lisinopriL 5 MG TAB PO SCH (08:35)
[2022-12-11] MEDS: QUEtiapine FUMARATE 100 MG TAB PO SCH ×2 (08:36→21:00)
[2022-12-11 16:26] VITALS: BP 113/58
[2022-12-12 06:12] VITALS: BP 128/74
[2022-12-12] MEDS ORDERED: FAMO20TA PO (08:39)
[2022-12-12] MEDS ORDERED: MULT400T10 PO (08:39)
[2022-12-12] MEDS ORDERED: QUET100T2 PO ×2 (08:39)
[2022-12-12] MEDS ORDERED: SENN18TA PO (08:39)
[2022-12-12] MEDS: metFORMIN (GLUCOPHAGE) 500MG TAB PO SCH (08:47)
[2022-12-12] MEDS: MULTIVITAMINS/MINERALS THERAP 1 TAB PO SCH (08:47)
[2022-12-12] MEDS: lisinopriL 5 MG TAB PO SCH (08:48)
[2022-12-12] MEDS: BENZTROPINE 1 MG TAB PO SCH (08:48)
[2022-12-12] MEDS: FAMOTIDINE 20 MG TAB PO SCH (08:48)
[2022-12-12 08:49] VITALS: BP 128/74
[2022-12-12] MEDS: cloNIDine 0.1MG TABLET PO SCH (08:49)
[2022-12-12] MEDS: QUEtiapine FUMARATE 100 MG TAB PO SCH (08:49)
[2022-12-12] MEDS: NALTREXONE 50 MG TAB PO SCH (08:49)
[2022-12-12] MEDS ORDERED: ARIPiprazole MONOHYDRATE 400 MG INJ (ABILIFY)(FREE PSY INPT ONLY) IM ONE (09:00)
== END 2022-12-12 12:25 | disposition home or self-care (01) | DRG 885 ==
LOC: M ED 01:39 → EDBD 01:39 → M ED INP 16:49 → M PSY 17:40
PROVIDERS: ADMIT Psychiatry & Neurology Psychiatry; ATTEND Psychiatry & Neurology Psychiatry
DX: F25.9 Schizoaffective disorder, unspecified (principal); F15.10 Other stimulant abuse, uncomplicated; F12.10 Cannabis abuse, uncomplicated; F41.9 Anxiety disorder, unspecified; F32.A Depression, unspecified; J45.909 Unspecified asthma, uncomplicated; E11.9 Type 2 diabetes mellitus without complications; D64.9 Anemia, unspecified; I10 Essential (primary) hypertension; F17.200 Nicotine dependence, unspecified, uncomplicated; Z79.84 Long term (current) use of oral hypoglycemic drugs; Z79.899 Other long term (current) drug therapy; Z88.8 Allergy status to other drugs, medicaments and biological substances; Z20.822 Contact with and (suspected) exposure to COVID-19; Z91.51 Personal history of suicidal behavior; Z81.8 Family history of other mental and behavioral disorders; Z90.49 Acquired absence of other specified parts of digestive tract; Z91.148 Patient's other noncompliance with medication regimen for other reason

== ENCOUNTER 2022-12-12 20:56 | Emergency (ER) | payer MEDICAID, MEDICARE, OTHER ==
[~2022-12-12 20:56] MED LIST changes: +ARIP1TAB6 PO; +ERGO500029 PO; +MED REC COMMENT; +MULT400T10 PO
== END 2022-12-12 21:42 | disposition left against medical advice (07) ==
LOC: M ED 20:56 → EDBD 20:56 → M ED 21:42
DX: Z53.21 Procedure and treatment not carried out due to patient leaving prior to being seen by health care provider (principal)

== ENCOUNTER → 2023-02-11 | Outpatient (REF) | payer MEDICARE, OTHER ==
[~2023-02-11] MED LIST changes: +SENN-111 PO; -SENN18TA PO
[2023-02-11 18:02] LABS: BASO % 0.7 % (0.0-1.0); EOS # 0.1 10^3/uL (0.0-0.5); EOS % 1.2 % (0.0-3.0); HEMATOCRIT 30.1 % (36.0-47.0); LYMPH # 2.3 10^3/uL (1.5-5.0); LYMPH % 54.6 % (24.0-44.0); MEAN CORPUSCULAR HEMOGLOBIN 23.2 pg (27.0-33.0); MEAN CORPUSCULAR HGB CONC 29.9 g/dl (32.0-36.5); MEAN CORPUSCULAR VOLUME 77.6 fl (80.0-96.0); MONO # 0.3 10^3/uL (0.0-0.8); MONO % 6.8 % (2.0-8.0); NEUTROPHILS # 1.5 10^3/uL (1.5-8.5); NEUTROPHILS % 36.5 % (36.0-66.0); PLATELET COUNT, AUTOMATED 456 10^3/uL (150-450); RED BLOOD COUNT 3.88 10^6/uL (4.00-5.40); WHITE BLOOD COUNT 4.1 10^3/uL (4.0-10.0)
[2023-02-11 18:34] LABS: TOTAL IRON BINDING CAPACITY 396 UG/DL (250-425)
[2023-02-11 18:36] LABS: HEPATITIS B SURFACE ANTIBODY POSITIVE (POSITIVE)
[2023-02-11 18:37] LABS: ALBUMIN 3.6 G/DL (3.2-5.2); ALKALINE PHOSPHATASE 74 U/L (46-116); ALT/SGPT 46 U/L (7.0-40); AST/SGOT 20 U/L (<34); BILIRUBIN,DIRECT < 0.1 MG/DL (<0.4); BILIRUBIN,TOTAL 0.3 MG/DL (0.3-1.2); BLOOD UREA NITROGEN 16 MG/DL (9-23); CALCIUM LEVEL 9.2 MG/DL (8.5-10.1); CARBON DIOXIDE LEVEL 25 MMOL/L (20-31); CHLORIDE LEVEL 104 MMOL/L (98-107); CHOLESTEROL LEVEL 186 MG/DL (<200); CREATININE FOR GFR 0.73 MG/DL (0.55-1.30); GLOMERULAR FILTRATION RATE > 60.0 (>60); GLUCOSE, FASTING 89 MG/DL (60-100); HDL CHOLESTEROL 56.2 MG/DL (>40); IRON (FE) 16 UG/DL (50-170); LDL CHOLESTEROL 116.4 MG/DL (<100); NON-HDL-C 129.8 MG/DL; POTASSIUM SERUM 4.4 MMOL/L (3.5-5.1); SODIUM LEVEL 139 MMOL/L (136-145); TOTAL PROTEIN 7.5 G/DL (5.7-8.2); TRIGLYCERIDES LEVEL 67 MG/DL (<150)
[2023-02-11 18:47] LABS: HEPATITIS B SURFACE ANTIGEN NEGATIVE (NEGATIVE)
[2023-02-11 19:25] LABS: HEPATITIS C VIRUS ABY INDEX > 11.00 INDEX (<0.8)
== END ==
LOC: M LAB REF 16:43
PROVIDERS: ATTEND Nurse Practitioner Family
DX: B19.20 Unspecified viral hepatitis C without hepatic coma (principal); D64.9 Anemia, unspecified; R79.89 Other specified abnormal findings of blood chemistry

== ENCOUNTER 2023-05-03 21:24 | Emergency (ER) | payer MEDICARE, MEDICAID ==
[~2023-05-03] VITALS: Ht 154.9 cm; Wt 75.4 kg
[2023-05-03] MEDS ORDERED: NS 1,000 ML IV ONE (21:30)
[2023-05-03 21:46] VITALS: TEMP 98.4
[2023-05-03 22:14] LABS: BASO % 0.3 % (0.0-1.0); EOS # 0.1 10^3/uL (0.0-0.5); EOS % 0.7 % (0.0-3.0); HEMATOCRIT 26.9 % (36.0-47.0); HEMOGLOBIN 8.4 g/dl (12.0-15.5); LYMPH # 1.5 10^3/uL (1.5-5.0); LYMPH % 20.7 % (24.0-44.0); MEAN CORPUSCULAR HEMOGLOBIN 24.2 pg (27.0-33.0); MEAN CORPUSCULAR HGB CONC 31.2 g/dl (32.0-36.5); MEAN CORPUSCULAR VOLUME 77.5 fl (80.0-96.0); MONO # 0.5 10^3/uL (0.0-0.8); MONO % 6.5 % (2.0-8.0); NEUTROPHILS # 5.2 10^3/uL (1.5-8.5); NEUTROPHILS % 71.4 % (36.0-66.0); PLATELET COUNT, AUTOMATED 323 10^3/uL (150-450); RED BLOOD COUNT 3.47 10^6/uL (4.00-5.40); VENOUS BASE EXCESS -1.3 (-2.0-2.0); VENOUS HCO3 24.1 MMOL/L (23.0-27.0); VENOUS O2 SATURATION 95.2 % (60.0-80.0); VENOUS PARTIAL PRESSURE CO2 43.5 mmHg (38.0-50.0); VENOUS PARTIAL PRESSURE O2 84.3 mmHg (30.0-50.0); VENOUS PH 7.362 UNITS (7.330-7.430); VENOUS STANDARD HCO3 23.4 MMOL/L; VENOUS TOTAL CO2 25.5 MMOL/L (24.0-28.0); WHITE BLOOD COUNT 7.3 10^3/uL (4.0-10.0)
[2023-05-03 22:48] LABS: ETHYL ALCOHOL (ETHANOL) < 0.003 % (0.000-0.010); RSV AMPLIFICATION NEGATIVE (NEGATIVE)
[2023-05-03 22:49] LABS: ALBUMIN 3.6 G/DL (3.2-5.2); ALKALINE PHOSPHATASE 71 U/L (46-116); ALT/SGPT 48 U/L (7.0-40); AST/SGOT 42 U/L (<34); BILIRUBIN,DIRECT 0.1 MG/DL (<0.4); BILIRUBIN,TOTAL 0.3 MG/DL (0.3-1.2); BLOOD UREA NITROGEN 16 MG/DL (9-23); CALCIUM LEVEL 8.9 MG/DL (8.5-10.1); CARBON DIOXIDE LEVEL 28 MMOL/L (20-31); CHLORIDE LEVEL 106 MMOL/L (98-107); CPK CREATINE PHOSPHOKINASE 515 U/L (34-145); CREATININE FOR GFR 0.88 MG/DL (0.55-1.30); GLOMERULAR FILTRATION RATE > 60.0 (>60); GLUCOSE, FASTING 87 MG/DL (60-100); POTASSIUM SERUM 3.9 MMOL/L (3.5-5.1); SALICYLATE LEVEL < 3.0 MG/DL (<30); SODIUM LEVEL 140 MMOL/L (136-145); TOTAL PROTEIN 6.9 G/DL (5.7-8.2)
[2023-05-03 22:53] LABS: THYROID STIMULATING HORMONE 2.458 uIU/ML (0.55-4.78)
[2023-05-04 01:40] LABS: BARBITURATES URINE NEGATIVE (NEGATIVE); BENZODIAZEPINES URINE NEGATIVE (NEGATIVE); COCAINE METABOLITE URINE NEGATIVE (NEGATIVE); METHADONE URINE NEGATIVE (NEGATIVE); OPIATES URINE NEGATIVE (NEGATIVE); PHENCYCLIDINE URINE NEGATIVE (NEGATIVE)
[2023-05-04 02:15] LABS: AMPHETAMINES LEVEL URINE POSITIVE (NEGATIVE); CANNABINOIDS URINE POSITIVE (NEGATIVE)
[2023-05-04 06:00] VITALS: BP 101/58; O2SAT 98
== END 2023-05-04 06:06 | disposition home or self-care (01) ==
LOC: M ED 21:24
DX: F11.120 Opioid abuse with intoxication, uncomplicated (principal); E11.9 Type 2 diabetes mellitus without complications; I10 Essential (primary) hypertension; F19.10 Other psychoactive substance abuse, uncomplicated; J45.909 Unspecified asthma, uncomplicated; F25.9 Schizoaffective disorder, unspecified; F17.200 Nicotine dependence, unspecified, uncomplicated; F12.90 Cannabis use, unspecified, uncomplicated; Z79.899 Other long term (current) drug therapy; Z88.8 Allergy status to other drugs, medicaments and biological substances

== ENCOUNTER 2023-06-17 05:42 | Emergency (ER) | payer MEDICARE, MEDICAID ==
[2023-06-17 07:12] LABS: RSV AMPLIFICATION NEGATIVE (NEGATIVE)
[2023-06-17] MEDS ORDERED: IPRATROPIUM 0.5MG/ALBUTEROL 2.5MG INH SOL UD 3ML (DUONEB) NEB ONE (07:25)
[2023-06-17] MEDS ORDERED: dexAMETHasone 20MG/5ML VIAL IV ONE (07:25)
[2023-06-17] MEDS ORDERED: ALBUTEROL SULFATE 2.5MG/0.5ML INH NEB SOLN INH ONE (07:25)
[2023-06-17 09:19] LABS: CK-MB VALUE MASS < 1.0 NG/ML (<3.6)
[2023-06-17 09:20] LABS: CPK CREATINE PHOSPHOKINASE 118 U/L (34-145); MB/CK RELATIVE INDEX 0.84 (< OR =4)
[2023-06-17 09:21] LABS: ALBUMIN 3.2 G/DL (3.2-5.2); ALKALINE PHOSPHATASE 83 U/L (46-116); ALT/SGPT 36 U/L (7.0-40); AST/SGOT 31 U/L (<34); BILIRUBIN,DIRECT < 0.1 MG/DL (<0.4); BILIRUBIN,TOTAL 0.2 MG/DL (0.3-1.2); BLOOD UREA NITROGEN 13 MG/DL (9-23); CALCIUM LEVEL 8.6 MG/DL (8.5-10.1); CARBON DIOXIDE LEVEL 25 MMOL/L (20-31); CHLORIDE LEVEL 106 MMOL/L (98-107); CREATININE FOR GFR 0.68 MG/DL (0.55-1.30); GLOMERULAR FILTRATION RATE > 60.0 (>60); GLUCOSE, FASTING 122 MG/DL (60-100); SODIUM LEVEL 140 MMOL/L (136-145)
[2023-06-17 09:28] LABS: BASO % 0.7 % (0.0-1.0); EOS # 0.1 10^3/uL (0.0-0.5); EOS % 1.3 % (0.0-3.0); HEMATOCRIT 30.9 % (36.0-47.0); HEMOGLOBIN 9.7 g/dl (12.0-15.5); LYMPH # 2.3 10^3/uL (1.5-5.0); LYMPH % 50.7 % (24.0-44.0); MEAN CORPUSCULAR HEMOGLOBIN 24.4 pg (27.0-33.0); MEAN CORPUSCULAR HGB CONC 31.4 g/dl (32.0-36.5); MEAN CORPUSCULAR VOLUME 77.6 fl (80.0-96.0); MONO # 0.4 10^3/uL (0.0-0.8); MONO % 7.8 % (2.0-8.0); NEUTROPHILS # 1.8 10^3/uL (1.5-8.5); NEUTROPHILS % 39.5 % (36.0-66.0); PLATELET COUNT, AUTOMATED 366 10^3/uL (150-450); PROCALCITONIN <0.04 ng/ml; RED BLOOD COUNT 3.98 10^6/uL (4.00-5.40); WHITE BLOOD COUNT 4.5 10^3/uL (4.0-10.0)
[2023-06-17] MEDS ORDERED: PRED20TA PO (09:38)
[2023-06-17 09:46] VITALS: TEMP 98.5
[2023-06-17 10:00] VITALS: BP 114/57; O2SAT 98
== END 2023-06-17 10:25 | disposition home or self-care (01) ==
LOC: M ED 05:42
DX: J06.9 Acute upper respiratory infection, unspecified (principal); F17.210 Nicotine dependence, cigarettes, uncomplicated; Z88.8 Allergy status to other drugs, medicaments and biological substances; Z79.899 Other long term (current) drug therapy; Z79.84 Long term (current) use of oral hypoglycemic drugs; Z79.52 Long term (current) use of systemic steroids
CPT/HCPCS: 71045; 80048; 80076; 82550; 82553; 84145; 84484; 84702; 85025; 87486; 87581; 87631; 87633; 87798; 93005; 93041; 94640; 94760; 96374; 99285; J1100

== ENCOUNTER 2023-07-30 13:46 | Emergency (ER) | payer MEDICARE, MEDICAID ==
[~2023-07-30] VITALS: Ht 154.9 cm; Wt 68.3 kg
[2023-07-30 15:56] LABS: BASO % 0.6 % (0.0-1.0); EOS # 0.1 10^3/uL (0.0-0.5); EOS % 2.9 % (0.0-3.0); HEMATOCRIT 28.7 % (36.0-47.0); LYMPH # 2.7 10^3/uL (1.5-5.0); LYMPH % 54.8 % (24.0-44.0); MEAN CORPUSCULAR HEMOGLOBIN 24.9 pg (27.0-33.0); MEAN CORPUSCULAR HGB CONC 31.4 g/dl (32.0-36.5); MEAN CORPUSCULAR VOLUME 79.3 fl (80.0-96.0); MONO # 0.4 10^3/uL (0.0-0.8); MONO % 7.5 % (2.0-8.0); NEUTROPHILS # 1.7 10^3/uL (1.5-8.5); PLATELET COUNT, AUTOMATED 486 10^3/uL (150-450); RED BLOOD COUNT 3.62 10^6/uL (4.00-5.40); WHITE BLOOD COUNT 4.9 10^3/uL (4.0-10.0)
[2023-07-30 16:21] LABS: ALBUMIN 3.1 G/DL (3.2-5.2); ALKALINE PHOSPHATASE 90 U/L (46-116); ALT/SGPT 30 U/L (7.0-40); AST/SGOT 39 U/L (<34); BILIRUBIN,TOTAL < 0.2 MG/DL (0.3-1.2); BLOOD UREA NITROGEN 7 MG/DL (9-23); CALCIUM LEVEL 9.1 MG/DL (8.5-10.1); CARBON DIOXIDE LEVEL 27 MMOL/L (20-31); CHLORIDE LEVEL 102 MMOL/L (98-107); CREATININE FOR GFR 0.63 MG/DL (0.55-1.30); GLOMERULAR FILTRATION RATE > 60.0 (>60); GLUCOSE, FASTING 101 MG/DL (60-100); POTASSIUM SERUM 5.2 MMOL/L (3.5-5.1); SODIUM LEVEL 134 MMOL/L (136-145); TOTAL PROTEIN 6.7 G/DL (5.7-8.2)
[2023-07-30 16:24] LABS: HCG, SERUM QUALITATIVE NEGATIVE (NEGATIVE)
[2023-07-30 16:43] LABS: CHLAMYDIA DNA AMPLIFICATION NEGATIVE (NEGATIVE); GC DNA AMPLIFICATION NEGATIVE (NEGATIVE)
[2023-07-30] MEDS ORDERED: SOD POLYSTYRENE SULFONATE SUSP 15GM 60ML UD PO ONE (16:50)
[2023-07-30 16:53] LABS: HIV 1&2 SCREEN NEGATIVE (NEGATIVE)
[2023-07-30 17:30] VITALS: BP 125/80
[2023-07-30 17:31] VITALS: TEMP 97.6; O2SAT 99
== END 2023-07-30 18:07 | disposition home or self-care (01) ==
LOC: EDBD 13:46 → M ED 13:46
DX: R40.20 Unspecified coma (principal); F19.99 Other psychoactive substance use, unspecified with unspecified psychoactive substance-induced disorder; I49.9 Cardiac arrhythmia, unspecified; I10 Essential (primary) hypertension; J45.909 Unspecified asthma, uncomplicated; F17.210 Nicotine dependence, cigarettes, uncomplicated; Z88.8 Allergy status to other drugs, medicaments and biological substances; Z79.899 Other long term (current) drug therapy; Z79.51 Long term (current) use of inhaled steroids; Z79.84 Long term (current) use of oral hypoglycemic drugs; Z79.52 Long term (current) use of systemic steroids

== ENCOUNTER 2023-09-09 10:50 | Inpatient (IN) | payer MEDICARE, MEDICAID ==
[~2023-09-09] VITALS: Ht 154.9 cm; Wt 66.2 kg
[2023-09-09] MEDS ORDERED: VANCOMYCIN HCL 1,500 MG in IV FLUID PLACE HOLDER 1 EA IV ONE (16:15)
[2023-09-09 16:37] LABS: BASO % 0.2 % (0.0-1.0); EOS # 0.1 10^3/uL (0.0-0.5); EOS % 0.8 % (0.0-3.0); HEMATOCRIT 33.5 % (36.0-47.0); HEMOGLOBIN 10.3 g/dl (12.0-15.5); LYMPH # 1.6 10^3/uL (1.5-5.0); LYMPH % 13.8 % (24.0-44.0); MEAN CORPUSCULAR HEMOGLOBIN 24.1 pg (27.0-33.0); MEAN CORPUSCULAR HGB CONC 30.7 g/dl (32.0-36.5); MEAN CORPUSCULAR VOLUME 78.3 fl (80.0-96.0); MONO # 0.5 10^3/uL (0.0-0.8); MONO % 4.4 % (2.0-8.0); NEUTROPHILS # 9.1 10^3/uL (1.5-8.5); NEUTROPHILS % 80.4 % (36.0-66.0); PLATELET COUNT, AUTOMATED 421 10^3/uL (150-450); RED BLOOD COUNT 4.28 10^6/uL (4.00-5.40); WHITE BLOOD COUNT 11.3 10^3/uL (4.0-10.0)
[2023-09-09 16:57] LABS: BLOOD UREA NITROGEN 9 MG/DL (9-23); CALCIUM LEVEL 9.1 MG/DL (8.5-10.1); CARBON DIOXIDE LEVEL 24 MMOL/L (20-31); CHLORIDE LEVEL 104 MMOL/L (98-107); CREATININE FOR GFR 0.57 MG/DL (0.55-1.30); GLOMERULAR FILTRATION RATE > 60.0 (>60); GLUCOSE, FASTING 76 MG/DL (60-100); POTASSIUM SERUM 3.8 MMOL/L (3.5-5.1); SODIUM LEVEL 138 MMOL/L (136-145)
[2023-09-09 17:19] LABS: ALBUMIN 3.7 G/DL (3.2-5.2); ALKALINE PHOSPHATASE 130 U/L (46-116); ALT/SGPT 41 U/L (7.0-40); AST/SGOT 40 U/L (<34); BILIRUBIN,DIRECT 0.2 MG/DL (<0.4); BILIRUBIN,TOTAL 0.6 MG/DL (0.3-1.2); TOTAL PROTEIN 8.3 G/DL (5.7-8.2)
[2023-09-09 17:30] LABS: HCG, SERUM QUALITATIVE NEGATIVE (NEGATIVE)
[2023-09-09 17:31] LABS: PROCALCITONIN 0.15 ng/ml
[2023-09-09 17:48] LABS: ERYTHROCYTE SEDIMENTATION RATE > 130 mm/hr (0-20)
[2023-09-09] MEDS: NS 2,320 ML in IV 1 EA IV ONE (18:49)
[2023-09-09] MEDS: VANCOMYCIN HCL 750 MG, VIAL MATE ADAPTER 1 EACH in D5W 250 ML IV ONE ×2 (18:52→20:21)
[2023-09-09] MEDS: PIPERACILLIN/TAZOBACTAM SOD 4.5 GM in D5W MINI-BAG PLUS 50 ML IV ONE (18:53)
[2023-09-09] MEDS: IBUPROFEN 600MG TAB PO ONE (19:51)
[2023-09-09] MEDS ORDERED: GLUCOSE 4GM CHEW TABLET PO PRN (20:25)
[2023-09-09] MEDS ORDERED: DEXTROSE 50% 50ML SYRINGE IV PRN (20:25)
[2023-09-09] MEDS ORDERED: GLUCAGON INJ 1MG VIAL SC PRN (20:25)
[2023-09-09] MEDS: NICOTINE 21MG/24HR 1 EA TRANSDERMAL TD ONE (22:14)
[2023-09-09] MEDS: INSULIN LISPRO (NovoLOG) PER UNIT SC SCH (22:29)
[2023-09-09] MEDS ORDERED: HOME MED LIST COMPLETE! XX SCH (22:30)
[2023-09-10 01:11] VITALS: BP 142/91; TEMP 97.4; O2SAT 100
[2023-09-10] MEDS: PIPERACILLIN/TAZOBACTAM SOD 3.375 GM in D5W MINI-BAG PLUS 50 ML IV SCH (01:28)
[2023-09-10] MEDS: VANCOMYCIN HCL 1,000 MG, VIAL MATE ADAPTER 1 EACH in D5W 250 ML IV SCH (02:08)
[2023-09-10] MEDS: guaiFENesin 200 MG TAB PO ONE (03:59)
[2023-09-10 04:00] VITALS: BP 139/92; TEMP 98.6; O2SAT 99
[2023-09-10] MEDS: IBUPROFEN 600MG TAB PO ONE (05:39)
[2023-09-10 06:53] LABS: BASO % 0.2 % (0.0-1.0); EOS # 0.2 10^3/uL (0.0-0.5); HEMATOCRIT 26.4 % (36.0-47.0); LYMPH # 1.4 10^3/uL (1.5-5.0); LYMPH % 15.7 % (24.0-44.0); MEAN CORPUSCULAR HEMOGLOBIN 24.6 pg (27.0-33.0); MEAN CORPUSCULAR HGB CONC 31.4 g/dl (32.0-36.5); MEAN CORPUSCULAR VOLUME 78.1 fl (80.0-96.0); MONO # 0.8 10^3/uL (0.0-0.8); MONO % 9.7 % (2.0-8.0); NEUTROPHILS # 6.2 10^3/uL (1.5-8.5); NEUTROPHILS % 71.8 % (36.0-66.0); RED BLOOD COUNT 3.38 10^6/uL (4.00-5.40); WHITE BLOOD COUNT 8.6 10^3/uL (4.0-10.0)
[2023-09-10 06:54] LABS: HEMOGLOBIN 8.3 g/dl (12.0-15.5); PLATELET COUNT, AUTOMATED 321 10^3/uL (150-450)
[2023-09-10 07:23] LABS: ALKALINE PHOSPHATASE 94 U/L (46-116); ALT/SGPT 28 U/L (7.0-40); AST/SGOT 21 U/L (<34); BILIRUBIN,TOTAL 0.5 MG/DL (0.3-1.2); BLOOD UREA NITROGEN 6 MG/DL (9-23); CALCIUM LEVEL 8.4 MG/DL (8.5-10.1); CARBON DIOXIDE LEVEL 22 MMOL/L (20-31); CHLORIDE LEVEL 106 MMOL/L (98-107); CREATININE FOR GFR 0.54 MG/DL (0.55-1.30); GLOMERULAR FILTRATION RATE > 60.0 (>60); GLUCOSE, FASTING 88 MG/DL (60-100); MAGNESIUM LEVEL 1.9 MG/DL (1.8-2.4); PHOSPHORUS LEVEL 2.6 MG/DL (2.5-4.9); POTASSIUM SERUM 3.2 MMOL/L (3.5-5.1); SODIUM LEVEL 137 MMOL/L (136-145); TOTAL PROTEIN 6.3 G/DL (5.7-8.2)
[2023-09-10] MEDS: INSULIN LISPRO (NovoLOG) PER UNIT SC SCH (07:26)
[2023-09-10] MEDS: BENZONATATE 100MG CAPSULE PO ONE (08:25)
[2023-09-10] MEDS: POTASSIUM CHLORIDE 10MEQ SR TABLET PO ONE (08:25)
[2023-09-10] MEDS: CEPACOL LOZENGE PO PRN (08:26)
[2023-09-10] MEDS: ENOXAPARIN 40MG/0.4ML SYRINGE (J1650 PER 10MG) SC SCH (08:27)
[2023-09-10] MEDS: ACETAMINOPHEN TAB 650MG DOSE (2X325MG) PO PRN (08:31)
[2023-09-10] MEDS: IBUPROFEN 400MG TAB PO ONE (10:38)
[2023-09-10] MEDS: BENZTROPINE 1 MG TAB PO SCH (11:18)
[2023-09-10] MEDS: cloNIDine 0.1MG TABLET PO SCH (11:19)
[2023-09-10] MEDS: NALTREXONE 50 MG TAB PO SCH (11:19)
[2023-09-10] MEDS: QUEtiapine FUMARATE 100 MG TAB PO SCH ×2 (11:19→19:47)
[2023-09-10] MEDS: lisinopriL 5 MG TAB PO SCH (11:21)
[2023-09-10 14:00] VITALS: BP 138/82; TEMP 98.6; O2SAT 97
[2023-09-10] MEDS: IPRATROPIUM 0.5MG/ALBUTEROL 2.5MG INH SOL UD 3ML (DUONEB) NEB PRN (14:03)
[2023-09-10] MEDS ORDERED: ISOVUE-370 76% 100ML VIAL As Ordered ONE (16:03)
[2023-09-10] MEDS: LEVALBUTEROL HFA 45MCG/ACT 15GM INHALER INH PRN (18:27)
[2023-09-10] MEDS: BOOSTRIX VACCINE (TETANUS/DIPHTH/ACEL. PERTUSSIS) 0.5ML SYR IM ONE (18:42)
[2023-09-10 19:48] VITALS: BP 133/83
[2023-09-10] MEDS: traZODone 50 MG TAB PO SCH (19:48)
[2023-09-10] MEDS: MUPIROCIN 2% OINT 22 GM TUBE TOP SCH (19:49)
[2023-09-10 22:00] VITALS: BP 133/83; TEMP 98.8; O2SAT 98
[2023-09-11 06:00] VITALS: BP 128/89; TEMP 98.8; O2SAT 96
[2023-09-11 08:03] LABS: BLOOD UREA NITROGEN < 5 MG/DL (9-23); CALCIUM LEVEL 8.5 MG/DL (8.5-10.1); CARBON DIOXIDE LEVEL 21 MMOL/L (20-31); CHLORIDE LEVEL 109 MMOL/L (98-107); CREATININE FOR GFR 0.49 MG/DL (0.55-1.30); GLOMERULAR FILTRATION RATE > 60.0 (>60); GLUCOSE, FASTING 102 MG/DL (60-100); POTASSIUM SERUM 3.9 MMOL/L (3.5-5.1); SODIUM LEVEL 138 MMOL/L (136-145)
[2023-09-11 09:38] LABS: BASO % 0.3 % (0.0-1.0); EOS # 0.1 10^3/uL (0.0-0.5); EOS % 1.8 % (0.0-3.0); HEMATOCRIT 27.1 % (36.0-47.0); HEMOGLOBIN 8.5 g/dl (12.0-15.5); LYMPH # 1.7 10^3/uL (1.5-5.0); LYMPH % 28.3 % (24.0-44.0); MEAN CORPUSCULAR HEMOGLOBIN 24.4 pg (27.0-33.0); MEAN CORPUSCULAR HGB CONC 31.4 g/dl (32.0-36.5); MEAN CORPUSCULAR VOLUME 77.7 fl (80.0-96.0); MONO # 0.4 10^3/uL (0.0-0.8); MONO % 6.4 % (2.0-8.0); NEUTROPHILS # 3.8 10^3/uL (1.5-8.5); NEUTROPHILS % 62.9 % (36.0-66.0); PLATELET COUNT, AUTOMATED 351 10^3/uL (150-450); RED BLOOD COUNT 3.49 10^6/uL (4.00-5.40)
[2023-09-11] MEDS: VANCOMYCIN HCL 1,000 MG, VIAL MATE ADAPTER 1 EACH in D5W 250 ML IV ONE (11:23)
[2023-09-11] MEDS ORDERED: DALV1SOL IV (13:58)
[2023-09-11] MEDS ORDERED: MUPI2OI TOP (13:58)
== END 2023-09-11 14:56 | disposition home or self-care (01) | DRG 872 ==
LOC: EDBD 10:50 → M ED 10:50 → M ED INP 20:21 → EEVIPCON 20:21 → M MSPAV 09-10 01:11
PROVIDERS: ADMIT Internal Medicine; ATTEND Internal Medicine
DX: A41.9 Sepsis, unspecified organism (principal); L03.114 Cellulitis of left upper limb; E11.9 Type 2 diabetes mellitus without complications; I10 Essential (primary) hypertension; J45.909 Unspecified asthma, uncomplicated; L08.89 Other specified local infections of the skin and subcutaneous tissue; S51.822A Laceration with foreign body of left forearm, initial encounter; R05.3 Chronic cough; D64.9 Anemia, unspecified; R01.1 Cardiac murmur, unspecified; B19.20 Unspecified viral hepatitis C without hepatic coma; F15.90 Other stimulant use, unspecified, uncomplicated; F25.9 Schizoaffective disorder, unspecified; F17.210 Nicotine dependence, cigarettes, uncomplicated; R74.01 Elevation of levels of liver transaminase levels; Z79.84 Long term (current) use of oral hypoglycemic drugs; Z79.52 Long term (current) use of systemic steroids; Z79.899 Other long term (current) drug therapy; Z88.8 Allergy status to other drugs, medicaments and biological substances; Z20.822 Contact with and (suspected) exposure to COVID-19; W22.09XA Striking against other stationary object, initial encounter; Y28.0XXA Contact with sharp glass, undetermined intent, initial encounter; Y92.9 Unspecified place or not applicable; Z90.49 Acquired absence of other specified parts of digestive tract

== ENCOUNTER 2023-09-11 15:06 | Outpatient (CLI) | payer MEDICARE, MEDICAID ==
[~2023-09-11] VITALS: Ht 154.9 cm; Wt 66.2 kg
[~2023-09-11 15:06] MED LIST changes: +DALV1SOL IV; +MUPI2OI TOP
[2023-09-11 15:10] VITALS: BP 135/62; O2SAT 100
[2023-09-11] MEDS: DALBAVANCIN 1,500 MG in D5W 250 ML IV ONE (16:00)
[2023-09-11 16:40] VITALS: BP 132/64; O2SAT 98
== END 2023-09-11 16:40 ==
LOC: M INFU 15:06
PROVIDERS: ATTEND Internal Medicine
DX: L03.114 Cellulitis of left upper limb (principal); Z88.8 Allergy status to other drugs, medicaments and biological substances
CPT/HCPCS: 96365; J0875

== ENCOUNTER 2023-11-05 01:15 | Inpatient (IN) | payer MEDICARE, MEDICAID ==
[~2023-11-05] VITALS: Ht 165.1 cm; Wt 65.8 kg
[2023-11-05] MEDS ORDERED: LORazepam 2 MG/ML 1ML VIAL As Ordered ONE (01:35)
[2023-11-05] MEDS: diphenhydrAMINE 50MG/ML VIAL IM ONE (01:38)
[2023-11-05] MEDS: LORazepam 2 MG/ML 1ML VIAL IM ONE (01:39)
[2023-11-05] MEDS: OLANZapine INTRAMUSCULAR 10MG VIAL IM ONE (01:39)
[2023-11-05] MEDS: MIDAZOLAM INJ 2MG/2ML VIAL IV STA (02:12)
[2023-11-05 02:21] LABS: BASO % 0.6 % (0.0-1.0); EOS # 0.1 10^3/uL (0.0-0.5); EOS % 1.4 % (0.0-3.0); HEMATOCRIT 25.6 % (36.0-47.0); LYMPH # 3.1 10^3/uL (1.5-5.0); LYMPH % 47.1 % (24.0-44.0); MEAN CORPUSCULAR HEMOGLOBIN 23.7 pg (27.0-33.0); MEAN CORPUSCULAR HGB CONC 31.3 g/dl (32.0-36.5); MEAN CORPUSCULAR VOLUME 75.7 fl (80.0-96.0); MONO # 0.5 10^3/uL (0.0-0.8); NEUTROPHILS # 2.8 10^3/uL (1.5-8.5); NEUTROPHILS % 42.7 % (36.0-66.0); PLATELET COUNT, AUTOMATED 609 10^3/uL (150-450); RED BLOOD COUNT 3.38 10^6/uL (4.00-5.40); WHITE BLOOD COUNT 6.5 10^3/uL (4.0-10.0)
[2023-11-05 02:39] LABS: ETHYL ALCOHOL (ETHANOL) < 0.003 % (0.000-0.010)
[2023-11-05 02:40] LABS: HCG, SERUM QUALITATIVE NEGATIVE (NEGATIVE)
[2023-11-05 02:41] LABS: ALBUMIN 3.1 G/DL (3.2-5.2); ALKALINE PHOSPHATASE 92 U/L (46-116); ALT/SGPT 22 U/L (7.0-40); AST/SGOT 25 U/L (<34); BILIRUBIN,DIRECT < 0.1 MG/DL (<0.4); BILIRUBIN,TOTAL 0.2 MG/DL (0.3-1.2); BLOOD UREA NITROGEN 24 MG/DL (9-23); CALCIUM LEVEL 9.2 MG/DL (8.5-10.1); CARBON DIOXIDE LEVEL 27 MMOL/L (20-31); CHLORIDE LEVEL 103 MMOL/L (98-107); CPK CREATINE PHOSPHOKINASE 168 U/L (34-145); CREATININE FOR GFR 0.97 MG/DL (0.55-1.30); GLOMERULAR FILTRATION RATE > 60.0 (>60); GLUCOSE, FASTING 113 MG/DL (60-100); POTASSIUM SERUM 4.4 MMOL/L (3.5-5.1); SALICYLATE LEVEL < 3.0 MG/DL (<30); SODIUM LEVEL 138 MMOL/L (136-145); TOTAL PROTEIN 7.1 G/DL (5.7-8.2)
[2023-11-05 02:44] LABS: THYROID STIMULATING HORMONE 0.565 uIU/ML (0.55-4.78)
[2023-11-05] MEDS: MIDAZOLAM INJ 2MG/2ML VIAL IV ONE (03:35)
[2023-11-05 04:55] LABS: BARBITURATES URINE NEGATIVE (NEGATIVE); COCAINE METABOLITE URINE NEGATIVE (NEGATIVE)
[2023-11-05 04:56] LABS: METHADONE URINE NEGATIVE (NEGATIVE); OPIATES URINE NEGATIVE (NEGATIVE); PHENCYCLIDINE URINE NEGATIVE (NEGATIVE)
[2023-11-05 05:37] LABS: AMPHETAMINES LEVEL URINE POSITIVE (NEGATIVE); BENZODIAZEPINES URINE POSITIVE (NEGATIVE); CANNABINOIDS URINE POSITIVE (NEGATIVE)
[2023-11-05] MEDS: MAG SULF 1GM/100ML (MAG RUN) 1 GM in IV 1 EA IV ONE (06:34)
[2023-11-05] MEDS ORDERED: MUPI2OI TOP (10:50)
[2023-11-05] MEDS ORDERED: HOME MED LIST COMPLETE! XX SCH (10:55)
[2023-11-06] MEDS: LORazepam 2 MG TAB PO STA (12:00)
[2023-11-06] MEDS ORDERED: traZODone 50 MG TAB PO PRN (15:30)
[2023-11-06] MEDS ORDERED: MOM 30ML SUSPENSION UDC PO PRN (15:30)
[2023-11-06] MEDS ORDERED: OLANZapine ORAL DISINTEGRATING TAB 5MG PO PRN (15:30)
[2023-11-06] MEDS ORDERED: IBUPROFEN 400MG TAB PO PRN (15:30)
[2023-11-06] MEDS ORDERED: diphenhydrAMINE 25MG CAP PO PRN (15:30)
[2023-11-06] MEDS ORDERED: ACETAMINOPHEN TAB 650MG DOSE (2X325MG) PO PRN (15:30)
[2023-11-06] MEDS ORDERED: MAALOX 30 ML SUSP *UDC PO PRN (15:30)
[2023-11-06 15:51] VITALS: BP 139/89; TEMP 97.2; O2SAT 97
[2023-11-06 16:44] VITALS: BP 133/77; O2SAT 99
[2023-11-07 06:44] VITALS: BP 121/60; TEMP 98.9; O2SAT 97
[2023-11-07] MEDS: QUEtiapine FUMARATE 100 MG TAB PO SCH ×2 (10:24→20:54)
[2023-11-07] MEDS: metFORMIN (GLUCOPHAGE) 500MG TAB PO SCH (10:24)
[2023-11-07] MEDS: lisinopriL 5 MG TAB PO SCH (10:24)
[2023-11-07] MEDS ORDERED: ALBUTEROL 90 MCG/ACT 8GM HFA INHALER INH PRN (13:50)
[2023-11-07 16:10] VITALS: BP 136/70; TEMP 98.9; O2SAT 100
[2023-11-07] MEDS: traZODone 50 MG TAB PO SCH (20:54)
[2023-11-07] MEDS ORDERED: cloNIDine 0.1MG TABLET PO SCH (21:00)
[2023-11-08 05:51] VITALS: BP 123/61; TEMP 97.8; O2SAT 100
[2023-11-08 08:06] LABS: BASO % 0.5 % (0.0-1.0); EOS # 0.1 10^3/uL (0.0-0.5); EOS % 1.4 % (0.0-3.0); HEMATOCRIT 27.7 % (36.0-47.0); HEMOGLOBIN 8.5 g/dl (12.0-15.5); LYMPH % 47.4 % (24.0-44.0); MEAN CORPUSCULAR HEMOGLOBIN 22.8 pg (27.0-33.0); MEAN CORPUSCULAR HGB CONC 30.7 g/dl (32.0-36.5); MEAN CORPUSCULAR VOLUME 74.5 fl (80.0-96.0); MONO # 0.3 10^3/uL (0.0-0.8); MONO % 6.1 % (2.0-8.0); NEUTROPHILS # 1.9 10^3/uL (1.5-8.5); NEUTROPHILS % 44.4 % (36.0-66.0); PLATELET COUNT, AUTOMATED 518 10^3/uL (150-450); RED BLOOD COUNT 3.72 10^6/uL (4.00-5.40); WHITE BLOOD COUNT 4.3 10^3/uL (4.0-10.0)
[2023-11-08 16:28] VITALS: BP 124/61; TEMP 98.1; O2SAT 100
[2023-11-09 06:42] VITALS: BP 125/61; TEMP 98; O2SAT 100
[2023-11-09 07:02] LABS: CHOLESTEROL RISK RATIO 3.21 (<5); HDL CHOLESTEROL 55.6 MG/DL (>40); NON-HDL-C 123.4 MG/DL
[2023-11-09] MEDS: CEPACOL LOZENGE PO PRN (11:45)
[2023-11-09 16:31] VITALS: BP 121/73; TEMP 98.2; O2SAT 100
[2023-11-10 06:29] VITALS: BP 121/72; TEMP 98.1; O2SAT 99
[2023-11-11 06:27] VITALS: BP 119/61; TEMP 98.2; O2SAT 99
[2023-11-11 08:21] VITALS: BP 119/61
[2023-11-11] MEDS ORDERED: METF500T13 PO (08:50)
[2023-11-11] MEDS ORDERED: TRAZ-252 PO (08:50)
== END 2023-11-11 12:50 | disposition home or self-care (01) | DRG 885 ==
LOC: M ED 01:15 → EDBEDREQTM 11-06 13:33 → EDBEDREQDT 11-06 13:33 → M ED INP 11-06 15:30 → M PSY 11-06 16:03
PROVIDERS: ADMIT Student in an Organized Health Care Education/Training Program; ATTEND Student in an Organized Health Care Education/Training Program
DX: F25.9 Schizoaffective disorder, unspecified (principal); F15.90 Other stimulant use, unspecified, uncomplicated; F12.90 Cannabis use, unspecified, uncomplicated; E11.9 Type 2 diabetes mellitus without complications; I10 Essential (primary) hypertension; D53.8 Other specified nutritional anemias; K73.9 Chronic hepatitis, unspecified; Z79.899 Other long term (current) drug therapy; Z88.8 Allergy status to other drugs, medicaments and biological substances

== ENCOUNTER 2024-01-26 22:17 | Emergency (ER) | payer MEDICAID, MEDICARE, OTHER ==
[~2024-01-26] VITALS: Ht 154.9 cm; Wt 58.7 kg
[2024-01-26 22:23] VITALS: TEMP 98.7
[2024-01-27 02:03] LABS: APPEARANCE, URINE CLEAR (CLEAR); BACTERIA, URINE AUTO NEGATIVE (NEGATIVE); BILIRUBIN, URINE AUTO NEGATIVE (NEGATIVE); BLOOD, URINE BLOOD NEGATIVE (NEGATIVE); COLOR, URINE YELLOW (YELLOW); GLUCOSE, URINE (UA) AUTO NEGATIVE (NEGATIVE); KETONE, URINE AUTO TRACE mg/dL (NEGATIVE); LEUKOCYTE ESTERASE, URINE AUTO NEGATIVE (NEGATIVE); MUCUS, URINE SMALL (NEGATIVE); NITRITE, URINE AUTO NEGATIVE (NEGATIVE); PROTEIN, URINE AUTO NEGATIVE (NEGATIVE); RBC, URINE AUTO 0 /HPF (0-3); SPECIFIC GRAVITY URINE AUTO 1.027 (1.002-1.035); SQUAMOUS EPITHELIAL CELL UR AU 1 /HPF (0-6); WBC, URINE AUTO 1 /HPF (0-3)
[2024-01-27 02:48] LABS: VENOUS BASE EXCESS -2.2 (-2.0-2.0); VENOUS HCO3 22.8 MMOL/L (23.0-27.0); VENOUS O2 SATURATION 98.8 % (60.0-80.0); VENOUS PARTIAL PRESSURE CO2 39.9 mmHg (38.0-50.0); VENOUS PARTIAL PRESSURE O2 147.8 mmHg (30.0-50.0); VENOUS PH 7.375 UNITS (7.330-7.430); VENOUS STANDARD HCO3 22.7 MMOL/L
[2024-01-27] MEDS: ONDANSETRON 4MG 2ML VIAL IV ONE (02:50)
[2024-01-27] MEDS: NS 1,000 ML IV ONE (02:50)
[2024-01-27 03:28] LABS: ALKALINE PHOSPHATASE 107 U/L (46-116); ALT/SGPT 55 U/L (7.0-40); AST/SGOT 46 U/L (<34); BILIRUBIN,DIRECT < 0.1 MG/DL (<0.4); BILIRUBIN,TOTAL 0.2 MG/DL (0.3-1.2); BLOOD UREA NITROGEN 14 MG/DL (9-23); CALCIUM LEVEL 8.4 MG/DL (8.5-10.1); CARBON DIOXIDE LEVEL 23 MMOL/L (20-31); CHLORIDE LEVEL 109 MMOL/L (98-107); CREATININE FOR GFR 0.46 MG/DL (0.55-1.30); GLOMERULAR FILTRATION RATE > 60.0 (>60); GLUCOSE, FASTING 100 MG/DL (60-100); POTASSIUM SERUM 4.1 MMOL/L (3.5-5.1); SODIUM LEVEL 138 MMOL/L (136-145); TOTAL PROTEIN 6.5 G/DL (5.7-8.2)
[2024-01-27 03:29] LABS: ACETONE/KETONE 0.09 MMOL/L (0.02-0.27)
[2024-01-27 03:34] LABS: BASO % 0.5 % (0.0-1.0); EOS # 0.1 10^3/uL (0.0-0.5); HEMATOCRIT 28.6 % (36.0-47.0); HEMOGLOBIN 8.5 g/dl (12.0-15.5); LYMPH # 2.7 10^3/uL (1.5-5.0); LYMPH % 46.8 % (24.0-44.0); MEAN CORPUSCULAR HEMOGLOBIN 22.7 pg (27.0-33.0); MEAN CORPUSCULAR HGB CONC 29.7 g/dl (32.0-36.5); MEAN CORPUSCULAR VOLUME 76.3 fl (80.0-96.0); MONO # 0.5 10^3/uL (0.0-0.8); MONO % 9.2 % (2.0-8.0); NEUTROPHILS # 2.4 10^3/uL (1.5-8.5); NEUTROPHILS % 41.3 % (36.0-66.0); PLATELET COUNT, AUTOMATED 345 10^3/uL (150-450); RED BLOOD COUNT 3.75 10^6/uL (4.00-5.40); WHITE BLOOD COUNT 5.9 10^3/uL (4.0-10.0)
[2024-01-27 04:13] LABS: HCG, SERUM QUALITATIVE NEGATIVE (NEGATIVE)
[2024-01-27 04:44] LABS: METHADONE URINE NEGATIVE (NEGATIVE); OPIATES URINE NEGATIVE (NEGATIVE); PHENCYCLIDINE URINE NEGATIVE (NEGATIVE)
[2024-01-27 04:45] LABS: BARBITURATES URINE NEGATIVE (NEGATIVE); BENZODIAZEPINES URINE NEGATIVE (NEGATIVE); COCAINE METABOLITE URINE NEGATIVE (NEGATIVE)
[2024-01-27 04:46] LABS: AMPHETAMINES LEVEL URINE POSITIVE (NEGATIVE); CANNABINOIDS URINE POSITIVE (NEGATIVE)
[2024-01-27 05:00] VITALS: BP 145/62; O2SAT 100
[2024-01-27] MEDS ORDERED: ONDA-282 PO (05:27)
[2024-01-27] MEDS ORDERED: KETO10TAB PO (05:27)
[2024-01-27] MEDS: KETOROLAC 30 MG/ML 1ML VIAL IV ONE (05:33)
[2024-01-27 05:56] LABS: ETHYL ALCOHOL (ETHANOL) 0.003 % (0.000-0.010)
[2024-01-27 05:58] LABS: SALICYLATE LEVEL < 3.0 MG/DL (<30)
[2024-01-27 06:01] LABS: THYROID STIMULATING HORMONE 0.227 uIU/ML (0.55-4.78)
== END 2024-01-27 05:41 | disposition home or self-care (01) ==
LOC: M ED 22:17
DX: R11.10 Vomiting, unspecified (principal); M79.604 Pain in right leg; I10 Essential (primary) hypertension; F12.10 Cannabis abuse, uncomplicated; Z88.8 Allergy status to other drugs, medicaments and biological substances; Z79.84 Long term (current) use of oral hypoglycemic drugs; Z79.2 Long term (current) use of antibiotics; Z79.899 Other long term (current) drug therapy
CPT/HCPCS: 80048; 80076; 80143; 80307; 81001; 82010; 82077; 82803; 84443; 84703; 85025; 87040; 93971; 96361; 96374; 96375; 99284; J1885; J2405

== ENCOUNTER 2024-02-05 20:17 | Emergency (ER) | payer OTHER ==
[~2024-02-05] VITALS: Ht 165.1 cm; Wt 56.8 kg
[~2024-02-05 20:17] MED LIST changes: +KETO10TAB PO; +ONDA-282 PO
[2024-02-05 20:25] VITALS: TEMP 97.8
[2024-02-05 20:42] LABS: BASO % 0.5 % (0.0-1.0); EOS # 0.1 10^3/uL (0.0-0.5); EOS % 1.2 % (0.0-3.0); HEMATOCRIT 28.5 % (36.0-47.0); HEMOGLOBIN 8.6 g/dl (12.0-15.5); LYMPH # 2.5 10^3/uL (1.5-5.0); LYMPH % 42.1 % (24.0-44.0); MEAN CORPUSCULAR HEMOGLOBIN 22.9 pg (27.0-33.0); MEAN CORPUSCULAR HGB CONC 30.2 g/dl (32.0-36.5); MONO # 0.6 10^3/uL (0.0-0.8); MONO % 9.4 % (2.0-8.0); NEUTROPHILS # 2.8 10^3/uL (1.5-8.5); NEUTROPHILS % 46.6 % (36.0-66.0); PLATELET COUNT, AUTOMATED 345 10^3/uL (150-450); RED BLOOD COUNT 3.75 10^6/uL (4.00-5.40)
[2024-02-05 21:06] LABS: CK-MB VALUE MASS 5.6 NG/ML (<3.6); ETHYL ALCOHOL (ETHANOL) 0.005 % (0.000-0.010)
[2024-02-05 21:08] LABS: ALBUMIN 3.3 G/DL (3.2-5.2); ALKALINE PHOSPHATASE 128 U/L (46-116); ALT/SGPT 91 U/L (7.0-40); AST/SGOT 94 U/L (<34); BILIRUBIN,DIRECT < 0.1 MG/DL (<0.4); BILIRUBIN,TOTAL 0.3 MG/DL (0.3-1.2); BLOOD UREA NITROGEN 16 MG/DL (9-23); CARBON DIOXIDE LEVEL 28 MMOL/L (20-31); CHLORIDE LEVEL 105 MMOL/L (98-107); CREATININE FOR GFR 0.66 MG/DL (0.55-1.30); GLOMERULAR FILTRATION RATE > 60.0 (>60); GLUCOSE, FASTING 98 MG/DL (60-100); POTASSIUM SERUM 4.1 MMOL/L (3.5-5.1); SODIUM LEVEL 137 MMOL/L (136-145); TOTAL PROTEIN 7.1 G/DL (5.7-8.2)
[2024-02-05 21:12] LABS: CPK CREATINE PHOSPHOKINASE 333 U/L (34-145); MB/CK RELATIVE INDEX 1.68 (< OR =4)
[2024-02-05 21:20] LABS: HCG, SERUM QUALITATIVE NEGATIVE (NEGATIVE)
[2024-02-05 22:53] LABS: CK-MB VALUE MASS 5.1 NG/ML (<3.6)
[2024-02-05 22:55] LABS: MB/CK RELATIVE INDEX 1.55 (< OR =4)
[2024-02-05 23:28] LABS: BARBITURATES URINE NEGATIVE (NEGATIVE); BENZODIAZEPINES URINE NEGATIVE (NEGATIVE); COCAINE METABOLITE URINE NEGATIVE (NEGATIVE); METHADONE URINE NEGATIVE (NEGATIVE)
[2024-02-05 23:29] LABS: CANNABINOIDS URINE NEGATIVE (NEGATIVE); OPIATES URINE NEGATIVE (NEGATIVE); PHENCYCLIDINE URINE NEGATIVE (NEGATIVE)
[2024-02-05 23:47] LABS: AMPHETAMINES LEVEL URINE POSITIVE (NEGATIVE)
[2024-02-06 00:33] LABS: CK-MB VALUE MASS 5.3 NG/ML (<3.6)
[2024-02-06 00:34] LABS: MB/CK RELATIVE INDEX 1.64 (< OR =4)
[2024-02-06] MEDS ORDERED: NS 1,000 ML IV ONE ×2 (02:35)
[2024-02-06 06:39] LABS: BILIRUBIN,DIRECT 0.1 MG/DL (<0.4); BILIRUBIN,TOTAL 0.5 MG/DL (0.3-1.2); TOTAL PROTEIN 6.6 G/DL (5.7-8.2)
[2024-02-06 07:01] VITALS: BP 162/90
[2024-02-06 07:32] VITALS: O2SAT 99
== END 2024-02-06 09:04 | disposition home or self-care (01) ==
LOC: M ED 20:17
DX: T40.1X1A Poisoning by heroin, accidental (unintentional), initial encounter (principal); R00.1 Bradycardia, unspecified; F11.10 Opioid abuse, uncomplicated; E11.9 Type 2 diabetes mellitus without complications; J45.909 Unspecified asthma, uncomplicated; D64.9 Anemia, unspecified; I10 Essential (primary) hypertension; B19.20 Unspecified viral hepatitis C without hepatic coma; Z88.8 Allergy status to other drugs, medicaments and biological substances; Z79.2 Long term (current) use of antibiotics; Z79.84 Long term (current) use of oral hypoglycemic drugs; Z79.899 Other long term (current) drug therapy

== ENCOUNTER → 2024-02-07 | Outpatient (CLI) | payer OTHER ==
[2024-02-07 16:11] LABS: HCG, SERUM QUALITATIVE NEGATIVE (NEGATIVE)
[2024-02-10 11:17] LABS: HCV RNA log10 4.61 Log IU/mL (NOT DETECTED)
== END ==
LOC: M LAB 14:47
PROVIDERS: ATTEND Emergency Medicine
DX: B18.2 Chronic viral hepatitis C (principal)

== ENCOUNTER 2024-03-08 03:33 | Emergency (ER) | payer OTHER ==
[~2024-03-08] VITALS: Ht 154.9 cm; Wt 61.1 kg
[2024-03-08 08:28] LABS: METHADONE URINE NEGATIVE (NEGATIVE); OPIATES URINE NEGATIVE (NEGATIVE); PHENCYCLIDINE URINE NEGATIVE (NEGATIVE)
[2024-03-08 08:29] LABS: BARBITURATES URINE NEGATIVE (NEGATIVE); BENZODIAZEPINES URINE NEGATIVE (NEGATIVE); COCAINE METABOLITE URINE NEGATIVE (NEGATIVE)
[2024-03-08 08:30] LABS: AMPHETAMINES LEVEL URINE POSITIVE (NEGATIVE); CANNABINOIDS URINE POSITIVE (NEGATIVE)
[2024-03-08 09:44] LABS: BASO % 0.4 % (0.0-1.0); EOS # 0.1 10^3/uL (0.0-0.5); EOS % 1.8 % (0.0-3.0); HEMATOCRIT 28.6 % (36.0-47.0); HEMOGLOBIN 8.9 g/dl (12.0-15.5); LYMPH # 2.3 10^3/uL (1.5-5.0); LYMPH % 45.4 % (24.0-44.0); MEAN CORPUSCULAR HEMOGLOBIN 23.5 pg (27.0-33.0); MEAN CORPUSCULAR HGB CONC 31.1 g/dl (32.0-36.5); MEAN CORPUSCULAR VOLUME 75.5 fl (80.0-96.0); MONO # 0.4 10^3/uL (0.0-0.8); MONO % 7.5 % (2.0-8.0); NEUTROPHILS # 2.3 10^3/uL (1.5-8.5); NEUTROPHILS % 44.9 % (36.0-66.0); PLATELET COUNT, AUTOMATED 354 10^3/uL (150-450); RED BLOOD COUNT 3.79 10^6/uL (4.00-5.40); WHITE BLOOD COUNT 5.1 10^3/uL (4.0-10.0)
[2024-03-08 10:08] LABS: ETHYL ALCOHOL (ETHANOL) < 0.003 % (0.000-0.010); LIPASE 26 U/L (12-53)
[2024-03-08 10:09] LABS: HCG, SERUM QUALITATIVE NEGATIVE (NEGATIVE)
[2024-03-08 10:10] LABS: ALBUMIN 3.2 G/DL (3.2-5.2); ALKALINE PHOSPHATASE 113 U/L (46-116); ALT/SGPT 52 U/L (7.0-40); AST/SGOT 39 U/L (<34); BILIRUBIN,DIRECT < 0.1 MG/DL (<0.4); BILIRUBIN,TOTAL 0.2 MG/DL (0.3-1.2); BLOOD UREA NITROGEN 14 MG/DL (9-23); CALCIUM LEVEL 8.3 MG/DL (8.5-10.1); CARBON DIOXIDE LEVEL 27 MMOL/L (20-31); CHLORIDE LEVEL 106 MMOL/L (98-107); CREATININE FOR GFR 0.57 MG/DL (0.55-1.30); GLOMERULAR FILTRATION RATE > 60.0 (>60); GLUCOSE, FASTING 86 MG/DL (60-100); POTASSIUM SERUM 3.9 MMOL/L (3.5-5.1); SODIUM LEVEL 136 MMOL/L (136-145); TOTAL PROTEIN 6.8 G/DL (5.7-8.2)
[2024-03-08 10:55] VITALS: BP 139/86; TEMP 96.9; O2SAT 99
== END 2024-03-08 10:55 | disposition home or self-care (01) ==
LOC: M ED 03:33
DX: F19.10 Other psychoactive substance abuse, uncomplicated (principal); E11.9 Type 2 diabetes mellitus without complications; I10 Essential (primary) hypertension; J45.909 Unspecified asthma, uncomplicated; F12.10 Cannabis abuse, uncomplicated; F10.10 Alcohol abuse, uncomplicated; Z88.8 Allergy status to other drugs, medicaments and biological substances; Z79.2 Long term (current) use of antibiotics; Z79.84 Long term (current) use of oral hypoglycemic drugs; Z79.899 Other long term (current) drug therapy

== ENCOUNTER 2024-03-12 07:05 | Emergency (ER) | payer MEDICARE, OTHER ==
[~2024-03-12] VITALS: Ht 154.9 cm; Wt 59.9 kg
[2024-03-12 07:06] VITALS: BP 132/77; TEMP 97.4; O2SAT 100
== END 2024-03-12 07:17 | disposition left against medical advice (07) ==
LOC: M ED 07:05
DX: Z53.21 Procedure and treatment not carried out due to patient leaving prior to being seen by health care provider (principal)

== ENCOUNTER 2024-05-02 21:17 | Emergency (ER) | payer MEDICARE ==
[~2024-05-02] VITALS: Ht 154.9 cm; Wt 62.0 kg
[~2024-05-02 21:17] MED LIST changes: +LITH450T11 PO; -LITH45TASA PO; -SENN-111 PO; +SENN-165 PO
[2024-05-02 22:44] LABS: HEMATOCRIT 30.3 % (36.0-47.0); HEMOGLOBIN 9.1 g/dl (12.0-15.5); MEAN CORPUSCULAR HEMOGLOBIN 23.4 pg (27.0-33.0); MEAN CORPUSCULAR VOLUME 77.9 fl (80.0-96.0); PLATELET COUNT, AUTOMATED 480 10^3/uL (150-450); RED BLOOD COUNT 3.89 10^6/uL (4.00-5.40); WHITE BLOOD COUNT 6.2 10^3/uL (4.0-10.0)
[2024-05-02 23:06] LABS: ETHYL ALCOHOL (ETHANOL) < 0.003 % (0.000-0.010)
[2024-05-02 23:08] LABS: ALBUMIN 3.3 G/DL (3.2-5.2); ALKALINE PHOSPHATASE 141 U/L (46-116); ALT/SGPT 25 U/L (7.0-40); AST/SGOT 23 U/L (<34); BILIRUBIN,DIRECT < 0.1 MG/DL (<0.4); BILIRUBIN,TOTAL 0.2 MG/DL (0.3-1.2); BLOOD UREA NITROGEN 14 MG/DL (9-23); CALCIUM LEVEL 8.8 MG/DL (8.5-10.1); CARBON DIOXIDE LEVEL 28 MMOL/L (20-31); CHLORIDE LEVEL 107 MMOL/L (98-107); CREATININE FOR GFR 0.64 MG/DL (0.55-1.30); GLOMERULAR FILTRATION RATE > 60.0 (>60); GLUCOSE, FASTING 92 MG/DL (60-100); POTASSIUM SERUM 4.4 MMOL/L (3.5-5.1); SALICYLATE LEVEL < 3.0 MG/DL (<30); SODIUM LEVEL 139 MMOL/L (136-145); TOTAL PROTEIN 7.1 G/DL (5.7-8.2)
[2024-05-02 23:47] LABS: HCG, SERUM QUALITATIVE NEGATIVE (NEGATIVE)
[2024-05-03] MEDS: ACETAMINOPHEN 325 MG TAB PO ONE ×2 (00:37→11:10)
[2024-05-03 00:58] LABS: BARBITURATES URINE NEGATIVE (NEGATIVE); BENZODIAZEPINES URINE NEGATIVE (NEGATIVE); METHADONE URINE NEGATIVE (NEGATIVE)
[2024-05-03 00:59] LABS: OPIATES URINE NEGATIVE (NEGATIVE); PHENCYCLIDINE URINE NEGATIVE (NEGATIVE)
[2024-05-03 01:03] LABS: AMPHETAMINES LEVEL URINE POSITIVE (NEGATIVE); CANNABINOIDS URINE POSITIVE (NEGATIVE); COCAINE METABOLITE URINE POSITIVE (NEGATIVE)
[2024-05-03] MEDS ORDERED: ACET500P3 PO (01:21)
[2024-05-03] MEDS ORDERED: [UNRECOGNIZED DRUG - CODE] PO (01:21)
[2024-05-03] MEDS ORDERED: SOFO1TAB PO (01:21)
[2024-05-03] MEDS: BENZONATATE 100MG CAPSULE PO ONE (01:24)
[2024-05-03] MEDS ORDERED: HOME MED LIST COMPLETE! XX SCH (01:25)
[2024-05-03 13:50] VITALS: BP 124/84; TEMP 97.6; O2SAT 100
== END 2024-05-03 14:05 | disposition home or self-care (01) ==
LOC: M ED 21:17
DX: R44.2 Other hallucinations (principal); E11.9 Type 2 diabetes mellitus without complications; I10 Essential (primary) hypertension; J45.909 Unspecified asthma, uncomplicated; D50.9 Iron deficiency anemia, unspecified; B19.20 Unspecified viral hepatitis C without hepatic coma; F17.210 Nicotine dependence, cigarettes, uncomplicated; F15.10 Other stimulant abuse, uncomplicated; Z88.8 Allergy status to other drugs, medicaments and biological substances; Z79.1 Long term (current) use of non-steroidal anti-inflammatories (NSAID); Z79.899 Other long term (current) drug therapy

== ENCOUNTER → 2024-08-18 | Outpatient (REF) | payer MEDICARE ==
[~2024-08-18] MED LIST changes: +ACET500P3 PO; +METF-1156 PO; -METF-817 PO; -NICO-256 PO; +NICO-392 PO; +SOFO1TAB PO; +THIO10CA PO; -THIO10CA2 PO; +[UNRECOGNIZED DRUG - CODE] PO
[2024-08-18 13:11] LABS: BASO % 0.4 % (0.0-1.0); EOS % 0.4 % (0.0-3.0); HEMATOCRIT 30.8 % (36.0-47.0); HEMOGLOBIN 9.6 g/dl (12.0-15.5); LYMPH # 2.1 10^3/uL (1.5-5.0); LYMPH % 29.3 % (24.0-44.0); MEAN CORPUSCULAR HEMOGLOBIN 24.9 pg (27.0-33.0); MEAN CORPUSCULAR HGB CONC 31.2 g/dl (32.0-36.5); MONO # 0.5 10^3/uL (0.0-0.8); MONO % 6.7 % (2.0-8.0); NEUTROPHILS # 4.4 10^3/uL (1.5-8.5); NEUTROPHILS % 63.1 % (36.0-66.0); PLATELET COUNT, AUTOMATED 405 10^3/uL (150-450); RED BLOOD COUNT 3.85 10^6/uL (4.00-5.40)
[2024-08-18 13:28] LABS: HEMOGLOBIN A1c 5.5 % (4.0-6.0)
[2024-08-18 13:33] LABS: ALBUMIN 3.8 G/DL (3.2-5.2); ALKALINE PHOSPHATASE 95 U/L (35-104); ALT/SGPT 13 U/L (7.0-40); AST/SGOT 17 U/L (<34); BILIRUBIN,TOTAL 0.6 MG/DL (0.3-1.2); BLOOD UREA NITROGEN 13 MG/DL (9-23); CALCIUM LEVEL 9.7 MG/DL (8.5-10.1); CARBON DIOXIDE LEVEL 28 MMOL/L (20-31); CHLORIDE LEVEL 104 MMOL/L (98-107); CHOLESTEROL LEVEL 261 MG/DL (<200); CHOLESTEROL RISK RATIO 2.96 (<5); CREATININE FOR GFR 0.59 MG/DL (0.55-1.30); GLOMERULAR FILTRATION RATE > 60.0 (>60); GLUCOSE, FASTING 91 MG/DL (60-100); HDL CHOLESTEROL 88.1 MG/DL (>40); LDL CHOLESTEROL 160.5 MG/DL (<100); NON-HDL-C 172.9 MG/DL; POTASSIUM SERUM 4.4 MMOL/L (3.5-5.1); SODIUM LEVEL 139 MMOL/L (136-145); TOTAL PROTEIN 8.2 G/DL (5.7-8.2); TRIGLYCERIDES LEVEL 62 MG/DL (<150)
[2024-08-18 13:36] LABS: THYROID STIMULATING HORMONE 1.514 uIU/ML (0.55-4.78)
[2024-08-18 13:55] LABS: HEPATITIS B SURFACE ANTIGEN NEGATIVE (NEGATIVE)
[2024-08-18 14:08] LABS: HIV 1&2 SCREEN NEGATIVE (NEGATIVE)
[2024-08-19 10:37] LABS: HCV LOG10 <1.18 NOT DETECTED Log IU/mL (NOT DETECTED)
[2024-08-19 12:43] LABS: HEPATITIS B SURF AB QUANT > 1000 mIU/mL (> OR = 10)
[2024-08-19 13:17] LABS: HEPATITIS A IgG TOTAL REACTIVE (NON-REACTIVE); HEPATITIS B CORE ANTIBODY IGG NON-REACTIVE (NON-REACTIVE)
== END ==
LOC: M LAB REF 12:30
PROVIDERS: ATTEND Student in an Organized Health Care Education/Training Program
DX: Z00.01 Encounter for general adult medical examination with abnormal findings (principal); B18.2 Chronic viral hepatitis C; E78.00 Pure hypercholesterolemia, unspecified

== ENCOUNTER 2024-08-26 23:36 | Emergency (ER) | payer MEDICARE ==
[~2024-08-26] VITALS: Ht 154.9 cm; Wt 74.8 kg
[2024-08-26 23:43] VITALS: TEMP 99.3
[2024-08-27 06:36] VITALS: O2SAT 98
[2024-08-27 07:02] LABS: APPEARANCE, URINE HAZY (CLEAR); BACTERIA, URINE AUTO NEGATIVE (NEGATIVE); BILIRUBIN, URINE AUTO NEGATIVE (NEGATIVE); BLOOD, URINE BLOOD NEGATIVE (NEGATIVE); COLOR, URINE YELLOW (YELLOW); GLUCOSE, URINE (UA) AUTO NEGATIVE (NEGATIVE); KETONE, URINE AUTO TRACE mg/dL (NEGATIVE); LEUKOCYTE ESTERASE, URINE AUTO NEGATIVE (NEGATIVE); MUCUS, URINE SMALL (NEGATIVE); NITRITE, URINE AUTO NEGATIVE (NEGATIVE); PROTEIN, URINE AUTO 1+ mg/dL (NEGATIVE); RBC, URINE AUTO 1 /HPF (0-3); SPECIFIC GRAVITY URINE AUTO 1.033 (1.002-1.035); SQUAMOUS EPITHELIAL CELL UR AU 3 /HPF (0-6); WBC, URINE AUTO 1 /HPF (0-3)
[2024-08-27 07:07] LABS: BASO % 0.5 % (0.0-1.0); EOS # 0.1 10^3/uL (0.0-0.5); EOS % 1.8 % (0.0-3.0); HEMATOCRIT 29.9 % (36.0-47.0); HEMOGLOBIN 9.5 g/dl (12.0-15.5); LYMPH % 46.1 % (24.0-44.0); MEAN CORPUSCULAR HEMOGLOBIN 25.3 pg (27.0-33.0); MEAN CORPUSCULAR HGB CONC 31.8 g/dl (32.0-36.5); MEAN CORPUSCULAR VOLUME 79.7 fl (80.0-96.0); MONO # 0.6 10^3/uL (0.0-0.8); MONO % 13.2 % (2.0-8.0); NEUTROPHILS # 1.7 10^3/uL (1.5-8.5); NEUTROPHILS % 38.2 % (36.0-66.0); PLATELET COUNT, AUTOMATED 321 10^3/uL (150-450); RED BLOOD COUNT 3.75 10^6/uL (4.00-5.40); WHITE BLOOD COUNT 4.4 10^3/uL (4.0-10.0)
[2024-08-27 07:16] LABS: BARBITURATES URINE NEGATIVE (NEGATIVE); BENZODIAZEPINES URINE NEGATIVE (NEGATIVE); COCAINE METABOLITE URINE NEGATIVE (NEGATIVE); METHADONE URINE NEGATIVE (NEGATIVE)
[2024-08-27 07:17] LABS: OPIATES URINE NEGATIVE (NEGATIVE); PHENCYCLIDINE URINE NEGATIVE (NEGATIVE)
[2024-08-27 07:20] LABS: AMPHETAMINES LEVEL URINE POSITIVE (NEGATIVE); CANNABINOIDS URINE POSITIVE (NEGATIVE)
[2024-08-27 07:41] LABS: HCG, SERUM QUALITATIVE NEGATIVE (NEGATIVE)
[2024-08-27 07:50] LABS: ALBUMIN 3.2 G/DL (3.2-5.2); ALKALINE PHOSPHATASE 97 U/L (35-104); ALT/SGPT 14 U/L (7.0-40); AST/SGOT 15 U/L (<34); BILIRUBIN,DIRECT < 0.1 MG/DL (<0.4); BILIRUBIN,TOTAL 0.2 MG/DL (0.3-1.2); BLOOD UREA NITROGEN 11 MG/DL (9-23); CALCIUM LEVEL 8.9 MG/DL (8.5-10.1); CARBON DIOXIDE LEVEL 26 MMOL/L (20-31); CHLORIDE LEVEL 105 MMOL/L (98-107); CREATININE FOR GFR 0.56 MG/DL (0.55-1.30); GLOMERULAR FILTRATION RATE > 60.0 (>60); GLUCOSE, FASTING 100 MG/DL (60-100); POTASSIUM SERUM 3.9 MMOL/L (3.5-5.1); SODIUM LEVEL 143 MMOL/L (136-145); THYROID STIMULATING HORMONE 0.259 uIU/ML (0.55-4.78); TOTAL PROTEIN 6.9 G/DL (5.7-8.2)
[2024-08-27 08:00] VITALS: BP 125/66
[2024-08-27] MEDS ORDERED: METF500T13 (08:00)
[2024-08-27] MEDS ORDERED: CLON0.5T2 (08:00)
[2024-08-27] MEDS ORDERED: LISI5TAB11 (08:00)
== END 2024-08-27 09:25 | disposition home or self-care (01) ==
LOC: M ED 23:36
DX: D64.9 Anemia, unspecified (principal); R25.1 Tremor, unspecified; F19.10 Other psychoactive substance abuse, uncomplicated; F20.9 Schizophrenia, unspecified; Z88.8 Allergy status to other drugs, medicaments and biological substances; Z79.84 Long term (current) use of oral hypoglycemic drugs; Z79.899 Other long term (current) drug therapy

== ENCOUNTER 2024-10-24 20:24 | Emergency (ER) | payer MEDICARE, OTHER ==
[~2024-10-24] VITALS: Ht 154.9 cm; Wt 62.7 kg
[~2024-10-24 20:24] MED LIST changes: +CLON0.5T2; +LISI5TAB11; +METF500T13
[2024-10-24 20:30] VITALS: TEMP 98.2
[2024-10-25 00:48] VITALS: BP 122/79; O2SAT 100
== END 2024-10-25 00:49 | disposition home or self-care (01) ==
LOC: M ED 20:24
DX: F19.10 Other psychoactive substance abuse, uncomplicated (principal); E11.9 Type 2 diabetes mellitus without complications; I10 Essential (primary) hypertension; J45.909 Unspecified asthma, uncomplicated; E78.5 Hyperlipidemia, unspecified; B19.20 Unspecified viral hepatitis C without hepatic coma; Z88.8 Allergy status to other drugs, medicaments and biological substances; Z79.84 Long term (current) use of oral hypoglycemic drugs; Z79.899 Other long term (current) drug therapy

== ENCOUNTER 2024-12-13 08:15 | Emergency (ER) | payer MEDICARE, MEDICAID ==
[~2024-12-13] VITALS: Ht 154.9 cm; Wt 56.2 kg
[~2024-12-13 08:15] MED LIST changes: -LITH450T11 PO; +LITH450T17 PO
[2024-12-13] MEDS: LORazepam 2 MG TAB PO ONE (09:26)
[2024-12-13 09:39] LABS: HEMATOCRIT 32.5 % (36.0-47.0); HEMOGLOBIN 10.1 g/dl (12.0-15.5); MEAN CORPUSCULAR HEMOGLOBIN 24.5 pg (27.0-33.0); MEAN CORPUSCULAR HGB CONC 31.1 g/dl (32.0-36.5); MEAN CORPUSCULAR VOLUME 78.9 fl (80.0-96.0); PLATELET COUNT, AUTOMATED 391 10^3/uL (150-450); RED BLOOD COUNT 4.12 10^6/uL (4.00-5.40); WHITE BLOOD COUNT 4.6 10^3/uL (4.0-10.0)
[2024-12-13 10:00] LABS: ETHYL ALCOHOL (ETHANOL) < 0.003 % (0.000-0.010)
[2024-12-13 10:01] LABS: SALICYLATE LEVEL < 3.0 MG/DL (<30)
[2024-12-13 10:02] LABS: ALKALINE PHOSPHATASE 97 U/L (35-104); ALT/SGPT 22 U/L (7.0-40); AST/SGOT 26 U/L (<34); BILIRUBIN,DIRECT < 0.1 MG/DL (<0.4); BILIRUBIN,TOTAL 0.4 MG/DL (0.3-1.2); BLOOD UREA NITROGEN 18 MG/DL (9-23); CALCIUM LEVEL 9.4 MG/DL (8.5-10.1); CARBON DIOXIDE LEVEL 27 MMOL/L (20-31); CHLORIDE LEVEL 104 MMOL/L (98-107); CREATININE FOR GFR 0.81 MG/DL (0.55-1.30); GLOMERULAR FILTRATION RATE > 90.0 (>60); GLUCOSE, FASTING 114 MG/DL (60-100); POTASSIUM SERUM 3.8 MMOL/L (3.5-5.1); SODIUM LEVEL 139 MMOL/L (136-145); TOTAL PROTEIN 7.5 G/DL (5.7-8.2)
[2024-12-13 10:04] LABS: THYROID STIMULATING HORMONE 0.777 uIU/ML (0.55-4.78)
[2024-12-13 10:05] LABS: HCG, SERUM QUALITATIVE NEGATIVE (NEGATIVE)
[2024-12-13 12:11] LABS: BARBITURATES URINE NEGATIVE (NEGATIVE); BENZODIAZEPINES URINE NEGATIVE (NEGATIVE); COCAINE METABOLITE URINE NEGATIVE (NEGATIVE); METHADONE URINE NEGATIVE (NEGATIVE); OPIATES URINE NEGATIVE (NEGATIVE); PHENCYCLIDINE URINE NEGATIVE (NEGATIVE)
[2024-12-13 12:12] LABS: AMPHETAMINES LEVEL URINE POSITIVE (NEGATIVE); CANNABINOIDS URINE POSITIVE (NEGATIVE)
[2024-12-13 16:36] VITALS: BP 134/74; TEMP 96.8; O2SAT 98
== END 2024-12-13 17:45 | disposition home or self-care (01) ==
LOC: M ED 08:15
DX: F15.159 Other stimulant abuse with stimulant-induced psychotic disorder, unspecified (principal); E11.9 Type 2 diabetes mellitus without complications; I10 Essential (primary) hypertension; J45.909 Unspecified asthma, uncomplicated; B18.2 Chronic viral hepatitis C; F17.210 Nicotine dependence, cigarettes, uncomplicated; Z88.8 Allergy status to other drugs, medicaments and biological substances; Z79.84 Long term (current) use of oral hypoglycemic drugs; Z79.899 Other long term (current) drug therapy

== ENCOUNTER 2025-05-12 01:45 | Inpatient (IN) | payer MEDICARE, MEDICAID ==
[~2025-05-12] VITALS: Ht 154.9 cm; Wt 67.7 kg
[~2025-05-12 01:45] MED LIST changes: -ABIL400I IM; +ALBU8.5H INH; +ARIP400S IM; +FLUO-365 PO; +FLUO-96 PO; +MUCI600T31 PO; +OLAN1TAB16 PO
[2025-05-12 03:59] LABS: PLATELET COUNT, AUTOMATED 287 10^3/uL (150-450)
[2025-05-12 04:21] LABS: BARBITURATES URINE NEGATIVE (NEGATIVE); BENZODIAZEPINES URINE NEGATIVE (NEGATIVE); COCAINE METABOLITE URINE NEGATIVE (NEGATIVE); METHADONE URINE NEGATIVE (NEGATIVE); OPIATES URINE NEGATIVE (NEGATIVE); PHENCYCLIDINE URINE NEGATIVE (NEGATIVE)
[2025-05-12 04:24] LABS: AMPHETAMINES LEVEL URINE POSITIVE (NEGATIVE); CANNABINOIDS URINE POSITIVE (NEGATIVE); ETHYL ALCOHOL (ETHANOL) < 0.003 % (0.000-0.010)
[2025-05-12 04:26] LABS: ALT/SGPT 17 U/L (7.0-40); AST/SGOT 24 U/L (<34); CALCIUM LEVEL 9.2 MG/DL (8.5-10.1); CARBON DIOXIDE LEVEL 29 MMOL/L (20-31); CHLORIDE LEVEL 104 MMOL/L (98-107); CREATININE FOR GFR 0.79 MG/DL (0.55-1.30); GLOMERULAR FILTRATION RATE > 90.0 (>60); HCG, SERUM QUALITATIVE NEGATIVE (NEGATIVE); POTASSIUM SERUM 3.9 MMOL/L (3.5-5.1); SALICYLATE LEVEL < 3.0 MG/DL (<30); SODIUM LEVEL 142 MMOL/L (136-145)
[2025-05-12] MEDS ORDERED: IBUPROFEN 400 MG TAB PO PRN (05:35)
[2025-05-12] MEDS ORDERED: MOM 30 ML SUSPENSION UDC PO PRN (05:35)
[2025-05-12] MEDS ORDERED: MAALOX 30 ML SUSP *UDC PO PRN (05:35)
[2025-05-12 08:22] VITALS: BP 128/85; TEMP 96.3; O2SAT 97
[2025-05-12] MEDS ORDERED: ARIP1TAB6 PO (08:40)
[2025-05-12] MEDS ORDERED: TRAZ1TAB10 PO (08:45)
[2025-05-12] MEDS ORDERED: HOME MED LIST COMPLETE! XX SCH (08:50)
[2025-05-12] MEDS ORDERED: ALBUTEROL 90 MCG/ACT 8 GM HFA INHALER INH PRN (10:40)
[2025-05-12] MEDS: FLUoxetine 20 MG CAP PO SCH (11:04)
[2025-05-12] MEDS: BENZTROPINE 1 MG TAB PO SCH (12:06)
[2025-05-12] MEDS: NICOTINE 21 MG/24 HR 1 EA TRANSDERMAL TD SCH (14:13)
[2025-05-12] MEDS: CEPACOL LOZENGE PO PRN (14:13)
[2025-05-12] MEDS: BENZONATATE 100 MG CAPSULE PO SCH (15:05)
[2025-05-12 15:49] VITALS: BP 128/83; TEMP 98.2; O2SAT 100
[2025-05-13] MEDS: ACETAMINOPHEN 325 MG TAB PO PRN (11:32)
[2025-05-13 16:11] VITALS: BP 148/79; TEMP 97.7; O2SAT 98
[2025-05-13] MEDS: traZODone 50 MG TAB PO PRN (20:36)
[2025-05-14 06:32] VITALS: BP 148/86; TEMP 98.2; O2SAT 97
[2025-05-14] MEDS: ARIPiprazole MONOHYDRATE 400 MG INJ (FREE PSY INPT ONLY) IM ONE (09:04)
== END 2025-05-14 11:40 | disposition home or self-care (01) | DRG 885 ==
LOC: M ED 01:45 → M ED INP 05:31 → M PSY 08:16
PROVIDERS: ADMIT Psychiatry & Neurology Neurology; ATTEND Psychiatry & Neurology Psychiatry
DX: F25.0 Schizoaffective disorder, bipolar type (principal); Z59.00 Homelessness unspecified; F15.10 Other stimulant abuse, uncomplicated; F41.9 Anxiety disorder, unspecified; J06.9 Acute upper respiratory infection, unspecified; B97.89 Other viral agents as the cause of diseases classified elsewhere; F12.10 Cannabis abuse, uncomplicated; F11.10 Opioid abuse, uncomplicated; Z91.148 Patient's other noncompliance with medication regimen for other reason; Z79.899 Other long term (current) drug therapy; Z88.8 Allergy status to other drugs, medicaments and biological substances

== ENCOUNTER 2025-05-31 19:05 | Emergency (ER) | payer MEDICARE, MEDICAID ==
[2025-05-31 19:55] LABS: BASO # 0.0 10^3/uL (0.0-0.2); BASO % 0.4 % (0.0-1.0); EOS # 0.1 10^3/uL (0.0-0.5); EOS % 1.9 % (0.0-3.0); LYMPH # 3.2 10^3/uL (1.5-5.0); LYMPH % 58.8 % (24.0-44.0); MONO # 0.3 10^3/uL (0.0-0.8); MONO % 6.3 % (2.0-8.0); NEUTROPHILS # 1.8 10^3/uL (1.5-8.5); NEUTROPHILS % 32.6 % (36.0-66.0); PLATELET COUNT, AUTOMATED 359 10^3/uL (150-450)
[2025-05-31 19:56] LABS: KETONE, URINE AUTO RFX NEGATIVE (NEGATIVE); LEUKOCYTE ESTERASE UR AUTO RFX NEGATIVE (NEGATIVE); NITRITE, URINE AUTO RFX NEGATIVE (NEGATIVE); RBC, URINE AUTO RFX 0 /HPF (0-3); SQUAM EPITHELIAL CELL UR AURFX 0 /HPF (0-6); WBC, URINE AUTO RFX 0 /HPF (0-3)
[2025-05-31 20:21] LABS: ALT/SGPT 24 U/L (7.0-40); AST/SGOT 32 U/L (<34); CALCIUM LEVEL 9.2 MG/DL (8.5-10.1); CARBON DIOXIDE LEVEL 28 MMOL/L (20-31); CHLORIDE LEVEL 104 MMOL/L (98-107); CREATININE FOR GFR 0.77 MG/DL (0.55-1.30); GLOMERULAR FILTRATION RATE > 90.0 (>60); POTASSIUM SERUM 4.4 MMOL/L (3.5-5.1); SODIUM LEVEL 141 MMOL/L (136-145)
[2025-05-31 20:26] LABS: HCG, SERUM QUALITATIVE NEGATIVE (NEGATIVE)
[2025-05-31 20:56] VITALS: BP 124/74; TEMP 97.7; O2SAT 100
== END 2025-05-31 20:55 | disposition home or self-care (01) ==
LOC: M ED 19:05 → EDBD 19:05 → M ED 20:55
DX: R10.9 Unspecified abdominal pain (principal); E11.9 Type 2 diabetes mellitus without complications; I10 Essential (primary) hypertension; E78.5 Hyperlipidemia, unspecified; B18.2 Chronic viral hepatitis C; F20.9 Schizophrenia, unspecified; Z88.8 Allergy status to other drugs, medicaments and biological substances; Z79.51 Long term (current) use of inhaled steroids; Z79.899 Other long term (current) drug therapy

== ENCOUNTER 2025-07-16 04:59 | Emergency (ER) | payer MEDICARE, MEDICAID ==
[~2025-07-16] VITALS: Ht 154.9 cm; Wt 68.0 kg
[2025-07-16 07:10] LABS: BASO # 0.0 10^3/uL (0.0-0.2); BASO % 0.7 % (0.0-1.0); EOS # 0.1 10^3/uL (0.0-0.5); EOS % 2.1 % (0.0-3.0); LYMPH # 2.2 10^3/uL (1.5-5.0); LYMPH % 49.4 % (24.0-44.0); MONO # 0.3 10^3/uL (0.0-0.8); MONO % 6.2 % (2.0-8.0); NEUTROPHILS # 1.8 10^3/uL (1.5-8.5); NEUTROPHILS % 41.4 % (36.0-66.0); PLATELET COUNT, AUTOMATED 313 10^3/uL (150-450)
[2025-07-16 07:15] LABS: ALT/SGPT 15 U/L (7.0-40); AST/SGOT 20 U/L (<34); CALCIUM LEVEL 9.0 MG/DL (8.5-10.1); CARBON DIOXIDE LEVEL 27 MMOL/L (20-31); CHLORIDE LEVEL 103 MMOL/L (98-107); CREATININE FOR GFR 0.69 MG/DL (0.55-1.30); GLOMERULAR FILTRATION RATE > 90.0 (>60); POTASSIUM SERUM 4.4 MMOL/L (3.5-5.1); SODIUM LEVEL 139 MMOL/L (136-145)
[2025-07-16] MEDS: IPRATROPIUM 0.5 MG/ALBUTEROL 2.5 MG INH SOL UD 3 ML NEB ONE ×2 (08:03→09:15)
[2025-07-16 08:12] LABS: CK-MB VALUE MASS 1.0 NG/ML (<3.6)
[2025-07-16 08:13] LABS: CPK CREATINE PHOSPHOKINASE 170 U/L (34-145); MB/CK RELATIVE INDEX 0.58 (< OR =4)
[2025-07-16] MEDS: ACETAMINOPHEN 500 MG TAB PO ONE (09:15)
[2025-07-16 11:28] VITALS: BP 133/75
[2025-07-16] MEDS ORDERED: VENTAER INH (11:35)
[2025-07-16 11:45] VITALS: TEMP 98; O2SAT 100
== END 2025-07-16 12:15 | disposition home or self-care (01) ==
LOC: M ED 04:59 → EDBD 04:59 → M ED 12:15
DX: J45.901 Unspecified asthma with (acute) exacerbation (principal); R00.1 Bradycardia, unspecified; E11.9 Type 2 diabetes mellitus without complications; I10 Essential (primary) hypertension; E78.5 Hyperlipidemia, unspecified; F17.210 Nicotine dependence, cigarettes, uncomplicated; F10.10 Alcohol abuse, uncomplicated; Z88.8 Allergy status to other drugs, medicaments and biological substances; Z79.51 Long term (current) use of inhaled steroids; Z79.899 Other long term (current) drug therapy